=== PATIENT | male | born 1945 | race Caucasian/White ===

== ENCOUNTER 2020-06-29 09:01 | Outpatient (REF) | payer MEDICARE, SELFPAY ==
[2020-06-29 12:11] LABS: Alanine Aminotransferase 19 U/L (0-40); Albumin Level 4.4 g/dL (3.5-5.0); Alkaline Phosphatase 50 U/L (39-117); Anion Gap 14 (12-20); Aspartate Amino Transferase 19 U/L (5-37); Bilirubin Total 0.9 mg/dL (0.0-1.0); Blood Urea Nitrogen 15 mg/dL (9-16); Calcium 8.6 mg/dL (8.4-10.2); Carbon Dioxide 29 mmol/L (22-29); Chloride 98 mmol/L (96-108); Cholesterol 119 mg/dL; Estimated Glomerular Filt Rate > 60; Glucose Fasting 202 mg/dL (60-99); HDL Cholesterol 40 mg/dL; LDL Cholesterol Calculated 52 mg/dl; Potassium 4.2 mmol/l (3.3-5.1); Sodium 137 mmol/L (135-145); Total Protein 7.4 g/dL (6.5-8.0); Triglycerides 135 mg/dL
[2020-06-29 12:14] LABS: TSH reflex Free T4 2.28 mIU/mL (0.32-4.0)
[2020-06-29 12:35] LABS: Microalbum/Creatinine Ratio Ur 15.8 ug/mg cr
== END 2020-06-29 09:02 | disposition home or self-care (01) ==
LOC: HO.HMGCLDS 09:01
PROVIDERS: PCP Nurse Practitioner Family; Visit Provider Nurse Practitioner Family
DX: I10 Essential (primary) hypertension (principal)
CPT/HCPCS: 80053; 80061; 82043; 84443

== ENCOUNTER 2020-09-17 10:45 | Outpatient (REF) | payer MEDICARE, SELFPAY ==
[2020-09-17 14:15] LABS: Estimated Average Glucose 174 mg/dL; Hemoglobin A1c % 7.7 %
[2020-09-17 14:41] LABS: Alanine Aminotransferase 22 U/L (0-40); Albumin Level 4.5 g/dL (3.5-5.0); Alkaline Phosphatase 48 U/L (39-117); Anion Gap 17 (12-20); Aspartate Amino Transferase 19 U/L (5-37); Bilirubin Total 1.4 mg/dL (0.0-1.0); Blood Urea Nitrogen 23 mg/dL (9-16); Calcium 9.1 mg/dL (8.4-10.2); Carbon Dioxide 26 mmol/L (22-29); Chloride 97 mmol/L (96-108); Estimated Glomerular Filt Rate 58; Glucose Random 200 mg/dL (60-115); Potassium 4.6 mmol/l (3.3-5.1); Sodium 135 mmol/L (135-145); Total Protein 7.4 g/dL (6.5-8.0)
== END 2020-09-17 10:46 | disposition home or self-care (01) ==
LOC: HO.HMGCLDS 10:45
PROVIDERS: PCP Nurse Practitioner Family; Visit Provider Nurse Practitioner Family
DX: E11.9 Type 2 diabetes mellitus without complications (principal)
CPT/HCPCS: 36415; 80053; 83036

== ENCOUNTER 2020-09-20 10:07 | Outpatient (REF) | payer MEDICARE, SELFPAY ==
[2020-09-20 11:27] LABS: Bilirubin Direct 0.5 mg/dL (0.0-0.5); Bilirubin Total 1.1 mg/dL (0.0-1.0)
[2020-09-20 11:33] LABS: Estimated Average Glucose 174 mg/dL; Hemoglobin A1c % 7.7 %
== END 2020-09-20 10:08 | disposition home or self-care (01) ==
LOC: HO.HMGCLDS 10:07
PROVIDERS: PCP Nurse Practitioner Family; Visit Provider Nurse Practitioner Family
DX: E11.9 Type 2 diabetes mellitus without complications (principal); R17 Unspecified jaundice; I10 Essential (primary) hypertension
CPT/HCPCS: 36415; 82247; 82248; 83036

== ENCOUNTER 2020-10-25 09:53 | Outpatient (REF) | payer MEDICARE, SELFPAY ==
--- NOTE | ~2020-10-25 | US_ITS ---
EXAMINATION: US EXTRACRANIAL CAROTID DUPLEX, BILATERAL CLINICAL INFORMATION: Right cervical bruit. COMPARISON: None TECHNIQUE: Real-time ultrasound and Doppler techniques (integrating B-mode 2-D vascular images, Doppler spectral analysis and color-flow Doppler imaging) were utilized to interrogate the extracranial carotid arteries, the vertebral arteries and proximal subclavian arteries bilaterally. The degree of stenosis is determined by criteria similar to NASCET. FINDINGS: Right Side: 1. There is calcified atherosclerotic plaque seen in the bifurcation/proximal ICA region. 2. The common carotid artery PSV proximally is 111 cm/s and distally 67 cm/s. 3. The proximal internal carotid artery velocities are 153 cm/s systolic and 28 cm/s diastolic. 4. The proximal external carotid artery PSV is 104 cm/s. 5. The vertebral artery shows antegrade flow. 6. The subclavian artery waveforms are normal. Left Side: 1. There is calcified atherosclerotic plaque seen in the bifurcation/proximal ICA region. 2. The common carotid artery PSV proximally is 73 cm/s and distally 68 cm/s. 3. The proximal internal carotid artery velocities are 127 cm/s systolic and 32 cm/s diastolic. 4. The proximal external carotid artery PSV is 140 cm/s. 5. The vertebral artery shows antegrade flow. 6. The subclavian artery waveforms are normal. An arrhythmia is noted. US/US carotid duplex BI IMPRESSION: 1. RIGHT: Moderate, hemodynamically significant stenosis of the proximal right internal carotid artery corresponding to a 50-79% stenosis by velocity criteria. 2. LEFT: Moderate, hemodynamically significant stenosis of the proximal left internal carotid artery corresponding to a 50-79% stenosis by velocity criteria.
== END 2020-10-25 09:54 | disposition home or self-care (01) ==
LOC: HO.HMGCX 09:53
PROVIDERS: PCP Nurse Practitioner Family; Visit Provider Nurse Practitioner Family
DX: R09.89 Other specified symptoms and signs involving the circulatory and respiratory systems (principal)
CPT/HCPCS: 93880

== ENCOUNTER 2020-12-22 09:36 | Outpatient (REF) | payer MEDICARE, SELFPAY ==
[2020-12-22 12:31] LABS: Alanine Aminotransferase 27 U/L (0-40); Albumin Level 4.5 g/dL (3.5-5.0); Alkaline Phosphatase 47 U/L (39-117); Anion Gap 15 (12-20); Aspartate Amino Transferase 20 U/L (5-37); Bilirubin Total 1.1 mg/dL (0.0-1.0); Blood Urea Nitrogen 16 mg/dL (9-16); Calcium 9.3 mg/dL (8.4-10.2); Carbon Dioxide 26 mmol/L (22-29); Chloride 101 mmol/L (96-108); Estimated Glomerular Filt Rate > 60; Glucose Random 223 mg/dL (60-115); Potassium 4.5 mmol/L (3.3-5.1); Sodium 137 mmol/L (135-145); Total Protein 7.3 g/dL (6.5-8.0)
[2020-12-22 12:34] LABS: Estimated Average Glucose 186 mg/dL; Hemoglobin A1c % 8.1 %
== END 2020-12-22 09:37 | disposition home or self-care (01) ==
LOC: HO.HMGCLDS 09:36
PROVIDERS: PCP Nurse Practitioner Family; Visit Provider Nurse Practitioner Family
DX: E11.9 Type 2 diabetes mellitus without complications (principal)
CPT/HCPCS: 36415; 80053; 83036

== ENCOUNTER 2021-03-31 09:09 | Outpatient (REF) | payer MEDICARE, SELFPAY ==
[2021-03-31 12:14] LABS: Erythrocyte Sedimentation Rate 27 MM/HR (0-15)
[2021-03-31 13:10] LABS: Uric Acid 5.5 mg/dL (3.4-7.0)
== END 2021-03-31 09:10 | disposition home or self-care (01) ==
LOC: HO.HMGCLDS 09:09
PROVIDERS: PCP Nurse Practitioner Family; Visit Provider Podiatrist
DX: M10.071 Idiopathic gout, right ankle and foot (principal)
CPT/HCPCS: 36415; 84550; 85652; 86140

== ENCOUNTER 2021-04-07 09:12 | Outpatient (REF) | payer MEDICARE, SELFPAY ==
[2021-04-07 11:49] LABS: Estimated Average Glucose 157 mg/dL; Hemoglobin A1c % 7.1 %
[2021-04-07 11:59] LABS: Creatinine Urine 126.36 mg/dL; Microalbumin Urine < 5.0 mg/L
[2021-04-07 12:05] LABS: Alanine Aminotransferase 26 U/L (0-40); Alkaline Phosphatase 49 U/L (39-117); Anion Gap 13 (12-20); Aspartate Amino Transferase 18 U/L (5-37); Bilirubin Total 1.2 mg/dL (0.0-1.0); Blood Urea Nitrogen 30 mg/dL (9-16); Calcium 8.9 mg/dL (8.4-10.2); Carbon Dioxide 28 mmol/L (22-29); Chloride 99 mmol/L (96-108); Cholesterol 110 mg/dL; Estimated Glomerular Filt Rate 59; Glucose Fasting 142 mg/dL (60-99); HDL Cholesterol 33 mg/dL; LDL Cholesterol Calculated 46 mg/dl; Potassium 3.9 mmol/L (3.3-5.1); Sodium 136 mmol/L (135-145); Total Protein 6.7 g/dL (6.5-8.0); Triglycerides 155 mg/dL
== END 2021-04-07 09:13 | disposition home or self-care (01) ==
LOC: HO.HMGCLDS 09:12
PROVIDERS: PCP Nurse Practitioner Family; Visit Provider Nurse Practitioner Family
DX: E11.9 Type 2 diabetes mellitus without complications (principal)
CPT/HCPCS: 36415; 80053; 80061; 82043; 83036

== ENCOUNTER 2022-03-17 09:11 | Outpatient (REF) | payer MEDICARE, SELFPAY ==
[2022-03-17 11:54] LABS: Estimated Average Glucose 111 mg/dL; Hemoglobin A1c % 5.5 %
[2022-03-17 12:11] LABS: Appearance Urine CLEAR; Color Urine YELLOW; Glucose Urine UA NEG (NEG); Leukocyte Esterase Urine NEG (NEG); Nitrite Urine NEG (NEG); PH 6.5 (5.0-8.0); Urine Blood NEG (NEG); Urine Ketones NEG (NEG); Urine Protein NEG (NEG-TRACE)
[2022-03-17 12:25] LABS: TSH reflex Free T4 1.53 uIU/mL (0.32-4.0)
[2022-03-17 12:29] LABS: Alanine Aminotransferase 20 U/L (0-40); Albumin Level 4.2 g/dL (3.5-5.0); Alkaline Phosphatase 61 U/L (39-117); Anion Gap 12 (12-20); Aspartate Amino Transferase 20 U/L (5-37); Blood Urea Nitrogen 14 mg/dL (9-16); Calcium 8.9 mg/dL (8.4-10.2); Carbon Dioxide 25 mmol/L (22-29); Chloride 104 mmol/L (96-108); Cholesterol 105 mg/dL; Estimated Glomerular Filt Rate > 60; Glucose Fasting 130 mg/dL (60-99); HDL Cholesterol 43 mg/dL; LDL Cholesterol Calculated 46 mg/dl; Potassium 3.7 mmol/L (3.3-5.1); Sodium 137 mmol/L (135-145); Total Protein 6.6 g/dL (6.5-8.0); Triglycerides 84 mg/dL
== END 2022-03-17 09:12 | disposition home or self-care (01) ==
LOC: HO.HMGCLDS 09:11
PROVIDERS: PCP Nurse Practitioner Family; Visit Provider Nurse Practitioner Family
DX: I10 Essential (primary) hypertension (principal); E87.1 Hypo-osmolality and hyponatremia; E11.9 Type 2 diabetes mellitus without complications
CPT/HCPCS: 36415; 80053; 80061; 81003; 83036; 84443

== ENCOUNTER 2022-04-07 09:50 | Outpatient (REF) | payer MEDICARE, SELFPAY ==
[2022-04-07 11:31] LABS: Uric Acid 4.8 mg/dL (3.4-7.0)
[2022-04-07 12:44] LABS: Erythrocyte Sedimentation Rate 50 MM/HR (0-15)
== END 2022-04-07 09:51 | disposition home or self-care (01) ==
LOC: HO.HMGCLDS 09:50
PROVIDERS: PCP Nurse Practitioner Family; Visit Provider Podiatrist
DX: M10.071 Idiopathic gout, right ankle and foot (principal)
CPT/HCPCS: 36415; 84550; 85652; 86140

== ENCOUNTER 2022-11-04 10:14 | Outpatient (REF) | payer MEDICARE, SELFPAY ==
--- NOTE | ~2022-11-04 | XR_ITS ---
EXAMINATION: XR CHEST CLINICAL INFORMATION: Cough COMPARISON: None TECHNIQUE: 2 views of the chest were obtained. FINDINGS: Moderate hyperinflation consistent with obstructive airway disease. No significant abnormality is noted involving the heart, lungs, mediastinum, bony thorax or soft tissues. XR/XR chest 2V IMPRESSION: COPD. No infiltrate.
[2022-11-04 12:25] LABS: Influenza A PCR NEGATIVE (Negative); Influenza B PCR NEGATIVE (Negative); Resp Syncy Virus RNA Qual PCR NEGATIVE (Negative); SARS COV2 PCR INHOUSE NEGATIVE (Negative)
== END 2022-11-04 10:15 | disposition home or self-care (01) ==
LOC: HO.HMGCX 10:14
PROVIDERS: Visit Provider Physician Assistant Medical
DX: Z20.822 Contact with and (suspected) exposure to COVID-19 (principal); R05.9 Cough, unspecified
CPT/HCPCS: 0241U; 71046

== ENCOUNTER 2023-01-04 10:07 | Outpatient (REF) | payer MEDICARE, SELFPAY ==
[2023-01-04 11:30] LABS: Appearance Urine Clear; Color Urine Yellow; Glucose Urine UA Negative (Negative); Leukocyte Esterase Urine Negative (Negative); Nitrite Urine Negative (Negative); Specific Gravity - Urine 1.015 (1.005-1.025); Urine Blood Negative (Negative); Urine Ketones Negative (Negative); Urine Protein Trace mg/dL (Neg-Trace)
[2023-01-04 11:39] LABS: Basophils Percent Auto 0.4 % (0-2); Eosinophils Absolute Auto 0.1 X10*3/uL (0.0-0.4); Eosinophils Percent Auto 2.6 % (0-4); Hemoglobin 9.8 g/dl (14.0-18.0); Imm Gran Abs Auto 0.02 X10*3/uL (0.00-0.03); Imm Gran Pct Auto 0.9 % (0.0-0.4); Lymphocytes Absolute Auto 0.4 X10*3/uL (1.2-4.9); Lymphocytes Percent Auto 15.4 % (20-40); MANUAL DIFF FLAG SCAN; Mean Corpuscular Hemoglobin 34.9 pg (27.0-33.0); Mean Corpuscular Volume 99.6 fL (80.0-98.0); Mean Platelet Volume 10.3 fL (9.4-12.4); Monocytes Absolute Auto 0.2 X10*3/uL (0.1-1.2); Monocytes Percent Auto 10.1 % (2-11); Neutrophils Absolute Auto 1.6 x10*3/uL (2.0-8.3); Neutrophils Percent Auto 70.6 % (45-73); Platelet Count 145 X10*3/uL (160-400); Red Blood Count 2.81 X10*6/uL (4.60-5.80); Red Cell Distribution Width 13.2 % (11.0-16.0); SCAN SMEAR FLAG 1
[2023-01-04 11:44] LABS: White Blood Count 2.3 X10*3/uL (4.8-10.8)
[2023-01-04 12:01] LABS: Alanine Aminotransferase 13 U/L (0-40); Albumin Level 3.9 g/dL (3.5-5.0); Alkaline Phosphatase 56 U/L (39-117); Anion Gap 13 (12-20); Aspartate Amino Transferase 17 U/L (5-37); Bilirubin Total 1.1 mg/dL (0.0-1.0); Blood Urea Nitrogen 9 mg/dL (9-16); Calcium 9.2 mg/dL (8.4-10.2); Carbon Dioxide 27 mmol/L (22-29); Chloride 104 mmol/L (96-108); Cholesterol 113 mg/dL; Estimated Glomerular Filt Rate > 60; Glucose Fasting 142 mg/dL (60-99); HDL Cholesterol 44 mg/dL; LDL Cholesterol Calculated 55 mg/dl; Potassium 4.2 mmol/L (3.3-5.1); Sodium 140 mmol/L (135-145); Total Protein 6.4 g/dL (6.5-8.0); Triglycerides 70 mg/dL
[2023-01-04 12:16] LABS: TSH reflex Free T4 1.97 uIU/mL (0.32-4.0)
[2023-01-04 12:18] LABS: Creatinine Urine 150.12 mg/dL; Microalbum/Creatinine Ratio Ur 41.9 ug/mg cr
[2023-01-04 12:35] LABS: SLIDE REVIEW VERIFIED
== END 2023-01-04 10:08 | disposition home or self-care (01) ==
LOC: HO.HMGCLDS 10:07
PROVIDERS: PCP Nurse Practitioner Family; Visit Provider Nurse Practitioner Family
DX: Z13.89 Encounter for screening for other disorder (principal)
CPT/HCPCS: 36415; 80053; 80061; 81003; 82043; 84443; 85025

== ENCOUNTER 2023-03-28 08:00 | Outpatient (AMB) | payer MEDICARE, SELFPAY ==
--- OUTSIDE RECORDS SUMMARY | 2023-03-28 08:02 | XMS_ITS | Continuity of Care Document ---
Author Name Unknown Organization [facility] Address [address] [place] [address]- Care Team Providers Care Unix Systems Administrator Name Role Phone Hailey BRAMBILA, Dariel Singletary Primary Care Physician [place] [facility] [place](s): 12/20/22 - 01/19/23 [facility] [address] [place] [address]- Allergies, Adverse Reactions, Alerts Substance Reaction Severity Status tetracycline Rash Active amoxicillin Rash Active sulfADIAZINE Swelling of throat Active penicillins Rash Active Augmentin Rash Active Medications atorvastatin 20 mg oral tablet 0 Refills, Maintenance, 12/26/22 15:28:00 EDT, Partial fill upon patient request if the prescription is for a schedule II opioid drug. Start Date: 12/26/22 Status: Ordered dorzolamide-timolol 2.23%-0.68% ophthalmic solution 0 Refills, Maintenance, 12/26/22 15:28:00 EDT, Partial fill upon patient request if the prescription is for a schedule II opioid drug. Start Date: 12/26/22 Status: Ordered glipiZIDE 10 mg oral tablet TAKE 1 TABLET BY MOUTH EVERY DAY Start Date: 12/27/21 Status: Ordered hydroCHLOROthiazide 12.5 mg oral capsule TAKE 1 CAPSULE BY MOUTH EVERY DAY Start Date: 12/27/21 Status: Ordered losartan 50 mg oral tablet TAKE 1 TABLET BY MOUTH TWICE A DAY Start Date: 12/27/21 Status: Ordered Multivitamin Daily, 0 Refills, Maintenance, 12/26/22 15:28:00 EDT, Partial fill upon patient request if the prescription is for a schedule II opioid drug. Start Date: 12/26/22 Status: Ordered verapamil 120 mg oral tablet, extended release 0 Refills, Maintenance, 12/26/22 15:28:00 EDT, Partial fill upon patient request if the prescription is for a schedule II opioid drug. Start Date: 12/26/22 Status: Ordered Vitamin D3 1000 intl units oral capsule 1 capsule = 25 mcg, By Mouth, Daily, 0 Refills, Maintenance, 12/26/22 15:28:00 EDT, Partial fill upon patient request if the prescription is for a schedule II opioid drug. Start Date: 12/26/22 Status: Ordered Social History Social History Type Response Smoking Status Former smoker; Tobac co user in household: No entered on: 10/08/14 Sex Patient Care team information Care Team Personnel Name: Dariel Hart NP Position: Reference Physician Member Role: PCP Address: Address: [address] [place] [address]- Care Team Related Persons Name: SHREYA DHALIWAL Address: home [address] [place] [address]
--- OUTSIDE RECORDS SUMMARY | 2023-03-28 08:02 | XMS_ITS | Continuity of Care Document ---
Author Name Unknown Organization [facility] Address [address] [place] [address]- Care Team Providers Care Director Occupational Name Role Phone Hailey BRAMBILA, Dariel Singletary Primary Care Physician Encounter [facility] [place] Date(s): 12/26/22 - 01/02/23 [facility] [address] [place] [place] [address] Attending Physician: Zachary BRAMBILA, Suzanne Randall Admitting Physician: Zachary BRAMBILA, Suzanne Randall Referring Physician: Dariel Hart NP Allergies, Adverse Reactions, Alerts Substance Reaction Severity [...] opioid drug. Start Date: 12/26/22 Status: Ordered Vital Signs Most recent to oldest [Reference Range]: 1 Height 178.5 cm (12/26/22 3:17 PM) Weight 79.38 kg (12/26/22 3:17 PM) Oxygen Saturation [94-100 %] 96 % (12/26/22 3:17 PM) Pulse Rate [55-90 bpm] 70 bpm (12/26/22 3:17 PM) Body Mass Index [18.5-24.99 kg/m2] 24.91 kg/m2 (12/26/22 3:17 PM) Blood Pressure [90-138/55-84 mm Hg] 136/ 56mm Hg (12/26/22 3:17 PM) Mode of Delivery (Oxygen) Room air (12/26/22 3:17 PM) Blood pressure sites Arm, right (12/26/22 3:17 PM) Weight Obtained Via Patient/family state d (12/26/22 3:17 PM) Social History Social History Type Response Smoking Status Former smoker; Tobac co user in household: No entered on: 10/08/14 Sex Note * Marissa Massey: PERFORM, SIGN, VERIFY Event Display: Patient Education/Instruction Authored Date: [id number] [facility] [address] Clinical Summary Name GILLES DHALIWAL Age 77 Years 1945 PCP Hailey BRAMBILA , Dariel Singletary PCP Visit Date 12/26/2022 15:13:00 Additional Instructions: Scheduled Appointments?? Future Appointments ?No Future Appointments Scheduled Follow-Up Instructions ?? Diagnosis Medications: Please continue your medications until treatment is completed or stopped by your provider. Discuss any questions related to medications with your provider. Medications to Continue with No Changes These medications were not printed or sent to your pharmacy Atorvastatin (atorvastatin 20 mg oral tablet) Next Dose: Cholecalciferol (Vitamin D3 1000 intl units oral capsule) 1 capsule Oral Daily. Next Dose: Dorzolamide-Timolol Ophthalmic (dorzolamide-timolol 2.23%-0.68% ophthalmic solution) Next Dose: GlipiZIDE (glipiZIDE 10 mg oral tablet) TAKE 1 TABLET BY MOUTH EVERY DAY. Next Dose: Hydrochlorothiazide (hydroCHLOROthiazide 12.5 mg oral capsule) TAKE 1 CAPSULE BY MOUTH EVERY DAY. Next Dose: Losartan (losartan 50 mg oral tablet) TAKE 1 TABLET BY MOUTH TWICE A DAY. Next Dose: Multivitamin Daily. Next Dose: Verapamil (verapamil 120 mg oral tablet, extended release) Next Dose: Allergy Info:?? Augmentin; penicillins; sulfADIAZINE; amoxicillin; tetracycline Medications Given This Visit Future Orders ?No future orders Vital Signs Height 178.5 cm Weight 79.38 kg BMI 24.91 kg/m2 Blood Pressure 136 mm Hg/56 mm Hg Temperature Pulse Rate 70 bpm Respiratory Rate 02 Sat Mode of Delivery 96 %/Room air You can now view a summary of your hospital visit from the comfort of your home through a free online portal called [email or web address]. [email or web address] is a website that allows you to securely view your medical information including discharge summary, medications and follow-up visits. ??You can alsosend a secure electronic message to your doctor???s office to request appointments, renew medications or just ask a question. You can enroll at [email or web address] or register during your next office visit. Disclaimer:?? The information provided is of a general nature and is intended to be used in conjunction with the recommendations and advice of your health care practitioner. ??Every effort has been made to ensure that the information provided is accurate and complete at the time it is provided to you however, as your needs change, or, as new ??information becomes available, different or additional instructions may be required. If you have questions, please consult with your primary care provider or pharmacist, as appropriate. ??This information is not intended to serve as substitution for assessment and evaluation by a qualified health care provider. If you do not have a primary care provider, you may find a [facility] provider by calling [facility] at [phone]. For information about the plan of care including goals and instructions for your diagnosis, please see the patient education orders section of this document. Patient Education Materials?? The content of this educational material or handout may have been modified, supplemented, or adapted from its original content and format to support your individualized medical care. Patient Care team information Care Team Personnel Name: Dariel Hart NP Position: Reference Physician Member Role: PCP Address: Address: [address] [place] [address]- Care Team Related Persons Name: SHREYA DHALIWAL Address: home [address] [place] [address]
--- OUTSIDE RECORDS SUMMARY | 2023-03-28 08:02 | XMS_ITS | Patient Health Record ---
Author Name Unknown [facility] Address [address] [place] [address] Care Team Providers Care Acetylene Cylinder Packing Mixer Name Role Phone Dariel Russell Primary Care Provider Unav ailable Black, Desire Unavailable [phone] ALLERGIES Allergen (clinical drug ingredient) Drug/Non Drug Allergy documented on EMR Reaction Allergy Type Onset Date Status sulfamethoxazole / trimethoprim Bactrim eyes and lips swell Drug Allergy Active tetracycline Tetracycline HCl rash Drug Allergy Active amoxicillin Amoxicillin Unknown Drug Allergy Act sriram clindamycin Clindamycin heartburn Drug Allergy Act sriram Penicillin Unknown Drug Allergy Active RESULTS Component Value Reference Range Notes X ray : Foot, right 3V Reviewed date:04/06/2022 12:14:43 PM Interpretation: See Examination above Performing Lab: Notes/Report: See Examination above HEMOGLOBIN A1C (GLYCOHEMOGLO BIN) Reviewed date:05/29/2022 08:57:19 AM Interpretation: Performing Lab: Notes/Report: TOTAL HEMOGLOBIN (HGBA1C) HEMOGLOBIN A1C (HH) 5.2 HEMOGLOBIN A1C % (HH) ESTIMATED AVG GLUCOSE HEMOGLOBIN A1C (GLYCOHEMOGLO BIN) Reviewed date:10/02/2022 09:53:22 AM Interpretation: Performing Lab: Notes/Report: TOTAL HEMOGLOBIN (HGBA1C) HEMOGLOBIN A1C (HH) 6.2 HEMOGLOBIN A1C % (HH) ESTIMATED AVG GLUCOSE HEMOGLOBIN A1C (GLYCOHEMOGLO BIN) Reviewed date:02/05/2023 10:31:36 AM Interpretation: Performing Lab: Notes/Report: TOTAL HEMOGLOBIN (HGBA1C) HEMOGLOBIN A1C (HH) 5.9 HEMOGLOBIN A1C % (HH) ESTIMATED AVG GLUCOSE REASON FOR REFERRAL No Information MEDICATIONS Medication SIG (Take, Route, Frequency, Duration) Notes Start Date End Date Status Lisinopril Not-Takin g Verapamil HCl 120 MG as directed Orally once a day Active Atorvastatin Calcium 20 MG Orally Active Losartan Potassium 50 MG 1 tablet Orally Once a day for 30 day(s) Active Timolol Maleate 6.8 1 drop into affected eye Ophthalmic Active Enstilar 0.005-0.064 % 1 application Externally Once a day Active glipiZIDE Active Extra Depth Orthopedic Shoes (1 Pair) with Customized Heat Molded Multidensity Innersoles (3 Pair) as directed Dx: NIDDM/Polyneuropathy (E11.42), Hammertoe Foot Deformity (M20.41,M20.42), Preulcerative Skin Lesion(s) (L85.1 09/16/2020 Active Medrol 4 MG as directed Orally a s directed for 6 days 03/29/2021 Not-Taking Clindamycin HCl Not- Taking Dexamethasone 0.75 MG 1 tablet Orally ev js 12 hrs for 30 day(s) Active Cilostazol 50 MG 1 tablet 30 minutes before or 2 hours after breakfast and dinner Orally Twice a day Not-Taking hydroCHLOROthiazide 12.5 MG as directed Orally Once a day Active IMMUNIZATIONS Vaccine Route Administration Date Status Comme nts COVID-19 Pfizer BioNTech Vaccine Unknown 06/01/2021 Administered 1st dose: 09/30/2020 2nd dose: 10/21/20 Influenza Unknown 05/28/2017 Administered Influenza Unknown 04/27/2020 Administered Influenza Unknown 05/27/2021 Administered SOCIAL HISTORY Tobacco Use: Social History Observation Description Date Details (start date - stop date) Former Smoker NA - NA Sex Assigned At : Social History Observation Description Sex Assigned At Unknown Tobacco Use/Smoking Question Answer Notes Are you a: former smoker Additional Findings: Tobacco Non-User Current no n-smoker Alcohol Screen Question Answer Notes Did you have a drink containing alcohol in the p ast year? No Points 0 Interpretation Negative Tobacco use other than smoking: Question Answer Notes Are you an other tobacco user? No PROBLEMS Problem Type ICD Code Onset Dates Problem Status W/U Status Risk SNOMED Code Notes Problem Other hammer toe(s) (acquired), right foot (M20.41) Active confirmed Acquired hammer toe of right foot (0841721090000491) Problem Hallux valgus (acquired), left foot (M20.12) Active confirmed Acquired hallu x valgus (96620306) Problem Other hammer toe(s) (acquired), left foot (M20.42) Active confirmed Acquired hammer toe of left foot (2555292505115036) Problem Non-pressure chronic ulcer of other part of left foot limited to breakdown of skin (L97.521) Active confirmed Diabetic foot ulcer (701393407) Problem Unspecified atherosclerosis of [place] arteries of extremities, 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 Atherosclerosis of [place] arteries of the extremities (712885081983507) Problem Hallux valgus (acquired), right foot (M20.11) Active confirmed Acquired hallu x valgus (35989305) Problem Non-pressure chronic ulcer of other part of left foot limited to breakdown of skin (L97.521) Active confirmed Ulcer of foot (77911164) Problem Type 2 diabetes mellitus with diabetic polyneuropathy (E11.42) Active confirmed Polyneuropathy due to type 2 diabetes mellitus (955655414) Problem Idiopathic gout, right ankle and foot (M10.071) Active confirmed Primary gout (32702271) Problem Neuropathy (G62.9) Active confirmed 386 639974 Problem Acute idiopathic gout of right foot (M10.071) Active confirmed 8256347263516155 Problem PlantarFlexion of metatarsal of right foot (M21.6X1) Active confirmed Acquired deform ity of right foot (14968025633174827 ) Problem PlantarFlexion of metatarsal of left foot (M21.6X2) Active confirmed Acquired defo rmity of left foot (52342639250843924 ) Problem 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) Active confirmed Gouty top hus of left foot (70265359462347014 ) VITAL SIGNS Blood pressure diastolic 76 mm Hg 03/26/2023 Height 5 ft 11 in in 03/26/2023 Blood pressure systolic 142 mm Hg 03/26/2023 Weight 176 lbs 03/26/2023 BMI 24.54 kg/m2 03/26/2023 PROCEDURES Procedure Date Ordered Date Performed Result Body Sit e 91685 I&D ABSCESS- SIMPLE,SINGLE 05/09/2022 N/A 85791- Debride <25 sq cm 05/29/2022 N/A 59987-UBJA SKIN LESIONS, 2 TO 4 05/29/2022 N/A 89336-GBDB NAIL(S) 05/29/2022 N/A 13012- Debride <25 sq cm 06/12/2022 N/A 12042 I&D ABSCESS- SIMPLE,SINGLE 10/02/2022 N/A 01892-PAZW SKIN LESIONS, 2 TO 4 10/02/2022 N/A 91844-YZDQ NAIL(S) 10/02/2022 N/A 36060-Ouowchpf Plate 02/05/2023 N/A 02386-TANH SKIN LESIONS, 2 TO 4 02/05/2023 N/A 72540-VJHI NAIL(S) 02/05/2023 N/A 76913-Urdy. Subungual Hematoma 03/26/2023 N/A Encounters Encounter Location Date Provider Diagnosis [facility] [address] 04/04/2022 Desire Black [facility] [address] 04/06/2022 Desire Black Hallux valgus (acquired), right foot M20.11 ; Bunion of right foot M21.611 ; Idiopathic gout, right ankle and foot M10.071 ; Pain in right toe(s) M79.674 and Pain in right foot M79.671 [facility] [address] 05/08/2022 [facility] [address] 05/09/2022 Desire Black Cutaneous abscess of right foot L02.611 ; Metatarsalgia, left foot M77.42 ; PlantarFlexion of metatarsal of left foot M21.6X2 ; Pain in left foot M79.672 ; Type 2 diabetes mellitus with diabetic polyneuropathy E11.42 and Cellulitis of foot without toes, left L03.116 [facility] [address] [address] 05/29/2022 Desire Black Metatarsalgia, left foot M77.42 ; PlantarFlexion of metatarsal of left foot M21.6X2 ; Pain in left foot M79.672 ; Type 2 diabetes mellitus with diabetic polyneuropathy E11.42 ; Cellulitis of foot without toes, left L03.116 ; 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 M1A.9XX1 and Non-pressure chronic ulcer of other part of left foot limited to breakdown of skin L97.[address] [address] 06/12/2022 Desire Black Type 2 diabetes mellitus with diabetic polyneuropathy E11.42 and Non-pressure chronic ulcer of other part of left foot limited to breakdown of skin L97.[address] [address] 10/02/2022 Desire Black Type 2 diabetes mellitus with diabetic polyneuropathy E11.42 ; Neuritis M79.2 ; Unspecified atherosclerosis of [place] arteries of extremities, bilateral legs I70.203 ; Neuropathy G62.9 and Cutaneous abscess of right foot L02.[address] [address] 02/05/2023 Desire Black Type 2 diabetes mellitus with diabetic polyneuropathy E11.42 ; Neuritis M79.2 ; Unspecified atherosclerosis of [place] arteries of extremities, bilateral legs I70.203 ; Neuropathy G62.9 ; Cutaneous abscess of right foot L02.611 and Ingrowing nail L60.[address] [address] 03/23/2023 Desire Black [address] [address] 03/26/2023 Desire Black Contusion of toenail of left foot, initial encounter S90.222A ASSESSMENTS Encounter Date Diagnosis Assessment Notes Treatment Notes Treatment Clinical Notes 04/06/2022 Hallux valgus (acquired), right foot (ICD-10 - M20.11) 04/06/2022 Bunion of right foot (ICD-10 - M21.611) 05/09/2022 Metatarsalgia, left foot (ICD-10 - M77.42) 05/09/2022 Cutaneous abscess of right foot (ICD-10 - L02.611) 05/29/2022 Metatarsalgia, left foot (ICD-10 - M77.42) 05/29/2022 PlantarFlexion of metatarsal of left foot (ICD-10 - M21.6X2) 06/12/2022 Non-pressure chronic ulcer of other part of left foot limited to breakdown of skin (ICD-10 - L97.521) 06/12/2022 Type 2 diabetes mellitus with diabetic polyneuropathy (ICD-10 - E11.42) 10/02/2022 Type 2 diabetes mellitus with diabetic polyneuropathy (ICD-10 - E11.42) 10/02/2022 Neuritis (ICD-10 - M79.2) 02/05/2023 Type 2 diabetes mellitus with diabetic polyneuropathy (ICD-10 - E11.42) 02/05/2023 Neuritis (ICD-10 - M79.2) 03/26/2023 Contusion of toenail of left foot, initial encounter (ICD-10 - S90.222A) 02/05/2023 Unspecified atherosclerosis of [place] arteries of extremities, bilateral legs (ICD-10 - I70.203) 10/02/2022 Unspecified atherosclerosis of [place] arteries of extremities, bilateral legs (ICD-10 - I70.203) 05/09/2022 PlantarFlexion of metatarsal of left foot (ICD-10 - M21.6X2) 05/29/2022 Pain in left foot (ICD-10 - M79.672) 04/06/2022 Idiopathic gout, rig ht ankle and foot (ICD-10 - M10.071) Patient Educated with: GOUT.pdf (GOUT.pdf) Patient Educated with: LOW PURINE DIET.pdf (LOW PURINE DIET.pdf) 04/06/2022 Pain in right toe(s) (ICD-10 - M79.674) 05/09/2022 Pain in left foot (ICD-10 - M79.672) 05/29/2022 Type 2 diabetes mellitus with diabetic polyneuropathy (ICD-10 - E11.42) 10/02/2022 Neuropathy (ICD-10 - G62.9) 02/05/2023 Neuropathy (ICD-10 - G62.9) 02/05/2023 Cutaneous abscess of right foot (ICD-10 - L02.611) 10/02/2022 Cutaneous abscess of right foot (ICD-10 - L02.611) 05/29/2022 Cellulitis of foot without toes, left (ICD-10 - L03.116) 05/09/2022 Type 2 diabetes mellitus with diabetic polyneuropathy (ICD-10 - E11.42) 04/06/2022 Pain in right foot (ICD-10 - M79.671) 05/09/2022 Cellulitis of foot without toes, left (ICD-10 - L03.116) 05/29/2022 Tophus of foot due t o gout (ICD-10 - M1A.9XX1) 02/05/2023 Ingrowing nail (ICD- 10 - L60.0) 05/29/2022 Non-pressure chronic ulcer of other part of left foot limited to breakdown of skin (ICD-10 - L97.521) PLAN OF TREATMENT Pending Test Test Name Order Date *Uric Acid, Serum 03/29/2021 *Uric Acid, Serum 04/06/2022 *Sedimentation Rate-Westergren 2 *Sedimentation Rate-Westergren 1 C-Reactive Protein, Quant 04/06/2022 X ray : Foot, right 3V 06/29/2016 X ray : Foot, right 3V 03/29/2021 93300-Ibjdqgvp Plate 02/05/2023 03787- Debride <25 sq cm 06/12/2022 50817- Debride <25 sq cm 08/09/2020 14132- Debride <25 sq cm 05/29/2022 56416- Debride <25 sq cm 04/30/2015 82216- Debride <25 sq cm 09/16/2020 75483- Debride <25 sq cm 12/29/2015 48073- Debride <25 sq cm 06/29/2016 40293 I&D ABSCESS- SIMPLE,SINGLE 023 50658 I&D ABSCESS- SIMPLE,SINGLE 022 74160-UUXC SKIN LESIONS, 2 TO 4 10/02/19 23 18099-FHNG SKIN LESIONS, 2 TO 4 02/06/20 23 65981-AYLK SKIN LESIONS, 2 TO 4 04/11/20 21 85184-TLSQ SKIN LESIONS, 2 TO 4 09/05/19 22 51236-BDVC SKIN LESIONS, 2 TO 4 03/09/20 22 10921-JSVT SKIN LESIONS, 2 TO 4 12/29/19 17 24113-YWHI SKIN LESIONS, 2 TO 4 09/16/19 21 42821-EBJQ SKIN LESIONS, 2 TO 4 05/29/20 22 28444-YOZI SKIN LESIONS, 2 TO 4 06/29/20 16 91196-AOGQ SKIN LESIONS, 2 TO 4 09/24/19 18 12492-BQNE SKIN LESIONS, 2 TO 4 03/25/20 18 97564-RSGZ SKIN LESIONS, 2 TO 4 09/23/19 19 18271-SKOT SKIN LESIONS, 2 TO 4 03/03/20 19 68624-EPIJ SKIN LESIONS, 2 TO 4 09/01/19 20 20191-FSWV SKIN LESIONS, 2 TO 4 03/08/20 20 47295-YMJF SKIN LESIONS, 2 TO 4 06/10/20 20 00802-MHSS SKIN LESIONS, 2 TO 4 12/10/19 21 51308-BCFU SKIN LESION 04/30/2015 98267-Apdm. Subungual Hematoma 3 65288-ILUH NAIL(S) 03/09/2022 73925-GFYX NAIL(S) 09/05/2021 40376-CCYI NAIL(S) 04/11/2021 63446-CXCN NAIL(S) 02/05/2023 33218-MLNW NAIL(S) 10/02/2022 42728-ITVZ NAIL(S) 09/16/2020 06571-OSTL NAIL(S) 05/29/2022 01076-IUBY NAIL(S) 12/09/2020 31404-IRRD NAIL(S) 06/10/2020 98041-YISB NAIL(S) 03/08/2020 L4729-GUIFXXVN DYSTROPHIC NAILS ANY # E2880-EQXVRSPY DYSTROPHIC NAILS ANY # F4783-YWEYHAFI DYSTROPHIC NAILS ANY # M4066-UMZZATOE DYSTROPHIC NAILS ANY # J5249-OTOHYBHF DYSTROPHIC NAILS ANY # H9650-XADBLQUC DYSTROPHIC NAILS ANY # M7492-EYZUYOBR DYSTROPHIC NAILS ANY # 84636-Znzexpxao, Toes 06/29/2016 CRP 03/29/2021 Next Appt Details Provider Name:Desire Zaman , 04/12/2023 10:15:00 AM, [address] [place] [address], [phone], Provider Name:Desire Zaman , 06/07/2023 09:15:00 AM, [address] [place], [address], Insurance Providers Payer Name Payer Address Payer Phone Subscriber Number Group Number Insured Name Patient Relationship to Insured Coverage Start Date Coverage End Date [facility] [address] [place] [phone] [id number] Graham Castillo Self - patient is the insured MEDICAL (GENERAL) HISTORY Medical History History ICD Code Cancer Gall bladder problems High blood pressure Measles Mumps Chicken pox Joint implants/screws Diabetes mellitus type ll Surgical History Surgery Date(Month/Year) gall bladder 12/06/2014 appendectomy 03/2014 Hospitalization History Reason Date(Month/Year)
--- NOTE | 2023-03-28 08:03 | AM.OFFWIN_ITS ---
Intake Vital Signs 03/28/23 08:05 BP 114/66 Blood Pressure Location Lt brachial Position Sitting Pulse 84 Pulse Source Pulse Oximeter Temp 97.9 F Temp Source Temporal Artery Scan Pulse Oximetry (%) 97 Oxygen Delivery Method Room Air Intake Visit Reasons: EST/chest cold (lobby Masked) Intake Note: Patient here because he started with a sore throat, he states the sore throat so rt of went away yesterday but now when he coughs it hurts his chest, has been having fevers and chills. denies sob. he checked for covid at home and was negative. Patient Tobacco Use Status: Former Tobacco user Allergies amoxicillin Allergy (Unknown, Verified 03/28/23 08:05) Unknown clindamycin Allergy (Unknown, Verified 03/28/23 08:05) heart burn penicillin G Allergy (Unknown, Verified 03/28/23 08:05) Unknown sulfacetamide [From Sulfacet-R] Allergy (Unknown, Verified 03/28/23 08:05) Unknown sulfur [From Sulfacet-R] Allergy (Unknown, Verified 03/28/23 08:05) Unknown tetracycline Allergy (Unknown, Verified 03/28/23 08:05) Unknown Do you need a note to return to daycare/school/sports/work: No HPI HPI Comments History of Present Illness Details 0816 77-year-old male presents for sick visit patient complaining of 4 days of fatigue, malaise, myalgias, subjective fevers, chills, productive cough with thick yellow sputum, sore throat. Patient does report a sick contact, grandson with similar symptoms. He took COVID test at home which was negative. Patient does report he has been coughing so much that when he coughs his chest hurts however no chest pain at rest, with exertion or without coughing. Patient denies chest pain, shortness of breath, nausea, vomiting, abdominal pain, headache, vision changes, dizziness. Has been taking Mucinex which is helping somewhat he tells me he is here because his sent him here Physical examination benign. Concerns for bronchitis. Unlikely pneumonia, PE, CHF. No signs of ACS. Other differentials include viral illness Plan antibiotics, steroids and albuterol will also send benzonatate for cough. Educated patient on diagnosis and treatment plan, answered all question, patient verbalizes understanding. At this time patient will be discharged home, advised to return with new or worsening symptoms. Educated on worrisome signs and symptoms and when to return. At this time I feel comfortable discharge home. [facility] Medical History Arteriolosclerosis Benign familial tremor COPD (chronic obstructive pulmonary disease) Diabetes Dyslipidemia Elevated PSA Esophageal stricture HTN (hypertension) Hyponatremia Malignant neoplasm of skin Prostate cancer Pulmonary emphysema PVD (peripheral vascular disease) RBBB Surgical History History of cholecystectomy History of hernia surgery Family History Father No problems noted. Mother No problems noted. Daughter No problems noted. Daughter No problems noted. Social History Housing: House Alcohol intake: current Patient Tobacco Use Status: Former Tobacco user Years Smoked: 9 years ago e-Cigarette/Vaping Use: Never Used Second Hand Smoke Exposure: No service: Yes Current occupational status: retired Current occupational exposures/hazards: No Cognitive needs: No Hearing needs: No Vision needs: No Review of Systems Const Details: Constitutional : No Weight loss, + Fever, + Chills, + Fatigue, + Malaise ENT/Mouth : No sore throat, No Rhinorrhea Eyes: No Eye Pain, No Swelling, No Redness Cardiovascular : No Chest Pain, No SOB, No Dyspnea on Exertion, No Orthopnea, No Edema, No Palpitations Respiratory : + Cough, + Sputum, No Wheezing Gastrointestinal : No Nausea, No Vomiting, No Diarrhea, No Constipation, No abdominal Pain, No Hematochezia, No Melena Genitourinary : No Dysuria, No Urinary Frequency, No Hematuria, Musculoskeletal : No joint pain, No Myalgias, No Joint Swelling Skin : No Skin Lesions, No rash Neuro : No Weakness, No Numbness, No Dizziness, No Headache Psych : No Anxiety/Panic, No Depression All other systems reviewed and are negative All systems reviewed & are unremarkable except as noted in HPI and below Physical Exam Vital Signs: Last Vital Signs Temp 97.9 F 03/28/23 08:05 Pulse 84 03/28/23 08:05 BP 114/66 03/28/23 08:05 Pulse Ox 97 03/28/23 08:05 Oxygen Delivery Method Room Air 03/28/23 08:05 Vital signs stable 97% even after ambulation Appearance: Alert.? Oriented X3.? No acute distress.? Head: Normocephalic, atraumatic, no step-offs or deformities Eyes: Pupils equal, round and reactive to light.? CVS: Normal heart rate and rhythm.? Pulses normal.? Respiratory: No respiratory distress.? Breath sounds normal.? Abdomen: Soft and nontender.? Skin: Skin warm and dry.? Normal skin color.? Normal skin turgor.? Extremities: No lower extremity edema.? No calf ttp. 5/5 strength to bilateral upper and lower extremities Neuro: Oriented X 3.? No motor deficit.? No sensory deficit. CN 2-12 intact Assessment & Plan Assessment & Plan (1) Upper respiratory infection: Code(s): J06.9 - Acute upper respiratory infection, unspecified Plan Take your medications as prescribed. If you were prescribed antibiotics today, it is important that you take your medication to their entirety, do not skip any doses, do not finish them early. Follow-up with your primary care provider this week. Return to the emergency department with new or worsening symptoms. Such as fevers, chills, chest pain, shortness of breath, nausea, vomiting, dizziness, headache, vision changes, lethargy In case of emergency call 911 Medications: New azithromycin For 250 mg dose pack: take 500 mg today (day 1), then 250 mg for 4 days (days 2-5) PO 6 tabs 0RF prednisone 40 mg (2 x 20 mg) PO DAILY 5 days 10 tabs 0RF benzonatate 100 mg PO BID PRN 14 caps 0RF cough albuterol sulfate 90 mcg/actuation 2 puffs inhalation Q6H PRN 6.7 grams 0RF shortness of breath or wheezing Coding Level of Care Code Est Pt Level 3 (81045) Diagnoses Upper respiratory infection J06.9
--- OUTSIDE RECORDS SUMMARY | 2023-03-28 08:03 | XMS_ITS | Continuity of Care Document ---
Author Name Unknown Organization [facility] Address [address] [place] [address]- Care Team Providers Care Spool Sander Name Role Phone Hailey BRAMBILA, Dariel Singletary Primary Care Physician Encounter [facility] [place] Date(s): 12/22/22 - 01/21/23 [facility] [address] [place], [place] [address] Attending Physician: Karlee Abdullahi Admitting Physician: Karlee Abdullahi Referring Physician: AdmtrKarlee Allergies, Adverse Reactions, Alerts Substance Reaction Severity [...] Reference Physician Member Role: PCP Address: Address: [address] [place] [address]- Care Team Related Persons Name: SHREYA DHALIWAL Address: home [address] [place] [address]
--- OUTSIDE RECORDS SUMMARY | 2023-03-28 08:03 | XMS_ITS | Continuity of Care Document ---
Author Name Unknown Organization [facility] Address [address] [place] [address]- Care Team Providers Care Vp Revenue Cycle Name Role Phone Hailey BRAMBILA, Dariel Singletary Primary Care Physician [phone] Encounter [facility] [place] Date(s): 12/26/22 - 01/25/23 [facility] [address] [place], [place] [address] [[email or web address]] Attending Physician: Karlee Abdullahi Admitting Physician: Karlee Abdullahi Referring Physician: Karlee Abdullahi Referring Physician: Shellie Smallwood Referring Physician: Shellie Smallwood Allergies, Adverse Reactions, Alerts Substance Reaction Severity [...] in household: No entered on: 10/08/14 Sex Radiology * Event Display: Ultrasound Lower Extremity, Non-BH Authored Date: Patient Care team information Care Team Personnel Name: Dariel Hart NP Position: Reference Physician Member Role: PCP Address: Address: [address] [place] [address]- Care Team Related Persons Name: SHREYA DHALIWAL Address: home [address] [place] [address]
[2023-03-28 08:05] VITALS: BP 114/66; PULSE 84; TEMP 36.6; O2SAT 97
== END 2023-03-28 08:20 | disposition home or self-care (01) ==
PROVIDERS: PCP Nurse Practitioner Family; Visit Provider Physician Assistant
DX: J06.9 Acute upper respiratory infection, unspecified (principal)
CPT/HCPCS: 99213

== ENCOUNTER 2023-05-17 09:32 | Outpatient (REF) | payer MEDICARE, SELFPAY ==
[2023-05-17 13:22] LABS: Basophils Percent Auto 0.4 % (0-2); Eosinophils Absolute Auto 0.1 X10*3/uL (0.0-0.4); Eosinophils Percent Auto 2.7 % (0-4); Hematocrit 29.9 % (42.0-52.0); Hemoglobin 10.4 g/dl (14.0-18.0); Imm Gran Abs Auto 0.02 X10*3/uL (0.00-0.03); Imm Gran Pct Auto 0.9 % (0.0-0.4); Lymphocytes Absolute Auto 0.4 X10*3/uL (1.2-4.9); Lymphocytes Percent Auto 19.5 % (20-40); MANUAL DIFF FLAG SCAN; Mean Corpuscular HGB Conc 34.8 g/dl (31.0-36.0); Mean Corpuscular Hemoglobin 34.9 pg (27.0-33.0); Mean Corpuscular Volume 100.3 fL (80.0-98.0); Mean Platelet Volume 10.7 fL (9.4-12.4); Monocytes Absolute Auto 0.3 X10*3/uL (0.1-1.2); Monocytes Percent Auto 11.5 % (2-11); Neutrophils Absolute Auto 1.5 x10*3/uL (2.0-8.3); Platelet Count 121 X10*3/uL (160-400); Red Blood Count 2.98 X10*6/uL (4.60-5.80); Red Cell Distribution Width 13.7 % (11.0-16.0); SCAN SMEAR FLAG 1
[2023-05-17 13:34] LABS: Alanine Aminotransferase 15 U/L (0-40); Albumin Level 3.9 g/dL (3.5-5.0); Alkaline Phosphatase 53 U/L (39-117); Anion Gap 14 (12-20); Aspartate Amino Transferase 18 U/L (5-37); Bilirubin Total 0.8 mg/dL (0.0-1.0); Blood Urea Nitrogen 16 mg/dL (9-16); Calcium 9.2 mg/dL (8.4-10.2); Carbon Dioxide 26 mmol/L (22-29); Chloride 103 mmol/L (96-108); Cholesterol 104 mg/dL (<200); Estimated Glomerular Filt Rate > 60; Glucose Fasting 154 mg/dL (60-99); HDL Cholesterol 41 mg/dL (>40); LDL Cholesterol Calculated 45 mg/dL (<100); Potassium 4.5 mmol/L (3.3-5.1); Sodium 138 mmol/L (135-145); Total Protein 6.7 g/dL (6.5-8.0); Triglycerides 94 mg/dL (<150)
[2023-05-17 13:38] LABS: White Blood Count 2.3 X10*3/uL (4.8-10.8)
[2023-05-17 13:47] LABS: SLIDE REVIEW VERIFIED
[2023-05-17 13:54] LABS: Appearance Urine Clear; Color Urine Yellow; Free T4 (Free Thyroxine) 0.91 ng/dL (0.71-1.85); Glucose Urine UA Negative (Negative); Leukocyte Esterase Urine Negative (Negative); Nitrite Urine Negative (Negative); PH 6.5 (5.0-9.0); Specific Gravity - Urine 1.015 (1.005-1.025); Thyroid Stimulating Hormone 2.49 uIU/mL (0.32-4.0); Urine Blood Negative (Negative); Urine Ketones Negative (Negative); Urine Protein Negative (Neg-Trace)
== END 2023-05-17 09:33 | disposition home or self-care (01) ==
LOC: HO.HMGCLDS 09:32
PROVIDERS: PCP Nurse Practitioner Family; Visit Provider Nurse Practitioner Family
DX: Z13.89 Encounter for screening for other disorder (principal)
CPT/HCPCS: 36415; 80053; 80061; 81003; 84439; 84443; 85025

== ENCOUNTER 2023-07-26 13:01 | Outpatient (AMB) | payer MEDICARE, SELFPAY ==
--- OUTSIDE RECORDS SUMMARY | 2023-07-26 13:03 | XMS_ITS | Continuity of Care Document ---
Author Name Unknown Organization [facility] Address [address] [place] [address]- Care Team Providers Care Boring Machine Operator Vertical Name Role Phone Hailey BRAMBILA, Dariel Singletary Primary Care Physician [phone] Encounter [facility] Date(s): 04/24/23 - 05/24/23 [facility] [address] [place] [address]- Allergies, Adverse Reactions, Alerts Substance Reaction Severity [...] Reference Physician Member Role: PCP Address: Address: [address] [place] [address]- Care Team Related Persons Name: SHREYA DHALIWAL Address: home [address] [place] [address]
--- OUTSIDE RECORDS SUMMARY | 2023-07-26 13:03 | XMS_ITS | Patient Health Record ---
Author Name Unknown [facility] Address [address] [place] [address] Care Team Providers Care Manufacturing Assistant Name Role Phone Dariel Russell Primary Care Provider Unav ailable Black, Desire Unavailable [phone] ALLERGIES Allergen (clinical drug ingredient) Drug/Non Drug Allergy documented on EMR Reaction Allergy Type Onset Date Status sulfamethoxazole / trimethoprim Bactrim eyes and lips swell Drug Allergy Active tetracycline Tetracycline HCl rash Drug Allergy Active amoxicillin Amoxicillin Unknown Drug Allergy Act sriram clindamycin Clindamycin heartburn Drug Allergy Act sriram Penicillin Unknown Drug Allergy Active RESULTS Component Value Reference Range Notes HEMOGLOBIN A1C (GLYCOHEMOGLO BIN) Reviewed date:10/02/2022 09:53:22 AM Interpretation: Performing Lab: Notes/Report: TOTAL HEMOGLOBIN (HGBA1C) HEMOGLOBIN A1C (HH) 6.2 HEMOGLOBIN A1C % (HH) ESTIMATED AVG GLUCOSE HEMOGLOBIN A1C (GLYCOHEMOGLO BIN) Reviewed date:02/05/2023 10:31:36 AM Interpretation: Performing Lab: Notes/Report: TOTAL HEMOGLOBIN (HGBA1C) HEMOGLOBIN A1C (HH) 5.9 HEMOGLOBIN A1C % (HH) ESTIMATED AVG GLUCOSE REASON FOR REFERRAL Diagnosis 1 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) Diagnosis 2 Unspecified atherosc lerosis of [place] arteries of extremities, bilateral legs (I70.203) Diagnosis 3 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) Diagnosis 4 PlantarFlexion of me tatarsal of right foot (M21.6X1) Diagnosis 5 Non-pressure chronic ulcer of other part of left foot limited to breakdown of skin (L97.521) Diagnosis 6 Other hammer toe(s) (acquired), right foot (M20.41) Diagnosis 7 Other hammer toe(s) (acquired), left foot (M20.42) Diagnosis 8 Acute idiopathic gou t of right foot (M10.071) Diagnosis 9 Hallux valgus (acqui red), right foot (M20.11) Diagnosis 10 Neuropathy (G62.9) Diagnosis 11 PlantarFlexion of me tatarsal of left foot (M21.6X2) Referring Provider First Name Dariel [facility] Referred Provider Desire Zaman Referred Address [address] [place], [place],[address],[place] Referred Provider Specialty Podiatry Referral Priority Routine Diagnosis 1 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) Diagnosis 2 Unspecified atherosc lerosis of [place] arteries of extremities, bilateral legs (I70.203) Diagnosis 3 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) Diagnosis 4 PlantarFlexion of me tatarsal of right foot (M21.6X1) Diagnosis 5 Non-pressure chronic ulcer of other part of left foot limited to breakdown of skin (L97.521) Diagnosis 6 Other hammer toe(s) (acquired), right foot (M20.41) Diagnosis 7 Other hammer toe(s) (acquired), left foot (M20.42) Diagnosis 8 Acute idiopathic gou t of right foot (M10.071) Diagnosis 9 Hallux valgus (acqui red), right foot (M20.11) Diagnosis 10 PlantarFlexion of me tatarsal of left foot (M21.6X2) Diagnosis 11 Neuropathy (G62.9) Referring Provider First Name Dariel Referring Provider Last Name [facility] Referred Provider Desire Zaman Referred Address [address] [place], [place],[address],[place] Referred Provider Specialty Podiatry Referral Priority Routine MEDICATIONS Medication SIG (Take, Route, Frequency, Duration) Notes Start Date End Date Status Probiotic - as directed Orally Active Clindamycin HCl Not- Taking Medrol 4 MG as directed Orally a s directed for 6 days 03/29/2021 Not-Taking dexAMETHasone 0.75 MG 1 tablet Orally ev js 12 hrs for 30 day(s) Active Enstilar 0.005-0.064 % 1 application Externally Once a day Active Timolol Maleate 6.8 1 drop into affected eye Ophthalmic Active Extra Depth Orthopedic Shoes (1 Pair) with Customized Heat Molded Multidensity Innersoles (3 Pair) as directed Dx: NIDDM/Polyneuropathy (E11.42), Hammertoe Foot Deformity (M20.41,M20.42), Preulcerative Skin Lesion(s) (L85.1 09/16/2020 Active glipiZIDE Active Verapamil HCl 120 MG as directed Orally once a day Active hydroCHLOROthiazide 12.5 MG as directed Orally Once a day Active Lisinopril Not-Takin g Losartan Potassium 50 MG 1 tablet Orally Once a day for 30 day(s) Active Atorvastatin Calcium 20 MG Orally Active Cilostazol 50 MG 1 tablet 30 minutes before or 2 hours after breakfast and dinner Orally Twice a day Not-Taking IMMUNIZATIONS Vaccine Route Administration Date Status Comme nts COVID-19 Pfizer BioNTech Vaccine Unknown 06/01/2021 Administered 1st dose: 09/30/2020 2nd dose: 10/21/20 Influenza Unknown 05/28/2017 Administered Influenza Unknown 04/27/2020 Administered Influenza Unknown 05/27/2021 Administered Influenza Unknown 04/27/2022 Administered SOCIAL HISTORY Tobacco Use: Social History [...] confirmed Acquired hammer toe of right foot (1463326610887506 ) Problem Hallux valgus (acquired), left foot (M20.12) Active confirmed Acquired hallu x valgus (17714637) Problem Other hammer toe(s) (acquired), left foot (M20.42) Active confirmed Acquired hamme r toe of left foot (5965459831545803 ) Problem Non-pressure chronic ulcer of other part of left foot limited to breakdown of skin (L97.521) Active confirmed Diabetic foot ulcer (962772880) Problem Unspecified atherosclerosis of [place] arteries of extremities, 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 Atherosclerosis of [place] arteries of the extremities (560511257606242) Problem Hallux valgus (acquired), right foot (M20.11) Active confirmed Acquired hallux valgus (22964823) Problem Non-pressure chronic ulcer of other part of left foot limited to breakdown of skin (L97.521) Active confirmed Ulcer of foot (25825732) Problem Type 2 diabetes mellitus with diabetic polyneuropathy (E11.42) Active confirmed Polyneuropathy due to type 2 diabetes mellitus (323593445) Problem Idiopathic gout, right ankle and foot (M10.071) Active confirmed Primary gout (22153604) Problem Neuropathy (G62.9) Active confirmed 464145392 Problem Acute idiopathic gout of right foot (M10.071) Active confirmed 6844543347230168 Problem PlantarFlexion of metatarsal of right foot (M21.6X1) Active confirmed Acquired deformity of right foot (9668685062938762 0) Problem PlantarFlexion of metatarsal of left foot (M21.6X2) Active confirmed Acquired deformity of left foot (9383380406702979 4) Problem 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) Active confirmed Gouty tophus of left foot (4851030853135678 9) Problem Skin ulcer of toe of right foot, limited to breakdown of skin (L97.511) Active confirmed Ulcer of toe of right foot (disorder) (6649838168136634 1) Nonapplicable Problem Skin ulcer of toe of left foot, limited to breakdown of skin (L97.521) Active confirmed Ulcer of toe of left foot (disorder) (3649995694131959 2) VITAL SIGNS Blood pressure diastolic 76 mm Hg 04/12/2023 Height 5 ft 11 in in 06/07/2023 Blood pressure systolic 142 mm Hg 04/12/2023 Weight 176 lbs 06/07/2023 BMI 24.54 kg/m2 06/07/2023 PROCEDURES Procedure Date Ordered Date Performed Result Body Sit e 06127 I&D ABSCESS- SIMPLE,SINGLE 10/02/2022 N/A 16987-WEZU SKIN LESIONS, 2 TO 4 10/02/2022 N/A 83867-NRZN NAIL(S) 10/02/2022 N/A 18797-Tjgsxjzx Plate 02/05/2023 N/A 89362-OSNC SKIN LESIONS, 2 TO 4 02/05/2023 N/A 92512-ILST NAIL(S) 02/05/2023 N/A 33217-Koga. Subungual Hematoma 03/26/2023 N/A 10618- Debride <25 sq cm 04/12/2023 N/A 96786-LOZR SKIN LESIONS, 2 TO 4 06/07/2023 N/A Y0603-QHDIMJGO DYSTROPHIC NAILS ANY # 06/07/2023 N/A Encounters Encounter Location Date Provider Diagnosis [address] [address] 10/02/2022 Desire Black Type 2 diabetes mellitus with diabetic polyneuropathy E11.42 ; Neuritis M79.2 ; Unspecified atherosclerosis of [place] arteries of extremities, bilateral legs I70.203 ; Neuropathy G62.9 and Cutaneous abscess of right foot L02.[address] [address] 02/05/2023 Desire Black Type 2 diabetes mellitus with diabetic polyneuropathy E11.42 ; Neuritis M79.2 ; Unspecified atherosclerosis of [place] arteries of extremities, bilateral legs I70.203 ; Neuropathy G62.9 ; Cutaneous abscess of right foot L02.611 and Ingrowing nail L60.[address] [address] 03/23/2023 Desire Black [address] [address] 03/26/2023 Desire Black Contusion of toenail of left foot, initial encounter S90.222A [address] [address] 03/28/2023 Desire Black [facility] [address] [address] 04/12/2023 Desire Black Skin ulcer of toe of right foot, limited to breakdown of skin L97.511 and Type 2 diabetes mellitus with diabetic polyneuropathy E11.[address] [facility] [address] 06/07/2023 Desire Black Type 2 diabetes mellitus with diabetic polyneuropathy E11.42 and Unspecified atherosclerosis of [place] arteries of extremities, bilateral legs I70.203 ASSESSMENTS Encounter Date Diagnosis Assessment Notes Treatment Notes Treatment Clinical Notes 10/02/2022 Type 2 diabetes mellitus with diabetic polyneuropathy (ICD-10 - E11.42) 10/02/2022 Neuritis (ICD-10 - M79.2) 02/05/2023 Type 2 diabetes mellitus with diabetic polyneuropathy (ICD-10 - E11.42) 03/26/2023 Contusion of toenail of left foot, initial encounter (ICD-10 - S90.222A) 04/12/2023 Type 2 diabetes mellitus with diabetic polyneuropathy (ICD-10 - E11.42) 04/12/2023 Skin ulcer of toe of right foot, limited to breakdown of skin (ICD-10 - L97.511) Nonapplicable Patient Educated with: WOUND CARE INSTRUCTIONS.pdf (WOUND CARE INSTRUCTIONS.pdf ) 06/07/2023 Unspecified atherosclerosis of [place] arteries of extremities, bilateral legs (ICD-10 - I70.203) 06/07/2023 Type 2 diabetes mellitus with diabetic polyneuropathy (ICD-10 - E11.42) 02/05/2023 Neuritis (ICD-10 - M79.2) 02/05/2023 Unspecified atherosclerosis of [place] arteries of extremities, bilateral legs (ICD-10 - I70.203) 10/02/2022 Unspecified atherosclerosis of [place] arteries of extremities, bilateral legs (ICD-10 - I70.203) 10/02/2022 Neuropathy (ICD-10 - G62.9) 02/05/2023 Neuropathy (ICD-10 - G62.9) 02/05/2023 Cutaneous abscess of right foot (ICD-10 - L02.611) 10/02/2022 Cutaneous abscess of right foot (ICD-10 - L02.611) 02/05/2023 Ingrowing nail (ICD- 10 - L60.0) 04/12/2023 Other PLAN OF TREATMENT Pending Test Test Name Order Date *Uric Acid, Serum 03/29/2021 *Uric Acid, Serum 04/06/2022 *Sedimentation Rate-Westergren 2 *Sedimentation Rate-Westergren 1 C-Reactive Protein, Quant 04/06/2022 X ray : Foot, right 3V 03/29/2021 X ray : Foot, right 3V 06/29/2016 56841-Rfozdayg Plate 02/05/2023 28597- Debride <25 sq cm 06/12/2022 16359- Debride <25 sq cm 08/09/2020 13132- Debride <25 sq cm 05/29/2022 65072- Debride <25 sq cm 04/30/2015 57281- Debride <25 sq cm 09/16/2020 03041- Debride <25 sq cm 04/12/2023 23380- Debride <25 sq cm 12/29/2015 05106- Debride <25 sq cm 06/29/2016 65759 I&D ABSCESS- SIMPLE,SINGLE 023 91099 I&D ABSCESS- SIMPLE,SINGLE 022 24008-TRKB SKIN LESIONS, 2 TO 4 10/02/19 23 42757-UOLR SKIN LESIONS, 2 TO 4 02/06/20 23 84596-DRSX SKIN LESIONS, 2 TO 4 04/11/20 21 39006-YJGR SKIN LESIONS, 2 TO 4 12/10/19 21 43004-WBZS SKIN LESIONS, 2 TO 4 09/05/19 22 37571-ZZHU SKIN LESIONS, 2 TO 4 03/09/20 22 97148-NCUB SKIN LESIONS, 2 TO 4 06/07/20 23 16089-RQAZ SKIN LESIONS, 2 TO 4 06/29/20 16 15455-VLWS SKIN LESIONS, 2 TO 4 09/16/19 21 49157-QBGF SKIN LESIONS, 2 TO 4 05/29/20 22 06077-NINA SKIN LESIONS, 2 TO 4 12/29/19 17 36888-MEHS SKIN LESIONS, 2 TO 4 09/24/19 18 33881-IVNY SKIN LESIONS, 2 TO 4 07/30/20 18 84131-NLLW SKIN LESIONS, 2 TO 4 09/23/19 19 49516-HBMR SKIN LESIONS, 2 TO 4 03/03/20 19 86783-HTJM SKIN LESIONS, 2 TO 4 09/01/19 20 53116-TYVT SKIN LESIONS, 2 TO 4 03/08/20 20 75651-PCSE SKIN LESIONS, 2 TO 4 06/10/20 20 24141-RZVX SKIN LESION 04/30/2015 78803-Sbzq. Subungual Hematoma 09456-MHCM NAIL(S) 02/05/2023 38327-LDXM NAIL(S) 03/09/2022 70398-NIFN NAIL(S) 09/05/2021 57202-FWLI NAIL(S) 12/09/2020 99696-FVBF NAIL(S) 04/11/2021 05011-QRQT NAIL(S) 10/02/2022 36296-DUNB NAIL(S) 09/16/2020 12019-LISW NAIL(S) 05/29/2022 64766-KRFH NAIL(S) 06/10/2020 30390-KIVK NAIL(S) 03/08/2020 C3102-GPJTXBJM DYSTROPHIC NAILS ANY # F4124-ULBESVHT DYSTROPHIC NAILS ANY # G7566-NAJMYZOO DYSTROPHIC NAILS ANY # M5671-KWYABMFG DYSTROPHIC NAILS ANY # K1096-SKLQJOAI DYSTROPHIC NAILS ANY # C0504-CEVUUWUM DYSTROPHIC NAILS ANY # B1185-JCPSORZZ DYSTROPHIC NAILS ANY # X0811-NDXLIEJL DYSTROPHIC NAILS ANY # 03927-Lqeizmomv, Toes 06/29/2016 CRP 03/29/2021 Next Appt Details Provider Name:Desire Zaman , 10/11/2023 10:00:00 AM, [address] [facility], [place], [address], Insurance Providers Payer Name Payer Address Payer Phone Subscriber Number Group Number Insured Name Patient Relationship to Insured Coverage Start Date Coverage End Date [facility] [address] [place] [phone] [id number] Graham Castillo Self - patient is the insured MEDICAL (GENERAL) HISTORY Medical History History ICD Code Cancer Gall bladder problems High blood pressure Measles Mumps Chicken pox Joint implants/screws Diabetes mellitus type ll Surgical History Surgery Date(Month/Year) gall bladder 12/06/2014 appendectomy 03/2014 Hospitalization History Reason Date(Month/Year)
[2023-07-26 14:16] VITALS: BP 160/60; PULSE 78; TEMP 36.3; O2SAT 98; BMI 24.8
--- NOTE | 2023-07-26 14:16 | AM.OFFWIN_ITS ---
Intake Vital Signs 07/26/23 14:16 Height 5 ft 11 in Weight 178 lb BMI 24.8 BP 160/60 H Blood Pressure Location Rt brachial Position Sitting Pulse 78 Pulse Source Pulse Oximeter Temp 97.3 F Temp Source Temporal Artery Scan Pulse Oximetry (%) 98 Oxygen Delivery Method Room Air Intake Visit Reasons: EST/ pain in both legs/[phone] Intake Note: pt is here today for pain in both legs started 1 week ago Patient Tobacco Use Status: Former Tobacco user Allergies amoxicillin Allergy (Unknown, Verified 07/26/23 14:16) Unknown clindamycin Allergy (Unknown, Verified 07/26/23 14:16) heart burn penicillin G Allergy (Unknown, Verified 07/26/23 14:16) Unknown sulfacetamide [From Sulfacet-R] Allergy (Unknown, Verified 07/26/23 14:16) Unknown sulfur [From Sulfacet-R] Allergy (Unknown, Verified 07/26/23 14:16) Unknown tetracycline Allergy (Unknown, Verified 07/26/23 14:16) Unknown Do you need a note to return to daycare/school/sports/work: No HPI HPI Comments History of Present Illness Details This is a 77-year-old male with past medical history of hyperlipidem ia, [id number] diabetes, asthma, hypertension, BPH and peripheral artery disease with a history of claudication presenting for evaluation of bilateral neck pain he has had for the past 4-5 days. Patient states that he is familiar with pain associated with claudication and he feels that the pain is similar but worse when he ambulates. Patient states that he recently obtained a new exercise machine that he describes as a pedaling machine that he has used for 1 hour every other day for the past 3 weeks. Patient does not feel this is exacerbated his pain. Patient describes pain as a burning sensation that extends from his ankles to his posterior thighs. Patient states he has no pain at rest and the pain occurs only when he walks. Patient has not taken any medication for treatment of his discomfort and is declining any medication for his pain. Patient denies having any chest pain or dyspnea with exertion. [facility] Medical History Esophageal stenosis Hyponatremia Prostate cancer Malignant neoplasm of skin Arteriolosclerosis COPD (chronic obstructive pulmonary disease) Esophageal stricture Benign familial tremor PVD (peripheral vascular disease) Dyslipidemia Elevated PSA RBBB Pulmonary emphysema Diabetes HTN (hypertension) Surgical History History of cholecystectomy History of hernia surgery Family History Father No problems noted. Mother No problems noted. Daughter No problems noted. Daughter No problems noted. Social History Housing: House Alcohol intake: current Patient Tobacco Use Status: Former Tobacco user Years Smoked: 9 years ago e-Cigarette/Vaping Use: Never Used Second Hand Smoke Exposure: No service: Yes Current occupational status: retired Current occupational exposures/hazards: No Cognitive needs: No Hearing needs: No Vision needs: No Review of Systems Const All systems reviewed & are unremarkable except as noted in HPI and below Reports as per HPI Card Reports as per HPI Resp Reports as per HPI Musc Reports no additional complaints and Reports other (claudication) Neuro Reports no additional complaints Physical Exam Vital Signs: Last Vital Signs Temp 97.3 F 07/26/23 14:16 Pulse 78 07/26/23 14:16 BP 160/60 H 07/26/23 14:16 Pulse Ox 98 07/26/23 14:16 Oxygen Delivery Method Room Air 07/26/23 14:16 BMI result Body Mass Index 24.8 Const General: cooperative, healthy appearing, comfortable, no acute distress, well developed, alert and awake; No lethargic Nutritional Appearance: average body habitus Orientation/consciousness: patient oriented x3 and No lethargic Limitations: no limitations Resp Effort & Inspection: normal respiratory effort and able to speak in complete sentences Auscultation: clear to auscultation bilaterally Cardio Rate: regular rate Rhythm: regular rhythm Skin General skin exam: no rashes or lesions noted (no erythema, edema or ecchymosis of the distal lower extremities bilaterall) Neuro Other: Sensation intact distal lower extremities and feet bilaterally. General: patient oriented x3 Extrem General: Yes normal to inspection Right lower extremity: normal to inspection, full ROM and lower leg Details: normal to inspection and no edema; no erythema and no tenderness; no edema Left lower extremity: normal to inspection, full ROM and lower leg Details: normal to inspection; no erythema, no tenderness and no ecchymosis; no edema Psych Appearance: grossly normal Mental Status: mental status grossly normal Insight: Good insight present (Psych) Judgement: Good judgement present (Psych) Assessment & Plan Assessment & Plan (1) Claudication: Code(s): I73.9 - Peripheral vascular disease, unspecified Plan: Bilateral lower extremity arterial ultrasounds will be obtained; PCP is aware and will refer to vascular as needed. Orders: Orders US arterial duplex LE Today I73.9 - Peripheral vascular disease, unspecified Coding Level of Care Code Est Pt Level 3 (10373) Diagnoses Claudication I73.9 Time Spent (min) 20
== END 2023-07-26 15:03 | disposition home or self-care (01) ==
PROVIDERS: PCP Nurse Practitioner Family; Visit Provider Physician Assistant
DX: I73.9 Peripheral vascular disease, unspecified (principal)
CPT/HCPCS: 99213

== ENCOUNTER 2023-09-12 10:27 | Outpatient (REF) | payer MEDICARE, SELFPAY ==
[2023-09-12 13:30] LABS: Appearance Urine Clear; Color Urine Yellow; Glucose Urine UA Negative (Negative); Leukocyte Esterase Urine Negative (Negative); Nitrite Urine Negative (Negative); PH 6.5 (5.0-9.0); Specific Gravity - Urine 1.015 (1.005-1.025); Urine Blood Negative (Negative); Urine Ketones Negative (Negative); Urine Protein Negative (Neg-Trace)
[2023-09-12 13:41] LABS: MANUAL DIFF FLAG NO
[2023-09-12 13:48] LABS: Basophils Percent Auto 0.4 % (0-2); Eosinophils Absolute Auto 0.1 X10*3/uL (0.0-0.4); Eosinophils Percent Auto 2.5 % (0-4); Hematocrit 30.2 % (42.0-52.0); Hemoglobin 10.8 g/dl (14.0-18.0); Imm Gran Abs Auto 0.02 X10*3/uL (0.00-0.03); Imm Gran Pct Auto 0.7 % (0.0-0.4); Lymphocytes Absolute Auto 0.4 X10*3/uL (1.2-4.9); Mean Corpuscular HGB Conc 35.8 g/dl (31.0-36.0); Mean Corpuscular Hemoglobin 34.7 pg (27.0-33.0); Mean Corpuscular Volume 97.1 fL (80.0-98.0); Mean Platelet Volume 10.4 fL (9.4-12.4); Monocytes Absolute Auto 0.3 X10*3/uL (0.1-1.2); Monocytes Percent Auto 10.6 % (2-11); Neutrophils Absolute Auto 2.1 x10*3/uL (2.0-8.3); Neutrophils Percent Auto 72.8 % (45-73); Platelet Count 125 X10*3/uL (160-400); Red Blood Count 3.11 X10*6/uL (4.60-5.80); Red Cell Distribution Width 13.2 % (11.0-16.0); White Blood Count 2.8 X10*3/uL (4.8-10.8)
[2023-09-12 14:15] LABS: Alanine Aminotransferase 15 U/L (0-40); Alkaline Phosphatase 66 U/L (39-117); Anion Gap 13 (12-20); Aspartate Amino Transferase 18 U/L (5-37); Bilirubin Total 0.8 mg/dL (0.0-1.0); Blood Urea Nitrogen 15 mg/dL (9-16); Calcium 9.3 mg/dL (8.4-10.2); Carbon Dioxide 26 mmol/L (22-29); Chloride 101 mmol/L (96-108); Cholesterol 114 mg/dL (<200); Estimated Glomerular Filt Rate > 60; Glucose Fasting 143 mg/dL (60-99); HDL Cholesterol 40 mg/dL (>40); LDL Cholesterol Calculated 53 mg/dL (<100); Potassium 4.2 mmol/L (3.3-5.1); Sodium 136 mmol/L (135-145); Triglycerides 105 mg/dL (<150)
[2023-09-12 14:19] LABS: TSH reflex Free T4 2.38 uIU/mL (0.32-4.0)
== END 2023-09-12 10:28 | disposition home or self-care (01) ==
LOC: HO.HMGCLDS 10:27
PROVIDERS: PCP Nurse Practitioner Family; Visit Provider Nurse Practitioner Family
DX: Z13.89 Encounter for screening for other disorder (principal)
CPT/HCPCS: 36415; 80053; 80061; 81003; 84443; 85025

== ENCOUNTER 2023-09-18 09:19 | Outpatient (AMB) | payer MEDICARE, SELFPAY ==
--- NOTE | 2023-09-18 09:23 | MHC.PC.OV ---
Vital Signs 09/18/23 09:25 Height 5 ft 11 in Weight 178 lb 2 oz BMI 24.8 BP 130/68 Blood Pressure Location Lt brachial Position Sitting Pulse 74 Pulse Source Pulse Oximeter Pulse Oximetry (%) 93 Oxygen Delivery Method Room Air Intake Visit Reasons: 3- 4 months follow up Intake Note: Pt is here to follow up for his lab results and his HTN Allergies amoxicillin Allergy (Unknown, Verified 09/18/23 09:31) Unknown clindamycin Allergy (Unknown, Verified 09/18/23 09:31) heart burn penicillin G Allergy (Unknown, Verified 09/18/23 09:31) Unknown sulfacetamide [From Sulfacet-R] Allergy (Unknown, Verified 09/18/23 09:31) Unknown sulfur [From Sulfacet-R] Allergy (Unknown, Verified 09/18/23 09:31) Unknown tetracycline Allergy (Unknown, Verified 09/18/23 09:31) Unknown Medication List - Last Reconciled 09/18/23 by SHELLEY Smith- atorvastatin 20 mg PO DAILY 90 days glipizide 10 mg PO DAILY losartan 50 mg PO BID tamsulosin 0.4 mg PO DAILY timolol maleate 0.5% drps ophthalmic (eye) verapamil ER 120 mg PO BEDTIME Tobacco use date assessed: 09/18/23 Fall risk assessment: No Falls in past year Last assessed Fall Risk: 09/18/23 Dental Screening Dental Screen Date: 09/18/23 Did you have a dental visit in the last 12 months?: Yes Did you have a dental problem in the last 6 months where you did not have access to dental care?: No Was dental information given to patient?: Patient has dentist HPI 3- 4 months follow up HPI Details Pt is a diabetic, on an ARB and a statin. A1C in office today is 7.0. Microalbumin is up to date. Denies polyuria, polydipsia, does report neuropathy. Pt denies any signs and symptoms of hypoglycemia and does know how to correct it. Pt is having radiation for prostate cancer. His last treatment was in February of 2022. He reports ongoing bilat leg pain (claudication). He reports that the pain is from his calves up to his thighs. Will refer to vascular. Arterial US has been ordered. Hx of leukopenia, appears to be present since having radiation (for prostate). Denies fever, chills, and dizziness. Will cont to monitor [facility] Medical History Esophageal stenosis Hyponatremia Prostate cancer Malignant neoplasm of skin Arteriolosclerosis COPD (chronic obstructive pulmonary disease) Esophageal stricture Benign familial tremor PVD (peripheral vascular disease) Dyslipidemia Elevated PSA RBBB Pulmonary emphysema Diabetes HTN (hypertension) Surgical History History of cholecystectomy History of hernia surgery Family History Father No problems noted. Mother No problems noted. Daughter No problems noted. Daughter No problems noted. Social History Housing: House Alcohol intake: current Patient Tobacco Use Status: Former Tobacco user Years Smoked: 9 years ago e-Cigarette/Vaping Use: Never Used Second Hand Smoke Exposure: No service: Yes Current occupational status: retired Current occupational exposures/hazards: No Cognitive needs: No Hearing needs: No Vision needs: No Questionnaire PHQ-9 Over the last 2 weeks, how often have you been bothered by any of the following problems? 1. Little interest or pleasure in doing things: not at all 2. Feeling down, depressed, or hopeless: not at all 3. Trouble falling or staying asleep, or sleeping too much: not at all 4. Feeling tired or having little energy: several days 5. Poor appetite or overeating: not at all 6. Feeling bad about yourself - or that you are a failure or have let yourself or your family down: not at all 7. Trouble concentrating on things, such as reading the newspaper or watching television: not at all 8. Moving or speaking so slowly that other people could have noticed. Or the opposite - being so fidgety or restless that you have been moving around a lot more than usual: not at all 9. Thoughts that you would be better off or of hurting yourself in some way: not at all Total score: 1 Source: Developed by Drs. Jonathon Chairez, Sherly Elena, John Light and colleagues, with an educational suze from [employer]. Thrive Questionnaire Date Thrive assessed: 09/18/23 I am a: Patient What is your living situation today?: I have a steady place to live Within the past 12 months, did the food you bought not last and you didn't have the money to get more?: Never true Within the past 12 months, did you worry whether your food would run out before you got money to buy more?: Never true Do you have trouble paying for medicines?: No Do you have trouble getting transportation to medical appointments?: No Do you have trouble paying your heating and electricity bill?: No Do you have trouble taking care of your child, family member or friend?: No Do you have trouble with day-to-day activities such as bathing, preparing meals, shopping, managing finances, etc.?: No Are you currently unemployed and looking for a job?: No Are you interested in more education?: No THRIVE Score: 0 AUDIT C Alcohol Use Questionnaire (AUDIT-C) 1. How often do you have a drink containing alcohol?: Monthly or less 2. How many drinks containing alcohol do you have on a typical day when you are drinking?: 1 or 2 3. How often do you have six or more drinks on one occasion?: Never Total Score: 1 SHAKA-7 AMB Questionnaire SHAKA-7 Date SHAKA - 7 assessed: 09/18/23 Feeling nervous, anxious, or on edge: 1 = Several days Not being able to stop or control worryin = Not at all Worrying too much about different things: 1 = Several days Trouble relaxin = Not at all Being so restless that it is hard to sit still: 0 = Not at all Becoming easily annoyed or irritable: 0 = Not at all Feeling afraid as if something awful might happen: 0 = Not at all Total SHAKA-7 score (0-4 normal; 5-9 mild; 10-14 moderate; 15-21 severe): 2 Source: Developed by Drs. Jonathon Chairez, Sherly Elena, John Light and colleagues, with an educational suze from [employer]. Review of Systems Const Reports as per HPI Physical exam (Primary Care) Vital Signs: Last Vital Signs Pulse 74 09/18/23 09:25 BP 130/68 09/18/23 09:25 Pulse Ox 93 09/18/23 09:25 Oxygen Delivery Method Room Air 09/18/23 09:25 BMI result Body Mass Index 24.8 Tobacco/Smoking Status: Tobacco use Status Tobacco use date assessed 09/18/23 09/18/23 09:33 Patient Tobacco Use Status Former Tobacco user 09/18/23 09:27 e-Cigarette/Vaping Use Never Used 09/18/23 09:27 PHQ-9: PHQ-9 Score PHQ-9: Total score 1 09/18/23 09:55 Thrive Assessment: Date of Thrive Assessment Date Thrive assessed 09/18/23 09/18/23 09:40 Const General: cooperative Orientation/consciousness: patient oriented x3 Resp Effort & Inspection: normal respiratory effort Auscultation: clear to auscultation bilaterally Cardio Rate: regular rate Rhythm: regular rhythm Heart sounds: S1 normal heart sound present and S2 normal heart sound present Neuro General: patient oriented x3 Extrem Other: weak dorsalis pedis pulses bilat, bilat feet: + sensation with use of monofilament Right lower extremity: no edema Left lower extremity: no edema Psych Appearance: grossly normal Mental Status: mental status grossly normal Speech and movement: Normal speech and movement present Affect: normal affect Attitude: cooperative Thought process: Normal thought process present Thought content: Normal thought content present Insight: Good insight present (Psych) Judgement: Good judgement present (Psych) Results AMB Hemoglobin A1c AMB Hemoglobin A1c 7.0 % Last Edit by Viviane Glaser CMA on 09/18/23 09:56 Results Reviewed Results Reviewed: Laboratory Last Values Hgb A1c (Clinic) 7.0 % (4.0-6.0) H 09/18/23 09:39 Assessment and Plan Assessment & Plan (1) Leukopenia: Code(s): D72.819 - Decreased white blood cell count, unspecified Plan: Labs ordered (2) Claudication: Code(s): I73.9 - Peripheral vascular disease, unspecified Plan: Referred to vascular Plan The patient agreed to the use of a medical collections specialist for this encounter. Scribed for MANISHA Mensah by Radha Khalil medical collections specialist, on 09/18/2023 at 09:40 EST. Orders: Orders AMB Hemoglobin A1c Today E11.9 - Type 2 diabetes mellitus without complications Complete Blood Count Auto Diff Today D72.819 - Decreased white blood cell count, unspecified Comprehensive Met. Panel Today D72.819 - Decreased white blood cell count, unspecified Referrals Vascular Surgery Referral I73.9 - Peripheral vascular disease, unspecified Coding Level of Care Code Est Pt Level 3 (68349) Diagnoses Leukopenia D72.819 Claudication I73.9
[2023-09-18 09:25] VITALS: BP 130/68; PULSE 74; O2SAT 93; BMI 24.8
== END 2023-09-18 11:39 | disposition home or self-care (01) ==
PROVIDERS: PCP Nurse Practitioner Family; Visit Provider Nurse Practitioner Family
DX: E11.51 Type 2 diabetes mellitus with diabetic peripheral angiopathy without gangrene (principal); I73.9 Peripheral vascular disease, unspecified; D72.819 Decreased white blood cell count, unspecified
CPT/HCPCS: 83036; 99213

== ENCOUNTER 2023-10-10 09:42 | Outpatient (REF) | payer MEDICARE, SELFPAY ==
--- NOTE | ~2023-10-10 | US_ITS ---
EXAMINATION: Bilateral LOWER EXTREMITY DUPLEX CLINICAL INFORMATION: Peripheral vascular disease COMPARISON: None TECHNIQUE: Real-time ultrasound and Doppler techniques (integrating B-mode 2-D vascular images, Doppler spectral analysis and color flow Doppler imaging) were utilized to interrogate the lower extremities. FINDINGS: RIGHT LEG: Common femoral artery: 213 cm/s, biphasic Profunda femoris artery: 75.1 cm/s, monophasic Superficial femoral artery (proximal): 27.9 cm/s, monophasic Superficial femoral artery (mid): 25 cm/s, monophasic Superficial femoral artery (distal): 16 cm/s, monophasic Popliteal artery: 21.2 cm/s, monophasic Posterior tibial artery: 27.6 cm/s, monophasic Collaterals noted in the region of the mid right SFA. LEFT LEG: Common femoral artery: 135 cm/s, monophasic Profunda femoris artery: 50.5 cm/s, monophasic Superficial femoral artery (proximal): 25 cm/s, monophasic Superficial femoral artery (mid): 25.1 cm/s, monophasic Superficial femoral artery (distal): 50.4 cm/s, monophasic Popliteal artery: 51.7 cm/s, monophasic Posterior tibial artery: 30.7 cm/s, monophasic Collateral noted in the region of the left anterior tibial artery with retrograde flow. US/US arterial duplex LE BI IMPRESSION: 1. Slow, monophasic flow in the right SFA as well as visualized collaterals in this region consistent with high-grade stenosis versus occlusion in the mid to distal right SFA. 2. Slow, monophasic flow in the left superficial femoral artery suggesting hemodynamically significant peripheral vascular disease.
== END 2023-10-10 09:43 | disposition home or self-care (01) ==
LOC: HO.US 09:42
PROVIDERS: PCP Nurse Practitioner Family; Visit Provider Nurse Practitioner Family
DX: I73.9 Peripheral vascular disease, unspecified (principal)
CPT/HCPCS: 93925

== ENCOUNTER 2023-10-31 09:19 | Outpatient (AMB) | payer MEDICARE, SELFPAY ==
[2023-10-31 09:58] VITALS: BMI 24.8
--- NOTE | 2023-10-31 09:58 | A.OFFVIS_ITS ---
Intake Vital Signs 10/31/23 09:58 Height 5 ft 11 in Weight 178 lb BMI 24.8 Intake Visit Reasons: [employer]/ PCP ref for PAD s/p Art US 10/10/23 Intake Note: [employer] Presents for PAD. He had an arterial ultrasound on 10/10/23. Was being seen by [facility] but they do not accept his insurance anymore, no interventions were done, states he has had PAD for 15 yrs. Most recent note from [facility] shows BETTINA's of R-0.54 & L-0.61 and a recent arterial US ordered by PCP done on 10/10/23 w/o BETTINA's. Pt states that both legs painful after 30 yards and goes away when at rest. Accompanied by: Self / Same As Patient Allergies amoxicillin Allergy (Unknown, Verified 10/31/23 10:10) Unknown clindamycin Allergy (Unknown, Verified 10/31/23 10:10) heart burn penicillin G Allergy (Unknown, Verified 10/31/23 10:10) Unknown sulfacetamide [From Sulfacet-R] Allergy (Unknown, Verified 10/31/23 10:10) Unknown sulfur [From Sulfacet-R] Allergy (Unknown, Verified 10/31/23 10:10) Unknown tetracycline Allergy (Unknown, Verified 10/31/23 10:10) Unknown HPI [employer]/ PCP ref for PAD s/p Art US 10/10/23 HPI Details Very pleasant 77-year-old gentleman presents for evaluation regarding peripheral vascular disease. Had actually been seeing [facility] for the last 10 years and had been following them regarding this. It has progressively gotten worse. He actually changed institutions due to insurance issues. He also reports that he was quite frustrated that his issues were not being addressed. He reports that he can ambulate. He had seen his primary care doctor who astutely ordered noninvasive arterial testing. Upon discussion he can walk about 30 ft at most. [facility] Medical History Esophageal stenosis Hyponatremia Prostate cancer Malignant neoplasm of skin Arteriolosclerosis COPD (chronic obstructive pulmonary disease) Esophageal stricture Benign familial tremor PVD (peripheral vascular disease) Dyslipidemia Elevated PSA RBBB Pulmonary emphysema Diabetes HTN (hypertension) Surgical History History of cholecystectomy History of hernia surgery Family History Father No problems noted. Mother No problems noted. Daughter No problems noted. Daughter No problems noted. Social History Housing: House Alcohol intake: current Patient Tobacco Use Status: Former Tobacco user Years Smoked: 9 years ago e-Cigarette/Vaping Use: Never Used Second Hand Smoke Exposure: No service: Yes Current occupational status: retired Current occupational exposures/hazards: No Cognitive needs: No Hearing needs: No Vision needs: No Review of Systems Const All systems reviewed & are unremarkable except as noted in HPI and below Reports no additional complaints ENT Reports Normal hearing present Card Denies chest pain, Denies chest pain at rest, Denies chest pain with activity and Denies pedal edema Resp Denies cough GI Denies abdominal pain Musc Denies abnormal gait, Denies muscle cramps and Denies radiating pain into limb Skin/Breast Denies skin ulcer and Denies wounds Neuro Reports Normal hearing present and Denies abnormal gait Psych Reports no additional complaints Physical Exam Vital Signs: BMI result Body Mass Index 24.8 Const General: cooperative, healthy appearing and comfortable Orientation/consciousness: oriented to person, oriented to place and oriented to time HEENT Head: Yes normal to inspection Neck Neck: Yes normal visual inspection Carotids: no bruits Chest Chest palpation & inspection: normal inspection of the chest Resp Effort & Inspection: normal respiratory effort and able to speak in complete sentences Auscultation: clear to auscultation bilaterally, no crackles, no rales, no rhonchi and no wheezes Cardio Other: Bilateral DP signals. Bilateral nonpalpable femoral pulse Rate: regular rate Rhythm: regular rhythm Heart sounds: S1 normal heart sound present and S2 normal heart sound present Bruits: no carotid bruits Peripheral pulses: Peripheral pulses 2+ throughout GI Inspection: Yes normal to inspection Skin Wounds: no wounds Hair: normal Neuro General: oriented to person, oriented to place and oriented to time Cranial nerves: Yes CN's II-XII intact bilaterally and Yes Normal hearing present Cognition (Neuro): normal cognition Motor exam (neuro): 5/5 motor strength present throughout Extrem Other: venous exam: No significant superficial varicosities or spider telangiectasias, minimal edema General: No clubbing, No cyanosis and No edema Psych Appearance: grossly normal Mental Status: mental status grossly normal Speech and movement: Normal speech and movement present Results Reviewed Results Reviewed: Noninvasive arterial testing dated 10/10/2023 demonstrates monophasic flow down bilateral lower extremities. Assessment & Plan Assessment & Plan (1) PAD (peripheral artery disease): Code(s): I73.9 - Peripheral vascular disease, unspecified Plan: Patient notes leg pain when walking distances. I have discussed the pathophysiology of peripheral vascular disease with the patient. I have also discussed risk factor modification. I have reviewed the patient's arterial testing which reveals right lower extremity question inflow disease and SFA disease.. the patient would benefit from a right leg endovascular peripheral angiogram with possible angioplasty, stent, and/or atherectomy. This has been discussed in detail with the patient along with risks, benefits, and complic ations. This includes but is not limited to bleeding, infection, heart attack, need for emergent surgical repair, limb ischemia, blood vessel damage, bleeding, puncture, kidney injury, bruising, allergic reaction, and skin reaction. The patient demonstrates a clear understanding. We will schedule for the next appropriate time. Thank you for allowing us to assist in this patient's care. Coding Level of Care Code New Pt Level 4 (39518) Diagnoses PAD (peripheral artery disease) I73.9
== END 2023-10-31 10:36 | disposition home or self-care (01) ==
PROVIDERS: PCP Nurse Practitioner Family; Visit Provider Surgery Vascular Surgery
DX: I73.9 Peripheral vascular disease, unspecified (principal)
CPT/HCPCS: 99203

== ENCOUNTER → 2023-10-31 09:19 | Outpatient (BNVA) | payer MEDICARE, SELFPAY | PROVIDERS: PCP Nurse Practitioner Family; Visit Provider Surgery Vascular Surgery | DX: I73.9 Peripheral vascular disease, unspecified (principal) | CPT/HCPCS: 99202 ==

== ENCOUNTER 2023-11-14 05:51 | Day surgery (SDC) | payer MEDICARE, SELFPAY ==
[2023-11-14] VITALS (7 sets, daily range): BP systolic 121–155; BP diastolic 52–62; PULSE 60–70; RESP 16–18; TEMP 36–36.2; O2SAT 96–97; BMI 24.8
--- NOTE | 2023-11-14 06:39 | ECG_ITS ---
Test Reason : new onset afib Blood Pressure : / mmHG Vent. Rate : 067 BPM Atrial Rate : 081 BPM P-R Int : 216 ms QRS Dur : 130 ms QT Int : 448 ms P-R-T Axes : 059 057 061 degrees QTc Int : 473 ms Sinus rhythm with marked sinus arrhythmia with 1st degree A-V block with Premature supraventricular complexes Right bundle branch block Abnormal ECG No previous ECGs available Referred By: Ronny Medina Electronically Signed By:RODRIGO BIANCHI
[2023-11-14 06:44] LABS: MANUAL DIFF FLAG NO
[2023-11-14 06:48] LABS: Basophils Percent Auto 0.6 % (0-2); Eosinophils Absolute Auto 0.1 X10*3/uL (0.0-0.4); Eosinophils Percent Auto 3.6 % (0-4); Hematocrit 30.1 % (42.0-52.0); Hemoglobin 10.1 g/dl (14.0-18.0); Imm Gran Abs Auto 0.02 X10*3/uL (0.00-0.03); Imm Gran Pct Auto 0.6 % (0.0-0.4); Lymphocytes Absolute Auto 0.5 X10*3/uL (1.2-4.9); Lymphocytes Percent Auto 15.1 % (20-40); Mean Corpuscular HGB Conc 33.6 g/dl (31.0-36.0); Mean Corpuscular Hemoglobin 31.8 pg (27.0-33.0); Mean Corpuscular Volume 94.7 fL (80.0-98.0); Monocytes Absolute Auto 0.3 X10*3/uL (0.1-1.2); Neutrophils Absolute Auto 2.4 x10*3/uL (2.0-8.3); Neutrophils Percent Auto 72.1 % (45-73); Platelet Count 131 X10*3/uL (160-400); Red Blood Count 3.18 X10*6/uL (4.60-5.80); Red Cell Distribution Width 13.8 % (11.0-16.0); White Blood Count 3.4 X10*3/uL (4.8-10.8)
[2023-11-14 07:08] LABS: Blood Urea Nitrogen 20 mg/dL (9-16); Creatinine Clr Calc Pharmacy 69.7; Estimated Glomerular Filt Rate > 60
--- NOTE | 2023-11-14 10:17 | P.OP_ITS ---
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 Ultrasound-guided right common femoral access 2. Ultrasound-guided left common femoral access 3. Aortogram with bilateral lower extremity runoff 4. Right common iliac stent and plasty 5. Left common iliac and external iliac stent placement with plasty Surgeon:Ronny Medina M.D., FACS, RPVI District Manager In Training:None Anesthesia: Local with moderate conscious sedation. Total intraservice moderate sedation time was 96 minutes. I monitored the patient's level of consciousness and physiologic status continuously throughout the procedure. Specimens:none Drains:none Estimated blood loss: Less than 10 ml Implant: [place] VBX 6 x 19, 7 x 19, Medtronic visi Pro [id number] Indications: 77-year-old gentleman with activity limiting claudication. Concern of significant atherosclerotic disease on noninvasive testing. He now presents for endovascular intervention. The patient has signed the informed consent after reviewing risks, complications, benefits, and alternatives previously discussed with the patient. The patient was given the opportunity to ask any additional questions or voice any concerns. All questions were answered to the patient's satisfaction. Procedure in detail: Patient was brought to the angiography suite prior to which a time-out was called for patient identification and site verification. Bilateral groins were prepped and draped in the standard surgical fashion. Under ultrasound guidance left common femoral was punctured with micro puncture needle and wire. Subsequently a precision 4 [place] sheath was then placed. [place] wire was advanced to the level of the aorta. We were unable to advance a 4 [place] flush catheter. We did confirmed true lumen with a glide cath. We subsequently used a 3 x 40 balloon to create a tract. We then were able to bring a flush catheter up into the level of the aorta. 4 [place] Flush catheter was brought up and parked at the level of the renal arteries. Aortogram was then undertaken. Catheter was brought down to the level of the iliac bifurcation. Iliacs were subsequently imaged. It was recognized that the right iliac had a high-grade stenosis as well. We then decided to do a 2nd puncture through the right common femoral under ultrasound guidance and used a 4 [place] sheath in a similar fashion. Once through we advanced a Glidewire Advantage again to the level of the aorta. We then did subsequent imaging of the iliacs with multiple orthogonal views. We noticed that there was significant disease at the iliac bifurcation. At this time we administered 5000 units of systemic heparin after 5 minutes of circulation time we exchanged out for bilateral 7 [place] sheaths. We then advanced a [place] VBX balloon expandable covered stent through the right side of 6 x 19 and the left side of 7 x 19. This was brought right to the bifurcation. They were insufflated and a simultaneous fashion in a kissing manner. Once this was all accomplished we obtain a good result on the right side there was still some concern about the sizing of the stent we post dilated this with a 7 x 40 drug coated balloon. On the left side there was significant disease at the bend along with the origin of the hypogastric. We then placed a 7 x 37 visi Pro open stent. Once this was accomplished we then post plasty this with a 7 x 60 drug coated balloon. Completion angio demonstrated excellent result. Once this was all accomplished through bilateral sheaths bilateral lower extremity runoffs were then undertaken. Once this was all accomplished we used Celt closure device. Adequate hemostasis was achieved. Exofin was used for skin. Patient tolerated the procedure well and brought to recovery with stable vitals. Interpretation of films: 1. Ultrasound demonstrates appropriate femoral puncture. Image of which was saved. 2. Aortogram demonstrates appropriate caliber aorta. Minimal disease. Appropriate take-off of the renals. Significant calcification at aortic bifurcation. 3. Iliac images demonstrate on the right high-grade stenosis at the origin mild to moderate disease throughout the entire right iliac although no significant flow-limiting occlusions. Left side high-grade stenosis at the origin. High- grade stenosis at the he distal common femoral along with the origin of the external iliac. 4. Right Leg Common femoral artery: Significant common femoral disease Profundus Femoris: No significant disease Superficial femoral artery: Patent in the proximal 3rd occludes in the distal 3rd although there is trickle flow via collaterals. Reconstitutes for the distal 3rd. And then occlusion at the popliteal Popliteal artery (p1,p2,p3): Occludes at the P2 segment on down Anterior tibial artery: Reconstitutes via collateral Peroneal artery: Reconstitutes via collaterals Posterior tibial artery: Reconstitutes via collaterals Dorsalis pedis/plantar arch: Not seen 5. Left Leg Common femoral artery: Significant common femoral disease Profundus Femoris: No significant disease Superficial femoral artery: High-grade stenosis at Marshal's canal Popliteal artery (p1,p2,p3): Patent but diminutive Anterior tibial artery: Patent Peroneal artery: Patent Posterior tibial artery: Patent Dorsalis pedis/plantar arch: Incomplete Conclusion: 1. Successful stenting of bilateral iliac. If no significant improvement may need common femoral endarterectomy is bilaterally 2. Anticoagulation status: Aspirin for life and Plavix for 6 months This note is constructed using voice recognition software. While every effort has been made to ensure accuracy, massotherapist errors may have been included. Thank you for allowing me to participate in the care of your patient. Yours sincerely, Ronny Medina MD, FACS, R.P.V.I.
[2023-11-14] MEDS: Clopidogrel Bisulfate 300 MG TABLET PO (10:44)
== END 2023-11-14 12:11 | disposition home or self-care (01) ==
PROVIDERS: PCP Nurse Practitioner Family; Visit Provider Surgery Vascular Surgery
DX: E11.51 Type 2 diabetes mellitus with diabetic peripheral angiopathy without gangrene (principal); I70.213 Atherosclerosis of native arteries of extremities with intermittent claudication, bilateral legs; J44.9 Chronic obstructive pulmonary disease, unspecified; J43.9 Emphysema, unspecified; E78.5 Hyperlipidemia, unspecified; E87.1 Hypo-osmolality and hyponatremia; I10 Essential (primary) hypertension; I45.10 Unspecified right bundle-branch block; E11.9 Type 2 diabetes mellitus without complications; C61 Malignant neoplasm of prostate; Z98.890 Other specified postprocedural states; Z79.84 Long term (current) use of oral hypoglycemic drugs; Z88.0 Allergy status to penicillin; Z88.1 Allergy status to other antibiotic agents; Z88.2 Allergy status to sulfonamides; Z87.891 Personal history of nicotine dependence
CPT/HCPCS: 36415; 37221; 37223; 76937; 82565; 84520; 85025; 93005; 99152; 99153; A4364; C1725; C1760; C1769; C1874; C1876; C1887; C1894; J1644; J2250; J2310; J3010; Q9967

== ENCOUNTER → 2023-11-14 05:51 | Outpatient (BNV) | payer MEDICARE, SELFPAY | PROVIDERS: PCP Nurse Practitioner Family; Visit Provider Surgery Vascular Surgery | DX: I70.213 Atherosclerosis of native arteries of extremities with intermittent claudication, bilateral legs (principal) | CPT/HCPCS: 37221; 37223; 75630; 76937; 99152 ==

== ENCOUNTER → 2023-11-14 06:39 | Outpatient (BNV) | payer MEDICARE, SELFPAY | PROVIDERS: PCP Nurse Practitioner Family; Visit Provider Internal Medicine | DX: R94.31 Abnormal electrocardiogram [ECG] [EKG] (principal) | CPT/HCPCS: 93010 ==

== ENCOUNTER 2023-11-29 09:43 | Outpatient (AMB) | payer MEDICARE, SELFPAY ==
--- NOTE | 2023-11-29 09:44 | MHC.OFFVIS ---
Intake Intake Visit Reasons: 2 week post Angio Intake Note: 2 week follow up bilateral LE Angioplasty 11/14/23. Pt states no pain or issues, walking better already. Accompanied by: Self / Same As Patient Allergies amoxicillin Allergy (Unknown, Verified 11/29/23 09:46) Unknown clindamycin Allergy (Unknown, Verified 11/29/23 09:46) heart burn penicillin G Allergy (Unknown, Verified 11/29/23 09:46) Unknown sulfacetamide [From Sulfacet-R] Allergy (Unknown, Verified 11/29/23 09:46) Unknown sulfur [From Sulfacet-R] Allergy (Unknown, Verified 11/29/23 09:46) Unknown tetracycline Allergy (Unknown, Verified 11/29/23 09:46) Unknown HPI 2 week post Angio HPI Details Very pleasant 77-year-old gentleman presents for follow-up status post bilateral iliac artery stenting. He reports that he is ambulating significantly better. Has decreased cramping of both legs. He now presents for routine postprocedure follow-up. [facility] Medical History (Updated 11/29/23 @ 11:55 by Ronny Medina MD) Esophageal stenosis Hyponatremia Prostate cancer Malignant neoplasm of skin Arteriolosclerosis COPD (chronic obstructive pulmonary disease) Esophageal stricture Benign familial tremor PVD (peripheral vascular disease) Dyslipidemia Elevated PSA RBBB Pulmonary emphysema Diabetes HTN (hypertension) Surgical History (Updated 11/29/23 @ 09:50 by MAREK Mistry) S/P angioplasty with stent (11/14/23) History of cholecystectomy History of hernia surgery Family History Father No problems noted. Mother No problems noted. Daughter No problems noted. Daughter No problems noted. Social History Housing: House Alcohol intake: current Patient Tobacco Use Status: Former Tobacco user Years Smoked: 9 years ago e-Cigarette/Vaping Use: Never Used Second Hand Smoke Exposure: No service: Yes Current occupational status: retired Current occupational exposures/hazards: No Cognitive needs: No Hearing needs: No Vision needs: No Review of Systems Const All systems reviewed & are unremarkable except as noted in HPI and below Reports no additional complaints ENT Reports Normal hearing present Card Denies chest pain, Denies chest pain at rest, Denies chest pain with activity and Denies pedal edema Resp Denies cough GI Denies abdominal pain Musc Denies abnormal gait, Denies muscle cramps and Denies radiating pain into limb Skin/Breast Denies skin ulcer and Denies wounds Neuro Reports Normal hearing present and Denies abnormal gait Psych Reports no additional complaints Physical Exam Const General: cooperative, healthy appearing and comfortable Orientation/consciousness: oriented to person, oriented to place and oriented to time HEENT Head: Yes normal to inspection Neck Neck: Yes normal visual inspection Carotids: no bruits Chest Chest palpation & inspection: normal inspection of the chest Resp Effort & Inspection: normal respiratory effort and able to speak in complete sentences Auscultation: clear to auscultation bilaterally, no crackles, no rales, no rhonchi and no wheezes Cardio Other: Bilateral DP signals Rate: regular rate Rhythm: regular rhythm Heart sounds: S1 normal heart sound present and S2 normal heart sound present Bruits: no carotid bruits GI Inspection: Yes normal to inspection Skin Wounds: no wounds Hair: normal Neuro General: oriented to person, oriented to place and oriented to time Cranial nerves: Yes CN's II-XII intact bilaterally and Yes Normal hearing present Cognition (Neuro): normal cognition Motor exam (neuro): 5/5 motor strength present throughout Extrem Other: venous exam: No significant superficial varicosities or spider telangiectasias, minimal edema General: No clubbing, No cyanosis and No edema Psych Appearance: grossly normal Mental Status: mental status grossly normal Speech and movement: Normal speech and movement present Assessment & Plan Assessment & Plan (1) PAD (peripheral artery disease): Comment: 11/14/2023 - bilateral iliac artery stent Code(s): I73.9 - Peripheral vascular disease, unspecified Plan: In short patient appears to be doing well with endovascular intervention. He did have significant atherosclerotic disease throughout and should further intervention be required it may be common femoral endarterectomy. At the current time we will manage this conservatively. He will be maintained on aspirin and Plavix. He will follow up with us in approximately 3 months time. Thank you for allowing us to assist in his care. If there are any questions or concerns please do not hesitate to contact us. Orders: Orders US arterial duplex LE BI 3 Months I73.9 - Peripheral vascular disease, unspecified US abdominal aortic aneurysm 3 Months I73.9 - Peripheral vascular disease, unspecified Coding Level of Care Code Est Pt Level 4 (21140) Diagnoses PAD (peripheral artery disease) I73.9
== END 2023-11-29 10:26 | disposition home or self-care (01) ==
PROVIDERS: PCP Nurse Practitioner Family; Visit Provider Surgery Vascular Surgery
DX: I73.9 Peripheral vascular disease, unspecified (principal); Z98.62 Peripheral vascular angioplasty status
CPT/HCPCS: 99213

== ENCOUNTER → 2023-11-29 09:43 | Outpatient (BNVA) | payer MEDICARE, SELFPAY | PROVIDERS: PCP Nurse Practitioner Family; Visit Provider Surgery Vascular Surgery | DX: I73.9 Peripheral vascular disease, unspecified (principal) | CPT/HCPCS: 99212 ==

== ENCOUNTER 2023-12-20 09:18 | Outpatient (AMB) | payer MEDICARE, SELFPAY ==
--- NOTE | 2023-12-20 09:19 | MHC.PC.OV ---
Vital Signs 12/20/23 09:21 Height 5 ft 11 in Weight 178 lb BMI 24.8 BP 110/62 Blood Pressure Location Rt brachial Position Sitting Pulse 77 Pulse Source Pulse Oximeter Pulse Oximetry (%) 98 Oxygen Delivery Method Room Air Intake Visit Reasons: Dizziness Intake Note: Patient here to discuss lightheadedness which has been going on for about 1 month. Allergies amoxicillin Allergy (Unknown, Verified 12/20/23 09:22) Unknown clindamycin Allergy (Unknown, Verified 12/20/23 09:22) heart burn penicillin G Allergy (Unknown, Verified 12/20/23 09:22) Unknown sulfacetamide [From Sulfacet-R] Allergy (Unknown, Verified 12/20/23 09:22) Unknown sulfur [From Sulfacet-R] Allergy (Unknown, Verified 12/20/23 09:22) Unknown tetracycline Allergy (Unknown, Verified 12/20/23 09:22) Unknown Medication List - Last Reconciled 12/20/23 by MANISHA Smith aspirin (Adult Aspirin Regimen) 81 mg PO DAILY atorvastatin 20 mg PO DAILY 90 days clopidogrel (Plavix) 75 mg PO DAILY glipizide 10 mg PO DAILY lactobacillus combination no.9 (Adult 50 Plus Probiotic) 4,000 mmu cells PO DAILY losartan 50 mg PO DAILY tamsulosin 0.4 mg PO DAILY timolol maleate 0.5% 1 drp ophthalmic (eye) BID verapamil ER 120 mg PO BEDTIME Tobacco use date assessed: 09/18/23 Fall risk assessment: No Falls in past year Last assessed Fall Risk: 12/20/23 Dental Screening Dental Screen Date: 09/18/23 HPI Dizziness HPI Details Pt c/o intermittent dizziness. He reports that this can occur with position changes (mostly with getting up or out of the car). Pt reports noticing this more when he started taking aspirin and clopidogrel. ? orthostatic hypotension. Pt's blood pressure does run lower. Will decrease losartan from 50mg bid to 50mg once a day. Pt is a diabetic, on an ARB and a statin. A1C in office today is 6.0. Due for microalbumin in the near future, will order. Denies polyuria, polydipsia, and neuropathy. [facility] Medical History Esophageal stenosis Hyponatremia Prostate cancer Malignant neoplasm of skin Arteriolosclerosis COPD (chronic obstructive pulmonary disease) Esophageal stricture Benign familial tremor PVD (peripheral vascular disease) Dyslipidemia Elevated PSA RBBB Pulmonary emphysema Diabetes HTN (hypertension) Surgical History S/P angioplasty with stent (11/14/23) History of cholecystectomy History of hernia surgery Family History Father No problems noted. Mother No problems noted. Daughter No problems noted. Daughter No problems noted. Social History Housing: House Alcohol intake: current Patient Tobacco Use Status: Former Tobacco user Years Smoked: 9 years ago e-Cigarette/Vaping Use: Never Used Second Hand Smoke Exposure: No service: Yes Current occupational status: retired Current occupational exposures/hazards: No Cognitive needs: No Hearing needs: No Vision needs: No Questionnaire Thrive Questionnaire Date Thrive assessed: 09/18/23 AUDIT C Alcohol Use Questionnaire (AUDIT-C) 1. How often do you have a drink containing alcohol?: Never 3. How often do you have six or more drinks on one occasion?: Never Total Score: 0 Score Reviewed/Action Taken: No SHAKA-7 AMB Questionnaire SHAKA-7 Date SHAKA - 7 assessed: 09/18/23 Source: Developed by Drs. Jonathon Chairez, Sherly Elena, John Light and colleagues, with an educational suze from [employer]. Review of Systems Const Reports as per HPI Physical exam (Primary Care) Vital Signs: Last Vital Signs Pulse 77 12/20/23 09:21 BP 110/62 12/20/23 09:21 Pulse Ox 98 12/20/23 09:21 Oxygen Delivery Method Room Air 12/20/23 09:21 BMI result Body Mass Index 24.8 Tobacco/Smoking Status: Tobacco use Status Tobacco use date assessed 09/18/23 12/20/23 09:26 Patient Tobacco Use Status Former Tobacco user 12/20/23 09:26 e-Cigarette/Vaping Use Never Used 12/20/23 09:26 Thrive Assessment: Date of Thrive Assessment Date Thrive assessed 09/18/23 12/20/23 09:26 Const General: cooperative Orientation/consciousness: patient oriented x3 Resp Effort & Inspection: normal respiratory effort Auscultation: clear to auscultation bilaterally Cardio Rate: regular rate Rhythm: regular rhythm Heart sounds: S1 normal heart sound present and S2 normal heart sound present Neuro General: patient oriented x3 Extrem Other: bilat feet: + sensation with use of monofilament, feet intact Psych Appearance: grossly normal Mental Status: mental status grossly normal Speech and movement: Normal speech and movement present Affect: normal affect Attitude: cooperative Thought process: Normal thought process present Thought content: Normal thought content present Insight: Good insight present (Psych) Judgement: Good judgement present (Psych) Results AMB Hemoglobin A1c AMB Hemoglobin A1c 6.0 % Last Edit by GIOVANNI Alexandre on 12/20/23 09:54 Assessment and Plan Assessment & Plan (1) Diabetes: Code(s): E11.9 - Type 2 diabetes mellitus without complications Plan: Labs ordered (2) Dizziness: Code(s): R42 - Dizziness and giddiness Plan: Labs ordered, decreasing losartan from 50mg bid to 50mg daily Plan The patient agreed to the use of a medical laboratory technologist for this encounter. Scribed for SHELLEY Mensah-SUSU by Radha Khalil medical laboratory technologist, on 12/20/2023 at 09:35 EST. Orders: Orders Complete Blood Count Auto Diff Today R42 - Dizziness and giddiness Comprehensive Met. Panel Today R42 - Dizziness and giddiness UA CC w/rflx Micro + Cult Today R42 - Dizziness and giddiness Microalbumin, Random (w Creat) Today E11.9 - Type 2 diabetes mellitus without complications TSH reflex Free T4 Today R42 - Dizziness and giddiness AMB Hemoglobin A1c Today Z13.9 - Encounter for screening, unspecified Medications: Changed From losartan 50 mg PO BID 180 tabs 1RF To losartan 50 mg PO DAILY 180 tabs 1RF Coding Level of Care Code Est Pt Level 3 (33568) Diagnoses Diabetes E11.9 Dizziness R42
[2023-12-20 09:21] VITALS: BP 110/62; PULSE 77; O2SAT 98; BMI 24.8
== END 2023-12-20 11:14 | disposition home or self-care (01) ==
PROVIDERS: PCP Nurse Practitioner Family; Visit Provider Nurse Practitioner Family
DX: E11.9 Type 2 diabetes mellitus without complications (principal); R42 Dizziness and giddiness
CPT/HCPCS: 83036; 99213

== ENCOUNTER 2023-12-20 09:55 | Outpatient (REF) | payer MEDICARE, SELFPAY ==
[2023-12-20 13:29] LABS: Appearance Urine Clear; Color Urine Yellow; Glucose Urine UA Negative (Negative); Leukocyte Esterase Urine Negative (Negative); Nitrite Urine Negative (Negative); PH 6.5 (5.0-9.0); Specific Gravity - Urine 1.015 (1.005-1.025); Urine Blood Negative (Negative); Urine Ketones Trace mg/dL (Negative); Urine Protein Negative (Neg-Trace)
[2023-12-20 13:30] LABS: MANUAL DIFF FLAG NO
[2023-12-20 13:50] LABS: Basophils Percent Auto 0.4 % (0-2); Eosinophils Absolute Auto 0.1 X10*3/uL (0.0-0.4); Eosinophils Percent Auto 3.4 % (0-4); Hematocrit 28.2 % (42.0-52.0); Hemoglobin 9.8 g/dl (14.0-18.0); Imm Gran Abs Auto 0.02 X10*3/uL (0.00-0.03); Imm Gran Pct Auto 0.7 % (0.0-0.4); Lymphocytes Absolute Auto 0.3 X10*3/uL (1.2-4.9); Lymphocytes Percent Auto 12.3 % (20-40); Mean Corpuscular HGB Conc 34.8 g/dl (31.0-36.0); Mean Corpuscular Hemoglobin 34.6 pg (27.0-33.0); Mean Corpuscular Volume 99.6 fL (80.0-98.0); Mean Platelet Volume 10.2 fL (9.4-12.4); Monocytes Absolute Auto 0.2 X10*3/uL (0.1-1.2); Monocytes Percent Auto 8.2 % (2-11); Platelet Count 133 X10*3/uL (160-400); Red Blood Count 2.83 X10*6/uL (4.60-5.80); White Blood Count 2.7 X10*3/uL (4.8-10.8)
[2023-12-20 14:02] LABS: Alanine Aminotransferase 13 U/L (0-40); Albumin Level 3.9 g/dL (3.5-5.0); Alkaline Phosphatase 57 U/L (39-117); Anion Gap 9 (12-20); Aspartate Amino Transferase 17 U/L (5-37); Bilirubin Total 0.6 mg/dL (0.0-1.0); Blood Urea Nitrogen 17 mg/dL (9-16); Calcium 9.3 mg/dL (8.4-10.2); Carbon Dioxide 28 mmol/L (22-29); Chloride 104 mmol/L (96-108); Estimated Glomerular Filt Rate > 60; Glucose Random 148 mg/dL (60-115); Potassium 4.4 mmol/L (3.3-5.1); Sodium 137 mmol/L (135-145); Total Protein 6.8 g/dL (6.5-8.0)
[2023-12-20 14:21] LABS: TSH reflex Free T4 1.55 uIU/mL (0.32-4.0)
[2023-12-20 14:40] LABS: Microalbum/Creatinine Ratio Ur 12.6 ug/mg cr (<30)
== END 2023-12-20 09:56 | disposition home or self-care (01) ==
LOC: HO.HMGCLDS 09:55
PROVIDERS: PCP Nurse Practitioner Family; Visit Provider Nurse Practitioner Family
DX: E11.9 Type 2 diabetes mellitus without complications (principal); D72.819 Decreased white blood cell count, unspecified; R42 Dizziness and giddiness
CPT/HCPCS: 36415; 80053; 81003; 82043; 82570; 84443; 85025

== ENCOUNTER 2023-12-24 07:40 | Outpatient (REF) | payer MEDICARE, SELFPAY ==
--- NOTE | ~2023-12-24 | US_ITS ---
EXAMINATION: US RETROPERITONEAL LIMITED (AORTA) US ARTERIAL DUPLEX BI WITH BETTINA CLINICAL INFORMATION: Peripheral vascular disease, unspecified. Eval bilateral iliac stents COMPARISON: Bilateral lower extremity arterial duplex 10/10/2023, bilateral iliac stent placement 11/14/2023 TECHNIQUE: Wade-scale, color Doppler and spectral Doppler evaluation of the abdominal aorta. Ankle pulse volume recordings, ankle pressure measurements and ankle brachial indices were obtained of the lower extremity arterial system bilaterally in addition to duplex Doppler techniques with wave form analysis and measurement of velocities in the common femoral, profunda femoral, superficial femoral, popliteal, tibial and peroneal arteries. The study was performed only at rest. FINDINGS: The aorta is normal. The measurements of the aorta in maximum AP and transverse dimensions respectively are as follows: Proximal: 2.6 cm, 91.7 cm/sec. Mid: 3.1 cm, 32.1 cm/sec. Saccular aneurysm. Distal: 2 cm, 229 cm/sec. PSV: 229 cm/s. The measurements of the common hepatic artery AP diameters and common/external iliac arteries peak systolic velocity are as follows: Right Common Iliac Artery: 0.9 cm, 194 cm/sec Right external iliac artery: 232 cm/sec Left Common Iliac Artery: 0.9 cm, 144 cm/sec Left external iliac artery: 106 cm/sec RIGHT LE. THE RIGHT ANKLE-BRACHIAL INDEX IS: 0.48 2. SEGMENTAL PRESSURES (mmHg): Ankle: PT 71, DP not obtained 3. PVR WAVEFORMS: Ankle: Abnormal 4. DIRECT DUPLEX: Common iliac stent: [place] artery proximal to: 29 cm/sec, monophasic Proximal stent: 72 cm/sec, monophasic Mid stent: 128 cm/sec, monophasic Distal stent: 81 cm/sec, triphasic [place] artery distal to: 174 cm/sec, triphasic Common femoral artery: 105 cm/s, Multiphasic Profunda femoris artery: 156 cm/s, Multiphasic Superficial femoral artery (proximal): 106 cm/s, Multiphasic Superficial femoral artery (mid): 34 cm/s, monophasic Superficial femoral artery (distal): 24 cm/s, monophasic Distal Popliteal artery: 66 cm/s, monophasic Distal posterior tibial artery: 36 cm/s, monophasic Peroneal artery: 17 cm/s, monophasic Anterior tibial artery: 17 cm/sec, monophasic Dorsalis pedis artery: 15 cm/sec, monophasic LEFT LE. THE LEFT ANKLE-BRACHIAL INDEX IS: 0.59 2. SEGMENTAL PRESSURES: Ankle: PT 88, DP 86 3. PVR WAVEFORMS: Ankle: Abnormal 4. DIRECT DUPLEX: Common and external iliac stent: [place] artery proximal to: 225 cm/sec, monophasic Proximal stent: 179 cm/sec, triphasic Mid stent: 254 cm/sec, monophasic Distal stent: 249 cm/sec, monophasic [place] artery distal to: 147 cm/sec, monophasic Common femoral artery: 177 cm/s, monophasic Profunda femoris artery: 127 cm/s, Multiphasic Superficial femoral artery (proximal): 97 cm/s, monophasic Superficial femoral artery (mid): 45 cm/s, monophasic Superficial femoral artery (distal): 50 cm/s, monophasic Proximal Popliteal artery: 69 cm/s, monophasic Mid posterior tibial artery: 38 cm/s, monophasic Peroneal artery: 20 cm/s, monophasic Anterior tibial artery: 45 cm/sec, monophasic Dorsalis pedis artery: 36 cm/sec, monophasic US/US arterial duplex BI w/ BETTINA IMPRESSION: 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 Based on published guidelines in J Am Merlyn Radiol 2013; 10(10):789-794 and J Vasc Surg. 2018; 67:2-77, the recommendation for an abdominal aortic aneurysm with diameter 3.0-3.4 cm is follow-up every 3 years. RIGHT LEG: Severe peripheral arterial disease by BETTINA criteria. The right common iliac stent is patent. There is elevated velocity of the iliac artery distal to the stent as well as within the external iliac artery suggesting a stenosis at the level of the external iliac artery. Monophasic waveforms from the mid SFA and below. LEFT LEG: Moderate peripheral arterial disease by BETTINA with monophasic waveforms throughout the left lower extremity. The left common and external iliac stents are patent. Elevated velocities within the stent suggest moderate to severe in-stent stenoses.
--- NOTE | ~2023-12-24 | US_ITS ---
EXAMINATION: US RETROPERITONEAL LIMITED (AORTA) US ARTERIAL DUPLEX BI WITH BETTINA CLINICAL INFORMATION: Peripheral vascular disease, unspecified. Eval bilateral iliac stents COMPARISON: Bilateral lower extremity arterial duplex 10/10/2023, bilateral iliac stent placement 11/14/2023 TECHNIQUE: Wade-scale, color Doppler and spectral Doppler evaluation of the abdominal aorta. Ankle pulse volume recordings, ankle pressure measurements and ankle brachial indices were obtained of the lower extremity arterial system bilaterally in addition to duplex Doppler techniques with wave form analysis and measurement of velocities in the common femoral, profunda femoral, superficial femoral, popliteal, tibial and peroneal arteries. The study was performed only at rest. FINDINGS: The aorta is normal. The measurements of the aorta in maximum AP and transverse dimensions respectively are as follows: Proximal: 2.6 cm, 91.7 cm/sec. Mid: 3.1 cm, 32.1 cm/sec. Saccular aneurysm. Distal: 2 cm, 229 cm/sec. PSV: 229 cm/s. The measurements of the common hepatic artery AP diameters and common/external iliac arteries peak systolic velocity are as follows: Right Common Iliac Artery: 0.9 cm, 194 cm/sec Right external iliac artery: 232 cm/sec Left Common Iliac Artery: 0.9 cm, 144 cm/sec Left external iliac artery: 106 cm/sec RIGHT LE. THE RIGHT ANKLE-BRACHIAL INDEX IS: 0.48 2. SEGMENTAL PRESSURES (mmHg): Ankle: PT 71, DP not obtained 3. PVR WAVEFORMS: Ankle: Abnormal 4. DIRECT DUPLEX: Common iliac stent: [place] artery proximal to: 29 cm/sec, monophasic Proximal stent: 72 cm/sec, monophasic Mid stent: 128 cm/sec, monophasic Distal stent: 81 cm/sec, triphasic [place] artery distal to: 174 cm/sec, triphasic Common femoral artery: 105 cm/s, Multiphasic Profunda femoris artery: 156 cm/s, Multiphasic Superficial femoral artery (proximal): 106 cm/s, Multiphasic Superficial femoral artery (mid): 34 cm/s, monophasic Superficial femoral artery (distal): 24 cm/s, monophasic Distal Popliteal artery: 66 cm/s, monophasic Distal posterior tibial artery: 36 cm/s, monophasic Peroneal artery: 17 cm/s, monophasic Anterior tibial artery: 17 cm/sec, monophasic Dorsalis pedis artery: 15 cm/sec, monophasic LEFT LE. THE LEFT ANKLE-BRACHIAL INDEX IS: 0.59 2. SEGMENTAL PRESSURES: Ankle: PT 88, DP 86 3. PVR WAVEFORMS: Ankle: Abnormal 4. DIRECT DUPLEX: Common and external iliac stent: [place] artery proximal to: 225 cm/sec, monophasic Proximal stent: 179 cm/sec, triphasic Mid stent: 254 cm/sec, monophasic Distal stent: 249 cm/sec, monophasic [place] artery distal to: 147 cm/sec, monophasic Common femoral artery: 177 cm/s, monophasic Profunda femoris artery: 127 cm/s, Multiphasic Superficial femoral artery (proximal): 97 cm/s, monophasic Superficial femoral artery (mid): 45 cm/s, monophasic Superficial femoral artery (distal): 50 cm/s, monophasic Proximal Popliteal artery: 69 cm/s, monophasic Mid posterior tibial artery: 38 cm/s, monophasic Peroneal artery: 20 cm/s, monophasic Anterior tibial artery: 45 cm/sec, monophasic Dorsalis pedis artery: 36 cm/sec, monophasic US/ abdominal aortic aneurysm IMPRESSION: 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 Based on published guidelines in J Am Merlyn Radiol 2013; 10(10):789-794 and J Vasc Surg. 2018; 67:2-77, the recommendation for an abdominal aortic aneurysm with diameter 3.0-3.4 cm is follow-up every 3 years. RIGHT LEG: Severe peripheral arterial disease by BETTINA criteria. The right common iliac stent is patent. There is elevated velocity of the iliac artery distal to the stent as well as within the external iliac artery suggesting a stenosis at the level of the external iliac artery. Monophasic waveforms from the mid SFA and below. LEFT LEG: Moderate peripheral arterial disease by BETTINA with monophasic waveforms throughout the left lower extremity. The left common and external iliac stents are patent. Elevated velocities within the stent suggest moderate to severe in-stent stenoses.
== END 2023-12-24 07:41 | disposition home or self-care (01) ==
LOC: HO.US 07:40
PROVIDERS: PCP Nurse Practitioner Family; Visit Provider Surgery Vascular Surgery
DX: I73.9 Peripheral vascular disease, unspecified (principal)
CPT/HCPCS: 76706; 93922; 93925

== ENCOUNTER 2024-01-09 10:27 | Outpatient (REF) | payer MEDICARE, SELFPAY ==
[2024-01-09 13:27] LABS: Basophils Percent Auto 0.5 % (0-2); Eosinophils Absolute Auto 0.1 X10*3/uL (0.0-0.4); Eosinophils Percent Auto 3.3 % (0-4); Hematocrit 30.1 % (42.0-52.0); Hemoglobin 10.1 g/dl (14.0-18.0); Imm Gran Abs Auto 0.01 X10*3/uL (0.00-0.03); Imm Gran Pct Auto 0.5 % (0.0-0.4); Lymphocytes Absolute Auto 0.4 X10*3/uL (1.2-4.9); Lymphocytes Percent Auto 16.9 % (20-40); Mean Corpuscular HGB Conc 33.6 g/dl (31.0-36.0); Mean Corpuscular Hemoglobin 33.2 pg (27.0-33.0); Mean Platelet Volume 10.5 fL (9.4-12.4); Monocytes Absolute Auto 0.2 X10*3/uL (0.1-1.2); Monocytes Percent Auto 8.5 % (2-11); Neutrophils Absolute Auto 1.5 x10*3/uL (2.0-8.3); Neutrophils Percent Auto 70.3 % (45-73); Platelet Count 111 X10*3/uL (160-400); Red Blood Count 3.04 X10*6/uL (4.60-5.80); Red Cell Distribution Width 13.9 % (11.0-16.0)
[2024-01-09 13:28] LABS: White Blood Count 2.1 X10*3/uL (4.8-10.8)
[2024-01-09 13:59] LABS: Alanine Aminotransferase 15 U/L (0-40); Alkaline Phosphatase 61 U/L (39-117); Anion Gap 13 (12-20); Aspartate Amino Transferase 18 U/L (5-37); Bilirubin Total 0.6 mg/dL (0.0-1.0); Blood Urea Nitrogen 18 mg/dL (9-16); Calcium 9.3 mg/dL (8.4-10.2); Carbon Dioxide 26 mmol/L (22-29); Chloride 103 mmol/L (96-108); Estimated Glomerular Filt Rate > 60; Glucose Random 196 mg/dL (60-115); Iron 94 mcg/dL (45-160); Lactate Dehydrogenase 190 U/L (118-273); Percent Iron Saturation 30 % (15-50); Potassium 4.2 mmol/L (3.3-5.1); Sodium 138 mmol/L (135-145); Total Iron Binding Capacity 316 mcg/dL (228-428); Total Protein 6.9 g/dL (6.5-8.0); Unsaturated Iron Binding 222 ug/dL
[2024-01-09 14:00] LABS: Ferritin 194 ng/mL (20-250)
[2024-01-09 14:09] LABS: Folate 15.3 ng/mL (> or = 4.0); Vitamin B12 745 pg/mL (200-900)
[2024-01-10 12:08] LABS: Prot Elec - Albumin 3.8 g/dL (3.8-4.8); Prot Elec - Alpha1 0.2 g/dL (0.2-0.3); Prot Elec - Alpha2 0.6 g/dL (0.5-0.9); Prot Elec - Beta 1 0.5 g/dL (0.4-0.6); Prot Elec - Beta 2 0.4 g/dL (0.2-0.5); Prot Elec - Gamma 0.9 g/dL (0.8-1.7); Prot Elec - Total Protein 6.5 g/dL (6.1-8.1)
[2024-01-10 14:37] LABS: Hematocrit 28.1 % (38.5-50.0); Hemoglobin 10.2 g/dL (13.2-17.1); MCH 35.1 pg (27.0-33.0); MCV 96.6 fL (80.0-100.0); RBC 2.91 Million/uL (4.20-5.80); RDW 13.1 % (11.0-15.0)
== END 2024-01-09 10:28 | disposition home or self-care (01) ==
LOC: HO.HMGCLDS 10:27
PROVIDERS: PCP Nurse Practitioner Family; Visit Provider Nurse Practitioner Family
DX: D64.9 Anemia, unspecified (principal); D72.819 Decreased white blood cell count, unspecified
CPT/HCPCS: 36415; 80053; 82607; 82728; 82746; 83020; 83540; 83615; 84165; 85014; 85018; 85025; 85041

== ENCOUNTER 2024-02-04 09:55 | Outpatient (REF) | payer MEDICARE, SELFPAY ==
[2024-02-04 12:58] LABS: MANUAL DIFF FLAG NO
[2024-02-04 13:20] LABS: Basophils Percent Auto 0.4 % (0-2); Eosinophils Absolute Auto 0.1 X10*3/uL (0.0-0.4); Eosinophils Percent Auto 2.3 % (0-4); Hematocrit 29.4 % (42.0-52.0); Hemoglobin 10.5 g/dl (14.0-18.0); Imm Gran Abs Auto 0.01 X10*3/uL (0.00-0.03); Imm Gran Pct Auto 0.4 % (0.0-0.4); Immature Retic Fraction 23.4 % (2.3-13.4); Lymphocytes Absolute Auto 0.4 X10*3/uL (1.2-4.9); Mean Corpuscular HGB Conc 35.7 g/dl (31.0-36.0); Mean Corpuscular Hemoglobin 35.1 pg (27.0-33.0); Mean Corpuscular Volume 98.3 fL (80.0-98.0); Mean Platelet Volume 10.5 fL (9.4-12.4); Monocytes Absolute Auto 0.2 X10*3/uL (0.1-1.2); Monocytes Percent Auto 6.4 % (2-11); Neutrophils Percent Auto 75.5 % (45-73); Platelet Count 120 X10*3/uL (160-400); Red Blood Count 2.99 X10*6/uL (4.60-5.80); Red Cell Distribution Width 13.5 % (11.0-16.0); Retic HGB Equivalent 35.2 pg (30.0-35.0); Reticulocyte Percent 2.5 % (0.5-1.8); Reticulocytes Absolute 0.075 X10*6/uL (0.026-0.095); White Blood Count 2.7 X10*3/uL (4.8-10.8)
[2024-02-04 13:55] LABS: Alanine Aminotransferase 14 U/L (0-40); Alkaline Phosphatase 59 U/L (39-117); Anion Gap 19 (12-20); Aspartate Amino Transferase 18 U/L (5-37); Bilirubin Total 0.8 mg/dL (0.0-1.0); Blood Urea Nitrogen 16 mg/dL (9-16); Calcium 9.6 mg/dL (8.4-10.2); Carbon Dioxide 24 mmol/L (22-29); Chloride 100 mmol/L (96-108); Estimated Glomerular Filt Rate > 60; Ferritin 198 ng/mL (20-250); Glucose Random 187 mg/dL (60-115); Iron 101 mcg/dL (45-160); Percent Iron Saturation 32 % (15-50); Potassium 4.6 mmol/L (3.3-5.1); Sodium 138 mmol/L (135-145); Total Iron Binding Capacity 318 mcg/dL (228-428); Total Protein 6.8 g/dL (6.5-8.0); Unsaturated Iron Binding 217 ug/dL
[2024-02-04 14:03] LABS: Folate 14.1 ng/mL (> or = 4.0); Vitamin B12 783 pg/mL (200-900)
== END 2024-02-04 09:56 | disposition home or self-care (01) ==
LOC: HO.HMGCLDS 09:55
PROVIDERS: PCP Nurse Practitioner Family; Visit Provider Nurse Practitioner Family
DX: D61.818 Other pancytopenia (principal); D64.9 Anemia, unspecified
CPT/HCPCS: 36415; 80053; 82607; 82728; 82746; 83540; 85025; 85045

== ENCOUNTER 2024-02-05 10:40 | Outpatient (AMB) | payer MEDICARE, SELFPAY ==
--- NOTE | 2024-02-05 10:44 | A.OFFPC_ITS ---
Vital Signs 02/05/24 11:02 02/05/24 12:15 Height 5 ft 11 in Weight 176 lb BMI 24.5 BP 110/52 L Blood Pressure Location Rt brachial Position Sitting Pulse 49 L 56 Pulse Source Pulse Oximeter Pulse Oximetry (%) 99 Oxygen Delivery Method Room Air Intake Visit Reasons: Annual PE Intake Note: Patient here for physical exam. Allergies amoxicillin Allergy (Unknown, Verified 02/05/24 12:14) Unknown clindamycin Allergy (Unknown, Verified 02/05/24 12:14) heart burn penicillin G Allergy (Unknown, Verified 02/05/24 12:14) Unknown sulfacetamide [From Sulfacet-R] Allergy (Unknown, Verified 02/05/24 12:14) Unknown sulfur [From Sulfacet-R] Allergy (Unknown, Verified 02/05/24 12:14) Unknown tetracycline Allergy (Unknown, Verified 02/05/24 12:14) Unknown Medication List - Last Reconciled 02/05/24 by MANISHA Smith aspirin (Adult Aspirin Regimen) 81 mg PO DAILY atorvastatin 20 mg PO DAILY 90 days clopidogrel 75 mg PO DAILY glipizide 10 mg PO DAILY lactobacillus combination no.9 (Adult 50 Plus Probiotic) 4,000 mmu cells PO DAILY losartan 50 mg PO DAILY tamsulosin 0.4 mg PO DAILY timolol maleate 0.5% 1 drp ophthalmic (eye) BID verapamil ER 120 mg PO BEDTIME Tobacco use date assessed: 09/18/23 Fall risk assessment: No Falls in past year Last assessed Fall Risk: 02/05/24 Dental Screening Dental Screen Date: 09/18/23 HPI Annual PE HPI Details Pt is here for a PE. Will order labs. Colon screen is up to date. Pt sees urology. Pt is a diabetic, on an ARB and a statin. Last A1C was 6.0. Microalbumin is up to date. Denies polyuria, polydipsia, and neuropathy. Pt denies any signs and symptoms of hypoglycemia and does know how to correct it. Pt's WBCs are trending down. He has an upcoming appointment with hematology. Pt follows up with dermatology, vascular, and thoracic (LDCT). [facility] Medical History Pancytopenia Esophageal stenosis Hyponatremia Prostate cancer Malignant neoplasm of skin Arteriolosclerosis COPD (chronic obstructive pulmonary disease) Esophageal stricture Benign familial tremor PVD (peripheral vascular disease) Dyslipidemia Elevated PSA RBBB Pulmonary emphysema Diabetes HTN (hypertension) Surgical History S/P angioplasty with stent (11/14/23) History of cholecystectomy History of hernia surgery Family History Father No problems noted. Mother No problems noted. Daughter No problems noted. Daughter No problems noted. Social History Housing: House Alcohol intake: current Patient Tobacco Use Status: Former Tobacco user Years Smoked: 9 years ago e-Cigarette/Vaping Use: Never Used Second Hand Smoke Exposure: No service: Yes Current occupational status: retired Current occupational exposures/hazards: No Cognitive needs: No Hearing needs: No Vision needs: No Questionnaire PHQ-9 Over the last 2 weeks, how often have you been bothered by any of the following problems? 48785 - PHQ-9 Billing: Patient declined-do not bill Source: Developed by Drs. Jonathon Chairez, Sherly Elena, John Light and colleagues, with an educational suze from [employer]. Thrive Questionnaire Date Thrive assessed: 09/18/23 AUDIT C Alcohol Use Questionnaire (AUDIT-C) 2. How many drinks containing alcohol do you have on a typical day when you are drinking?: 5 or 6 3. How often do you have six or more drinks on one occasion?: Never Total Score: 2 SHAKA-7 AMB Questionnaire SHAKA-7 Date SHAKA - 7 assessed: 09/18/23 Feeling nervous, anxious, or on edge: 0 = Not at all Not being able to stop or control worryin = Not at all Worrying too much about different things: 1 = Several days Being so restless that it is hard to sit still: 0 = Not at all Feeling afraid as if something awful might happen: 0 = Not at all Source: Developed by Drs. Jonathon Chairez, John Fox and colleagues, with an educational suze from [employer]. SHAKA-7 Assessment Billing SHAKA-7 Assessment Tool: SHAKA-7 Assessment 08215 Review of Systems Const Denies chills and Denies fever(s) Eyes Denies blurry vision ENT Denies vertigo, Denies dizziness and Denies sore throat Card Denies chest pain at rest, Denies chest pain with activity, Denies diaphoresis, Denies dyspnea and Denies dyspnea on exertion Resp Denies cough, Denies dyspnea, Denies dyspnea on exertion and Denies wheezing GI Denies abdominal pain, Denies melena, Denies hematochezia, Denies constipation, Denies diarrhea and Denies loose stools Denies hematuria Musc Denies numbness and Denies tingling Skin/Breast Denies lesions Neuro Denies vertigo, Denies dizziness, Denies numbness and Denies tingling Psych Denies anxiety, Denies depression, Denies homicidal ideation, Denies suicidal ideation and Denies other (substance abuse) Aller/Immun Denies wheezing Physical exam (Primary Care) Vital Signs: Last Vital Signs Pulse 49 L 02/05/24 11:02 BP 110/52 L 02/05/24 11:02 Pulse Ox 99 02/05/24 11:02 Oxygen Delivery Method Room Air 02/05/24 11:02 BMI result Body Mass Index 24.5 Tobacco/Smoking Status: Tobacco use Status Tobacco use date assessed 09/18/23 02/05/24 10:44 Patient Tobacco Use Status Former Tobacco user 02/05/24 10:44 e-Cigarette/Vaping Use Never Used 02/05/24 10:44 Thrive Assessment: Date of Thrive Assessment Date Thrive assessed 09/18/23 02/05/24 10:44 Const General: cooperative Nutritional Appearance: well nourished Orientation/consciousness: patient oriented x3 HENMT Head: Yes normal to inspection, Yes normocephalic and Yes atraumatic Ears: TM's normal bilaterally Eyes General: appearance normal, both eyes and all related structures Alignment and Position: alignment normal and position normal Neck Neck: Yes normal visual inspection and Yes no lymphadenopathy Thyroid: Thyroid normal Resp Effort & Inspection: normal respiratory effort Auscultation: diminished lung sounds (though moving air) Cardio Rate: regular rate Rhythm: regular rhythm Heart sounds: S1 normal heart sound present, S2 normal heart sound present and no murmurs GI Palpation (GI): Soft to palpation and nontender Auscultation: normal bowel sounds Male General Exam: Yes normal external exam Penis: normal penis Scrotum: scrotum normal, testes descended bilaterally and no inguinal hernias Testes: no testicular mass Skin Rashes: no rashes Neuro General: patient oriented x3, moves all extremities, no focal motor deficits and deep tendon reflexes 2+ bilaterally Romberg Test: Negative Psych Appearance: grossly normal Mental Status: mental status grossly normal Speech and movement: Normal speech and movement present Affect: normal affect Attitude: cooperative Thought process: Normal thought process present Thought content: Normal thought content present Insight: Good insight present (Psych) Judgement: Good judgement present (Psych) Assessment and Plan Assessment & Plan (1) Physical exam: Code(s): Z00.00 - Encounter for general adult medical examination without abnormal findings Plan: lab reordered Plan The patient agreed to the use of a medical accounts receivable specialist for this encounter. Scribed for MANISHA Mensah by Radha Khalil medical accounts receivable specialist, on 02/05/2024 at 11:15 EST. Orders: Orders Comprehensive [place]. Panel Fast Today Z00.00 - Encounter for general adult medical examination without abnormal findings Complete Blood Count Auto Diff Today Z00.00 - Encounter for general adult medical examination without abnormal findings TSH reflex Free T4 Today Z00.00 - Encounter for general adult medical examination without abnormal findings UA CC w/rflx Micro + Cult Today Z00.00 - Encounter for general adult medical examination without abnormal findings Lipid Panel Today Z00.00 - Encounter for general adult medical examination without abnormal findings Coding Level of Care Code Est Pt Prev Care >65y(37366) Diagnoses Physical exam Z00.00 Additional Codes SHAKA-7 Assessment Billing - SHAKA-7 Assessment Tool: SHAKA-7 Assessment 99814 ([id number])
[2024-02-05 11:02] VITALS: BP 110/52; PULSE 49; O2SAT 99; BMI 24.5
[2024-02-05 12:15] VITALS: PULSE 56
== END 2024-02-05 12:43 | disposition home or self-care (01) ==
PROVIDERS: PCP Nurse Practitioner Family; Visit Provider Nurse Practitioner Family
DX: Z00.00 Encounter for general adult medical examination without abnormal findings (principal)
CPT/HCPCS: 99397

== ENCOUNTER 2024-03-03 08:51 | Outpatient (AMB) | payer MEDICARE, SELFPAY ==
--- OUTSIDE RECORDS SUMMARY | 2024-03-03 08:53 | XMS_ITS | Continuity of Care Document ---
Author Organization [facility] Address [address] [place] [address]- Care Team Providers Care Finishing Room Operator Name Role Phone Hailey BRAMBILA, Dariel Singletary Primary Care Physician [phone] Encounter [facility] [place] Date(s): 11/14/23 - 12/14/23 [facility] [address] [place], [place] [address] Attending Physician: Karlee Abdullahi Admitting Physician: AdmKarlee sylvester Referring Physician: Admtr Ar8 Allergies, Adverse Reactions, Alerts Substance Reaction Severity Status tetracycline Rash Active clindamycin 1 Severe Active amoxicillin Rash Active sulfADIAZINE Swelling of throat Active penicillins Rash Active Augmentin Rash Active 1gave pt heart burn Medications atorvastatin 20 mg oral tablet 0 [...] Reference Physician Member Role: PCP Address: Address: [address] [place] [address]- Care Team Related Persons Name: SHREYA DHALIWAL Address: home [address] [place] [address]
--- OUTSIDE RECORDS SUMMARY | 2024-03-03 08:53 | XMS_ITS | Continuity of Care Document ---
Author Organization [facility] Address [address] [place] [address]- Care Team Providers Care Suction Plate Roller Hand Name Role Phone Hailey BRAMBILA, Dariel Singletary Primary Care Physician Encounter [facility] [place] Date(s): 07/25/23 - 08/24/23 [facility] [address] [place] [address]- Allergies, Adverse Reactions, Alerts Substance Reaction Severity [...] Reference Physician Member Role: PCP Address: Address: [address] [place] [address]- Care Team Related Persons Name: SHREYA DHALIWAL Address: home [address] [place] [address]
--- OUTSIDE RECORDS SUMMARY | 2024-03-03 08:53 | XMS_ITS | Continuity of Care Document ---
Author Organization [facility] Address [address] [place] [address]- Care Team Providers Care Computer Specialist Name Role Phone Hailey BRAMBILA, Dariel Singletary Primary Care Physician Encounter [facility] [place] Date(s): 08/16/23 - 12/14/23 [facility] [address] [place], [place] [address] Attending Physician: Suzanne Sharma NP Admitting Physician: Zachary BRAMBILA, Suzanne Randall Referring Physician: Suzanne Sharma NP Allergies, Adverse Reactions, Alerts Substance Reaction [...] Reference Physician Member Role: PCP Address: Address: [address] [place] [address]- Care Team Related Persons Name: SHREYA DHALIWAL Address: home [address] [place] [address]
--- OUTSIDE RECORDS SUMMARY | 2024-03-03 08:53 | XMS_ITS | Continuity of Care Document ---
Author Organization [facility] Address [address] [place] [address]- Care Team Providers Care Multicultural Services Librarian Name Role Phone Hailey BRAMBILA, Dariel Singletary Primary Care Physician [phone] Encounter [facility] [place] Date(s): 08/29/23 - 09/28/23 [facility] [address] [place] [address]- Allergies, Adverse Reactions, Alerts Substance Reaction Severity [...] Reference Physician Member Role: PCP Address: Address: [address] [place] [address]- Care Team Related Persons Name: SHREYA DHALIWAL Address: home [address] [place] [address]
--- OUTSIDE RECORDS SUMMARY | 2024-03-03 08:53 | XMS_ITS | Continuity of Care Document ---
Author Organization [facility] Address [address] [place] [address]- Care Team Providers Care Coal Picker Name Role Phone Hailey BRAMBILA, Dariel Singletary Primary Care Physician [phone] [place] [facility] [place] 11/19/23 - 12/19/23 [facility] [address] [place], [place] [address] Attending Physician: Karlee Abdullahi Admitting Physician: Karlee Abdullahi Referring Physician: Karlee Abdullahi Referring Physician: Shellie Navarro Referring Physician: Shellie Navarro Allergies, Adverse Reactions, Alerts Substance Reaction Severity [...] Reference Physician Member Role: PCP Address: Address: [address] [place] [address]- Care Team Related Persons Name: SHREYA DHALIWAL Address: home [address] [place] [address]
--- OUTSIDE RECORDS SUMMARY | 2024-03-03 08:53 | XMS_ITS | Continuity of Care Document ---
Author Organization [facility] Address [address] [place] [address]- Care Team Providers Care Ship Yard Electrical Person Name Role Phone Hailey BRAMBILA, Dariel Singletary Primary Care Physician [phone] [place] [facility] [place]23 [place] 09/07/23 [facility] [address] [place], [place] [address] Attending Physician: Karlee Abdullahi Admitting Physician: Karlee [...] Reference Physician Member Role: PCP Address: Address: [address] [place] [address]- Care Team Related Persons Name: SHREYA DHALIWAL Address: home [address] [place] [address]
--- OUTSIDE RECORDS SUMMARY | 2024-03-03 08:53 | XMS_ITS | Continuity of Care Document ---
Author Organization [facility] Address [address] [place] [address]- Care Team Providers Care Seniour Insight Manager Name Role Phone Hailey BRAMBILA, Dariel Singletary Primary Care Physician [phone] Encounter [facility] [place] Date(s): 08/21/23 - 12/19/23 [facility] [address] [place], [place] [address] Attending Physician: Zachary BRAMBILA, Suzanne Randall Admitting [...] Reference Physician Member Role: PCP Address: Address: [address] [place] [address]- Care Team Related Persons Name: SHREYA DHALIWAL Address: home [address] [place] [address]
--- OUTSIDE RECORDS SUMMARY | 2024-03-03 08:53 | XMS_ITS | Patient Health Record ---
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) Diagnosis 2 Unspecified atherosc lerosis of [place] arteries of extremities, bilateral legs (I70.203) Diagnosis [...] First Name Dariel Referring Provider Last Name Hailey Referred [facility] Referred Provider Desire Zaman Referred Address [address] [place], [place],[address],[place] Referred Provider Specialty Podiatry Referral Priority Routine Diagnosis 1 Unspecified atherosc lerosis of [place] arteries of extremities, bilateral legs (I70.203) Diagnosis 2 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) Diagnosis 3 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, 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) Diagnosis 4 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) Diagnosis 5 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) Diagnosis 6 Metatarsalgia, right foot (M77.41) Diagnosis 7 Cutaneous abscess of right foot (L02.611) Diagnosis 8 Neuralgia and neurit is, unspecified (M79.2) Diagnosis 9 Pain in right foot ( M79.671) Diagnosis 10 Pain in left foot (M 79.672) Diagnosis 11 Localized edema (R60 .0) Diagnosis 12 Xerosis cutis (L85.3 ) Diagnosis 13 Non-pressure chronic ulcer of other part of left foot limited to breakdown of skin (L97.521) Diagnosis 14 Hallux valgus (acqui red), right foot (M20.11) Diagnosis 15 Pain in Limb (729.5) Diagnosis 16 Neuralgia - Neuritis (729.2) Diagnosis 17 Hammer toe (735.4) Diagnosis 18 Metatarsalgia, left foot (M77.42) Diagnosis 19 Non-pressure chronic ulcer of other part of left foot limited to breakdown of skin (L97.521) Diagnosis 20 Neuritis (M79.2) Diagnosis 21 PlantarFlexion of me tatarsal of left foot (M21.6X2) Diagnosis 22 Acute idiopathic gou t of right foot (M10.071) Diagnosis 23 Cellulitis of foot w ithout toes, left (L03.116) Diagnosis 24 Neuropathy (G62.9) Diagnosis 25 Ingrown nail (L60.0) Diagnosis 26 Skin ulcer of toe of right foot, limited to breakdown of skin (L97.511) Diagnosis 27 Skin ulcer of toe of left foot, limited to breakdown of skin (L97.521) Diagnosis 28 Pain in right foot ( M79.671) Diagnosis 29 Peroneal tendinitis, right leg (M76.71) Diagnosis 30 Hypertrophy of bone, right ankle and foot (M89.371) Diagnosis 31 Other hammer toe(s) (acquired), right foot (M20.41) Diagnosis 32 Other hammer toe(s) (acquired), left foot (M20.42) Diagnosis 33 Contusion of toenail of left foot, initial encounter (S90.222A) Diagnosis 34 Unspecified atherosc lerosis of [place] arteries of extremities, bilateral legs (I70.203) Diagnosis 35 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) Diagnosis 36 Fracture of phalanx of toe of right foot (S92.911A) Diagnosis 37 Idiopathic gout, rig ht ankle and foot (M10.071) Diagnosis 38 Non-pressure chronic ulcer of other part of left foot with fat layer exposed (L97.522) Diagnosis 39 Other hammer toe(s) (acquired), right foot (M20.41) Diagnosis 40 Bunion of right foot (M21.611) Diagnosis 41 Bunion of left foot (M21.612) Diagnosis 42 Bunionette of left f oot (M21.622) Diagnosis 43 PlantarFlexion of me tatarsal of right foot (M21.6X1) Diagnosis 44 Osteophyte, unspecif ied joint (M25.70) Diagnosis 45 Plantar fascial fibr omatosis (M72.2) Diagnosis 46 Ingrowing nail (L60. 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) Diagnosis 55 PlantarFlexion of me tatarsal of right foot (M21.6X1) Diagnosis 56 Non-pressure chronic ulcer of other part of left foot limited to breakdown of skin (L97.521) Diagnosis 57 Other hammer toe(s) (acquired), right foot (M20.41) Diagnosis 58 Other hammer toe(s) (acquired), left foot (M20.42) Diagnosis 59 Acute idiopathic gou t of right foot (M10.071) Diagnosis 60 Hallux valgus (acqui red), right foot (M20.11) Diagnosis 61 Hallux valgus (acqui red), left foot (M20.12) Diagnosis 62 Idiopathic gout, rig ht ankle and foot (M10.071) Diagnosis 63 PlantarFlexion of me tatarsal of left foot (M21.6X2) Diagnosis 64 Non-pressure chronic ulcer of other part of left foot limited to breakdown of skin (L97.521) Diagnosis 65 Neuropathy (G62.9) Diagnosis 66 Skin ulcer of toe of left foot, limited to breakdown of skin (L97.521) Diagnosis 67 Skin ulcer of toe of right foot, limited to breakdown of skin (L97.511) Diagnosis 68 Cavus deformity of r ight foot (Q66.71) Referring Provider First Name Dariel Referring Provider Last Name Hailey [facility] Referred Provider Desire Zaman Referred Address [address] [place], [place],[address],[place] Referred Provider Specialty Podiatry Referral Priority Routine MEDICATIONS Medication SIG (Take, Route, Frequency, Duration) Notes Start Date End Date Status Cilostazol 50 MG 1 tablet 30 minutes before or 2 hours after breakfast and dinner Orally Twice a day Not-Taking hydroCHLOROthiazide 12.5 MG as directed Orally Once a day Active Lisinopril Not-Takin g Verapamil HCl 120 MG [...] (M20.41,M20.42), Preulcerative Skin Lesion(s) (L85.1 09/16/2020 Active Plavix 75 MG 1 tablet Orally Once a day Active Medrol 4 MG as directed Orally a s directed for 6 days 03/29/2021 Not-Taking Probiotic - as directed Orally Active Clindamycin HCl Not- Taking dexAMETHasone 0.75 MG 1 tablet Orally ev js 12 hrs for 30 day(s) Active IMMUNIZATIONS Vaccine Route Administration Date Status Comme nts COVID-19 Pfizer BioNTech Vaccine Unknown 06/01/2021 Administered 1st dose: 09/30/2020 2nd dose: 10/21/20 Influenza Unknown 05/28/2017 Administered Influenza Unknown 04/27/2020 Administered Influenza Unknown 05/27/2021 Administered Influenza Unknown 05/10/2023 Administered SOCIAL HISTORY Tobacco Use: Social History [...] confirmed Acquired hammer toe of right foot (2432345112614126 ) Problem Hallux valgus (acquired), left foot (M20.12) Active confirmed Acquired hallu x valgus (88793016) Problem Other hammer toe(s) (acquired), left foot (M20.42) Active confirmed Acquired hamme r toe of left foot (6559381416307760 ) Problem Non-pressure chronic ulcer of other part of left foot limited to breakdown of skin (L97.521) Active confirmed Diabetic foot ulcer (710175950) Problem Unspecified atherosclerosis of [place] arteries of extremities, 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 Atherosclerosis of [place] arteries of the extremities (858645622969179) Problem Hallux valgus (acquired), right foot (M20.11) Active confirmed Acquired hallux valgus (09499776) Problem Non-pressure chronic ulcer of other part of left foot limited to breakdown of skin (L97.521) Active confirmed Ulcer of foot (32206709) Problem Type 2 diabetes mellitus with diabetic polyneuropathy (E11.42) Active confirmed Polyneuropathy due to type 2 diabetes mellitus (902540444) Problem Idiopathic gout, right ankle and foot (M10.071) Active confirmed Primary gout (28818071) Problem Neuropathy (G62.9) Active confirmed 924679682 Problem Acute idiopathic gout of right foot (M10.071) Active confirmed 9229837678067125 Problem PlantarFlexion of metatarsal of right foot (M21.6X1) Active confirmed Acquired deformity of right foot (7871961577222063 0) Problem PlantarFlexion of metatarsal of left foot (M21.6X2) Active confirmed Acquired deformity of left foot (9885625047860542 4) Problem 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) Active confirmed Gouty tophus of left foot (5477257555876454 9) Problem Skin ulcer of toe of right foot, limited to breakdown of skin (L97.511) Active confirmed Ulcer of toe of right foot (disorder) (3139849260521816 1) Nonapplicable Problem 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) Active confirmed Problem Skin ulcer of toe of left foot, limited to breakdown of skin (L97.521) Active confirmed Ulcer of toe of left foot (disorder) (8618556568454653 2) VITAL SIGNS Blood pressure diastolic 76 mm Hg 04/12/2023 Height 5 ft 11 in in 12/06/2023 Blood pressure systolic 142 mm Hg 04/12/2023 Weight 176 lbs 12/06/2023 BMI 24.54 kg/m2 12/06/2023 PROCEDURES Procedure Date Ordered Date Performed Result Body Sit e 84103-Tbik. Subungual Hematoma 03/26/2023 N/A 21502- Debride <25 sq cm 04/12/2023 N/A 29885-TEAN SKIN LESIONS, 2 TO 4 06/07/2023 N/A J2486-GIGHRNFK DYSTROPHIC NAILS ANY # 06/07/2023 N/A 86428-Grckvfqk Plate 11/21/2023 N/A 05058-Luhxuwzx Plate Each Additional 11/21/2023 N/A 71871-RUNS SKIN LESIONS, 2 TO 4 11/21/2023 N/A F7383-HSCAQEBY DYSTROPHIC NAILS ANY # 11/21/2023 N/A 98245- Debride <25 sq cm 12/06/2023 N/A Encounters Encounter Location Date Provider Diagnosis [address] [address] 03/23/2023 Desire Black [address] [address] 03/26/2023 Desire Black Contusion of toenail of left foot, initial encounter S90.222A [address] [address] 03/28/2023 Desire Black [address] [address] 04/12/2023 Desire Black Skin ulcer of toe of right foot, limited to breakdown of skin L97.511 and Type 2 diabetes mellitus with diabetic polyneuropathy E11.[address] [address] 06/07/2023 Desire Black Type 2 diabetes mellitus with diabetic polyneuropathy E11.42 and Unspecified atherosclerosis of [place] arteries of extremities, bilateral legs I70.[address] [address] 10/11/2023 Desire Black [address] [address] 11/21/2023 Desire Black Ingrown nail L60.0 ; Type 2 diabetes mellitus with diabetic polyneuropathy E11.42 and Unspecified atherosclerosis of [place] arteries of extremities, bilateral legs I70.[address] [address] 12/06/2023 Desire Black Skin ulcer of toe of left foot, limited to breakdown of skin L97.521 ; Peroneal tendinitis, right leg M76.71 ; Pain in right foot M79.671 ; Hypertrophy of bone, right ankle and foot M89.371 ; Type 2 diabetes mellitus with diabetic polyneuropathy E11.42 and Unspecified atherosclerosis of [place] arteries of extremities, bilateral legs I70.203 ASSESSMENTS Encounter Date Diagnosis Assessment Notes Treatment Notes Treatment Clinical Notes 03/26/2023 Contusion of toenail of left foot, initial encounter (ICD-10 - S90.222A) 04/12/2023 Type 2 diabetes mellitus with diabetic polyneuropathy (ICD-10 - E11.42) 04/12/2023 Skin ulcer of toe of right foot, limited to breakdown of skin (ICD-10 - L97.511) Nonapplicable Patient Educated with: WOUND CARE INSTRUCTIONS.pdf (WOUND CARE INSTRUCTIONS.pdf ) 06/07/2023 Unspecified atherosclerosis of [place] arteries of extremities, bilateral legs (ICD-10 - I70.203) 06/07/2023 Type 2 diabetes mellitus with diabetic polyneuropathy (ICD-10 - E11.42) 11/21/2023 Type 2 diabetes mellitus with diabetic polyneuropathy (ICD-10 - E11.42) 11/21/2023 Ingrown nail (ICD-10 - L60.0) 12/06/2023 Peroneal tendinitis, right leg (ICD-10 - M76.71) Patient Educated with: PERONEAL TENDON INJURY REHAB. EXERCISES.pdf (PERONEAL TENDON INJURY REHAB. EXERCISES.pdf) 12/06/2023 Skin ulcer of toe of left foot, limited to breakdown of skin (ICD-10 - L97.521) Patient Educated with: WOUND CARE INSTRUCTIONS.pdf (WOUND CARE INSTRUCTIONS.pdf ) 12/06/2023 Pain in right foot (ICD-10 - M79.671) 11/21/2023 Unspecified atherosclerosis of [place] arteries of extremities, bilateral legs (ICD-10 - I70.203) 12/06/2023 Hypertrophy of bone, right ankle and foot (ICD-10 - M89.371) 12/06/2023 Type 2 diabetes mellitus with diabetic polyneuropathy (ICD-10 - E11.42) 12/06/2023 Unspecified atherosclerosis of [place] arteries of extremities, bilateral legs (ICD-10 - I70.203) 04/12/2023 Other 12/06/2023 Other PLAN OF TREATMENT Pending Test Test Name Order Date *Uric Acid, Serum 03/29/2021 *Uric Acid, Serum 04/06/2022 *Sedimentation Rate-Westergren 2 *Sedimentation Rate-Westergren 1 C-Reactive Protein, Quant 04/06/2022 X ray : Foot, right 3V 03/29/2021 X ray : Foot, right 3V 06/29/2016 67153-Fvhkpgjs Plate 02/05/2023 22544-Euxctzjs Plate 11/21/2023 94541-Guoecxgo Plate Each Additional 26871- Debride <25 sq cm 06/12/2022 59786- Debride <25 sq cm 08/09/2020 49091- Debride <25 sq cm 05/29/2022 40078- Debride <25 sq cm 04/30/2015 45036- Debride <25 sq cm 09/16/2020 00049- Debride <25 sq cm 04/12/2023 14234- Debride <25 sq cm 12/06/2023 79197- Debride <25 sq cm 12/29/2015 83467- Debride <25 sq cm 06/29/2016 89862 I&D ABSCESS- SIMPLE,SINGLE 023 38057 I&D ABSCESS- SIMPLE,SINGLE 022 52592-GKVM SKIN LESIONS, 2 TO 4 10/02/19 23 29855-SEFF SKIN LESIONS, 2 TO 4 02/06/20 23 63984-YTPE SKIN LESIONS, 2 TO 4 04/11/20 21 69170-JFAK SKIN LESIONS, 2 TO 4 12/10/19 21 22297-SZNN SKIN LESIONS, 2 TO 4 09/05/19 22 43583-YWHU SKIN LESIONS, 2 TO 4 03/09/20 22 86119-RYWU SKIN LESIONS, 2 TO 4 11/21/19 24 00329-UPCM SKIN LESIONS, 2 TO 4 06/07/20 23 42404-IZOL SKIN LESIONS, 2 TO 4 06/29/20 16 85755-JWND SKIN LESIONS, 2 TO 4 09/16/19 21 05786-QAWV SKIN LESIONS, 2 TO 4 05/29/20 22 67603-RATD SKIN LESIONS, 2 TO 4 12/29/19 17 42748-PGEW SKIN LESIONS, 2 TO 4 09/24/19 18 91631-GPXY SKIN LESIONS, 2 TO 4 03/25/20 18 01240-VQMI SKIN LESIONS, 2 TO 4 09/23/19 19 29906-YKSC SKIN LESIONS, 2 TO 4 03/03/20 19 11813-QDSB SKIN LESIONS, 2 TO 4 09/01/19 20 27910-SNUB SKIN LESIONS, 2 TO 4 03/08/20 20 76325-TUBS SKIN LESIONS, 2 TO 4 06/10/20 20 28059-XVBN SKIN LESION 04/30/2015 74108-Zlgp. Subungual Hematoma 57098-FQQB NAIL(S) 02/05/2023 06753-PQVE NAIL(S) 03/09/2022 47169-ZARX NAIL(S) 09/05/2021 33888-XFGB NAIL(S) 12/09/2020 91237-URPB NAIL(S) 04/11/2021 99506-IAWJ NAIL(S) 10/02/2022 60839-IPMU NAIL(S) 09/16/2020 94026-HUBL NAIL(S) 05/29/2022 15469-IYVU NAIL(S) 06/10/2020 88054-PUCV NAIL(S) 03/08/2020 J1733-ZEZJCRDT DYSTROPHIC NAILS ANY # U8514-VEPNNRJM DYSTROPHIC NAILS ANY # D2016-QJJJWIRL DYSTROPHIC NAILS ANY # I1665-PACBLYYD DYSTROPHIC NAILS ANY # D8825-BGYTKHPY DYSTROPHIC NAILS ANY # K5796-FOSCKSMU DYSTROPHIC NAILS ANY # J0904-MLRIYNDS DYSTROPHIC NAILS ANY # Q2805-QVHADNXA DYSTROPHIC NAILS ANY # X1207-TZFCKCZW DYSTROPHIC NAILS ANY # 07649-Biykvfakn, Toes 06/29/2016 CRP 03/29/2021 Next Appt Details Provider Name:Desire Zaman , 03/13/2024 09:15:00 AM, [address] [place] [address], [phone], Insurance Providers Payer Name Payer Address Payer Phone Subscriber Number Group Number Insured Name Patient Relationship to Insured Coverage Start Date Coverage End Date [facility] Plan [address] [place] [phone] [id number] Graham Castillo Self - patient is the insured MEDICAL (GENERAL) HISTORY Medical History History ICD Code Cancer Gall bladder problems High blood pressure Measles Mumps Chicken pox Joint implants/screws Diabetes mellitus type ll Surgical History Surgery Date(Month/Year) gall bladder 12/06/2014 appendectomy 03/2014 Stent 10/2023 Hospitalization History Reason Date(Month/Year)
--- OUTSIDE RECORDS SUMMARY | 2024-03-03 08:54 | XMS_ITS | Continuity of Care Document ---
Author Organization [facility] Address [address] [place] [address]- Care Team Providers Care Locksmith Name Role Phone Hailey BRAMBILA, Dariel Singletary Primary Care Physician Encounter [facility] Date(s): 08/08/23 - 08/15/23 [facility] [address] [place] [address]- Encounter Diagnosis Peripheral vascular disease(Discharge Diagnosis) - 08/08/23 Attending Physician: Radha Corbin NP Admitting Physician: Radha Corbin NP Allergies, Adverse Reactions, Alerts Substance Reaction Severity Status tetracycline Rash Active clindamycin 1 Severe Active Augmentin Rash Active amoxicillin Rash Active penicillins Rash Active sulfADIAZINE Swelling of throat Active 1gave pt heart burn Medications atorvastatin [...] opioid drug. Start Date: 12/26/22 Status: Ordered Problem List Diagnosis Diagnosis Type Effective Dates Health Status Clinical Service Informant Peripheral vascular disease Discharge Diagnosis 08/08/23 Vital Signs Most recent to oldest [Reference Range]: 1 Height 178.5 cm (08/08/23 2:16 PM) Weight 79.83 kg (08/08/23 2:16 PM) Oxygen Saturation [94-100 %] 98 % (08/08/23 2:16 PM) Pulse Rate [55-90 bpm] 71 bpm (08/08/23 2:16 PM) Body Mass Index [18.5-24.99 kg/m2] 25.05 kg/m2 *H* (08/08/23 2:16 PM) Blood Pressure [90-138/55-84 mm Hg] 136/ 64mm Hg (08/08/23 2:16 PM) Blood pressure sites Arm, left (08/08/23 2:16 PM) Weight Obtained Via Patient/family state d (08/08/23 2:16 PM) Social History Social History Type Response Smoking Status Former smoker; Tobac [employer] user in household: No entered on: 10/08/14 Sex Note * Nereyda Agarwal: PERFORM, SIGN, VERIFY Event Display: Patient Education/Instruction Authored Date: [id number] [facility] *[facility] [address] Clinical Summary Name GILLES DHALIWAL Age 77 Years 1945 PCP Hailey BRAMBILA , Dariel Singletary PCP Visit Date 08/08/2023 14:08:00 Additional Instructions: Scheduled Appointments?? Future Appointments ?No Future Appointments Scheduled Follow-Up Instructions ?? With: Address: When: Radha Corbin NP In 3 months Comments: follow up in 3 months after??ABIs Please refer to [facility] Diagnosis Peripheral vascular disease, unspecified Medications: Please continue your medications until treatment [...] Dose: Allergy Info:?? Augmentin; penicillins; sulfADIAZINE; amoxicillin; clindamycin; tetracycline Medications Given This Visit Future Orders ?VL Ankle Brachial Indices? Order Date:11/07/23?- Complete by?11/28/23 Vital Signs Height 178.5 cm Weight 79.83 kg BMI 25.05 kg/m2 Blood Pressure 136 mm Hg/64 mm Hg Temperature Pulse Rate 71 bpm Respiratory Rate 02 Sat Mode of Delivery 98 %/ You can now view a summary of your hospital visit from the comfort of your home through a free online portal called [facility]. [facility] is a website that allows you to securely view your medical information including discharge summary, medications and follow-up visits. ??You can alsosend a secure electronic message to your doctor???s office to request appointments, renew medications or just ask a question. You can enroll at [email or web address] or register during your next office visit. [...] primary care provider, you may find a [facility] provider by calling [facility] at [phone]. [facility], in keeping with [facility] guidance, no longer requires face masks for staff, patientsor visitors in most situations. Similar to time spent indoors at other locations, there is the chance that you were exposed to respiratory viruses during your time with us (such as flu or COVID-19).? If you develop symptoms concerning for a viral respiratory infection, please seek testing (and treatment if indicated) from your medical provider or home test kit. For information about the plan of care including goals and instructions for your diagnosis, please see the patient education orders section of this document. Patient Education Materials?? The content of this educational material or handout may have been modified, supplemented, or adapted from its original content and format to support your individualized medical care. Patient Care team information Care Team Personnel Name: Hailey BRAMBILA , Dariel Singletary Position: Reference Physician Member Role: PCP Address: Address: [address] [place] [address]- Care Team Related Persons Name: SHREYA DHALIWAL Address: home [address] [place] [address]
--- NOTE | 2024-03-03 09:17 | AM.OFFWIN_ITS ---
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 Patient Tobacco Use Status: Former Tobacco user Allergies amoxicillin Allergy (Unknown, Verified 03/03/24 09:27) Unknown clindamycin Allergy (Unknown, Verified 03/03/24 09:27) heart burn penicillin G Allergy (Unknown, Verified 03/03/24 09:27) Unknown sulfacetamide [From Sulfacet-R] Allergy (Unknown, Verified 03/03/24 09:) Unknown sulfur [From Sulfacet-R] Allergy (Unknown, Verified 03/03/24 09:27) Unknown tetracycline Allergy (Unknown, Verified 03/03/24 09:27) Unknown Do you need a note to return to daycare/school/sports/work: No HPI HPI Comments History of Present Illness Details Patient is a 78-year-old male complaining of a back strain while he was trying to 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 He denies any loss of control of his bladder or bowels. He says that a few years ago he was given medication that worked very well and he would like that same medication again. He states he is on a blood thinner and he can not take ibuprofen. He states he has been taking Tylenol with only very mild relief. [facility] Medical History Pancytopenia Esophageal stenosis Hyponatremia Prostate cancer Malignant neoplasm of skin Arteriolosclerosis COPD (chronic obstructive pulmonary disease) Esophageal stricture Benign familial tremor PVD (peripheral vascular disease) Dyslipidemia Elevated PSA RBBB Pulmonary emphysema Diabetes HTN (hypertension) Surgical History S/P angioplasty with stent (11/14/23) History of cholecystectomy History of hernia surgery Family History Father No problems noted. Mother No problems noted. Daughter No problems noted. Daughter No problems noted. Social History Housing: House Alcohol intake: current Patient Tobacco Use Status: Former Tobacco user Years Smoked: 9 years ago e-Cigarette/Vaping Use: Never Used Second Hand Smoke Exposure: No service: Yes Current occupational status: retired Current occupational exposures/hazards: No Cognitive needs: No Hearing needs: No Vision needs: No Review of Systems Const All systems reviewed & are unremarkable except as noted in HPI and below Physical Exam Vital Signs: Last Vital Signs Temp 97.2 F 03/03/24 09:21 Pulse 73 03/03/24 09:21 BP 140/78 H 03/03/24 09:21 Pulse Ox 97 03/03/24 09:21 BMI result Body Mass Index 24.7 Const General: cooperative, healthy appearing and comfortable Orientation/consciousness: patient oriented x3 HEENT Head: Yes normal to inspection General nose exam: Normal external nose present Face and sinus: Yes normal facial exam Eyes General: appearance normal, both eyes and all related structures Resp Effort & Inspection: normal respiratory effort and able to speak in complete sentences Back/Spine/Pelvis Thoracic/Lumbar Spine: thoracic and lumbar spine normal to inspection, pain with thoraco-lumbar ROM, thoraco-lumbar ROM limited (2/2 pain) with forward flexion, with lateral flexion to the right, with lateral flexion to the left, with rotation to the right and with rotation to the left, No thoracic spinal tenderness and No lumbar spinal tenderness Neuro General: patient oriented x3 Assessment & Plan Assessment & Plan (1) Low back strain: Code(s): S39.012A - Strain of muscle, fascia and tendon of lower back, initial encounter Qualifiers: Encounter type: initial encounter Qualified Code(s): S39.012A - Strain of muscle, fascia and tendon of lower back, initial encounter Plan: Recommended jplb-wbf-[id number] medications such as a lidocaine patch, icy hot or Voltaren gel as well as cyclobenzaprine to use sparingly, did warn against getting up in the middle the night and falling, also advised no alcohol or driving while using this medication. Gave patient red flag signs and when to go to the emergency department. Plan See above Medications: New cyclobenzaprine 5 mg PO TID PRN 10 tabs 0RF muscle spasm Coding Level of Care Code Est Pt Level 3 (81136) Diagnoses Strain of lumbar region, initial encounter S39.012A Encounter type: initial encounter
[2024-03-03 09:21] VITALS: BP 140/78; PULSE 73; TEMP 36.2; O2SAT 97; BMI 24.7
== END 2024-03-03 10:06 | disposition home or self-care (01) ==
PROVIDERS: PCP Nurse Practitioner Family; Visit Provider Physician Assistant
DX: S39.012A Strain of muscle, fascia and tendon of lower back, initial encounter (principal)
CPT/HCPCS: 99213

== ENCOUNTER 2024-03-25 14:44 | Outpatient (AMB) | payer MEDICARE, SELFPAY ==
[2024-03-25 14:55] VITALS: BMI 24.7
--- NOTE | 2024-03-25 14:55 | A.OFFVIS_ITS ---
Vital Signs 03/25/24 14:55 Height 5 ft 11 in Weight 177 lb BMI 24.7 Intake Visit Reasons: 3 mo follow up art US Intake Note: 3 mo follow up bilateral Angio 11/14/23, s/p Artial US 12/24/23. Pt states his legs feel great, he can walk without rest. Accompanied by: Spouse Allergies amoxicillin Allergy (Unknown, Verified 03/25/24 14:59) Unknown clindamycin Allergy (Unknown, Verified 03/25/24 14:59) heart burn penicillin G Allergy (Unknown, Verified 03/25/24 14:59) Unknown sulfacetamide [From Sulfacet-R] Allergy (Unknown, Verified 03/25/24 14:59) Unknown sulfur [From Sulfacet-R] Allergy (Unknown, Verified 03/25/24 14:59) Unknown tetracycline Allergy (Unknown, Verified 03/25/24 14:59) Unknown HPI HPI 3 mo follow up art US: Details: Very pleasant 78-year-old gentleman presents for follow-up status post bilateral iliac stenting on 11/14/2023. Did have a surveillance ultrasound done postprocedure unfortunately was done relatively soon. Reports he is doing significantly better. He before was only able to walk 1 I will of a store and is now able to walk the whole store. Now presents for routine follow-up. Of note he is being maintained on aspirin and Plavix. [facility] Medical History Pancytopenia Esophageal stenosis Hyponatremia Prostate cancer Malignant neoplasm of skin Arteriolosclerosis COPD (chronic obstructive pulmonary disease) Esophageal stricture Benign familial tremor PVD (peripheral vascular disease) Dyslipidemia Elevated PSA RBBB Pulmonary emphysema Diabetes HTN (hypertension) Surgical History S/P angioplasty with stent (11/14/23) History of cholecystectomy History of hernia surgery Family History Father No problems noted. Mother No problems noted. Daughter No problems noted. Daughter No problems noted. Social History Housing: House Alcohol intake: current Patient Tobacco Use Status: Former Tobacco user Years Smoked: 9 years ago e-Cigarette/Vaping Use: Never Used Second Hand Smoke Exposure: No service: Yes Current occupational status: retired Current occupational exposures/hazards: No Cognitive needs: No Hearing needs: No Vision needs: No Review of Systems Const All systems reviewed & are unremarkable except as noted in HPI and below Reports no additional complaints ENT Reports Normal hearing present Card Denies chest pain, Denies chest pain at rest, Denies chest pain with activity and Denies pedal edema Resp Denies cough GI Denies abdominal pain Musc Denies abnormal gait, Denies muscle cramps and Denies radiating pain into limb Skin/Breast Denies skin ulcer and Denies wounds Neuro Reports Normal hearing present and Denies abnormal gait Psych Reports no additional complaints Physical Exam Vital Signs: BMI result Body Mass Index 24.7 Const General: cooperative, healthy appearing and comfortable Orientation/consciousness: oriented to person, oriented to place and oriented to time HEENT Head: Yes normal to inspection Neck Neck: Yes normal visual inspection Carotids: no bruits Chest Chest palpation & inspection: normal inspection of the chest Resp Effort & Inspection: normal respiratory effort and able to speak in complete sentences Auscultation: clear to auscultation bilaterally, no crackles, no rales, no rhonchi and no wheezes Cardio Other: Bilateral DP signals Rate: regular rate Rhythm: regular rhythm Heart sounds: S1 normal heart sound present and S2 normal heart sound present Bruits: no carotid bruits Peripheral pulses: Peripheral pulses 2+ throughout GI Inspection: Yes normal to inspection Skin Wounds: no wounds Hair: normal Neuro General: oriented to person, oriented to place and oriented to time Cranial nerves: Yes CN's II-XII intact bilaterally and Yes Normal hearing present Cognition (Neuro): normal cognition Motor exam (neuro): 5/5 motor strength present throughout Extrem Other: venous exam: No significant superficial varicosities or spider telangiectasias, minimal edema General: No clubbing, No cyanosis and No edema Psych Appearance: grossly normal Mental Status: mental status grossly normal Speech and movement: Normal speech and movement present Results Reviewed Results Reviewed: Noninvasive testing demonstrates patent iliac stents and lower extremities demonstrates an BETTINA on the right of 0.48 and on the left of 0.59. Written report and images were reviewed. Assessment & Plan Assessment & Plan (1) PAD (peripheral artery disease): Comment: 11/14/2023 - bilateral iliac artery stent Code(s): I73.9 - Peripheral vascular disease, unspecified Category: Medical Plan: In short patient has stable claudication with patent bilateral iliac stents. I did review the pathophysiology of peripheral vascular disease with the patient. In addition we did discuss routine conservative measures including a healthy diet and the importance of exercise and ambulation. We did discuss risk factor modification. The patient will continue to to follow-up with surveillance follow-up in approximately 3 months. In addition the patient does have procedure scheduled in the near future inclusive of upper endoscopy with dilatation and bone marrow biopsy. I would recommend holding off procedures until May 16. After that the patient would be stable to hold all antiplatelet agents for about 5-7 days prior to procedure. Once again he will follow up with us in 3 months' time. Thank you for allowing us to participate in this patient's care. If there are any questions or concerns please do not hesitate to contact us. Orders: Orders US arterial duplex LE BI 3 Months I73.9 - Peripheral vascular disease, unspecified US abdominal aortic aneurysm 3 Months I73.9 - Peripheral vascular disease, unspecified Coding Level of Care Code Est Pt Level 4 (70712) Diagnoses PAD (peripheral artery disease) I73.9
== END 2024-03-25 15:45 | disposition home or self-care (01) ==
PROVIDERS: PCP Nurse Practitioner Family; Visit Provider Surgery Vascular Surgery
DX: I73.9 Peripheral vascular disease, unspecified (principal)
CPT/HCPCS: 99214

== ENCOUNTER → 2024-03-25 14:44 | Outpatient (BNVA) | payer MEDICARE, SELFPAY | PROVIDERS: PCP Nurse Practitioner Family; Visit Provider Surgery Vascular Surgery | DX: I73.9 Peripheral vascular disease, unspecified (principal) | CPT/HCPCS: 99212 ==

== ENCOUNTER 2024-04-07 10:01 | Outpatient (REF) | payer MEDICARE, SELFPAY ==
--- NOTE | ~2024-04-07 | XR_ITS ---
EXAMINATION: XR LUMBOSACRAL SPINE CLINICAL INFORMATION: Low back pain COMPARISON: None available. TECHNIQUE: Three views of the lumbosacral spine. FINDINGS: Vertebral bodies are well aligned and intervertebral discs are preserved there is mild wedge-shaped deformity of L4 vertebral body with flattening of the superior endplate most likely due to compression fracture of indeterminate age. The rest of pedicles are incidentally lesions are well aligned. There are calcifications seen in the pancreas consider possibility of chronic pancreatitis. Gallbladder is surgically absent. XR/XR lumbar spine 2-3V IMPRESSION: L4 superior endplate fracture deformity Chronic pancreatitis Vascular calcifications.
== END 2024-04-07 10:02 | disposition home or self-care (01) ==
LOC: HO.HMGCX 10:01
PROVIDERS: PCP Nurse Practitioner Family; Visit Provider Nurse Practitioner Family
DX: M54.50 Low back pain, unspecified (principal)
CPT/HCPCS: 72100

== ENCOUNTER 2024-06-04 10:06 | Outpatient (AMB) | payer MEDICARE, SELFPAY ==
[2024-06-04 10:07] VITALS: BP 112/70; PULSE 62; O2SAT 97; BMI 24.5
--- NOTE | 2024-06-04 10:07 | A.OFFPC_ITS ---
Vital Signs 06/04/24 10:07 Height 5 ft 11 in Weight 176 lb BMI 24.5 BP 112/70 Blood Pressure Location Lt brachial Position Sitting Pulse 62 Pulse Source Pulse Oximeter Pulse Oximetry (%) 97 Oxygen Delivery Method Room Air Intake Visit Reasons: 4M F/u Intake Note: pt is here for 4 month follow up Buffet Manager Required: No Accompanied by: Self / Same As Patient Allergies amoxicillin Allergy (Unknown, Verified 06/04/24 10:07) Unknown clindamycin Allergy (Unknown, Verified 06/04/24 10:07) heart burn penicillin G Allergy (Unknown, Verified 06/04/24 10:07) Unknown sulfacetamide [From Sulfacet-R] Allergy (Unknown, Verified 06/04/24 10:07) Unknown sulfur [From Sulfacet-R] Allergy (Unknown, Verified 06/04/24 10:07) Unknown tetracycline Allergy (Unknown, Verified 06/04/24 10:07) Unknown Medication List - Last Reconciled 06/04/24 by MANISHA Smith aspirin (Adult Aspirin Regimen) 81 mg PO DAILY atorvastatin 20 mg PO DAILY 90 days glipizide 10 mg PO DAILY losartan 50 mg PO DAILY timolol maleate 0.5% 1 drp ophthalmic (eye) BID verapamil ER 120 mg PO BEDTIME Tobacco use date assessed: 09/18/23 Fall risk assessment: No Falls in past year Last assessed Fall Risk: 06/04/24 Dental Screening Dental Screen Date: 09/18/23 HPI 4M F/u HPI Details Pt is a diabetic, on an ARB and a statin. A1C in office today is 6.0. Microalbumin is up to date. Denies polyuria, polydipsia, does report neuropathy. Pt denies any signs and symptoms of hypoglyemia and does know how to correct it. Pt follows up with vascular, neurology, hematology/oncology, and urology. No changes noted on EKG. [facility] Medical History Pancytopenia Esophageal stenosis Hyponatremia Prostate cancer Malignant neoplasm of skin Arteriolosclerosis COPD (chronic obstructive pulmonary disease) Esophageal stricture Benign familial tremor PVD (peripheral vascular disease) Dyslipidemia Elevated PSA RBBB Pulmonary emphysema Diabetes HTN (hypertension) Surgical History S/P angioplasty with stent (11/14/23) History of cholecystectomy History of hernia surgery Family History Father No problems noted. Mother No problems noted. Daughter No problems noted. Daughter No problems noted. Social History Housing: House Alcohol intake: current Patient Tobacco Use Status: Former Tobacco user Years Smoked: 9 years ago e-Cigarette/Vaping Use: Never Used Second Hand Smoke Exposure: No service: Yes Current occupational status: retired Current occupational exposures/hazards: No Cognitive needs: No Hearing needs: No Vision needs: No Questionnaire PHQ-9 Over the last 2 weeks, how often have you been bothered by any of the following problems? 08670 - PHQ-9 Billing: Patient declined-do not bill Source: Developed by Drs. Jonathon Chairez, John Fox and colleagues, with an educational suze from [employer]. Thrive Questionnaire Date Thrive assessed: 09/18/23 SHAKA-7 AMB Questionnaire SHAKA-7 Date SHAKA - 7 assessed: 09/18/23 Source: Developed by Drs. Jonathon Chaierz, John Fox and colleagues, with an educational suze from [employer]. Review of Systems Const Reports as per HPI Physical exam (Primary Care) Vital Signs: Last Vital Signs Pulse 62 06/04/24 10:07 BP 112/70 06/04/24 10:07 Pulse Ox 97 06/04/24 10:07 Oxygen Delivery Method Room Air 06/04/24 10:07 BMI result Body Mass Index 24.5 Tobacco/Smoking Status: Tobacco use Status Tobacco use date assessed 09/18/23 06/04/24 10:08 Patient Tobacco Use Status Former Tobacco user 06/04/24 10:08 e-Cigarette/Vaping Use Never Used 06/04/24 10:08 Thrive Assessment: Date of Thrive Assessment Date Thrive assessed 09/18/23 06/04/24 10:08 Const General: cooperative Orientation/consciousness: patient oriented x3 Resp Effort & Inspection: normal respiratory effort Auscultation: clear to auscultation bilaterally Cardio Heart sounds: S1 normal heart sound present and S2 normal heart sound present Neuro General: patient oriented x3 Extrem Other: bilat feet: + sensation with use of monofilament, feet intact, left big toe dorsal aspect with large protruding indurated lesion (gout), hammertoes noted especially to left Psych Appearance: grossly normal Mental Status: mental status grossly normal Speech and movement: Normal speech and movement present Affect: normal affect Attitude: cooperative Thought process: Normal thought process present Thought content: Normal thought content present Insight: Good insight present (Psych) Judgement: Good judgement present (Psych) Results AMB Hemoglobin A1c AMB Hemoglobin A1c 6.0 % Last Edit by Ferny Marvin CMA on 06/04/24 10: 26 Results Reviewed Results Reviewed: Laboratory Last Values Hgb A1c (Clinic) 6.0 % (4.0-6.0) 06/04/24 10:18 Coding Level of Care Code Est Pt Level 3 (53694) Diagnoses Diabetes E11.9 Assessment & Plan Assessment & Plan (1) Diabetes: Code(s): E11.9 - Type 2 diabetes mellitus without complications Category: Medical Plan: A1C done in office, labs ordered Plan The patient agreed to the use of a outside medical sales representative for this encounter. Scribed for MANISHA Mensah by Radha Khalil outside medical sales representative, on 06/04/2024 at 10:35 EST. Orders: Orders Complete Blood Count Auto Diff Today E11.9 - Type 2 diabetes mellitus without complications Comprehensive [place]. Panel Fast Today E11.9 - Type 2 diabetes mellitus without complications AMB Hemoglobin A1c Today Z13.9 - Encounter for screening, unspecified TSH reflex Free T4 Today E11.9 - Type 2 diabetes mellitus without complications UA CC w/rflx Micro + Cult Today E11.9 - Type 2 diabetes mellitus without complications Lipid Panel Today E11.9 - Type 2 diabetes mellitus without complications
== END 2024-06-04 11:04 | disposition home or self-care (01) ==
PROVIDERS: PCP Nurse Practitioner Family; Visit Provider Nurse Practitioner Family
DX: Z13.9 Encounter for screening, unspecified (principal); E11.9 Type 2 diabetes mellitus without complications

== ENCOUNTER → 2024-06-04 10:06 | Outpatient (BNVA) | payer MEDICARE, SELFPAY | PROVIDERS: PCP Nurse Practitioner Family; Visit Provider Nurse Practitioner Family | DX: E11.9 Type 2 diabetes mellitus without complications (principal) | CPT/HCPCS: 83036; 99212 ==

== ENCOUNTER 2024-06-23 10:37 | Outpatient (REF) | payer MEDICARE, SELFPAY | END 2024-06-23 10:38 | disposition home or self-care (01) | LOC: HO.US 10:37 | PROVIDERS: PCP Nurse Practitioner Family; Visit Provider Surgery Vascular Surgery | DX: Z13.89 Encounter for screening for other disorder (principal) ==

== ENCOUNTER 2024-06-23 10:37 | Outpatient (REF) | payer MEDICARE, SELFPAY ==
--- NOTE | ~2024-06-23 | US_ITS ---
EXAMINATION: Noninvasive assessment of the arteries of both lower extremities to include a single level PVR exam and ANKLE BRACHIAL INDICES (ABIs). CLINICAL INFORMATION: Peripheral vascular disease. History of iliac stents TECHNIQUE: The ankle/brachial indices of the distal posterior tibial and the dorsalis pedis arteries were obtained of the lower extremity arterial system bilaterally; along with pressures and pulse volume recordings at the ankle level. The study was performed at rest. COMPARISON: None FINDINGS: 1. ANKLE-BRACHIAL INDICES: RIGHT: 0.39 LEFT: 0.53 2. ANKLE PVR WAVEFORMS: RIGHT: Markedly dampened LEFT: Markedly dampened US/US arterial duplex LE BI IMPRESSION: Right leg: Severely decreased ankle-brachial index and dampened PVR waveform consistent with arterial occlusive disease Left leg: Severely decreased ankle-brachial index and dampened PVR waveform consistent with arterial occlusive disease Electronically signed by: Kyree Little MD 07/09/2024 03:09 PM [facility]
--- NOTE | ~2024-06-23 | US_ITS ---
EXAMINATION: ABDOMINAL AORTIC ULTRASOUND CLINICAL INFORMATION: Bilateral iliac stents. COMPARISON: Ultrasound 12/24/2023 TECHNIQUE: Wade-scale, color Doppler and spectral Doppler evaluation of the abdominal aorta was performed. FINDINGS: 1. Atherosclerotic changes are present in the abdominal aorta with mild aneurysmal dilatation in the midportion at 3.2 cm. 2. The measurements of the aorta in maximum AP and transverse dimensions respectively are as follows: Proximal: 2.3 x 2.7 cm, Mid: 3.1 x 3.2 cm, Distal: 1.9 x 1.9 cm. 3.There are bilateral common iliac artery stents which are patent. No iliac aneurysms are seen. US/US abdominal aortic aneurysm IMPRESSION: 1. 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 2. Patent bilateral common iliac artery stents. Electronically signed by: Kevin Araiza MD 07/08/2024 07:51 PM EST
== END 2024-06-23 10:38 | disposition home or self-care (01) ==
LOC: HO.US 10:37
PROVIDERS: PCP Nurse Practitioner Family; Visit Provider Surgery Vascular Surgery
DX: I77.9 Disorder of arteries and arterioles, unspecified (principal); I73.9 Peripheral vascular disease, unspecified; Z95.820 Peripheral vascular angioplasty status with implants and grafts
CPT/HCPCS: 76706; 93925

== ENCOUNTER 2024-07-15 09:44 | Outpatient (AMB) | payer MEDICARE, SELFPAY ==
[2024-07-15 09:47] VITALS: BMI 24.5
--- NOTE | 2024-07-15 09:47 | A.OFFVIS_ITS ---
Vital Signs 07/15/24 09:47 Height 5 ft 11 in Weight 176 lb BMI 24.5 Intake Visit Reasons: follow up s/p Abd/Pelvis US 06/23/24 Intake Note: 3 mo follow up s/p Abd US & bilateral LE arterial US 06/23/24 w/ hx of bilateral iliac stenting 11/14/23. Pt states he does get some cramping/LE pain when walking about 50 yards. Accompanied by: Self / Same As Patient Allergies amoxicillin Allergy (Unknown, Verified 07/15/24 09:53) Unknown clindamycin Allergy (Unknown, Verified 07/15/24 09:53) heart burn penicillin G Allergy (Unknown, Verified 07/15/24 09:53) Unknown sulfacetamide [From Sulfacet-R] Allergy (Unknown, Verified 07/15/24 09:53) Unknown sulfur [From Sulfacet-R] Allergy (Unknown, Verified 07/15/24 09:53) Unknown tetracycline Allergy (Unknown, Verified 07/15/24 09:53) Unknown HPI HPI follow up s/p Abd/Pelvis US 06/23/24: Details: Pleasant 78-year-old gentleman presents for routine aortic surveillance. He had bilateral iliac stenting on 11/14/2023. He is doing relatively well and is able to walk about a block. He now presents for routine follow-up with noninvasive testing. Of note he is on aspirin and a statin. He is able to carry out his basic everyday activities. [facility] Medical History Pancytopenia Esophageal stenosis Hyponatremia Prostate cancer Malignant neoplasm of skin Arteriolosclerosis COPD (chronic obstructive pulmonary disease) Esophageal stricture Benign familial tremor PVD (peripheral vascular disease) Dyslipidemia Elevated PSA RBBB Pulmonary emphysema Diabetes HTN (hypertension) Surgical History S/P angioplasty with stent (11/14/23) History of cholecystectomy History of hernia surgery Family History Father No problems noted. Mother No problems noted. Daughter No problems noted. Daughter No problems noted. Social History Housing: House Alcohol intake: current Patient Tobacco Use Status: Former Tobacco user Years Smoked: 9 years ago e-Cigarette/Vaping Use: Never Used Second Hand Smoke Exposure: No service: Yes Current occupational status: retired Current occupational exposures/hazards: No Cognitive needs: No Hearing needs: No Vision needs: No Review of Systems Const All systems reviewed & are unremarkable except as noted in HPI and below Reports no additional complaints ENT Reports Normal hearing present Card Denies chest pain, Denies chest pain at rest, Denies chest pain with activity and Denies pedal edema Resp Denies cough GI Denies abdominal pain Musc Denies abnormal gait, Denies muscle cramps and Denies radiating pain into limb Skin/Breast Denies skin ulcer and Denies wounds Neuro Reports Normal hearing present and Denies abnormal gait Psych Reports no additional complaints Physical Exam Vital Signs: BMI result Body Mass Index 24.5 Const General: cooperative, healthy appearing and comfortable Orientation/consciousness: oriented to person, oriented to place and oriented to time HEENT Head: Yes normal to inspection Neck Neck: Yes normal visual inspection Carotids: no bruits Chest Chest palpation & inspection: normal inspection of the chest Resp Effort & Inspection: normal respiratory effort and able to speak in complete sentences Auscultation: clear to auscultation bilaterally, no crackles, no rales, no rhonchi and no wheezes Cardio Rate: regular rate Rhythm: regular rhythm Heart sounds: S1 normal heart sound present and S2 normal heart sound present Bruits: no carotid bruits Peripheral pulses: Peripheral pulses 2+ throughout GI Inspection: Yes normal to inspection Skin Wounds: no wounds Hair: normal Neuro General: oriented to person, oriented to place and oriented to time Cranial nerves: Yes CN's II-XII intact bilaterally and Yes Normal hearing present Cognition (Neuro): normal cognition Motor exam (neuro): 5/5 motor strength present throughout Extrem Other: venous exam: No significant superficial varicosities or spider telangiectasias, minimal edema General: No clubbing, No cyanosis and No edema Psych Appearance: grossly normal Mental Status: mental status grossly normal Speech and movement: Normal speech and movement present Results Reviewed Results Reviewed: Noninvasive arterial testing dated 06/23/2024 demonstrates patent bilateral common iliac arteries. ABIs on the right of 0.39 and on the left of 0.53 Assessment & Plan Assessment & Plan (1) PAD (peripheral artery disease): Comment: 11/14/2023 - bilateral iliac artery stent Code(s): I73.9 - Peripheral vascular disease, unspecified Category: Medical Plan: In short the patient has significant peripheral vascular disease. The concern here is that should additional treatment be required it would be open surgical intervention. He would not benefit from any further endovascular intervention. At the current time he would like to manage this as conservatively as possible. We did discuss routine risk factor modification and the importance of in an anti-platelet agent and his statin which he is already on. He will be scheduled for 6 month arterial surveillance follow-up. Should there be any interval issues happy to see him back sooner. Thank you for allowing us to assist in his care. Orders: Orders US abdominal aortic aneurysm 6 Months I73.9 - Peripheral vascular disease, unspecified US arterial duplex LE BI 6 Months I73.9 - Peripheral vascular disease, unspecified Coding Level of Care Code Est Pt Level 4 (60539) Complex EM visit Add On G2211 Diagnoses PAD (peripheral artery disease) I73.9
== END 2024-07-15 10:25 | disposition home or self-care (01) ==
PROVIDERS: PCP Nurse Practitioner Family; Visit Provider Surgery Vascular Surgery
DX: I73.9 Peripheral vascular disease, unspecified (principal)
CPT/HCPCS: 99214; G2211

== ENCOUNTER → 2024-07-15 09:44 | Outpatient (BNVA) | payer MEDICARE, SELFPAY | PROVIDERS: PCP Nurse Practitioner Family; Visit Provider Surgery Vascular Surgery | DX: I73.9 Peripheral vascular disease, unspecified (principal) | CPT/HCPCS: 99212 ==

== ENCOUNTER 2024-12-04 09:43 | Outpatient (REF) | payer MEDICARE, SELFPAY ==
--- OUTSIDE RECORDS SUMMARY | 2024-12-04 10:57 | XMS_ITS | Clinical Summary ---
Author Organization [facility] Address [address] [place] [address] Care Team Providers Care Fire Behavior Analyst Name Role Phone Dariel Hart Primary Care Provider [phone] Allergies Active Allergy Reactions Criticality Noted Date Comments Amoxicillin Rash Low 02/19/2024 Penicillin G Rash Low 02/19/2024 Sulfa Antibiotics Rash Low 02/19/2024 Medications Medication Sig Dispensed Refills Start Date End Date Status losartan (COZAAR) tablet 50 mg Take 1 tablet (50 mg total) by mouth daily. 0 Active glipiZIDE (GLUCOTROL XL) ER 24 hr tablet 10 mg Take 1 tablet (10 mg total) by mouth daily. 0 Active aspirin EC 81 MG tablet Take 1 tablet (81 mg total) by mouth daily. 0 Active atorvastatin (LIPITOR) tablet 20 mg Take 1 tablet (20 mg total) by mouth daily. 0 Active tamsulosin (FLOMAX) 0.4 MG CAPS Take 1 capsule (0.4 mg total) by mouth daily. 0 Active clopidogrel (PLAVIX) 75 MG tablet Take 1 tablet (75 mg total) by mouth daily. 0 Active verapamil (CALAN-SR) 120 MG CR tablet Take 1 tablet (120 mg total) by mouth every night at bedtime. 0 Active timolol (TIMOPTIC) 0.5 % ophthalmic solution Place 1 drop into both eyes 2 (two) times a day. 0 Active dorzolamide (TRUSOPT) 2 % ophthalmic solution 1 drop 3 (three) times a day. 0 Active predniSONE (DELTASONE) tablet 10 mg Take by mouth 2 (two) times a day. For 6 days. 0 Active Active Problems No known active problems Family History Medical History Relation Name Comments Breast cancer Mother Relation Name Status Comments Mother Social History Tobacco Use Types Packs/Day Years Used Date Smoking Tobacco: Some Days Cigarettes Smokeless Tobacco: Never Tobacco Cessation:Ready to Q uit: Not Asked; Counseling Given: Not Answered Alcohol Use Standard Drinks/Week Comments Not Currently 0 (1 standard drink = 0.6 oz pur e alcohol) Sex and Gender Information Value Date Recorded Sex Assigned at Male 01/18/2024 10:35 AM EDT Gender Identity Not on file Sexual Orientation Not on file Job Start Date Occupation Industry Not on file Not on file Not on file Last Filed Vital Signs Vital Sign Reading Time Taken Comments Blood Pressure 142/50 06/19/2024 10:27 AM EDT Pulse 64 06/19/2024 10:27 AM EDT Temperature 36.2 ??C (97.1 ??F) 06/19/2024 10:27 AM E DT Respiratory Rate - - Oxygen Saturation 100% 06/19/2024 10:27 AM EDT Inhaled Oxygen Concentration - - Weight 79.4 kg (175 lb) 06/19/2024 10:27 AM EDT Height 180.3 cm (5' 11 ) 02/19/2024 9:30 AM EDT Body Mass Index 24.41 02/19/2024 9:30 AM EDT Plan of Treatment Health Maintenance Due Date Last Done Comments COVID-19 Vaccine (#1) 06/01/1946 Depression Screening 1956 Preventative Health Evaluation 1962 DTap / Tdap / Td (1 - Tdap) 12/01/1963 Shingrix-Zoster Vaccine (1 of 2) 1994 Fall Risk Assessment 2009 Pneumococcal Vaccine (2 of 2 - PCV) 10/11/2013 10/11/2012 RSV Adult > 60+ Yrs or Pregn ant (1 - 1-dose 75+ series) 12/01/2019 Influenza Vaccine (#1) 2024 Hepatitis B Vaccines Aged Out No long er eligible based on patient's age to complete this topic RSV Ped < 20 months Aged Out No longe r eligible based on patient's age to complete this topic Care Teams Fire Behavior Analyst Relationship Specialty Start Date End Date Dariel Hart [address] [place], [place] [id number] PCP - General Family Medicine 01/18/24
--- OUTSIDE RECORDS SUMMARY | 2024-12-04 10:57 | XMS_ITS ---
Author Organization [facility] Address [address] [place] [address] Care Team Providers Care Fire Extinguisher Mechanic Name Role Phone Dariel Russell Primary Care Provider Unav ailable Black, Desire Unavailable [phone] REASON FOR VISIT relay message Encounters Encounter Location Date Provider Diagnosis [address] [id number] 10/27/2024 Desire Austyn Plan Of Treatment Next Appt Details Provider Name:Desire Bolton Austyn , 03/26/2025 10:15:00 AM, [address] [place], [address], Progress Notes * Graham CASTILLO FDOB:1945 (78 yo M)Acc No.[id number]:10/27/2024 Patient:?Graham CASTILLO :1945???Age:78 Y???Sex:Male Address:[address] [place] [id number] * true * Date:? Generated for Printi ng/Faaixag/eTransmitting on:?12/04/2024 10:57 AM EDT
--- OUTSIDE RECORDS SUMMARY | 2024-12-04 10:57 | XMS_ITS ---
Author Organization [facility] Address [address] [place] [address] Care Team Providers Care Gamer Name Role Phone Dariel Russell Primary Care Provider Unav ailable Black, Desire Unavailable [phone] Allergies Allergen (clinical drug ingredient) Drug/Non Drug Allergy documented on EMR Reaction Allergy Type Onset Date Status sulfamethoxazole / trimethoprim Bactrim eyes and lips swell Drug Allergy Active Doxycycline Monohyd-Cleanser Unknown Drug Allergy Active tetracycline Tetracycline HCl rash Drug Allergy Active amoxicillin Amoxicillin Unknown Drug Allergy Act sriram clindamycin Clindamycin heartburn Drug Allergy Act sriram Penicillin Unknown Drug Allergy Active REASON FOR VISIT At Risk Footcare, Foot pain, Skin problem(s), Possible Infection Medications Medication SIG (Take, Route, Frequency, Duration) Notes Start Date End Date Status dexAMETHasone 0.75 MG 1 tablet Orally ev js 12 hrs for 30 day(s) Not-Taking Plavix 75 MG 1 tablet Orally Once a day Not-Taking Doxycycline Monohydrate 100 MG 1 capsule Orally Once a day for 10 days 05/01/2024 Not-Taking Enstilar 0.005-0.064 % 1 application Externally Once a day Not-Taking Probiotic - as directed Orally Not-Taking Atorvastatin Calcium 20 MG Orally Active glipiZIDE Active Losartan Potassium 50 MG 1 tablet Orally Once a day for 30 day(s) Active Timolol Maleate 6.8 1 drop into affected eye Ophthalmic Active Extra Depth Orthopedic Shoes (1 Pair) with Customized Heat Molded Multidensity Innersoles (3 Pair) as directed Dx: NIDDM/Polyneuropathy (E11.42), Hammertoe Foot Deformity (M20.41,M20.42), Preulcerative Skin Lesion(s) (L85.1 09/16/2020 Active Flomax Active Ammonium Lactate 12 % 1 application Externally to affected areas of dry skin to feet except for between the toes Twice a day for 30 days Active hydroCHLOROthiazide 12.5 MG as directed Orally Once a day Active Aspir-81 Active Verapamil HCl 120 MG as directed Orally once a day Active Clindamycin HCl Not- Taking Medrol 4 MG as directed Orally a s directed for 6 days 03/29/2021 Not-Taking Lisinopril Not-Takin g Cilostazol 50 MG 1 tablet 30 minutes before or 2 hours after breakfast and dinner Orally Twice a day Not-Taking Social History Tobacco Use: Social History Observation Description Date Details (start date - stop date) Never Smoker NA - NA Tobacco use other than smoking: Question Answer Notes Are you an other tobacco user? No Tobacco Control (Standard) Question Answer Notes Tobacco use: Nonsmoker Additional Findings: Tobacco non-user Current no nsmoker AUDIT-C (Standard) Question Answer Notes Did you have a drink containing alcohol in the p ast year? No Points 0 Interpretation Negative Vital Signs Height 5 ft 11 in in 10/27/2024 Weight 176 lbs 10/27/2024 BMI 24.54 kg/m2 10/27/2024 Blood pressure systolic 140 mm Hg 10/28/19 25 Blood pressure diastolic 70 mm Hg 025 Procedures Procedure Date Ordered Date Performed Result Body Sit e 52862 I&D ABSCESS- SIMPLE,SINGLE 10/27/2024 N/A 70666-GTQZ SKIN LESIONS, 2 TO 4 10/27/2024 N/A L5799-[id number] DYSTROPHIC NAILS ANY # 10/27/2024 N/A Encounters Encounter Location Date Provider Diagnosis [facility] [address] [place] [address] 10/27/2024 Desire Black Pain in right foot M79.671 ; Hallux valgus (acquired), right foot M20.11 ; Type 2 diabetes mellitus with diabetic polyneuropathy E11.42 ; Unspecified atherosclerosis of [place] arteries of extremities, bilateral legs I70.203 ; Pain in right ankle and joints of right foot M25.571 ; Bursitis of right foot M77.51 ; Xerosis of skin L85.3 and Abscess of toe, right L02.611 Assessments Encounter Date Diagnosis (ICD Code) Assessment Notes Treatment Notes Treatment Clinical Notes Section Notes 10/27/2024 Pain in right foot (ICD-10 - M79.671) 10/27/2024 Hallux valgus (acquired), right foot (ICD-10 - M20.11) 10/27/2024 Type 2 diabetes mellitus with diabetic polyneuropathy (ICD-10 - E11.42) 10/27/2024 Unspecified atherosclerosis of [place] arteries of extremities, bilateral legs (ICD-10 - I70.203) 10/27/2024 Pain in right ankle and joints of right foot (ICD-10 - M25.571) 10/27/2024 Bursitis of right foot (ICD-10 - M77.51) 10/27/2024 Xerosis of skin (ICD-10 - L85.3) 10/27/2024 Abscess of toe, right (ICD-10 - L02.611) Patient Educated with: WOUND CARE INSTRUCTIONS. pdf (WOUND CARE INSTRUCTIONS. pdf) Plan Of Treatment Medication Medication Name Sig Start Date Stop Date Notes Ammonium Lactate 12 % 1 application Exte rnally to affected areas of dry skin to feet except for between the toes Twice a day for 30 days Treatment Notes Assessment Notes Abscess of toe, right Patient Educated w ith: WOUND CARE INSTRUCTIONS.pdf (WOUND CARE INSTRUCTIONS.pdf) Pending Test Test Name Order Date 67586 I&D ABSCESS- SIMPLE,SINGLE 025 94550-DSUF SKIN LESIONS, 2 TO 4 10/28/19 25 O2718-DANELUYS DYSTROPHIC NAILS ANY # Next Appt Details Follow Up: 2 Weeks, Reason: Provider Name:Desire Zaman , 03/26/2025 10:15:00 AM, [address] [place] [address], [place], [address], Procedure Notes * Category Sub-Category Detail Notes I&D nail abscess Location , Medial nail b order, T5 Procedure Performed incision a nd drainage of Single Nail Abscess with use of sterile nail nipper/316 blade. Approximately ( 0.1 ) cc purulent fluid material was drained. The infected devitalized soft tissue was curettaged to healthy bleeding bed. Any affected nail portion was removed to the eponychium . Any evidence of granuloma was also removed at this time. No underlying bone was visualized. There was minimal bleeding as hemostasis was achieved through the temporary use of either a digital tournaquet or the aforementioned local with epinephrine. An application of sterile Bacitracin dressing was performed. Local wound care instructions were discussed and dispensed. Recommended Tylenol or Motrin for pain/discomfort (78543) Type Single, Abscess Anesthesia 3cc of 1 percent Lid ocaine Plain local anesthesic utilizing aseptic technique Keratoma Treatment Parring or Cutting o f Benign Hyperkeratotic Lesion(s) (-56) 2-4 Lesions - Due to the at risk nature of the patients medical condition as documented in the exam findings, performance of this keratoderma treatment is medically necessary as its management by an unskilled/untrained nonprofessional would put this patients foot and overall health at risk. Therefore, the benign hyperkeratotic lesions, (2 ) in total, locations as stated and described in the exam ( TA, T5 Medial plantar IPJ, ), were pared, and/or cut utilizing a sterile 15 blade, tissue nippers, and/or power dremel instrumentation by the physician of record - 74625 Nail Reduction Nail Reduction (-27) Trimming o f all dystrophic nails - Due to the at risk nature of the patients medical condition as documented in the exam findings, performance of this nail treatment is medically necessary as its management by an unskilled/untrained nonprofessional would put this patients foot and overall health at risk. Therefore, the dystrophic nails, in locations as stated and described in the exam ( T1, T2, T3, T4,T6, T7, T8, T9, ), were debrided by the phisician of record to reduce/remove overall nail length and girth, by manual and electrical means with use of a nail nipper and/or dremel, to more viable healthy nail plate or bed tissue - G0127 Progress Notes * Graham CASTILLO FDOB:1945 (78 yo M)Acc No.[id number]:10/27/2024 Progress Note Patient:?Graham CASTILLO Provider:?Desire Zaman DPM :1945???Age:78 Y???Sex:Male Michael e:10/27/2024 Address:[address] [place], [place] [id number] Pcp:SHANELL Mensah Subjective: * Chief Complaints: * ???At Risk FootcareFoot pain Skin problem(s)Possible Infection * HPI: ???At Risk footcare:?Pt States Last PCP Visit:?Date?06/18/2024 ???Foot Pain:?Location:?Inside, Great toe joint, RIGHT.?Duration:?, several days.?Course:?worse.?Aggravated:?any pressure.?Treatments:?rest/alter normal daily activity.?Skin problems:?Nature:?dryness , scaling.?Location:?B/L .?Duration:?several days.?Course:?worse.? * ROS:?General/Constitutional:?Nausea?denies.?Vomiting?denies.?Hunger Thirst?denies.?Loss appetite?denies.?Chills?denies.?Fatigue?denies.?Fever?denies.?Night Sweats?denies.?Unexplained weight loss?denies.?Unexplained weight gain?denies.?HEENTM:?Dentures?denies.?Dizziness?denies.?Glasses/contacts?denies.?Retinopathy?de nies.?Blurred/double vision?denies.?TMJ?denies.?Discharge/drainage?denies.?Implants?denies.?Sore throat?denies.?Dental implants?denies.?Hard of hearing ?denies.?Difficulty chewing/swallowing/speaking?denies.?Nose bleeds?denies.?Sore mouth?denies.?Respiratory:?On Oxygen?denies.?Pneumonia/pleurisy?denies.?Bronchitis?denies.?Emphysema?denies.?C oughing?denies.?Cough blood?denies.?Shortness of breath?denies.?Wheezing?denies.?Cardiovascular:?Pacemaker?denies.?MVP?denies.?WPW?denies.?CHF?denies.?Heart attack?denies.?Septal defect?denies.?Rapid beat?denies.?Chest pain ?denies.?Atrial Fib.?denies.?Murmur/Palpitations?denies.?Gastrointestinal:?Hemorrhoids?denies.?Stomach/Abdominal pain?denies.?Dark blood stool?denies.?Irritable bowel ?denies.?Constipation?denies.?Diarrhea?denies.?Hematology:?Swelling?denies.?Clots?denies.?Varicose Veins?denies.?Bruising?denies.?Bleeding problem?denies.?Genitourinary:?Blood urine?denies.?Frequent/Painfu/urination/bladder control?denies.?Kidney stones?denies.?Infection (UTI)?denies.?Nephropathy?denies.?sex trans dis (STD)?denies.?Prostate?denies.?Musculoskeletal:?Hammertoes?denies.?Bunions?admits.?Back Pain?denies.?Muscle Cramps/ Resting?denies.?Muscle cramps / walking?denies.?Generalized aches and pains?denies.?Weakness?denies.?Integ.:?[place]a?denies.?Scars?denies.?Corns/calluses?, admits.?Ingrown nails?denies.?Painful nails?denies.?Open Sores?denies.?Rashes?denies.?Neurologic:?Difficulty sleeping?denies.?Brain disorder?denies.?Numbness?denies.?Balance trouble?denies.?Confusion?denies.?Fainting/blackouts?denies.?Tingling?admits.?Tr emors?denies.? * Medical History:? * Surgical History:?lucila wetzel er 12/06/2014ppendectomy 03/2014Stent 10/2023 * Hospitalization/Major Diagno stic Procedure:?Denies Past Hospitalization * Family History:?Mother: dece ased, diagnosed with Other malignant neoplasm of unspecified site.?Father: .? * Social History:?Tobacco Use:?Tobacco use other than smoking?Are you an other tobacco user??No ?Tobacco Control (Standard)?Tobacco use:?Nonsmoker ?Additional Findings: Tobacco non-user?Current nonsmoker ???Drugs/Alcohol:?Drugs?Have you used drugs other than those for medical reasons in the past 12 months??No ???Miscellaneous:?Caffeine: yes, frequency: 1 cup. ?Children: yes. ?Exercise: yes, walking. ?Marital status: . ?Occupation: retired-[employer] and [employer]. ???Drug/Alcohol:?AUDIT-C (Standard)?Did you have a drink containing alcohol in the past year??No ?Points?0 ?Interpretation?Negative * Medications:?TakingFlomax As pir-81 hydroCHLOROthiazide 12.5 MG Capsule as directed Orally Once a day Verapamil HCl 120 MG Tablet as directed Orally once a day Atorvastatin Calcium 20 MG Tablet Orally Losartan Potassium 50 MG Tablet 1 tablet Orally Once a day glipiZIDE Extra Depth Orthopedic Shoes (1 Pair) with Customized Heat Molded Multidensity Innersoles (3 Pair) as directed Dx: NIDDM/Polyneuropathy (E11.42), Hammertoe Foot Deformity (M20.41,M20.42), Preulcerative Skin Lesion(s) (L85.1 Timolol Maleate 6.8 mg 1 drop into affected eye Ophthalmic Taking Flomax Taking Aspir-81 Taking hydroCHLOROthiazide 12.5 MG Capsule as directed Orally Once a day Taking Verapamil HCl 120 MG Tablet as directed Orally once a day Taking Atorvastatin Calcium 20 MG Tablet Orally Taking Losartan Potassium 50 MG Tablet 1 tablet Orally Once a day Taking glipiZIDE Taking Extra Depth Orthopedic Shoes (1 Pair) with Customized Heat Molded Multidensity Innersoles (3 Pair) as directed Dx: NIDDM/Polyneuropathy (E11.42), Hammertoe Foot Deformity (M20.41,M20.42), Preulcerative Skin Lesion(s) (L85.1 Taking Timolol Maleate 6.8 mg 1 drop into affected eye Ophthalmic Not-Taking/PRNdexAMETHasone 0.75 MG Tablet 1 tablet Orally every 12 hrs Doxycycline Monohydrate 100 MG Capsule 1 capsule Orally Once a day Plavix 75 MG Tablet 1 tablet Orally Once a day Probiotic - Tablet Delayed Release as directed Orally Enstilar 0.005-0.064 % Foam 1 application Externally Once a day Medrol 4 MG Tablet Therapy Pack as directed Orally as directed Clindamycin HCl Cilostazol 50 MG Tablet 1 tablet 30 minutes before or 2 hours after breakfast and dinner Orally Twice a day Lisinopril Medication List reviewed and reconciled with the patientNot-Taking/PRN dexAMETHasone 0.75 MG Tablet 1 tablet Orally every 12 hrs Not-Taking/PRN Doxycycline Monohydrate 100 MG Capsule 1 capsule Orally Once a day Not-Taking/PRN Plavix 75 MG Tablet 1 tablet Orally Once a day Not-Taking/PRN Probiotic - Tablet Delayed Release as directed Orally Not-Taking/PRN Enstilar 0.005-0.064 % Foam 1 application Externally Once a day Not-Taking/PRN Medrol 4 MG Tablet Therapy Pack as directed Orally as directed Not-Taking/PRN Clindamycin HCl Not-Taking/PRN Cilostazol 50 MG Tablet 1 tablet 30 minutes before or 2 hours after breakfast and dinner Orally Twice a day Not-Taking/PRN Lisinopril Medication List reviewed and reconciled with the patient * Allergies:?Tetracycline HCl: rashBactrim: eyes and lips swellAmoxicillinClindamycin: heartburn - Side EffectsPenicillinDoxycycline Monohyd-Cleanser: Allergyyes[Allergies Verified] Objective: * Vitals:?Ht: 5 ft 11 in, Wt:1 76, BMI: 24.54, Shoe size:10.5-11, BP:140/70mm Hg, BS:not taken, Wt-k.83 kg. * ???Past Orders: ???Lab:HEMOGLOBIN A1C (GLYCO HEMOGLOBIN) (Order Date - 12/06/2023) (Collection Date & Time - 12/06/2023 01:16 PM) ? Value Reference Range ?HEMOGLOBIN A1C % (HH) 6.8 * Examination: ???Ophthalmology Referral: ?DIABETES EYE EXAM?Procedure Performed:?No?General Examination: ?GENERAL APPEARANCE:?Reveals a pleasant, alert, well nourished, well- developed, well hydrated individual, who demonstrates proper attention to hygiene/body habitus, and is in no acute distress, Denies fever, chills, malaise, lymphadenopathy.?ORIENTED:?person, place, and time.?FOOT EXAM:?Lower Extremity Neurological Exam performed:?Yes ?Visual exam of foot performed:?Yes ?Date?10/27/2024 ?Sensory testing performed:?sensations diminished ?Sensory and motor testing performed:?sensations diminished ?Pedal pulse taking performed:?absent ?Footwear Evaluation?Footwear Evaluation performed:?Yes?Dermatologic: ?SKIN FINDINGS:?Skin exam reveals Keratotic lesion(s) located at, TA, T5 Medial plantar IPJ, , , Skin shows sign(s) of, a semi-firm, nonpainful, nontransluscent, nonpulsitile, nonmobile Sub Q tumor cain 30mm x 25mm left great toe, , Skin shows sign(s) of, dryness, scaling, in a stocking fashion, no fissure(s) present, B/L.?Neurological: ?SENSORY:?Neurological exam demonstrates , reduced light touch sensation , reduced sharp/dull pin prick discrimination , reduced vibration sensation , 5.07 monofilament test performed at plantar aspects of 5 varied sites per foot shows sensation , absent , at Forefoot , B/L , Pt relates? cont.?shooting/radiating sensation at night.?Nails: ?NAILS are:?, Elongated, overgrown, dystrophic, T1, T2, T3, T4, T6, T7, T8, T9.?Vascular: ?DP PULSES (B):?/, B/L.?PT PULSES (B):?, 08/30, B/L.?CAPILLARY FILL TIME:?delayed, all digits, B/L.?TROPHIC CONDITION-TEXTURE/ELASTICITY/TURGOR/HAIR GROWTH (B):? decreased, B/L.?TEMPERTURE GRADIENT (C):?decreased, cool to cool, proximal to distal, B/L ,.?PIGMENTATION:?normal, B/L.?EDEMA (C):?absent, B/L.?Orthopedic: ?BUNION:? Medially prominent 1st MPJ,(+) Pain on palpation,inflammation present medially,Lateral tracking 1st MPJ incompletely reducible, RIGHT.?FOOTWEAR:?shoe gear properties exacerbate patients foot/toe deformity.?Abscess/infected nail: ?INSPECTION?Reveals nail incurvation, pain on palpation, groove laceration, inflammation, malodor, localized cellulitis, and purulent abscess with pre- operative size of approximately ( 1-2 ) mm square without exposed bone, Medial nail border, T5.? Assessment: * Assessment: 1.?Pain in right foot - M79. 671???2.?Hallux valgus (acquired), right foot - M20.11 (Primary)???Specify :Chronic problem, Worse?3.?Type 2 diabetes mellitus with diabetic polyneuropathy - E11.42???4.?Unspecified atherosclerosis of [place] arteries of extremities, bilateral legs - I70.203???5.?Pain in right ankle and joints of right foot - M25.571???6.?Bursitis of right foot - M77.51???7.?Xerosis of skin - L85.3???Specify :Acute problem, Uncomplicated (3),Rx Management (4)???8.?Abscess of toe, right - L02.611??? Plan: * Treatment: 2.?Xerosis of skin? Start Ammonium Lactate Cream, 12 %, 1 application, Externally to affected areas of dry skin to feet except for between the toes, Twice a day, 30 days, 280, Refills 3.?? 3.?Abscess of toe, right?Procedure: 81074 I&D ABSCESS- SIMPLE,SINGLE Notes: Patient Educated with: WOUND CARE INSTRUCTIONS.pdf (WOUND CARE INSTRUCTIONS.pdf)?? * Procedures:?I&D nail abscess:?Type?Single, Abscess.?Anesthesia?3cc of 1 percent Lidocaine Plain local anesthesic utilizing aseptic technique.?Location?, Medial nail border, T5.?Procedure?Performed incision and drainage of Single Nail Abscess with use of sterile nail nipper/316 blade. Approximately ( 0.1 ) cc purulent fluid material was drained. The infected devitalized soft tissue was curettaged to healthy bleeding bed. Any affected nail portion was removed to the eponys[place]um . Any evidence of granuloma was also removed at this time. No underlying bone was visualized. There was minimal bleeding as hemostasis was achieved through the temporary use of either a digital tournaquet or the aforementioned local with epinephrine. An application of sterile Bacitracin dressing was performed. Local wound care instructions were discussed and dispensed. Recommended Tylenol or Motrin for pain/discomfort (18643).?Keratoma Treatment:?Parring or Cutting of Benign Hyperkeratotic Lesion(s)?(-56) 2-4 Lesions - Due to the at risk nature of the patients medical condition as documented in the exam findings, performance of this keratoderma treatment is medically necessary as its management by an unskilled/untrained nonprofessional would put this patients foot and overall health at risk. Therefore, the benign hyperkeratotic lesions, (2 ) in total, locations as stated and described in the exam ( TA, T5 Medial plantar IPJ, ), were pared, and/or cut utilizing a sterile 15 blade, tissue nippers, and/or power dremel instrumentation by the physician of record - 40877.?Nail Reduction:?Nail Reduction?(-27) Trimming of all dystrophic nails - Due to the at risk nature of the patients medical condition as documented in the exam findings, performance of this nail treatment is medically necessary as its management by an unskilled/untrained nonprofessional would put this patients foot and overall health at risk. Therefore, the dystrophic nails, in locations as stated and described in the exam ( T1, T2, T3, T4,T6, T7, T8, T9, ), were debrided by the phisician of record to reduce/remove overall nail length and girth, by manual and electrical means with use of a nail nipper and/or dremel, to more viable healthy nail plate or bed tissue - G0127.? * Procedure Codes:?18820 DRAIN AGE OF SKIN ABSCESS, Modifiers: T5 76046 TRIM SKIN LESIONS, 2 TO 4, Modifiers: XS G0127 TRIMMING DYSTROPHIC NAILS ANY #, Modifiers: XS * Preventive Medicine:? ??Counseling:?Discussion:?-14: Office or other outpatient visit for the evaluation and management of an established patient, which required a medically appropriate history and/or examination and MODERATE level of DECISION MAKING for: 1 OR MORE CHRONIC PROBLEM(S) THATS WORSENING, 2 STABLE CHRONIC PROBLEMS, A NEWLY DIAGNOSED PROBLEM WITH UNCERTAIN PROGNOSIS, AN ACUTE COMPLICATED INJURY WITH MULTIPLE TREATMENT OPTIONS, OR AN ACUTE PROBLEM WITH ACCOMPANYING SYSTEMIC SYMPTOMS, THAT POSE(S) A MODERATE RISK OF MORBIDITY. THIS CONDITION MAY ALSO INCLUDE RX DRUG MANAGEMENT, OR A DECISON FOR MINOR SURGERY. The visit on the day of the encounter encompassed interpreting the data and educating the patient as to the nature of their condition, treatment options available according to their individual PMH, meds, allergies, and overall health/living conditions, as well as any potential risks or complications that may occur from a failure to adhere to, and participate in, the recommended course of therapy. The discussion included a complete verbal, and/or written explanation of the examination results, any x-rays taken, the proposed diagnosis, and outline of the treatment plan. A schedule for future care needs was also explained. The patient verbalized an understanding of the instructions at this time and agreed to be an active participant in their treatment. If the patient should think of any questions or concerns after the visit, I have encouraged the patient to call the office.?Digital Treatment:?HV - I explained to the patient the risks/benefits of all the different treatment options for their pain including: No treatment at all, Rest, Ice, New/supportive/wider/deeper Shoe gear, Digital Padding/Strapping/Taping/Bracing/Gel protective sleeves, Foot/Ankle AFO Bracing, Stretching exercises, Deep Tissue Massage, Arch support/shoe inserts with splay metatarsal padding, and Custom orthoses. I insisted that any digital devices be removed daily and not worn overnight for safety. The patient is to carefully examine the toes daily for any skin irritation while using any splinting or padding device. The advantages and disadvantages of each option were discussed and the patients questions re: shoe gear, padding, custom vs prefabricated inserts, activity level, and consistency in home treatment regimens for optimal success were answered to their verbally confirmed satisfaction, Recomm, rest, ice, proper shoegear, padding, orthotics, anti-inflammatories or tylenol as tolerated, topical analgesics, cortisone injections.?Shoe Gear Counseling:?SHOE Rx - The patient was counseled in great detail on their muscoloskeletal foot and toe deformities which coincided with the dermatological presentations visualized on exam. We discussed how their deformities put the integrity of their feet at risk for potential pedal complications which makes the accomidative diabetic shoes and cutomizable inserts medically necessary. We discussed the different shoe and insert treatment types and options, as well as the important advantages for adhering to regularly wearing these accomidative devices daily. The patient was made aware of the fact that a failure to abide by these recommedations may be deleterious to their foot health as they are able to prevent many pedal complications such as skin irritation, skin ulceration, infection, and even loss of toe/foot/leg/or life. Time was also spent with the patient dispensing and discussing proper diabetic footcare techniques including daily skin moisturization, daily foot inspection for any interruption in skin integrity including open lesions, or sign of infection such as redness/malodor/drainage/swelling. Also discussed and recommended were procedures regarding daily shoe inspection for the presence of internal foreign bodies as well as any visualized irregular shoe or insert wear. Patient questions re: shoes, inserts, and self foot inspections were answered to their satisfaction as the patient verbally confirmed a full understanding of the above information, Patient DEFERS recommended Extra Depth Orthopedic pressure-accommodative shoes against medical advice.?Xerosis:?The patient was counseled on the diagnosis, potential etiologies, and treatment options for their skin condition. We discussed the risks and benefits of each option from performing no treatment, to utilizing OTC topical skin creams/ointments, to utilizing prescription topical creams/ointments, to utilizing customized compounded topical medications and use of nocturnal occlusion with any/all previously detailed therapies. We discussed the advantages and disadvantages of each possible treatment and importance for adherence to all the recommended therapies for optimum success and avoid potential complications such as open sore/infection/possible hospitalization. We discussed the potential effectiveness of each topical preparation as well as each ones possible side effects and/or patient medication interactions. Patient questions re: use, dosage, successful outcomes, and application consistency were reviewed and the patient verbalized that all answers were clearly understood. The patient has decided to apply Rx skin creams to their feet save the interspaces while paying special attention to the heels. Such was sent to their pharmacy at the time of visit.? ??Screening/Special Tests:?Fall Risk?Screening:?No falls in the past year ?FALLS: Screening for Future Fall Risk?Have you had any falls with injury in the past year??No * Follow Up:?2 Weeks * Images: * Sign off status: Completed true * Provider:Dl Zaman DPM Date:?2024 Generated for Rocky hayes/Patricia/Altagracia on:?12/04/2024 10:57 AM EDT History and Physical Notes * HPI (History of Present Illness) Category Sub-Category Detail Notes Category Not es Skin problems Nature: dryness , scaling Location: B/L Duration: several days Course: worse At Risk footcare Pt States Last PCP Visit: Date: 4 Foot Pain Location: Inside, Great toe joint, RIG HT Duration: , several days Course: worse Aggravated: any pressure Treatments: rest/alter normal da calixto activity Examination Category Sub-Category Detail Notes Category Not es Ingrown Nail INSPECTION: Neurological SENSORY: Neurological exa m demonstrates , reduced light touch sensation , reduced sharp/dull pin prick discrimination , reduced vibration sensation , 5.07 monofilament test performed at plantar aspects of 5 varied sites per foot shows sensation , absent , at Forefoot , B/L , Pt relates cont. shooting/radiating sensation at night TINEL'S COMPRESSION: Dermatologic SKIN FINDINGS: Skin exam reveal s Keratotic lesion(s) located at, TA, T5 Medial plantar IPJ, , , Skin shows sign(s) of, a semi-firm, nonpainful, nontransluscent, nonpulsitile, nonmobile Sub Q tumor cain 30mm x 25mm left great toe, , Skin shows sign(s) of, dryness, scaling, in a stocking fashion, no fissure(s) present, B/L Orthopedic BUNION: Medially promine nt 1st MPJ, (+) Pain on palpation, inflammation present medially, Lateral tracking 1st MPJ incompletely reducible, RIGHT FOOTWEAR EVALUATION: shoe gear propertie s exacerbate patients foot/toe deformity General Examination GENERAL APPEARANCE: Reveals a pleasant, alert, well nourished, well-developed, well hydrated individual, who demonstrates proper attention to hygiene/body habitus, and is in no acute distress, Denies fever, chills, malaise, lymphadenopathy FOOT EXAM: Lower Extremity Neurological Exa m performed:: Yes Visual exam of foot performed:: Yes Date: 10/27/2024 Sensory testing performed:: sensations d iminished Sensory and motor testing performed:: se nsations diminished Pedal pulse taking performed:: absent ORIENTED: person, place, and t tad Footwear Evaluation Footwear Evaluation performe d:: Yes Ophthalmology Referral DIABETES EYE EXAM Procedure Perform ed:: No Vascular DP PULSES (B): 1/4, B/L PT PULSES (B): , 1/4, B/L CAPILLARY FILL TIME: delayed, all digits , B/L TEMPERTURE GRADIENT (C): decreased, cool to cool, proximal to distal, B/L , TROPHIC CONDITION-TEXTURE/ELASTICITY/TURGOR/HAIR GROWTH (B): decreased, B/L EDEMA (C): absent, B/L PIGMENTATION: normal, B/L Nails NAILS are: , Elongated, ove rgrown, dystrophic, T1, T2, T3, T4, T6, T7, T8, T9 Abscess/infected nail INSPECTION Reveals na il incurvation, pain on palpation, groove laceration, inflammation, malodor, localized cellulitis, and purulent abscess with pre-operative size of approximately ( 1-2 ) mm square without exposed bone, Medial nail border, T5
--- OUTSIDE RECORDS SUMMARY | 2024-12-04 10:57 | XMS_ITS ---
[facility] Address [address] [place] [address] Care Team Providers Care Tester Operator Helper Name Role Phone Dariel Russell Primary Care Provider Unav ailable Black, Desire Unavailable [phone] Allergies Allergen (clinical drug ingredient) Drug/Non Drug Allergy documented on EMR Reaction Allergy Type Onset Date Status sulfamethoxazole / trimethoprim Bactrim eyes and lips swell Drug Allergy Active Doxycycline Monohyd-Cleanser Unknown Drug Allergy Active tetracycline Tetracycline HCl rash Drug Allergy Active amoxicillin Amoxicillin Unknown Drug Allergy Act sriram clindamycin Clindamycin heartburn Drug Allergy Act sriram Penicillin Unknown Drug Allergy Active REASON FOR VISIT Open sore - Toe Medications Medication SIG (Take, Route, Frequency, Duration) Notes Start Date End Date Status Medrol 4 MG as directed Orally a s directed for 6 days 03/29/2021 Not-Taking Clindamycin HCl Not- Taking Cilostazol 50 MG 1 tablet 30 minutes before or 2 hours after breakfast and dinner Orally Twice a day Not-Taking Probiotic - as directed Orally Not-Taking Enstilar 0.005-0.064 % 1 application Externally Once a day Not-Taking Plavix 75 MG 1 tablet Orally Once a day Not-Taking Extra Depth Orthopedic Shoes (1 Pair) with Customized Heat Molded Multidensity Innersoles (3 Pair) as directed Dx: NIDDM/Polyneuropathy (E11.42), Hammertoe Foot Deformity (M20.41,M20.42), Preulcerative Skin Lesion(s) (L85.1 09/16/2020 Active Timolol Maleate 6.8 1 drop into affected eye Ophthalmic Active dexAMETHasone 0.75 MG 1 tablet Orally ev js 12 hrs for 30 day(s) Not-Taking Doxycycline Monohydrate 100 MG 1 capsule Orally Once a day for 10 days 05/01/2024 Not-Taking Verapamil HCl 120 MG as directed Orally once a day Active Atorvastatin Calcium 20 MG Orally Active Losartan Potassium 50 MG 1 tablet Orally Once a day for 30 day(s) Active glipiZIDE Active hydroCHLOROthiazide 12.5 MG as directed Orally Once a day Active Lisinopril Not-Takin g Flomax Active Aspir-81 Active Ammonium Lactate 12 % 1 application Externally to affected areas of dry skin to feet except for between the toes Twice a day for 30 days Active Social History Tobacco Use: Social History Observation Description Date Details (start date - stop date) Never Smoker NA - NA Tobacco use other than smoking: Question Answer Notes Are you an other tobacco user? No Tobacco Control (Standard) Question Answer Notes Tobacco use: Nonsmoker Additional Findings: Tobacco non-user Current no nsmoker Vital Signs Height 5 ft 11 in in 11/13/2024 Weight 176 lbs 11/13/2024 BMI 24.54 kg/m2 11/13/2024 Blood pressure systolic 140 mm Hg 11/14/19 Blood pressure diastolic 70 mm Hg 025 Procedures Procedure Date Ordered Date Performed Result [place] e 52001- Debride <25 sq cm 11/13/2024 N/A Encounters Encounter Location Date Provider Diagnosis [facility] [address] [place] [address] 11/13/2024 Desire Black Skin ulcer of toe of right foot, limited to breakdown of skin L97.511 ; Type 2 diabetes mellitus with diabetic polyneuropathy E11.42 and Unspecified atherosclerosis of [place] arteries of extremities, bilateral legs I70.203 Assessments Encounter Date Diagnosis (ICD Code) Assessment Notes Treatment Notes Treatment Clinical Notes Section Notes 11/13/2024 Skin ulcer of toe of right foot, limited to breakdown of skin (ICD-10 - L97.511) Patient Educated with: WOUND CARE INSTRUCTIONS. pdf (WOUND CARE INSTRUCTIONS. pdf) 11/13/2024 Type 2 diabetes mellitus with diabetic polyneuropathy (ICD-10 - E11.42) 11/13/2024 Unspecified atherosclerosis of [place] arteries of extremities, bilateral legs (ICD-10 - I70.203) 11/13/2024 Other Plan Of Treatment Treatment Notes Assessment Notes Skin ulcer of toe of right f oot, limited to breakdown of skin Patient Educated with: WOUND CARE INSTRUCTIONS.pdf (WOUND CARE INSTRUCTIONS.pdf) Pending Test Test Name Order Date 68027- Debride <25 sq cm 11/13/2024 Next Appt Details Follow Up: as scheduled, Lizzie son: Provider Name:Desire Zaman , 03/26/2025 10:15:00 AM, [address] [place], [address], Procedure Notes * Category Sub-Category Detail Notes Debride skin< 25 sq cm Open wound Physician of record performed open wound selective debridement of first 25 sq cm or less, of devitilized necrotic/nonviable soft tissue, fibrin, and exudate extending from the epidermis through the dermis, utilizing sharp dissection with sterile 15 blade, and/or tissue nippers. Sterile antibiotic dressing applied, ANESTHESIA- was accomplished TOPICALLY with Lidocaine Hydrochloride Jelly 2 percent. Hemostasis was achieved through direct pressure. Post debridement measurements:8 mm x 2 mm x 2mm. Character of the wound post debridement is stable (17927), The patient was instructed on importance of proper wound care consisting of pressure reduction, maintainance of moist wound environment, and regular debridement of devitilized tissue, The patient is to cleanse the wound with warm soapy water/peroxide/saline or betadine BID based on product availability, The patient is to apply Antibiotic Oint. to the wound and cover with a DSD, The patient is to cont the local wound care as directed Progress Notes * SHAMIKARIGOGraham FDOB:1945 (78 yo M)Acc No.[id number]:11/13/2024 Progress Notes Patient:?Graham CASTILLO Provider:?Desire Zaman DPM :1945???Age:78 Y???Sex:Male Michael e:11/13/2024 Address:[address] [place], [place] [id number] Pcp:SHANELL Mensah Subjective: * Chief Complaints: * ???Open sore - Toe * HPI: ???Skin problems:?Nature:?Open sore.?Treatments:?Topical abx, soaks.? * ROS:?General/Constitutional:?Nausea?denies.?Vomiting?denies.?Hunger Thirst?denies.?Loss appetite?denies.?Chills?denies.?Fatigue?denies.?Fever?denies.?Night Sweats?denies.?Unexplained weight loss?denies.?Unexplained weight gain?denies.?HEENTM:?Dentures?denies.?Dizziness?denies.?Glasses/contacts?denies.?Retinopathy?den ies.?Blurred/double vision?denies.?TMJ?denies.?Discharge/drainage?denies.?Implants?denies.?Sore throat?denies.?Dental implants?denies.?Hard of hearing ?denies.?Difficulty chewing/swallowing/speaking?denies.?Nose bleeds?denies.?Sore mouth?denies.?Respiratory:?On O xygen?denies.?Pneumonia/pleurisy?denies.?Bronchitis?denies.?Emphysema?denies.?Co ughing?denies.?Cough blood?denies.?Shortness of breath?denies.?Wheezing?denies.?Cardiovascular:?Pacemaker?denies.?MVP?denies.?WPW?denies.?CHF?denies.?Heart attack?denies.?Septal defect?denies.?Rapid beat?denies.?Chest pain ?denies.?Atrial Fib.?denies.?Murmur/Palpitations?denies.?Gastrointestinal:?Hemorrhoids?denies.?Stomach/Abdominal pain?denies.?Dark blood stool?denies.?Irritable bowel ?denies.?Constipation?denies.?Diarrhea?denies.?Hematology:?Swelling?denies.?Clots?denies.?Varicose Veins?denies.?Bruising?denies.?Bleeding problem?denies.?Genitourinary:?Blood urine?denies.?Frequent/Painfu/urination/bladder control?denies.?Kidney stones?denies.?Infection (UTI)?denies.?Nephropathy?denies.?sex trans dis (STD)?denies.?Prostate?denies.?Musculoskeletal:?Hammertoes?denies.?Bunions?admits.?Back Pain?denies.?Muscle Cramps/ Resting?denies.?Muscle cramps / walking?denies.?Generalized aches and pains?denies.?Weakness?denies.?Integ.:?Figueroa?denies.?Scars?denies.?Corns/calluses?, admits.?Ingrown nails?denies.?Painful nails?denies.?Open Sores?, admits.?Rashes?denies.?Neurologic:?Difficulty sleeping?denies.?Brain disorder?denies.?Numbness?denies.?Balance t rouble?denies.?Confusion?denies.?Fainting/blackouts?denies.?Tingling?admits.?R[employer]?denies.? * Medical History:? * Surgical History:?gall bladd er 12/06/2014ppendectomy 03/2014Stent 10/2023 * Hospitalization/Major Diagno stic Procedure:?Denies Past Hospitalization * Family History:?Mother: dece ased, diagnosed with Other malignant neoplasm of unspecified site.?Father: .? * Social History:?Tobacco Use:?Tobacco use other than smoking?Are you an other tobacco user??No ?Tobacco Control (Standard)?Tobacco use:?Nonsmoker ?Additional Findings: Tobacco non-user?Current nonsmoker ???Miscellaneous:?Caffeine: yes, frequency: 1 cup. ?Children: yes. ?Exercise: yes, walking. ?Marital status: . 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 * Medications:?TakingAmmonium Lactate 12 % Cream 1 application Externally to affected areas of dry skin to feet except for between the toes Twice a day Flomax Aspir- 81 hydroCHLOROthiazide 12.5 MG Capsule as directed Orally [...] 1 drop into affected eye Ophthalmic Taking Ammonium Lactate 12 % Cream 1 application Externally to affected areas of dry skin to feet except for between the toes Twice a day Taking Flomax Taking Aspir-81 Taking hydroCHLOROthiazide 12.5 [...] Objective: * Vitals:?Ht: 5 ft 11 in, Wt: 176, BMI: 24.54, Shoe size: 10.5-11, BP: 140/70 mm Hg, BS: not taken, Wt-k.83 kg. * ???Past Orders: ???Lab:HEMOGLOBIN A1C (GLYCO HEMOGLOBIN) (Order Date - 12/06/2023) (Collection Date & Time - 12/06/2023 01:16 PM) ? Value Reference Range ?HEMOGLOBIN A1C % (HH) 6.8 * Examination: ???Ophthalmology Referral: ?DIABETES EYE EXAM?Procedure Performed:?Yes ?Date of Exam Performed?04/27/2024 ?Findings of Diabetic Eye Exam:?no retinopathy?Dermatologic: ?ULCER:? LOCATION,T5, Dorsal, SIZE, 10mm X 4mm X 1-2mm, BASE, granular to epithelialized, RIM, hyperkeratotic, UNDERMINING, absent, TRACKING, Partial to, Full thickness breakdown of skin, DRAINAGE, serosanguineous, mild, NECROTIC TISSUE, loosely-adherent, yellow slough, MALODOR, absent, CALOR, absent, ERYTHEMA, absent, PAIN ON PALPATION, mild.? Assessment: * Assessment: 1.?Type 2 diabetes mellitus with diabetic polyneuropathy - E11.42???2.?Skin ulcer of toe of right foot, limited to breakdown of skin - L97.511 (Primary)???Specify :Response to treatment -Nonapplicable???3.?Unspecified atherosclerosis of [place] arteries of extremities, bilateral legs - I70.203??? Plan: * Treatment: * Procedures:?Debride skin< 25 sq cm:?Open wound?Physician of record performed open wound selective debridement of first 25 sq cm or less, of devitilized necrotic/nonviable soft tissue, fibrin, and exudate extending from the epidermis through the dermis, utilizing sharp dissection with sterile 15 blade, and/or tissue nippers. Sterile antibiotic dressing applied, ANESTHESIA- was accomplished TOPICALLY with Lidocaine Hydrochloride Jelly 2 percent. Hemostasis was achieved through direct pressure. Post debridement measurements:8 mm x 2 mm x 2mm. Character of the wound post debridement is stable (99351), The patient was instructed on importance of proper wound care consisting of pressure reduction, maintainance of moist wound environment, and regular debridement of devitilized tissue, The patient is to cleanse the wound with warm soapy water/peroxide/saline or betadine BID based on product availability, The patient is to apply Antibiotic Oint. to the wound and cover with a DSD, The patient is to cont the local wound care as directed.? * Procedure Codes:?58862 ACTIV E WOUND CARE/20 CM OR < * Preventive Medicine:? ??Screening/Special Tests:?Fall Risk?Screening:?No falls in the past year ?FALLS: Screening for Future Fall Risk?Have you had any falls with injury in the past year??No * Follow Up:?as scheduled * Images: * Sign off status: Completed true * Provider:?Desire Zaman DPM Date:?2024 Generated for Rocky hayes/Patricia/Altagracia on:?12/04/2024 10:57 AM EDT History and Physical Notes * HPI (History of Present Illness) Category Sub-Category Detail Notes Category Not es Skin problems Nature: Open sore Treatments: Topical abx, soaks Examination Category Sub-Category Detail Notes Category Not es Dermatologic ULCER: LOCATION,T5, Rudy nela, SIZE, 10mm X 4mm X 1-2mm, BASE, granular to epithelialized, RIM, hyperkeratotic, UNDERMINING, absent, TRACKING, Partial to, Full thickness breakdown of skin, DRAINAGE, serosanguineous, mild, NECROTIC TISSUE, loosely-adherent, yellow slough, MALODOR, absent, CALOR, absent, ERYTHEMA, absent, PAIN ON PALPATION, mild Ophthalmology Referral DIABETES EYE EXAM Procedu re Performed:: Yes ?Date of Exam Performed: 04/27/2024 Findings of Diabetic Eye Exam:: no retin opathy
--- OUTSIDE RECORDS SUMMARY | 2024-12-04 10:57 | XMS_ITS | Encounter Summary ---
Author Organization Address [address] [place] [address] Care Team Providers Care Quality Systems Technician Name Role Phone Dariel Hart NP Primary Care Provider + [phone] Encounter Details Date Type Department Care Team (Late st Contact Info) Description 06/19/2024 10:12 AM EDT Hospital Encounter TH HISTORIC ENCOUNTERS EASTERN CONVERSION ONLY Aleshia, Daija Chan MD [address] [place] [id number] Social History Tobacco Use Types Packs/Day Years Used Date Smoking Tobacco: Some Days Smokeless Tobacco: Never Alcohol Use Standard Drinks/Week Comments Not Currently 0 (1 standard drink = 0.6 oz pur e alcohol) Interpersonal Safety Answer Date Record ed Physical Abuse 10/24/2024 Verbal Abuse 10/24/2024 Sex and Gender Information Value Date Recorded [...] 9:30 AM EDT documented in this encounter Progress Notes * Daija Monk [...] SOCIAL HISTORY: Quit smoking in 2009, has [id number] smoking history Denies any alcohol abuse, occasionally drink alcohol He used to work in [employer] ([employer] department) He is lives with his ?? [...] Care Team (Late st Contact Info) Description 12/23/2024 10:30 AM EDT Office Visit [facility] Hematology Oncology [address] [place] [address] Daija Monk MD [address] [place] [address] documented as of this encounter Procedures Procedure Name Priority Date/Time Associated Diagnosis Comments ..MISCELLANEOUS REFERENCE LAB TEST 06/19/2024 ..MISCELLANEOUS REFERENCE LAB TEST 06/19/2024 ..MISCELLANEOUS REFERENCE LAB TEST 06/19/2024 EXTERNAL CLINICAL LAB 06/19/2024 EXTERNAL CLINICAL LAB 06/19/2024 documented in this encounter Results * External clinical lab (06/19/2024) Provider Onbase MD LAB BLOOD ORDERABLES Final Re sult * External clinical lab (06/19/2024) Provider Onbase MD LAB BLOOD ORDERABLES Final [...] Diagnoses Not on filedocumented in this encounter Care Teams Quality Systems Technician Relationship Specialty Start Date End Date Dariel Hart, KOSTA [address] [place], [place] PCP - General 12/16/19 documented as of this encounter
--- OUTSIDE RECORDS SUMMARY | 2024-12-04 10:57 | XMS_ITS | Patient Health Record ---
[facility] Organization [facility] Address [address] [place] [address] Care Team Providers Care Hospital Admissions Officer Name Role Phone Dariel Russell Primary Care Provider Unav ailable Black, Desire Unavailable [phone] Marysol Waldenter Unavailable [phone] Allergies Allergen (clinical drug ingredient) Drug/Non Drug Allergy documented on EMR Reaction Allergy Type Onset Date Status sulfamethoxazole / trimethoprim Bactrim eyes and lips swell Drug Allergy Active Doxycycline Monohyd-Cleanser Unknown Drug Allergy Active tetracycline Tetracycline HCl rash Drug Allergy Active amoxicillin Amoxicillin Unknown Drug Allergy Act sriram clindamycin Clindamycin heartburn Drug Allergy Act sriram Penicillin Unknown Drug Allergy Active Results Component Value Reference Range Notes HEMOGLOBIN A1C (GLYCOHEMOGLO BIN) Reviewed date:12/06/2023 01:58:31 PM Interpretation: Performing Lab: Notes/Report: HEMOGLOBIN A1C (HH) 6.8 HEMOGLOBIN A1C (GLYCOHEMOGLO BIN) Reviewed date:08/31/2024 01:17:26 PM Interpretation: Performing Lab: Notes/Report: HEMOGLOBIN A1C % (HH) 6.8 Reason For Referral Diagnosis 1 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, bilateral legs (I70.203) Diagnosis [...] (S90.222A) Diagnosis 34 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, bilateral legs (I70.203) Diagnosis [...] (E11.42) Diagnosis 53 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, bilateral legs (I70.203) Diagnosis [...] First Name Dariel [facility]erring [facility] Ref[facility] Provider Desire Zaman Referred Address [address] [place], [place],[address],[place] Referred Provider Specialty Podiatry Referral Priority Routine Diagnosis 1 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) Diagnosis 2 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, bilateral legs (I70.203) Diagnosis [...] (acqui red), right foot (M20.11) Diagnosis 10 Hallux valgus (acqui red), left foot (M20.12) Diagnosis 11 PlantarFlexion of me tatarsal of left foot (M21.6X2) Diagnosis 12 Neuropathy (G62.9) Diagnosis 13 Cavus deformity of r ight foot (Q66.71) Referring Provider First Name Dariel Referring Provider [facility] Referred Provider Corye Walden Referred Address [address] [place], [place],[address],[place] Referred Provider Specialty Podiatry Referral Priority Routine Medications Medication SIG (Take, Route, Frequency, Duration) Notes Start Date End Date Status Verapamil HCl 120 MG as directed Orally once a day Active Medrol 4 MG as directed Orally a s directed for 6 days 03/29/2021 Not-Taking Atorvastatin Calcium 20 MG Orally Active Clindamycin HCl Not- Taking Losartan Potassium 50 MG 1 tablet Orally Once a day for 30 day(s) Active Cilostazol 50 MG 1 tablet 30 minutes before or 2 hours after breakfast and dinner Orally Twice a day Not-Taking glipiZIDE Active Lisinopril Not-Takin g Probiotic - as directed Orally Not-Taking hydroCHLOROthiazide 12.5 MG as directed Orally Once a day Active Enstilar 0.005-0.064 % 1 application Externally Once a day Not-Taking Flomax Active Plavix 75 MG 1 tablet Orally Once a day Not-Taking Aspir-81 Active Extra Depth Orthopedic Shoes (1 Pair) with Customized Heat Molded Multidensity Innersoles (3 Pair) as directed Dx: NIDDM/Polyneuropathy (E11.42), Hammertoe Foot Deformity (M20.41,M20.42), Preulcerative Skin Lesion(s) (L85.1 09/16/2020 Active Timolol Maleate 6.8 1 drop into affected eye Ophthalmic Active dexAMETHasone 0.75 MG 1 tablet Orally ev js 12 hrs for 30 day(s) Not-Taking Ammonium Lactate 12 % 1 application Externally to affected areas of dry skin to feet except for between the toes Twice a day for 30 days Active Doxycycline Monohydrate 100 MG 1 capsule Orally Once a day for 10 days 05/01/2024 Not-Taking Immunizations Vaccine Route Administration Date Status Comme nts COVID-19 Pfizer BioNTech Vaccine Unknown 06/01/2021 Administered 1st dose: 09/30/2020 2nd dose: 10/21/20 Influenza Unknown 05/28/2017 Administered Influenza Unknown 04/27/2020 Administered Influenza Unknown 05/27/2021 Administered Influenza Unknown 05/10/2023 Administered Social History Tobacco Use: Social History Observation [...] ast year? No Points 0 Interpretation Negative Problems Problem Type SNOMED Code ICD Code Onset Dates Problem Status W/U Status Risk Notes Problem Acquired hammer toe of right foot (8083125995099562 ) Other hammer toe(s) (acquired), right foot (M20.41) Active confirmed Problem Acquired hallux valgus (96074149) Hallux valgus (acquired), left foot (M20.12) Active confirmed Problem Acquired hammer toe of left foot (3213070246914591 ) Other hammer toe(s) (acquired), left foot (M20.42) Active confirmed Problem Diabetic foot ulcer (382184557) Non-pressure chronic ulcer of other part of left foot limited to breakdown of skin (L97.521) Active confirmed Problem 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 (131989088010075) Unspecified atherosclerosis of pechanga arteries of extremities, 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 Problem Acquired hallux valgus (94601392) Hallux valgus (acquired), right foot (M20.11) Active confirmed Problem Ulcer of foot (04927072) Non-pressure chronic ulcer of other part of left foot limited to breakdown of skin (L97.521) Active confirmed Problem Polyneuropathy due to type 2 diabetes mellitus (022244235) Type 2 diabetes mellitus with diabetic polyneuropathy (E11.42) Active confirmed Problem Primary gout (91619259) Idiopathic gout, right ankle and foot (M10.071) Active confirmed Problem Neuropathy (942355648) Neuropathy (G62.9) Active confirmed Problem Primary gout (85767559) Acute idiopathic gout of right foot (M10.071) Active confirmed Problem Acquired deformity of right foot (4071727186696189 0) PlantarFlexion of metatarsal of right foot (M21.6X1) Active confirmed Problem Acquired deformity of left foot (8536486921158243 4) PlantarFlexion of metatarsal of left foot (M21.6X2) Active confirmed Problem 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) Active confirmed Problem Ulcer of toe of right foot (disorder) (0889013331284083 1) Skin ulcer of toe of right foot, limited to breakdown of skin (L97.511) Active confirmed Response to treatment, Nonapplica ble Problem Acquired cavus deformity of right foot (disorder) (2647502381953893 ) 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) Active confirmed Problem Ulcer of toe of left foot (disorder) (0703278927163608 2) Skin ulcer of toe of left foot, limited to breakdown of skin (L97.521) Active confirmed Vital Signs Blood pressure diastolic 70 mm Hg 11/13/2024 Height 5 ft 11 in in 11/13/2024 Blood pressure systolic 140 mm Hg 11/13/2024 Weight 176 lbs 11/13/2024 BMI 24.54 kg/m2 11/13/2024 Procedures Procedure Date Ordered Date Performed Result Body Sit e 74366- Debride <25 sq cm 12/06/2023 N/A 27530- Debride <25 sq cm 03/13/2024 N/A 82997-PRUU SKIN LESIONS, 2 TO 4 03/13/2024 N/A O8403-BOYGCWFM DYSTROPHIC NAILS ANY # 03/13/2024 N/A 26662- Debride <25 sq cm 03/27/2024 N/A 70568- Debride <25 sq cm 05/15/2024 N/A 30947-Picakwuz Plate 06/30/2024 N/A 46960-KHWQ SKIN LESIONS, 2 TO 4 06/30/2024 N/A V9982-VBGCQCYG DYSTROPHIC NAILS ANY # 06/30/2024 N/A 59508 I&D ABSCESS- SIMPLE,SINGLE 10/27/2024 N/A 83938-KRZN SKIN LESIONS, 2 TO 4 10/27/2024 N/A G7891-TVTPCAEX DYSTROPHIC NAILS ANY # 10/27/2024 N/A 05398- Debride <25 sq cm 11/13/2024 N/A Encounters Encounter Location Date Provider Diagnosis [facility] [address] [address] 12/06/2023 Desire Black Skin ulcer of toe of left foot, limited to breakdown of skin L97.521 ; Peroneal tendinitis, right leg M76.71 ; Pain in right foot M79.671 ; Hypertrophy of bone, right ankle and foot M89.371 ; Type 2 diabetes mellitus with diabetic polyneuropathy E11.42 and Unspecified atherosclerosis of pechanga arteries of extremities, bilateral legs I70.[address] [facility] [address] 03/13/2024 Desire Black Type 2 diabetes mellitus with diabetic polyneuropathy E11.42 ; Unspecified atherosclerosis of pechanga arteries of extremities, bilateral legs I70.203 ; Skin ulcer of toe of right foot, limited to breakdown of skin L97.511 ; Pain in right ankle and joints of right foot M25.571 ; Bursitis of right foot M77.51 ; Pain in right foot M79.671 ; Hallux valgus (acquired), right foot M20.11 and Hammertoe of right foot M20.[address] [address] 03/27/2024 Desire Black Pain in right foot M79.671 ; Hallux valgus (acquired), right foot M20.11 ; Pressure injury of right foot, stage 1 L89.891 ; Hammertoe of right foot M20.41 and Type 2 diabetes mellitus with diabetic polyneuropathy E11.[address] [address] 05/01/2024 Corey Walden Cellulitis of right toe L03.031 ; Skin disease L98.9 ; Pain in right toe(s) M79.674 and Abscess of toe of right foot L02.[address] [address] 05/15/2024 Desire Black Skin ulcer of toe of right foot, limited to breakdown of skin L97.511 ; Cellulitis of right toe L03.031 and Pain in right toe(s) M79.[address] [address] 06/30/2024 Desire Black Type 2 diabetes mellitus with diabetic polyneuropathy E11.42 ; Unspecified atherosclerosis of pechanga arteries of extremities, bilateral legs I70.203 and Ingrown nail L60.[address] [address] 10/27/2024 Desire Black Pain in right foot M79.671 ; Hallux valgus (acquired), right foot M20.11 ; Type 2 diabetes mellitus with diabetic polyneuropathy E11.42 ; Unspecified atherosclerosis of pechanga arteries of extremities, bilateral legs I70.203 ; Pain in right ankle and joints of right foot M25.571 ; Bursitis of right foot M77.51 ; Xerosis of skin L85.3 and Abscess of toe, right L02.611 [facility] [address] [address] 11/13/2024 Desire Zaman Skin ulcer of toe of right foot, limited to breakdown of skin L97.511 ; Type 2 diabetes mellitus with diabetic polyneuropathy E11.42 and Unspecified atherosclerosis of pechanga arteries of extremities, bilateral legs I70.[address] [facility] [address] 04/30/2024 [facility] [address] 05/02/2024 [facility] [address] 10/27/2024 Desire Zaman Assessments Encounter Date Diagnosis (ICD Code) Assessment Notes Treatment Notes Treatment Clinical Notes Section Notes 12/06/2023 Peroneal tendinitis, right leg (ICD-10 - M76.71) Patient Educated with: PERONEAL TENDON INJURY REHAB. EXERCISES.pdf (PERONEAL TENDON INJURY REHAB. EXERCISES.pdf ) 12/06/2023 Skin ulcer of toe of left foot, limited to breakdown of skin (ICD-10 - L97.521) Patient Educated with: WOUND CARE INSTRUCTIONS. pdf (WOUND CARE INSTRUCTIONS. pdf) 03/13/2024 Type 2 diabetes mellitus with diabetic polyneuropathy (ICD-10 - E11.42) 03/27/2024 Pain in right foot (ICD-10 - M79.671) 03/27/2024 Hallux valgus (acquired), right foot (ICD-10 - M20.11) 05/01/2024 Cellulitis of right toe (ICD-10 - L03.031) 05/01/2024 Skin disease (ICD-10 - L98.9) 05/15/2024 Cellulitis of right toe (ICD-10 - L03.031) Response to treatment - Improvement 05/15/2024 Skin ulcer of toe of right foot, limited to breakdown of skin (ICD-10 - L97.511) Response to treatment,Nonappl icable Patient Educated with: WOUND CARE INSTRUCTIONS. pdf (WOUND CARE INSTRUCTIONS. pdf) 06/30/2024 Unspecified atherosclerosis of pechanga arteries of extremities, bilateral legs (ICD-10 - I70.203) 06/30/2024 Type 2 diabetes mellitus with diabetic polyneuropathy (ICD-10 - E11.42) 10/27/2024 Pain in right foot (ICD-10 - M79.671) 10/27/2024 Hallux valgus (acquired), right foot (ICD-10 - M20.11) 11/13/2024 Type 2 diabetes mellitus with diabetic polyneuropathy (ICD-10 - E11.42) 11/13/2024 Skin ulcer of toe of right foot, limited to breakdown of skin (ICD-10 - L97.511) Patient Educated with: WOUND CARE INSTRUCTIONS. pdf (WOUND CARE INSTRUCTIONS. pdf) 10/27/2024 Type 2 diabetes mellitus with diabetic polyneuropathy (ICD-10 - E11.42) 03/27/2024 Pressure injury of right foot, stage 1 (ICD-10 - L89.891) Response to treatment - Improvement Patient Educated with: WOUND CARE INSTRUCTIONS. pdf (WOUND CARE INSTRUCTIONS. pdf) 11/13/2024 Unspecified atherosclerosis of pechanga arteries of extremities, bilateral legs (ICD-10 - I70.203) 06/30/2024 Ingrown nail (ICD-10 - L60.0) 05/15/2024 Pain in right toe(s) (ICD-10 - M79.674) 05/01/2024 Pain in right toe(s) (ICD-10 - M79.674) 12/06/2023 Pain in right foot (ICD-10 - M79.671) 03/13/2024 Unspecified atherosclerosis of pechanga arteries of extremities, bilateral legs (ICD-10 - I70.203) 12/06/2023 Hypertrophy of bone, right ankle and foot (ICD-10 - M89.371) 03/13/2024 Skin ulcer of toe of right foot, limited to breakdown of skin (ICD-10 - L97.511) Nonapplicable Patient Educated with: WOUND CARE INSTRUCTIONS. pdf (WOUND CARE INSTRUCTIONS. pdf) 03/27/2024 Hammertoe of right foot (ICD-10 - M20.41) 05/01/2024 Abscess of toe of right foot (ICD-10 - L02.611) 10/27/2024 Unspecified atherosclerosis of pechanga arteries of extremities, bilateral legs (ICD-10 - I70.203) 10/27/2024 Pain in right ankle and joints of right foot (ICD-10 - M25.571) 03/27/2024 Type 2 diabetes mellitus with diabetic polyneuropathy (ICD-10 - E11.42) 12/06/2023 Type 2 diabetes mellitus with diabetic polyneuropathy (ICD-10 - E11.42) 03/13/2024 Pain in right ankle and joints of right foot (ICD-10 - M25.571) 12/06/2023 Unspecified atherosclerosis of pechanga arteries of extremities, bilateral legs (ICD-10 - I70.203) 03/13/2024 Bursitis of right foot (ICD-10 - M77.51) 10/27/2024 Bursitis of right foot (ICD-10 - M77.51) 10/27/2024 Xerosis of skin (ICD-10 - L85.3) 03/13/2024 Pain in right foot (ICD-10 - M79.671) 03/13/2024 Hallux valgus (acquired), right foot (ICD-10 - M20.11) 03/13/2024 Hammertoe of right foot (ICD-10 - M20.41) 10/27/2024 Abscess of toe, right (ICD-10 - L02.611) Patient Educated with: WOUND CARE INSTRUCTIONS. pdf (WOUND CARE INSTRUCTIONS. pdf) 12/06/2023 Other 03/13/2024 Other 03/27/2024 Other 05/15/2024 Other 06/30/2024 Other 11/13/2024 Other Plan Of Treatment Pending Test Test Name Order Date *Uric Acid, Serum 03/29/2021 *Uric Acid, Serum 04/06/2022 *Sedimentation Rate-Westergren 2 *Sedimentation Rate-Westergren 1 C-Reactive Protein, Quant 04/06/2022 X ray : Foot, right 3V 03/29/2021 X ray : Foot, right 3V 06/29/2016 18089-Scymhbav Plate 02/05/2023 21717-Sucinpjx Plate 11/21/2023 70343-Fydoqyde Plate 06/30/2024 01194-Vxoqdjzv Plate Each Additional 46917- Debride <25 sq cm 03/27/2024 92170- Debride <25 sq cm 05/15/2024 93567- Debride <25 sq cm 04/12/2023 60971- Debride <25 sq cm 12/06/2023 94779- Debride <25 sq cm 03/13/2024 31933- Debride <25 sq cm 05/29/2022 70945- Debride <25 sq cm 06/12/2022 39048- Debride <25 sq cm 04/30/2015 62936- Debride <25 sq cm 12/29/2015 19893- Debride <25 sq cm 06/29/2016 00882- Debride <25 sq cm 08/09/2020 19184- Debride <25 sq cm 09/16/2020 86845- Debride <25 sq cm 11/13/2024 83419 I&D ABSCESS- SIMPLE,SINGLE 025 93100 I&D ABSCESS- SIMPLE,SINGLE 023 92990 I&D ABSCESS- SIMPLE,SINGLE 022 86038-BAFB SKIN LESIONS, 2 TO 4 09/05/19 22 35922-HYIA SKIN LESIONS, 2 TO 4 03/09/20 22 42494-GKUV SKIN LESIONS, 2 TO 4 02/06/20 23 60296-ATJR SKIN LESIONS, 2 TO 4 10/02/19 23 98786-HTUF SKIN LESIONS, 2 TO 4 05/29/20 22 57220-FGVE SKIN LESIONS, 2 TO 4 03/13/20 24 61054-IQHR SKIN LESIONS, 2 TO 4 06/07/20 23 93322-LRRN SKIN LESIONS, 2 TO 4 11/21/19 24 41118-SMEU SKIN LESIONS, 2 TO 4 06/30/20 24 83778-WCRT SKIN LESIONS, 2 TO 4 10/28/19 64812-GJTG SKIN LESIONS, 2 TO 4 09/16/19 21 67719-UFCC SKIN LESIONS, 2 TO 4 09/01/19 45339-SSNK SKIN LESIONS, 2 TO 4 07/13/20 20 18383-QRTK SKIN LESIONS, 2 TO 4 04/11/20 21 86727-AEKH SKIN LESIONS, 2 TO 4 06/10/20 20 36846-IPAZ SKIN LESIONS, 2 TO 4 12/10/19 21 91384-NGDH SKIN LESIONS, 2 TO 4 12/29/19 17 34106-GARZ SKIN LESIONS, 2 TO 4 06/29/20 16 02406-OCLU SKIN LESIONS, 2 TO 4 09/24/19 18 43005-ONJG SKIN LESIONS, 2 TO 4 03/25/20 18 62787-JGXM SKIN LESIONS, 2 TO 4 09/23/19 19 08890-SZLY SKIN LESIONS, 2 TO 4 03/03/20 19 80977-OUOX SKIN LESION 04/30/2015 88673-Gecd. Subungual Hematoma 61206-DOTO NAIL(S) 05/29/2022 16401-HCGD NAIL(S) 10/02/2022 87546-YIDS NAIL(S) 02/05/2023 95886-STEY NAIL(S) 03/09/2022 82718-WMLR NAIL(S) 09/05/2021 82601-TBCM NAIL(S) 12/09/2020 53970-VQOR NAIL(S) 06/10/2020 58578-AWRZ NAIL(S) 04/11/2021 27857-WPKO NAIL(S) 03/08/2020 32479-NSZT NAIL(S) 09/16/2020 S8098-GERKQABS DYSTROPHIC NAILS ANY # M4644-IALCTIML DYSTROPHIC NAILS ANY # X4230-MSEIPBBA DYSTROPHIC NAILS ANY # I1234-CMRFSRVS DYSTROPHIC NAILS ANY # G1859-RQNWVMSV DYSTROPHIC NAILS ANY # L5431-IMUJGGJU DYSTROPHIC NAILS ANY # C1886-HMTPMLFS DYSTROPHIC NAILS ANY # J0460-PTIWHYUW DYSTROPHIC NAILS ANY # C3715-OQTQTWVJ DYSTROPHIC NAILS ANY # R1673-PQLHVSAE DYSTROPHIC NAILS ANY # W2712-NLGQYTXL DYSTROPHIC NAILS ANY # L8722-AFBDRUTJ DYSTROPHIC NAILS ANY # 02123-Qkjjrpmpq, Toes 06/29/2016 CRP 03/29/2021 Next Appt Details Provider Name:Desire Zaman , 03/26/2025 10:15:00 AM, [address] [facility], [place], [address], Insurance Providers Payer Name Payer Address Payer Phone Subscriber Number Group Number Insured Name Patient Relationship to Insured Coverage Start Date Coverage End Date [facility] [address] [place] [phone] [id number] Graham Castillo Self - patient is the insured Medical (General) History Medical History History ICD Code Cancer Gall bladder problems High blood pressure Measles Mumps Chicken pox Joint implants/screws Diabetes mellitus type ll Surgical History Surgery Date(Month/Year) gall bladder 12/06/2014 appendectomy 03/2014 Stent 10/2023 Hospitalization History Reason Date(Month/Year)
--- OUTSIDE RECORDS SUMMARY | 2024-12-04 10:57 | XMS_ITS | Encounter Summary ---
Author Organization [facility] Address [address] [place] [address] Care Team Providers Care Winter Intern Name Role Phone Dariel Hart NP Primary Care Provider + [phone] Encounter Details Date Type Department Care Team (Late st Contact Info) Description 05/29/2024 10:13 AM EDT Hospital Encounter TH HISTORIC ENCOUNTERS EASTERN CONVERSION ONLY Daija Monk MD [address] [place] [address] Social History Tobacco Use Types Packs/Day Years [...] SOCIAL HISTORY: Quit smoking in 2009, has 13-fjgg-lgtq smoking history Denies any alcohol abuse, occasionally drink alcohol He used to work in [employer] ([employer] department) He is lives with his ?? [...] Description 12/23/2024 10:30 AM EDT Office Visit [facility] Hematology Oncology [address] [place] [address] Daija Monk MD [address] [place] [address] documented as of this encounter Procedures Procedure Name Priority Date/Time Associated Diagnosis Comments ..MISCELLANEOUS REFERENCE LAB TEST 05/29/2024 documented in this encounter Results * Miscellaneous reference lab test (05/29/2024) us Provider Onbase LAB BLOOD ORDERABLES Final Re sult documented in this encounter Visit Diagnoses Not on filedocumented in this encounter Care Teams Winter Intern Relationship Specialty Start Date End Date Dariel Hart NP [address] [place], [place] PCP - General 12/16/19 documented as of this encounter
--- OUTSIDE RECORDS SUMMARY | 2024-12-04 10:57 | XMS_ITS | Clinical Summary ---
Author Organization [facility] Address [address] [place] [address] Phone Care Team Providers Care Cash Register Servicer Name Role Phone Dariel Hart NP Primary Care Provider Allergies Active Allergy Reactions Criticality Noted Date Comments Beck Inhibitors Unknown 10/06/2019 Amoxicillin-Pot Clavulanate 07/31/20 11 Penicillins Rash 04/06/2009 Sulfa (Sulfonamide Antibiotics) Swelling 07/29 Tetracyclines 07/31/2011 Medications atorvastatin (LIPITOR) 20 mg tablet Take 1 Tab by mouth daily. 9 Active azithromycin (ZITHROMAX) 250 mg tablet Take 2 tab po now then 1 po qd with food for 1 week 0 Active hydroCHLOROthia zide (MICROZIDE) 12.5 mg capsule Take 1 Cap by mouth daily. 0 Active methylPREDNISol one (MEDROL DOSPAK) 4 mg tablet Take by mouth. Activ e losartan (COZAAR) 100 mg tablet Take 0.5 tablets (50 mg total) by mouth 1 (one) time each day. Active aspirin 81 mg EC tablet Take 1 tablet (81 mg total) by mouth 1 (one) time each day. Active verapamil SR (CALAN-SR) 120 mg CR tablet Take 1 tablet (120 mg total) by mouth at bedtime. Active glipiZIDE (GLUCOTROL) 10 mg tablet Take 1 tablet (10 mg total) by mouth 1 (one) time each day. 5 Active tamsulosin (FLOMAX) 0.4 mg 24 hr capsule Take 1 capsule (0.4 mg total) by mouth 1 (one) time each day. Active dorzolamide (TRUSOPT) 2 % ophthalmic solution Administer 1 drop into both eyes 2 (two) times a day. Active vit A/vit C/vit E/zinc/copper (PRESERVISION AREDS ORAL) Take by mouth. Act sriram Active Problems Problem Noted Date Diagnosed Date Proteinuria 10/15/2019 Hypotension 10/15/2019 Cough 10/15/2019 Chronic kidney disease, stage 3 [place] [place] [facility] V28) 10/15/2019 Asthmatic bronchitis 10/06/2019 Type 2 diabetes mellitus wit h vascular disease [place] [place] [facility] [place] 10/04/2018 Elevated PSA 10/04/2018 Overview (08/08/2024): 06/2018 5.0; [facility]; Nocturia/retention Colon polyps 10/04/2018 Type 2 diabetes mellitus wit h cataract ([facility] [place] [facility] [place]) 05/27/2018 Peripheral vascular disease ([facility] [place]) 2017 Hypertension 05/27/2018 Hyperlipidemia 05/27/2018 Arteriosclerosis of carotid artery 05/27/2018 Right bundle branch block (RBBB) 01/16/2018 Chronic obstructive pulmonar y disease ([facility] [place] [facility] [place]) 01/16/2018 Benign familial tremor 09/13/2017 Allergic rhinitis 04/19/2017 Irritable bowel syndrome 02/25/2016 ED (erectile dysfunction) 09/01/2015 Cataract 09/26/2011 Encounters Date Type Department Care Team Description 10/24/2024 7:28 AM EST Anesthesia Event [facility] Endoscopy [address] [place] [phone] Dariel Romano MD 10/24/2024 6:40 AM EST - 10/24/2024 11:59 PM EST Hospital Encounter [facility] Endoscopy [address] [place] [phone] Arnie Norwood MD Couture, Alison, CRNA Korobkov, Vitaliy, DO Dysphagia Discharge Disposition: Home or Self Care 10/07/2024 Telephone Gastroenterology - [address] [place] [phone] Arnie Norwood MD 09/29/2024 Telephone Lung Screening Program - [address] [phone] Lexie Elena MA from Last 3 Months Immunizations Name Administration Dates Next Due Influenza, Unspecified 04/26/2019 Pneumococcal polysaccharide 23 valent (Pneumovax 23) 2yo and older 10/11/2012 Zoster Live 09/05/2012 Surgical History Surgery Date Site/Laterality Comments CHOLECYSTECTOMY PROCEDURE: HISTORICAL CHOLECYSTECTOMY APPENDECTOMY PROCEDURE: HISTORICAL APPENDECTOMY HERNIA REPAIR PROCEDURE: HISTORICAL HERNIA REPAIR/ING OTHER SURGICAL HISTORY PROCEDURE: HISTORICAL EAR SURGERY APPENDECTOMY PROCEDURE:APPENDECTOMY GALLBLADDER SURGERY PROCEDURE:GALLBLADDER SURGERY HERNIA REPAIR Bilateral PROCEDURE:HERNIA REPAIR Medical History Medical History Date Comments Allergic rhinitis 04/19/2017 DX:Allergic rh initis Arteriosclerosis of carotid artery 05/27/2018 DX:Arteriosclerosis of carotid artery Benign familial tremor 09/13/2017 DX:Benign familial tremor Cataract 09/26/2011 DX:Cataract Chronic obstructive pulmonar y disease ([facility] V24, [facility] V28) 01/16/2018 DX:Chronic obstructive pulm onary disease (HCC) Colon polyps 10/04/2018 DX:Colon polyps ED (erectile dysfunction) 09/01/2015 DX:ED (erectile dysfunction) Elevated PSA 10/04/2018 DX:Elevated PSA; COMMENT: 06/2018 5.0; [facility] Urology; Nocturia/retention History of esophageal stricture 09/13/2017 DX:History of esophageal stricture; COMMENT: 06/2018 S/p dilated Schatzki ring History of squamous cell car cinoma of skin 09/13/2017 DX:History of squamous cell carcinoma of skin Hyperlipidemia 05/27/2018 DX:Hyperlipidemi a Hypertension 05/27/2018 DX:Hypertension Irritable bowel syndrome 02/25/2016 DX:Irri table bowel syndrome Peripheral vascular disease ([facility] V24) 05/27/2018 DX:Peripheral vascular disea se (HCC) Right bundle branch block (RBBB) 01/16/2018 DX:Right bundle branch block (RBBB) Type 2 diabetes mellitus wit h cataract ([facility] V24, [facility] V28) 05/27/2018 DX:Type 2 diabetes mellitus with cataract (HCC) Type 2 diabetes mellitus wit h vascular disease ([facility] V24, [facility] V28) 10/04/2018 DX:Type 2 diabetes mellitus with vascular disease (HCC) Diabetes mellitus ([facility] V 24, [facility] V28) DX:Diabetes mellitus (HCC) Hypertension DX:Hypertension Prostate cancer ([facility] V24 , [facility] V28) DX:Prostate cancer (HCC) Family History Medical History Relation Name Comments Pneumonia Father Breast cancer Mother Relation Name Status Comments Father Mother Social History Tobacco Use Types Packs/Day [...] PM EST Sexual Orientation Not on file Obstetrics History Last Filed Vital Signs Vital Sign Reading Time Taken Comments Blood Pressure 107/65 10/24/2024 8:11 AM EST Pulse 55 10/24/2024 8:11 AM EST Temperature 35.9 ??C (96.6 ??F) 10/24/2024 7:41 AM ES T Respiratory Rate 16 10/24/2024 8:11 AM EST Oxygen Saturation 96% 10/24/2024 8:11 AM EST Inhaled Oxygen Concentration - - Weight 79.8 kg (176 lb) 10/24/2024 6:59 AM EST Height 177.8 cm (5' 10 ) 10/24/2024 6:59 AM EST Body Mass Index 25.25 10/24/2024 6:59 AM EST Plan of Treatment Upcoming Encounters Date Type Department Care Team (Late st Contact Info) Description 12/23/2024 10:30 AM EDT Office Visit [facility] Hematology Oncology [address] [place] [phone] Daija Monk MD [address] [place] [address] Health Maintenance Due Date Last Done Comments Diabetes: Annual Foot Exam 1954 Diabetes: Annual Retina Eye Exam 1955 Diabetes: Annual GFR (Glomerular Filtration Rate) 10/29/2020 10/30/2019 Depression Screening 07/30/2022 Hepatitis C Screening 07/30/2022 Medicare Annual Wellness Visit 07/30/2022 Social Influencers of Health Screening 07/30/2022 Diabetes: Annual Urine Albumin-Creatinine Ratio (uACR) 08/10/2022 10/15/2019 Diabetes: Blood Sugar Control Test (HGBA1C) 08/10/2022 10/10/2019 Hypertension/CHF/CAD Annual BMP Blood Test 08/10/2022 10/30/2019 Cholesterol Screening (Lipid Panel) 10/10/2024 10/10/2019 Falls Risk Assessment 10/24/2025 10/24/2024 DTaP,Tdap,and Td Vaccines (2 - Td or Tdap) 02/07/2028 02/06/2018 Pneumococcal Vaccine: 50+ Years Completed 09/27/2022, 05/10/2018, 10/11/2012 RSV Immunization Adult Patients Completed 06/14/2023 Zoster Vaccines Completed 12/11/2023, 07/28, 09/05/2012 COVID-19 Vaccine Completed 05/19/2024, 09/2022, 06/23/2022, Additional history exists Influenza Vaccine Completed 06/02/2024, , 05/24/2022, Additional history exists HIB Vaccines Aged Out No longer eligi ble based on patient's age to complete this topic HPV Vaccines Aged Out No longer eligi ble based on patient's age to complete this topic Hepatitis A Vaccines Aged Out No long er eligible based on patient's age to complete this topic Hepatitis B Vaccines Aged Out No long er eligible based on patient's age to complete this topic IPV Vaccines Aged Out No longer eligi ble based on patient's age to complete this topic MMR Vaccines Aged Out No longer eligi ble based on patient's age to complete this topic Meningococcal ACWY Vaccine Aged Out N o longer eligible based on patient's age to complete this topic Meningococcal B Vaccine Aged Out No l onger eligible based on patient's age to complete this topic RSV Immunization Patients Under 20 months Aged Out No longer eligible based on patient's age to complete this topic Varicella Vaccines Aged Out No longer eligible based on patient's age to complete this topic Procedures Procedure Name Priority Date/Time Associated Diagnosis Comments EGD Routine 10/24/2024 7:40 AM EST Dysphagia ANNUAL BMP BLOOD TEST Routine 10/30/2019 HM URINE ALBUMIN CREATININE RATIO Routine 10/15/2019 HEMOGLOBIN A1C Routine 10/10/2019 LIPID PANEL Routine 10/10/2019 from Last 3 Months or Most Recently Relevant to Health Maintenance Results * EGD Dilation; Anesthesia - MAC; [facility] ENDOSCOPY (10/24/2024 7:40 AM EST) Anatomical Region Laterality Modality Endoscopy 10/24/2024 7:30 AM EST Impressions 10/24/2024 7:42 AM EST - Benign-appearing esophageal stenosis. Dilated. ? - The examination was otherwise normal. ? - No specimens collected. Recommendation: ?- Patient has a contact number available for ? emergencies. The signs and symptoms of potential ? delayed complications were discussed with the patient. ? Return to normal activities tomorrow. Written ? discharge instructions were provided to the patient. ? - Mechanical soft diet today. ? - Continue present medications. ? - Repeat upper endoscopy PRN for retreatment. Narrative 10/24/2024 7:42 AM EST [facility] GI Patient Name: Graham Castillo Procedure Date: 10/24/2024 7:30 AM Date of : 1945 Age: 78 Gender: Male Note Status: Finalized Attending MD: Arnie Norwood MD, Procedure Date No Time: 10/24/2024 Procedure: ? Upper GI endoscopy Indications: ? Esophageal dysphagia Providers: ? Arnie Norwood MD Referring MD: ?Arnie Norwood MD Medicines: ? Monitored Anesthesia Care Complications: ? No immediate complications. Estimated Blood Loss: ? Estimated blood loss was minimal. Procedure: ? After obtaining informed consent, the endoscope was ? passed under direct vision. Throughout the procedure, ? the patient's blood pressure, pulse, and oxygen ? saturations were monitored continuously. The Endoscope ? was introduced through the mouth, and advanced to the ? third part of duodenum. The upper GI endoscopy was ? accomplished without difficulty. The patient tolerated ? the procedure well. Findings: ?One benign-appearing, intrinsic moderate stenosis was ? found 35 cm from the incisors. This stenosis measured ? less than one cm (in length). The stenosis was ? traversed after dilation. A TTS dilator was passed ? through the scope. Dilation with a 15-16.5-18 mm ? balloon dilator was performed to 16.5 mm. The dilation ? site was examined and showed mild mucosal disruption. ? The exam was otherwise without abnormality. Procedure Code(s): ? --- Professional --- ? 58903, Esophagogastroduodenoscopy, flexible, ? transoral; with transendoscopic balloon dilation of ? esophagus (less than 30 mm diameter) Diagnosis Code(s): ? --- Professional --- ? K22.2, Esophageal obstruction ? R13.14, Dysphagia, pharyngoesophageal phase CPT copyright 2020 [employer]. All rights reserved. The codes documented in this report are preliminary and upon buff wheel fabricator review may be revised to meet current compliance requirements. MD Arnie Goff MD 10/24/2024 7:42:38 AM This report has been signed electronically.Arnie Norwood MD Number of Addenda: 0 Note Initiated On: 10/24/2024 7:30 AM Scope In: Scope Out: ? Endoscopy Department at [facility] - [address] [place] [address], ? [id number] Procedure Note Arnie Norwood MD - 10/24/2024 [facility] GI Patient Name: Graham Castillo Procedure Date: 10/24/2024 7:30 AM Date of : 1945 Age: 78 Gender: Male Note Status: Finalized Attending MD: Arnie Norwood MD, Procedure Date No Time: 10/24/2024 Procedure: Upper GI endoscopy Indications: Esophageal dysphagia Providers: Arnie Norwood MD Referring MD: Arnie Norwood MD Medicines: Monitored Anesthesia Care Complications: No immediate complications. Estimated Blood Loss: Estimated blood loss was minimal. Procedure: After obtaining informed consent, the endoscope was passed under direct vision. Throughout theprocedure, the patient's blood pressure, pulse, and oxygen saturations were monitored continuously. TheEndoscope was introduced through the mouth, and advanced tothe third part of duodenum. The upper GI endoscopy was accomplished without difficulty. The patienttolerated the procedure well. Findings: One benign-appearing, intrinsic moderate stenosiswas found 35 cm from the incisors. This stenosismeasured less than one cm (in length). The stenosis was traversed after dilation. A TTS dilator was passed through the scope. Dilation with a 15-16.5-18 mm balloon dilator was performed to 16.5 mm. Thedilation site was examined and showed mild mucosaldisruption. The exam was otherwise without abnormality. Procedure Code(s): --- Professional --- 95896, Esophagogastroduodenoscopy, flexible, transoral; with transendoscopic balloon dilation of esophagus (less than 30 mm diameter) Diagnosis Code(s): --- Professional --- K22.2, Esophageal obstruction R13.14, Dysphagia, pharyngoesophageal phase CPT copyright 2020 [employer]. All rights reserved. The codes documented in this report are preliminary and upon buff wheel fabricator reviewmay be revised to meet current compliance requirements. MD Arnie Goff MD 10/24/2024 7:42:38 AM This report has been signed electronically.Arnie Norwood MD Number of Addenda: 0 Note Initiated On: 10/24/2024 7:30 AM Scope In: Scope Out: Endoscopy Department at [facility] - [address] [place] [phone] IMPRESSION: - Benign-appearing esophageal stenosis. Dilated. - The examination was otherwise normal. - No specimens collected. Recommendation: - Patient has a contact number available for emergencies. The signs and symptoms of potential delayed complications were discussed with thepatient. Return to normal activities tomorrow. Written discharge instructions were provided to thepatient. - Mechanical soft diet today. - Continue present medications. - Repeat upper endoscopy PRN for retreatment. Result [facility] Arnie Norwood MD GI~PROCEDURE ORDERABLES Final R esult * Annual BMP Blood Test (10/30/2019) [facility] Annual BMP Blood Test Abstracted Result [facility] Provider HEALTH MAINTENANCE Final Result * Urine Albumin Creatinine Ratio (10/15/2019) [facility] Urine Albumin Creatinine Ratio Abstracted Result [facility] Provider HEALTH MAINTENANCE Final Result * Hemoglobin A1c (10/10/2019) [facility] Hemoglobin A1C 6.3 <=6.5 % Blood Venous blood specimen / Unknown Result [facility] Historical Provider LAB BLOOD ORDERABLES Scarlett l Result * Lipid panel (10/10/2019) [facility] LDL/HDL Ratio 2 0 - 4 Triglycerides 149 0 - 150 mg/dL Cholesterol 145 0 - 200 mg/dL HDL 69 >=40 mg/dL LDL Cholesterol 47 0 - 100 mg/dL Blood Venous blood specimen / Unknown us Historical Provider LAB BLOOD ORDERABLES Scarlett pat Result from Last 3 Months or Most Recently Relevant to Health Maintenance Insurance [employer] Care Teams Cash Register Servicer Relationship Specialty Start Date End Date Dariel Hart NP [address], [place] PCP - General 12/16/19
[2024-12-04 13:26] LABS: MANUAL DIFF FLAG NO
[2024-12-04 13:44] LABS: Basophils Percent Auto 0.8 % (0-2); Eosinophils Absolute Auto 0.1 X10*3/uL (0.0-0.4); Eosinophils Percent Auto 2.9 % (0-4); Hemoglobin 11.1 g/dl (14.0-18.0); Imm Gran Abs Auto 0.02 X10*3/uL (0.00-0.03); Imm Gran Pct Auto 0.8 % (0.0-0.4); Lymphocytes Absolute Auto 0.4 X10*3/uL (1.2-4.9); Mean Corpuscular HGB Conc 35.8 g/dl (31.0-36.0); Mean Corpuscular Hemoglobin 34.9 pg (27.0-33.0); Mean Corpuscular Volume 97.5 fL (80.0-98.0); Mean Platelet Volume 10.6 fL (9.4-12.4); Monocytes Absolute Auto 0.2 X10*3/uL (0.1-1.2); Monocytes Percent Auto 9.6 % (2-11); Neutrophils Absolute Auto 1.6 x10*3/uL (2.0-8.3); Neutrophils Percent Auto 67.9 % (45-73); Platelet Count 110 X10*3/uL (160-400); Red Blood Count 3.18 X10*6/uL (4.60-5.80); Red Cell Distribution Width 13.5 % (11.0-16.0); SCAN SMEAR FLAG 1
[2024-12-04 13:46] LABS: White Blood Count 2.4 X10*3/uL (4.8-10.8)
[2024-12-04 13:52] LABS: Appearance Urine Clear; Color Urine Yellow; Glucose Urine UA Negative (Negative); Leukocyte Esterase Urine Negative (Negative); Nitrite Urine Negative (Negative); Urine Blood Negative (Negative); Urine Ketones Trace mg/dL (Negative); Urine Protein Negative (Neg-Trace)
[2024-12-04 14:15] LABS: Alanine Aminotransferase 14 U/L (0-40); Albumin Level 4.1 g/dL (3.5-5.0); Alkaline Phosphatase 55 U/L (39-117); Anion Gap 13 (12-20); Aspartate Amino Transferase 25 U/L (5-37); Bilirubin Total 0.7 mg/dL (0.0-1.0); Blood Urea Nitrogen 21 mg/dL (9-16); Carbon Dioxide 26 mmol/L (22-29); Chloride 104 mmol/L (96-108); Cholesterol 114 mg/dL (<200); Estimated Glomerular Filt Rate > 60; Glucose Fasting 157 mg/dL (60-99); HDL Cholesterol 46 mg/dL (>40); LDL Cholesterol Calculated 53 mg/dL (<100); Potassium 4.6 mmol/L (3.3-5.1); Sodium 138 mmol/L (135-145); TSH reflex Free T4 2.36 uIU/mL (0.32-4.0); Total Protein 6.8 g/dL (6.5-8.0); Triglycerides 78 mg/dL (<150)
== END 2024-12-04 09:44 | disposition home or self-care (01) ==
LOC: HO.HMGCLDS 09:43
PROVIDERS: PCP Nurse Practitioner Family; Visit Provider Nurse Practitioner Family
DX: Z00.00 Encounter for general adult medical examination without abnormal findings (principal); E11.9 Type 2 diabetes mellitus without complications
CPT/HCPCS: 36415; 80053; 80061; 81003; 84443; 85025

== ENCOUNTER 2024-12-08 11:18 | Outpatient (AMB) | payer MEDICARE, SELFPAY ==
--- NOTE | 2024-12-08 11:24 | A.OFFPC_ITS ---
Vital Signs 12/08/24 11:27 Height 5 ft 11 in Weight 179 lb 4 oz BMI 25.0 BP 130/72 Blood Pressure Location Lt brachial Position Sitting Pulse 75 Pulse Source Pulse Oximeter Pulse Oximetry (%) 98 Oxygen Delivery Method Room Air Intake Visit Reasons: 6 months f/up Allergies amoxicillin Allergy (Unknown, Verified 12/08/24 12:40) Unknown clindamycin Allergy (Unknown, Verified 12/08/24 12:40) heart burn penicillin G Allergy (Unknown, Verified 12/08/24 12:40) Unknown sulfacetamide [From Sulfacet-R] Allergy (Unknown, Verified 12/08/24 12:40) Unknown sulfur [From Sulfacet-R] Allergy (Unknown, Verified 12/08/24 12:40) Unknown tetracycline Allergy (Unknown, Verified 12/08/24 12:40) Unknown Medication List - Last Reconciled 12/08/24 by SHELLEY Smith-BC ammonium lactate 12% appl topical aspirin (Adult Aspirin Regimen) 81 mg PO DAILY atorvastatin 20 mg PO DAILY 90 days glipizide 10 mg PO DAILY losartan 50 mg PO DAILY tamsulosin (Flomax) 0.4 mg PO DAILY timolol maleate 0.5% 1 drp ophthalmic (eye) BID tobramycin-dexamethasone 0.3-0.1 % drps ophthalmic (eye) verapamil ER 120 mg PO BEDTIME Tobacco use date assessed: 12/08/24 Fall risk assessment: No Falls in past year Last assessed Fall Risk: 12/08/24 Dental Screening Dental Screen Date: 12/08/24 Did you have a dental visit in the last 12 months?: Yes Did you have a dental problem in the last 6 months where you did not have access to dental care?: No Was dental information given to patient?: Patient has dentist HPI 6 months f/up HPI Details Chief Complaint Follow-up for diabetes management History of Present Illness The patient is an 79-year-old male presenting with a need for follow-up on diabetes management. His hemoglobin A1c level of 6.1% may be inaccurate due to concurrent anemia. Additionally, leukopenia is present, with ongoing monitoring by an oncologist/senior speech pathologist scheduled for next week. The patient has a history of prostatic cancer, for which he has received chemotherapy and radiation treatments several years ago and reports feeling well currently. pancytopenia noted with current labs Liver function is noted to be stable, and cholesterol levels are quite impressive. The patient describes a large growth on the left dorsal aspect of the big toe, which he describes as gout. Regular dermatology and vascular check- ups have been part of his care, with no acute concerns noted. Social History Health Maintenance Review of Systems - Endocrine: Reports stable diabetes wit h A1c noted at 6.1% - Hematologic/Lymphatic: Reports anemia and leukopenia; follows with oncologist/senior speech pathologist - Musculoskeletal: Reports large growth on left dorsal big toe, suspecting gout - Cardiovascular: Reports high cholester ol levels Physical Exam General: Cooperative, healthy appearing, comfortable, no acute distress and well developed Orientation: Patient oriented x3 Limitations: No limitations Head: Normal to inspection Ears: Hearing grossly normal bilaterally Nose: Normal external nose present Face and sinus: Normal facial exam Eyes: Appearance normal, both eyes and all related structures Neck: Normal visual inspection and Yes full ROM Respiratory: Normal respiratory effort and able to speak in complete sentences. Clear to auscultation bilaterally Cardiovascular: Regular rate and rhythm. Normal S1 and S2 GI: Normal to inspection. Soft to palpation and nontender Skin: No rashes or lesions noted Neuro: Patient oriented x3 Extremities: Normal to inspection except for a large growth on the left dorsal big toe, first toe. feet are intact otherwise, + sensation with use of monofilament Results - Labs: Hemoglobin A1c at 6.1% Plan Recommendations include ongoing monitoring of diabetes control due to the current anemia influencing A1c accuracy. The patient's leukopenia is under ongoing hematology oversight, including continued check-ups to address any new developments. Management of high cholesterol levels remains a priority, with the need for frequent monitoring and appropriate intervention strategies. Evaluation of the growth on the dorsal aspect of the left big toe, potentially due to gout, is advised. The patient reports feeling well regarding prostate cancer, managed through past treatments, continuing with routine review by associated specialists. Discussion Notes During the visit, I discussed with the patient the management of multiple health concerns, including diabetes, anemia, leukopenia, hypercholesterolemia, and a suspected gout condition on his toe. The uncertainty of A1c levels due to anemia was noted, and the importance of regular hematology consults was emphasized, particularly regarding blood cell counts affected by leukemia. We also considered potential approaches for managing high cholesterol and the implications of these on his cardiovascular health. 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 No new interventions were initiated, but focus on comprehensive follow-up remains crucial. Patient Instructions - Continue monitoring blood glucose leve ls and any symptoms related to diabetes. - Attend the scheduled follow-up with [facility] oncologist/senior speech pathologist next week for further evaluation. - Maintain routine dermatology and vascu lar appointments. - Monitor any changes in the growth on t he left big toe and seek additional consultation if necessary. - Follow a cholesterol-lowering diet and discuss potential treatment options at the next visit. - Report any new symptoms or concerns pr omptly. [facility] Medical History Pancytopenia Esophageal stenosis Hyponatremia Prostate cancer Malignant neoplasm of skin Arteriolosclerosis COPD (chronic obstructive pulmonary disease) Esophageal stricture Benign familial tremor PVD (peripheral vascular disease) Dyslipidemia Elevated PSA RBBB Pulmonary emphysema Diabetes HTN (hypertension) Surgical History S/P angioplasty with stent (11/14/23) History of cholecystectomy History of hernia surgery Family History Father No problems noted. Mother No problems noted. Daughter No problems noted. Daughter No problems noted. Social History Housing: House Alcohol intake: current Patient Tobacco Use Status: Former Tobacco user Years Smoked: 9 years ago e-Cigarette/Vaping Use: Never Used Second Hand Smoke Exposure: No service: Yes Current occupational status: retired Current occupational exposures/hazards: No Cognitive needs: No Hearing needs: No Vision needs: No Questionnaire PHQ-9 Over the last 2 weeks, how often have you been bothered by any of the following problems? 79348 - PHQ-9 Billing: Patient declined-do not bill Source: Developed by Drs. Jonathon Chairez, Sherly Elena, John Light and colleagues, with an educational suze from [employer]. Thrive Questionnaire Date Thrive assessed: 12/08/24 I am a: Patient What is your living situation today?: I have a steady place to live Within the past 12 months, did the food you bought not last and you didn't have the money to get more?: Never true Within the past 12 months, did you worry whether your food would run out before you got money to buy more?: Never true Do you have trouble paying for medicines?: No Do you have trouble getting transportation to medical appointments?: No Do you have trouble paying your heating and electricity bill?: No Do you have trouble taking care of your child, family member or friend?: No Do you have trouble with day-to-day activities such as bathing, preparing meals, shopping, managing finances, etc.?: No Are you currently unemployed and looking for a job?: No Are you interested in more education?: No THRIVE Score: 0 AUDIT C Alcohol Use Questionnaire (AUDIT-C) 1. How often do you have a drink containing alcohol?: Monthly or less 2. How many drinks containing alcohol do you have on a typical day when you are drinking?: 5 or 6 3. How often do you have six or more drinks on one occasion?: Never Total Score: 3 Score Reviewed/Action Taken: Yes SHAKA-7 AMB Questionnaire SHAKA-7 Date HSAKA - 7 assessed: 12/08/24 Feeling nervous, anxious, or on edge: 1 = Several days Not being able to stop or control worryin = Not at all Worrying too much about different things: 1 = Several days Trouble relaxin = Not at all Being so restless that it is hard to sit still: 0 = Not at all Becoming easily annoyed or irritable: 0 = Not at all Feeling afraid as if something awful might happen: 0 = Not at all Total SHAKA-7 score (0-4 normal; 5-9 mild; 10-14 moderate; 15-21 severe): 2 Source: Developed by Drs. Jonathon Chairez, Sherly Elena, John Light and colleagues, with an educational suze from [employer]. SHAKA-7 Assessment Billing SHAKA-7 Assessment Tool: SHAKA-7 Assessment 57994 Physical exam (Primary Care) Vital Signs: Last Vital Signs Pulse 75 12/08/24 11:27 BP 130/72 12/08/24 11:27 Pulse Ox 98 12/08/24 11:27 Oxygen Delivery Method Room Air 12/08/24 11:27 BMI result Body Mass Index 25.0 Tobacco/Smoking Status: Tobacco use Status Tobacco use date assessed 12/08/24 12/08/24 11:28 Patient Tobacco Use Status Former Tobacco user 12/08/24 11:28 e-Cigarette/Vaping Use Never Used 12/08/24 11:28 Thrive Assessment: Date of Thrive Assessment Date Thrive assessed 12/08/24 12/08/24 11:28 Coding Level of Care Code Est Pt Level 3 (36225) Diagnoses Diabetes E11.9 Pancytopenia D61.818 Additional Codes SHAKA-7 Assessment Billing - SHAKA-7 Assessment Tool: SHAKA-7 Assessment 80029 ([id number]) Assessment & Plan Assessment & Plan (1) Diabetes: Code(s): E11.9 - Type 2 diabetes mellitus without complications Category: Medical (2) Pancytopenia: Code(s): D61.818 - Other pancytopenia Category: Medical Plan . Orders: Orders AMB Hemoglobin A1c Today Z13.9 - Encounter for screening, unspecified AMB EKG-In Office Today D61.818 - Other pancytopenia, E11.9 - Type 2 diabetes mellitus without complications
[2024-12-08 11:27] VITALS: BP 130/72; PULSE 75; O2SAT 98; BMI 25.0
--- OUTSIDE RECORDS SUMMARY | 2024-12-08 13:20 | XMS_ITS | Clinical Summary ---
Author Organization [facility] Address [address] [place] [address] Care Team Providers Care Aviation Electrician Name Role Phone Dariel Hart Primary Care Provider [phone] Allergies Active Allergy Reactions Criticality Noted Date [...] age to complete this topic Care Teams Aviation Electrician Relationship Specialty Start Date End Date Dariel Hart [address] [place], [place] [id number] PCP - General Family Medicine 01/18/24
--- OUTSIDE RECORDS SUMMARY | 2024-12-08 13:20 | XMS_ITS ---
Author Organization [facility] Address [address] [place] [address] Care Team Providers Care Saw Setter Name Role Phone Dariel Russell Primary Care Provider Unav ailable Black, Desire Unavailable [phone] REASON FOR VISIT relay message Encounters Encounter Location Date Provider Diagnosis [address] [address] 10/27/2024 Desire Austyn Plan Of Treatment Next Appt Details Provider Name:Desire Zaman , 03/26/2025 10:15:00 AM, [address] [place], [address], Progress Notes * GIBSONAraceliGraham SIERRA FDOB:1945 (78 yo M)Acc No.[id number]:10/27/2024 Patient:?Graham CASTILLO :1945???Age:78 Y???Sex:Male Address:[address] [place] [id number] * true * Date:? Generated for Printi ng/Faaixag/eTransmitting on:?12/08/2024 01:20 PM EDT
--- OUTSIDE RECORDS SUMMARY | 2024-12-08 13:20 | XMS_ITS | Encounter Summary ---
Author Organization [facility] Address [address] [place] [address] Care Team Providers Care Media Relations Specialist Name Role Phone Dariel Hart NP Primary Care Provider + [phone] Encounter Details Date Type Department Care Team (Late st Contact Info) Description 06/19/2024 10:12 AM EDT Hospital Encounter TH HISTORIC ENCOUNTERS EASTERN CONVERSION ONLY Aleshia, Daija Chan MD [address] [place] [id number] Social History Tobacco Use Types Packs/Day Years [...] SOCIAL HISTORY: Quit smoking in 2009, has [id number] smoking history Denies any alcohol abuse, occasionally drink alcohol He used to work in [employer] ([employer] department) He is lives with his ?? [...] Description 12/23/2024 10:30 AM EDT Office Visit [facility] Hematology Oncology [address] [place] [address] Daija Monk MD [address] [place] [address] documented as of this encounter Procedures Procedure [...] on filedocumented in this encounter Care Teams Media Relations Specialist Relationship Specialty Start Date End Date Dariel Hart, KOSTA [address] [place], [place] PCP - General 12/16/19 documented as of this encounter
--- OUTSIDE RECORDS SUMMARY | 2024-12-08 13:20 | XMS_ITS | Data Portability ---
Author Organization [place] - [facility], Allergy Address [address] [place] [phone] Assessment Encounter Date Assessment Date Assessment LastModified by Organization Details LastModified Time 04/30/2024 04/30/2024 78-year-old male presents for cerumen removal. Cerumen impaction removed bilaterally. Bilateral TMs are intact. Follow-up in 6 months. nitin Not available 04/30/2024 11:58:08 10/30/2024 10/30/2024 78-year-old male presents for cerumen removal. Cerumen impaction removed bilaterally. Right sided otorrhea removed with suction. Bilateral TMs are intact. Recommended Tobradex BID and dry ear precautions to the right ear x 14 days. Also discussed that inflammation of TMJ can cause intermittent bouts of otalgia. He will follow-up in 6 months for routine debridement, or sooner if symptoms persist or worsen. Refill of fluocinolone was provided. [email or web address] Not available 10/30/2024 10:06:40 Plan of Treatment Reminders Order Date Submit Date Provider Last Modified By Organization Details Last Modified Time Details Appointments Establish ed 15 2024 09:45A M MORAIMA SAHU PA-C Not available Not available Not available Lab None recorded. Referral None recorded. Procedures None recorded. Surgeries None recorded. Imaging None recorded. Medication Orders TobraDex 0.3 %-0.1 % eye drops,jamin pension 2024 025 [facility]/Pharmacy #[id number], [id number] [facility] [place], [address], 10/30/2024 10:02:09 fluocinol one acetonide oil 0.01 % ear drops 2024 025 [facility]/Pharmacy #[id number], [address] [facility] [place], [address], 10/30/2024 10:02:53 Patient TargetsNo targets recorded. Patient InstructionsNo instructions recorded. Reason for Referral None Reported. 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; Conditio n: no evidence of recurren ce Note: Date Diagnose d: 4 9:37 AM (173.22) Squamo us cell carcinom a of skin of ear and external auditory canal; Conditio n: no evidence of recurren ce Note: Date Diagnose d: 4 9:37 AM (173.22) ; Start Date : 07/28/20 14 Not Available [facility] 4 02:51:05 Unilater al sensorin eural hearing loss with unrestri cted hearing on the contrala teral side Active 2013 Sensorin eural hearing loss unilater ally; Note: Date Diagnose d: 4 9:37 AM (389.15) Not Available [facility] 4 02:51:03 Itching of skin 879010866 Active 2021 Other pruritus ; Note: Date Diagnose d: 2 12:33 PM (L29.8) Not Available [facility] 4 02:51:02 Mixed conducti ve and sensorin eural hearing loss of right ear 47852817100 105 Active 2015 Mixed conducti ve and sensorin eural hearing loss, unilater al, right ear, with unrestri cted hearing on the contrala teral side; Note: Date Diagnose d: 6 11:19 AM (H90.71) [mapped from ICD9 code: 389.21] Not Available [facility] 4 02:51:05 Superfic ial mycosis 100614637 Active 2020 Other specifie d superfic ial mycoses; Note: Date Diagnose d: 1 3:54 PM (B36.8) Not Available [facility] 4 02:51:04 Impacted cerumen of bilatera l ears 96547692200 23818 Active 2021 Impacted cerumen, bilatera l; Note: Date Diagnose d: 04/03/2022 9:45 AM (H61.23) Not Available [facility] 4 02:51:02 Impacted cerumen in right ear 88724669550 66574 Active 2016 Impacted cerumen, right ear; Note: Date Diagnose d: 7 9:21 AM (H61.21) Impact ed cerumen, right ear; Note: Date Diagnose d: 7 9:07 AM (H61.21) ; Start Date : 11/24/19 Not Available [facility] 4 02:51:01 Sensorin eural hearing loss 99688180 Active 2015 Sensorin eural hearing loss, unilater al, right ear, with unrestri cted hearing on the contrala teral side; Note: Date Diagnose d: 6 11:19 AM (H90.41) [mapped from ICD9 code: 389.15] Not Available [facility] 4 02:51:05 Unilater al mixed conducti ve and sensorin eural hearing loss with unrestri cted hearing on the contrala teral side Active 2013 Mixed hearing loss, unilater al; Note: Date Diagnose d: 4 9:37 AM (389.21) Not Available [facility] 4 02:51:00 Candidal otitis externa 55551944 Completed 201703/28/2024 Candidal otitis externa; Location : bilatera l Note: Date Diagnose d: 8 11:47 AM (B37.84) Not Available [facility] 4 02:51:04 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 201766575 Completed 201803/28/2024 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; Note: Date Diagnose d: 9 9:07 AM (C44.222 ) Not Available [facility] 4 02:51:00 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 067275280 Completed 201803/28/2024 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; Note: Date Diagnose d: 9 9:07 AM (C44.222 ) Not Available [facility] 4 02:51:00 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 466760016 Active 2015 Squamous cell carcinom a of skin of unspecif ied ear and external auricula r canal; Note: Date Diagnose d: 6 11:19 AM (C44.221 ) [mapped from ICD9 code: 173.22] Not Available [facility] 4 02:50:59 History of malignan t neoplasm of skin 153281427 Active 2017 Personal history of other malignan t neoplasm of skin; Note: Date Diagnose d: 8 12:26 PM (Z85.828 ) Not Available [facility] 4 02:51:01 Otorrhea of right ear 66002536771 72119 Active 2024 MORAIMA SAHU PA-C [address] [place] [address],[address], [address] , [facility] - [facility] 5 10:01:45 Problem Notes None recorded. Procedures Surgical History Date Name Laterality Status Provider Name and Address Organization Details Recorded Time 5 Cerumen removal without microscope bilat completed MORAIMA SAHU PA-C [address] [place] [address],[address], [address], [facility] - [facility] 10/30/2024 09:20:59 4 Cerumen removal without microscope bilat completed MORAIMA SAHU PA-C [address] [place] [address],[address], [address], [place] - [facility] 04/30/2024 11:57:54 Imaging Results None recorded. Procedure Notes None recorded. Medical Equipment None Reported. Allergies Allergen ID Allergen Name Allergen Category Reaction Reaction Severity Criticality Documentation Date Start Date Code Code System Note Provider Name and Address Organization Details Recorded Time 735906 clindamyc in Not available Not available Not available Not available 10/30/2024 2582 RxNorm MORAIMA SAHU PA-C [address] [place] [address], [phone], [facility] 5 09:55:04 02516 amoxicill in / clavulana te medicatio n other Not available Not available 01/08/2024 15474 RxNorm React ion: unkno wn, unspe cifie d;; Not Available [facility] 4 00:59:23 51433 penicilli n V potassium medicatio n other Not available Not available 01/08/202401656 5 RxNorm React ion: unkno wn, unspe cifie d;; Not Available [facility] 4 00:59:26 83301 Substance with sulfonami de structure and antibacte rial mechanism of action (substanc e) medicatio n other Not available Not available 01/08/2024 70509 8003 SNOMED React ion: unkno wn, unspe cifie d;; Not Available [facility] 4 00:59:29 04115 Medicinal product containin g tetracycl ine structure and acting as antibacte rial agent (product) medicatio n other Not available Not available 01/08/2024 05011 1004 SNOMED React ion: unkno wn, unspe cifie d;; Not Available [facility] 4 00:59:30 Medications Name Sig Start Date Stop Date Status Note LastModified by Organization Details LastModified Time verapamil ER (SR) 120 mg tablet,ex tended release TAKE 1 TABLET BY MOUTH AT BEDTIME active Not Available Not Available No t Available losartan 50 mg tablet TAKE 1 TABLET BY MOUTH EVERY DAY active Not Available Not Available No t Available atorvasta tin 20 mg tablet TAKE 20 MG ORALLY DAILY FOR 90 DAYS active Not Available Not Available No t Available ketoconaz ole 2 % shampoo USE SHAMPOO SEVERAL TIMES PER WEEK, ALTERNAT E WITH NORMAL SHAMPOO. active Not Available Not Available No t Available lisinopri l 20 mg-hydroc hlorothia zide 12.5 mg tablet 11/22 completed Medicati on ID: [id number] D uration Value: 90 Brand Name: lisinopr il-hydro chloroth iazide S end Method: E-Prescr ibed Sub s Allowed: subs OK Speci al Instruct ion: TAKE 1 TABLET BY MOUTH ONCE DAILY Me dication GenericN bob: lisinopr il-hydro chloroth iazide Not Available Not Available Not Available azithromy teresa 250 mg tablet TAKE 2 TABLETS BY MOUTH TODAY, THEN TAKE 1 TABLET DAILY FOR 4 DAYS DIRECTED active Not Available Not Available No t Available cilostazo l 50 mg tablet 11/15 completed Medicati on ID: [id number] Du ration Value: 90 Reason: () Brand Name: cilostaz ol Send Method: E-Prescr ibed Sub s Allowed: subs OK Medic ationGen ericName : cilostaz ol Not Available Not Available Not Available meloxicam 15 mg tablet active Medicati on ID: [id number] B rand Name: meloxica m Send Method: E-Prescr ibed Sub s Allowed: subs OK Medic ationGen ericName : meloxica m Not Available Not Available Not Available glipizide 10 mg tablet TAKE 1 TABLET BY MOUTH DAILY. active Not Available Not Available No t Available prednison e 20 mg tablet TAKE 2 TABLETS BY MOUTH DAILY FOR 6 DAYS active Not Available Not Available No t Available clobetaso l 0.05 % topical cream APPLY TWICE DAILY TO AFFECTED AREAS ON 1-2 WEEKS AT A TIME, DO NOT USE ON FACE OR SKIN FOLDS. active Not Available Not Available No t Available clopidogr el 75 mg tablet TAKE 1 TABLET BY MOUTH DAILY active Not Available Not Available No t Available triamcino lone acetonide 0.1 % topical cream active Medicati on ID: [id number] B rand Name: triamcin olone acetonid e Send Method: E-Prescr ibed Sub s Allowed: subs OK Medic ationGen ericName : triamcin olone acetonid e Not Available Not Available Not Available verapamil 120 mg tablet 11/06 completed Medicati on ID: [id number] Du ration Value: 90 Reason: () Brand Name: verapami l Send Method: E-Prescr ibed Sub s Allowed: subs OK Medic ationGen ericName : verapami l Not Available Not Available Not Available tamsulosi n 0.4 mg capsule TAKE 1 CAPSULE BY MOUTH EVERY DAY active Not Available Not Available No t Available doxycycli ne monohydra te 100 mg capsule TAKE 1 CAPSULE BY MOUTH EVERY DAY FOR 10 DAYS active Not Available Not Available No t Available clotrimaz ole-betam ethasone 1 %-0.05 % topical cream 1 a small amount 2020 active Medicati on ID: [id number] D uration Value: 14 Prescri bed By Name: Sally Hinds nd Name: clotrima zole-bet amethaso ne Send Method: E-Prescr ibed Sub s Allowed: subs OK Speci al Instruct ion: Apply with fingerti p to affected external ear TID x 2 weeks. M edicajohn Jeffers Name: clotrima zole-bet amethaso ne Not Available Not Available Not Available hydrochlo rothiazid e 12.5 mg capsule active Medicati on ID: [id number] B rand Name: hydrochl orothiaz tatiana Send Method: E-Prescr ibed Sub s Allowed: subs OK Medic ationGen ericName : hydrochl orothiaz tatiana Not Available Not Available Not Available dorzolami de 22.3 mg-timolo l 6.8 mg/mL eye drops INSTILL 1 DROP INTO BOTH EYES TWICE A DAY active Not Available Not Available No t Available ammonium lactate 12 % topical cream active Not Available Not Available Not Available irbesarta n 150 mg tablet active Medicati on ID: [id number] B rand Name: irbesart an Send Method: E-Prescr ibed Sub s Allowed: subs OK Medic ationGen ericName : irbesart an Not Available Not Available Not Available timolol maleate 0.5 % eye drops INSTILL 1 DROP IN BOTH EYES TWICE A DAY active Not Available Not Available No t Available losartan 100 mg tablet 11/22 completed Medicati on ID: [id number] D uration Value: 90 Brand Name: losartan Send Method: E-Prescr ibed Sub s Allowed: subs OK Speci al Instruct ion: TAKE 1 TABLET BY MOUTH EVERY DAY Medi cationGe nericNam e: losartan Not Available Not Available Not Available glipizide 5 mg tablet 05/29 completed Medicati on ID: [id number] R sadie: () Brand Name: glipizid e Send Method: E-Prescr ibed Sub s Allowed: subs OK Medic ationGen ericName : glipizid e Not Available Not Available Not Available dorzolami de 2 % eye drops INSTILL 1 DROP IN BOTH EYES TWICE A DAY active Not Available Not Available No t Available tobramyci n 0.3 %-dexamet hasone 0.1 % eye drops,jamin pension INSTILL 4 DROPS INTO RIGHT EAR TWICE DAILY FOR 14 DAYS active Not Available Not Available No t Available cyclobenz aprine 5 mg tablet TAKIE 1 TAB ORALLY 3 TIMES A DAY NEEDED FOR MUSCLE SPASM active Not Available Not Available No t Available Ciprodex 0.3 %-0.1 % ear drops,jamin pension 4 drop 2016 active Medicati on ID: [id number] D uration Value: 10 Prescri bed By Name: Sally Hinds nd Name: Ciprodex Send Method: E-Prescr ibed Sub s Allowed: subs OK Medic ationGen ericName : Ciprodex Not Available Not Available Not Available fluocinol one 0.01 % scalp oil and shower cap active Medicati on ID: [id number] B rand Name: fluocino lone and shower cap Send Method: E-Prescr ibed Sub s Allowed: subs OK Medic ationGen ericName : fluocino lone and shower cap Not Available Not Available Not Available fluocinol one acetonide oil 0.01 % ear drops INSTILL 2 DROPS INTO BOTH EARS TWICE A WEEK NEEDED FOR ITCHING active Not Available Not Available No t Available Yordan Chewable Low Dose Aspirin 81 mg tablet 05/29 completed Medicati on ID: [id number] Re ason: () Brand Name: Yordan Chewable Aspirin Send Method: E-Prescr ibed Sub s Allowed: subs OK Medic ationGen ericName : Yordan Chewable Aspirin Not Available Not Available Not Available Enstilar 0.005 %-0.064 % topical foam 07/28 completed Medicati on ID: [id number] D uration Value: 30 Brand Name: Enstilar Send Method: E-Prescr ibed Sub s Allowed: subs OK Speci al Instruct ion: APPLY ONCE DAILY TO AFFECTED AREAS OF PSORIASI S FOR 1 2 WEEKS AT A ANGEL E Medica tionGene ricName: Eligio Not Available Not Available Not Available Vitals Date Recorded Body height Body mass index (BMI) Body weight Provider Name and Address Organization Details Last Updated DateTime 10/30/2024 177.8 cm 25.3 kg/m2 93405.26 g Nadine Gutierrez [facility] 10/30/2024 09:36:33 Date Recorded Body height Body mass index (BMI) Body weight Provider Name and Address Organization Details Last Updated DateTime 04/30/2024 180.34 cm 24.5 kg/m2 93579.26 g Bobby Anglin [facility] 04/30/2024 11:11:12 Social History None recorded. Functional Status None recorded. Mental Status None recorded. Family History Nothing Reported. Medical History No medical history recorded. Past Encounters Encounter ID Performer Location Encounter Start Date Encounter Closed Date Diagnosis/Indication Diagnosis SNOMED-CT Code Diagnosis ICD10 Code Diagnosis Note [id number] GONSALO DAVIS MD [facility] [address] [address] 04/30/2024 10:58:56 04/30/2024 12:02:52 Impacted cerumen of bilateral ears 9612741925 202041 H61.23 [id number] SHERON BLOOD MD [facility] [address] [address] 10/30/2024 09:18:21 10/30/2024 10:01:32 Impacted cerumen of bilateral ears 5196971778 278047 H61.23 Otorrhea of right ear 10 37125681 702681 H92.11 Itching of skin 28218483 0 L29.89 Health Concerns Section Related Observation LastModified by Organization Detai ls LastModified Time None Recorded Concern Status LastModified by Organization Details LastModified Time None Recorded Advance Directives Directive None Recorded Payers Encounter Date Sequence Insurance Name Policy Number Policy Leonard Covered Member ID Leonard Member ID Guarantor Name 04/30/2024 1 [facility] Graham Castillo [id number] Graham Godwin Jonathan 10/30/2024 1 [facility] - SENIOR PLAN (MEDICARE REPLACEMENT HMO) Graham Castillo [id number] Graham Castillo Notes Date Note Type Note Provider Name and Address Organization Details Recorded Time 04/30/2024 text/html 78-year-old male presents for cerumen removal. No concerns today. 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 Reports intermittent bouts of right sided otalgia, but denies otorrhagia, otorrhea, and changes in his hearing. He uses fluocinolone oil as needed for itching of the ears and is requesting refill. Denies bruxism. SHERON BLOOD MD [address] [facility],[place] [address], [place], [address], [place] - [facility] 10/31/2024 07:57:10
--- OUTSIDE RECORDS SUMMARY | 2024-12-08 13:21 | XMS_ITS | Encounter Summary ---
Author Organization [facility] Address [address] [place] [address] Care Team Providers Care Duralumin Metalworker Name Role Phone Dariel Hart NP Primary Care Provider + [phone] Encounter Details Date Type Department Care Team (Late st Contact Info) Description 05/29/2024 10:13 AM EDT Hospital Encounter TH HISTORIC ENCOUNTERS EASTERN CONVERSION ONLY Aleshia, Daija Chan MD [address] [place] [id number] Social History Tobacco Use Types Packs/Day Years [...] SOCIAL HISTORY: Quit smoking in 2009, has 16-qzvx-joso smoking history Denies any alcohol abuse, occasionally drink alcohol He used to work in [employer] ([employer] department) He is lives with his ?? [...] Description 12/23/2024 10:30 AM EDT Office Visit [facility] H[facility] Oncology [address] [place] [address] Daija Monk MD [address] [place] [address] documented as of this encounter Procedures Procedure Name Priority Date/Time Associated Diagnosis Comments ..MISCELLANEOUS REFERENCE LAB TEST 05/29/2024 documented in this encounter Results * Miscellaneous reference lab test (05/29/2024) us Provider Onbase LAB BLOOD ORDERABLES Final Re sult documented in this encounter Visit Diagnoses Not on filedocumented in this encounter Care Teams Duralumin Metalworker Relationship Specialty Start Date End Date Dariel Hart NP [address] [place], [place] PCP - General 12/16/19 documented as of this encounter
--- OUTSIDE RECORDS SUMMARY | 2024-12-08 13:21 | XMS_ITS ---
Author [facility] Address [address] [place] [address] Care Team Providers Care Product Craftsman Name Role Phone Dariel Russell Primary Care Provider Unav ailable Black, Desire Unavailable [phone] Allergies Allergen (clinical drug ingredient) Drug/Non Drug [...] Ordered Date Performed Result Body Sit e 10350- Debride <25 sq cm 11/13/2024 N/A Encounters Encounter Location Date Provider Diagnosis [facility] [place] [address] [place] [address] 11/13/2024 Desire Black Skin ulcer of toe of right foot, limited to breakdown of skin L97.511 ; Type 2 diabetes mellitus with diabetic polyneuropathy E11.42 and 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 pdf (WOUND CARE INSTRUCTIONS. 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, bilateral legs (ICD-10 - I70.203) 11/13/2024 Other Plan Of Treatment Treatment Notes Assessment Notes Skin ulcer of toe of right f oot, limited to breakdown of skin Patient Educated with: WOUND CARE INSTRUCTIONS.pdf (WOUND CARE INSTRUCTIONS.pdf) Pending Test Test Name Order Date 38110- Debride <25 sq cm 11/13/2024 Next Appt Details Follow Up: as scheduled, Lizzie son: Provider Name:Desire Zaman , 03/26/2025 10:15:00 AM, [address] [place], [address], Procedure Notes * Category Sub-Category Detail Notes [...] of the wound post debridement is stable (41000), The patient was instructed on importance of [...] Notes * SHAMIKARIGOGraham FDOB:1945 (78 yo M)Acc No.[id number]:11/13/2024 Progress Notes Patient:?Graham CASTILLO Provider:?Desire Zaman DPM :1945???Age:78 Y???Sex:Male Michael e:11/13/2024 Address:[address] [place], [place] [id number] Pcp:SHANELL Mensah Subjective: * Chief Complaints: * [...] (Primary)???Specify :Response to treatment -Nonapplicable???3.?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 [...] of the wound post debridement is stable (62103), The patient was instructed on importance of [...] local wound care as directed.? * Procedure Codes:?52191 ACTIV E WOUND CARE/20 CM OR < * Preventive Medicine:? ??Screening/Special Tests:?Fall Risk?Screening:?No falls in the past year ?FALLS: Screening for Future Fall Risk?Have you had any falls with injury in the past year??No * Follow Up:?as scheduled * Images: * Sign off status: Completed true * Provider:?Desire Zaman DPM Date:?2024 Generated for Rocky hayes/Patricia/Altagracia on:?12/08/2024 01:20 PM EDT History and Physical Notes * HPI [...]
--- OUTSIDE RECORDS SUMMARY | 2024-12-08 13:21 | XMS_ITS | Clinical Summary ---
Author Organization [facility] Address [address] [place] [address] Phone Care Team Providers Care Durable Medical Equipment Repairer Name Role Phone Dariel Hart NP Primary [...] Cough 10/15/2019 Chronic kidney disease, stage 3 ([facility] V24, [facility] V28) 10/15/2019 Asthmatic bronchitis 10/06/2019 Type 2 diabetes mellitus wit h vascular disease ([facility] V24, [facility] V28) 10/04/2018 Elevated PSA 10/04/2018 Overview (08/08/2024): 06/2018 5.0; PV Urology; Nocturia/retention Colon polyps 10/04/2018 Type 2 diabetes mellitus wit h cataract ([facility] V24, [facility] V28) 05/27/2018 Peripheral vascular disease ([facility] V24) 2017 Hypertension 05/27/2018 Hyperlipidemia 05/27/2018 Arteriosclerosis of carotid artery 05/27/2018 Right bundle branch block (RBBB) 01/16/2018 Chronic obstructive pulmonar y disease ([facility] V24, [facility] V28) 01/16/2018 Benign familial tremor 09/13/2017 Allergic rhinitis 04/19/2017 Irritable bowel syndrome 02/25/2016 ED (erectile dysfunction) 09/01/2015 Cataract 09/26/2011 Encounters Date Type Department Care Team Description 10/24/2024 7:28 AM EST Anesthesia Event [facility] Endoscopy [address] [place] [address] Dariel Romano MD 10/24/2024 6:40 AM EST - 10/24/2024 11:59 PM EST Hospital Encounter [facility] Endoscopy [address] [place] [phone] Arnie Norwood MD Couture, Alison, CRNA Korobkov, Vitaliy, DO Dysphagia Discharge Disposition: Home or Self Care 10/07/2024 Telephone Gastroenterology - [address] [place] [address] Arnie Norwood MD 09/29/2024 Telephone Lung Screening Program - [address] [place] [address] Lexie Elena MA from Last 3 [...] 09/26/2011 DX:Cataract Chronic obstructive pulmonar y disease ([facility] V24, [facility] V28) 01/16/2018 DX:Chronic obstructive pulm onary disease [...] DX:Irri table bowel syndrome Peripheral vascular disease ([facility] V24) 05/27/2018 DX:Peripheral vascular disea se (HCC) Right bundle branch block (RBBB) 01/16/2018 DX:Right bundle branch block (RBBB) Type 2 diabetes mellitus wit h cataract ([facility] V24, [facility] V28) 05/27/2018 DX:Type 2 diabetes mellitus with cataract (HCC) Type 2 diabetes mellitus wit h vascular disease ([facility] V24, [facility] V28) 10/04/2018 DX:Type 2 diabetes mellitus with vascular disease (HCC) Diabetes mellitus ([facility] V 24, [facility] V28) DX:Diabetes mellitus (HCC) Hypertension DX:Hypertension Prostate cancer ([facility] V24 , [facility] V28) DX:Prostate cancer (HCC) Family History Medical [...] Description 12/23/2024 10:30 AM EDT Office Visit [facility] Hematology Oncology [address] [place] [phone] Daija Monk MD [address] [place] [address] Health Maintenance Due Date Last Done Comments [...] Results * EGD Dilation; Anesthesia - MAC; [facility] ENDOSCOPY (10/24/2024 7:40 AM EST) Anatomical Region [...] for retreatment. Narrative 10/24/2024 7:42 AM EST [facility] GI Patient Name: Graham Castillo Procedure Date: [...] Procedure Code(s): ? --- Professional --- ? 87041, Esophagogastroduodenoscopy, flexible, ? transoral; with transendoscopic balloon dilation of ? esophagus (less than 30 mm diameter) Diagnosis Code(s): ? --- Professional --- ? K22.2, Esophageal obstruction ? R13.14, Dysphagia, pharyngoesophageal phase CPT copyright 2020 [employer]. All rights reserved. The codes documented in this report are preliminary and upon information coder review may be revised to meet current compliance requirements. MD Arnie Goff MD 10/24/2024 7:42:38 AM This report has been signed electronically.Arnie Norwood MD Number of Addenda: 0 Note Initiated On: 10/24/2024 7:30 AM Scope In: Scope Out: ? Endoscopy Department at [facility] - [address] [place] [address], ? [place] [address] Procedure Note Arnie Norwood MD - 10/24/2024 [facility] GI Patient Name: Graham Castillo Procedure Date: [...] without abnormality. Procedure Code(s): --- Professional --- 96984, Esophagogastroduodenoscopy, flexible, transoral; with transendoscopic balloon dilation of esophagus (less than 30 mm diameter) Diagnosis Code(s): --- Professional --- K22.2, Esophageal obstruction R13.14, Dysphagia, pharyngoesophageal phase CPT copyright 2020 [employer]. All rights reserved. The codes documented in this report are preliminary and upon information coder reviewmay be revised to meet current compliance requirements. MD Arnie Goff MD 10/24/2024 7:42:38 AM This report has been signed electronically.Arnie Norwood MD Number of Addenda: 0 Note Initiated On: 10/24/2024 7:30 AM Scope In: Scope Out: Endoscopy Department at [facility] - [address] [place] [phone] IMPRESSION: - Benign-appearing esophageal stenosis. Dilated. - [...] Repeat upper endoscopy PRN for retreatment. Result [facility] Arnie Norwood MD GI~PROCEDURE ORDERABLES Final R esult * Annual BMP Blood Test (10/30/2019) [facility] Annual BMP Blood Test Abstracted Result [facility] Provider HEALTH MAINTENANCE Final Result * Urine Albumin Creatinine Ratio (10/15/2019) [facility] Urine Albumin Creatinine Ratio Abstracted Result [facility] Provider HEALTH MAINTENANCE Final Result * Hemoglobin A1c (10/10/2019) [facility] Hemoglobin A1C 6.3 <=6.5 % Blood Venous blood specimen / Unknown Result [facility] Historical Provider LAB BLOOD ORDERABLES Scarlett l Result * Lipid panel (10/10/2019) [facility] LDL/HDL Ratio 2 0 - 4 Triglycerides 149 0 - 150 mg/dL Cholesterol 145 0 - 200 mg/dL HDL 69 >=40 mg/dL LDL Cholesterol 47 0 - 100 mg/dL Blood Venous blood specimen / Unknown us Historical Provider LAB BLOOD ORDERABLES Scarlett pat Result from Last 3 Months or Most Recently Relevant to Health Maintenance Insurance [employer] Care Teams Durable Medical Equipment Repairer Relationship Specialty Start Date End Date Dariel Hart NP [address], [place] PCP - General 12/16/19
--- OUTSIDE RECORDS SUMMARY | 2024-12-08 13:21 | XMS_ITS ---
Author Organization [facility] Address [address] [place] [address] Care Team Providers Care Analytic Manager Name Role Phone Dariel Russlel Primary Care Provider Unav ailable Black, Desire Unavailable [phone] Allergies Allergen (clinical drug ingredient) Drug/Non Drug [...] Ordered Date Performed Result Body Sit e 39223 I&D ABSCESS- SIMPLE,SINGLE 10/27/2024 N/A 76918-DAYN SKIN LESIONS, 2 TO 4 10/27/2024 N/A E1106-UWZXOLTV DYSTROPHIC NAILS ANY # 10/27/2024 N/A Encounters Encounter Location Date Provider Diagnosis [facility] [place] [address] [place] [address] 10/27/2024 Desire Black Pain in right foot M79.671 ; Hallux valgus (acquired), right foot M20.11 ; Type 2 diabetes mellitus with diabetic polyneuropathy E11.42 ; 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 Recommended Tylenol or Motrin for pain/discomfort (92485) Type Single, Abscess Anesthesia 3cc of 1 [...] instrumentation by the physician of record - 99105 Nail Reduction Nail Reduction (-27) Trimming o [...] * Graham CASTILLO FDOB:1945 (78 yo M)Acc No.[id number]:10/27/2024 Progress Note Patient:?Graham CASTILLO Provider:?Desire Zaman DPM :1945???Age:78 Y???Sex:Male Michael e:10/27/2024 Address:[address] [place], [place] [id number] Pcp:SHANELL Mensah Subjective: * Chief Complaints: * [...] ?Exercise: yes, walking. ?Marital status: . ?Occupation: retired-[employer]. 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 3.?Abscess of toe, right?Procedure: 59653 I&D ABSCESS- SIMPLE,SINGLE Notes: Patient Educated with: [...] affected nail [facility] . Any evidence of granuloma was also removed at this time. No underlying bone was visualized. There was minimal bleeding as hemostasis was achieved through the temporary use of either a digital tournaquet or the aforementioned local with epinephrine. An application of sterile Bacitracin dressing was performed. Local wound care instructions were discussed and dispensed. Recommended Tylenol or Motrin for pain/discomfort (39050).?Keratoma Treatment:?Parring or Cutting of Benign Hyperkeratotic Lesion(s)?(-56) [...] instrumentation by the physician of record - 01939.?Nail Reduction:?Nail Reduction?(-27) Trimming of all dystrophic nails [...] or bed tissue - G0127.? * Procedure Codes:?31058 DRAIN AGE OF SKIN ABSCESS, Modifiers: T5 99315 TRIM SKIN LESIONS, 2 TO 4, Modifiers: [...]
--- OUTSIDE RECORDS SUMMARY | 2024-12-08 13:21 | XMS_ITS | Patient Health Record ---
Author Organization [facility] Address [address] [place] [address] Care Team Providers Care Display Trimmer Name Role Phone Dariel Russell Primary Care Provider Unav ailable Black, Desire Unavailable [phone] Marysol Waldenter Unavailable [phone] Allergies Allergen (clinical drug ingredient) Drug/Non Drug Allergy documented on EMR Reaction Allergy Type Onset Date Status sulfamethoxazole / trimethoprim Bactrim eyes and lips swell Drug Allergy Active Doxycycline Monohyd-Cleanser Unknown Drug Allergy Active tetracycline Tetracycline HCl rash Drug Allergy Active amoxicillin Amoxicillin Unknown Drug Allergy Act sriram clindamycin Clindamycin heartburn Drug Allergy Act sriram Penicillin Unknown Drug Allergy Active Reason For Referral Diagnosis 1 Unspecified atherosc lerosis of ione arteries of extremities, bilateral legs (I70.203) Diagnosis [...] (S90.222A) Diagnosis 34 Unspecified atherosc lerosis of ione arteries of extremities, bilateral legs (I70.203) Diagnosis [...] (E11.42) Diagnosis 53 Unspecified atherosc lerosis of ione arteries of extremities, bilateral legs (I70.203) Diagnosis [...] Name Dariel Referring Provider Last Name Hailey [facility] Referred Provider Desire Zaman [facility] [address] [facility],[address],[place] Referred Provider Specialty Podiatry Referral Priority Routine Diagnosis 1 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) Diagnosis 2 Unspecified atherosc lerosis of ione arteries of extremities, bilateral legs (I70.203) Diagnosis [...] Dariel Referring Provider Last Name Hailey Referred [facility] Referred Provider Corey Walden [facility]erred Address [address] [facility], [place],[address],[place] Referred Provider Specialty Podiatry Referral Priority Routine [...] Problem Acquired hammer toe of right foot (9730274601371992 ) Other hammer toe(s) (acquired), right foot (M20.41) Active confirmed Problem Acquired hallux valgus (86539780) Hallux valgus (acquired), left foot (M20.12) Active confirmed Problem Acquired hammer toe of left foot (6389474241512748 ) Other hammer toe(s) (acquired), left foot (M20.42) Active confirmed Problem Diabetic foot ulcer (577301059) Non-pressure chronic ulcer of other part of left foot limited to breakdown of skin (L97.521) Active confirmed Problem Atherosclerosis of ione arteries of the extremities (465901756696677) Unspecified atherosclerosis of ione arteries of extremities, 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 Problem Acquired hallux valgus (18558977) Hallux valgus (acquired), right foot (M20.11) Active confirmed Problem Ulcer of foot (43446054) Non-pressure chronic ulcer of other part of left foot limited to breakdown of skin (L97.521) Active confirmed Problem Polyneuropathy due to type 2 diabetes mellitus (411556014) Type 2 diabetes mellitus with diabetic polyneuropathy (E11.42) Active confirmed Problem Primary gout (60498783) Idiopathic gout, right ankle and foot (M10.071) Active confirmed Problem Neuropathy (414504412) Neuropathy (G62.9) Active confirmed Problem Primary gout (77016877) Acute idiopathic gout of right foot (M10.071) Active confirmed Problem Acquired deformity of right foot (6826709612176219 0) PlantarFlexion of metatarsal of right foot (M21.6X1) Active confirmed Problem Acquired deformity of left foot (8800887610031824 4) PlantarFlexion of metatarsal of left foot (M21.6X2) Active confirmed Problem Gouty tophus of left foot (3762079829175906 9) 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) Active confirmed Problem Ulcer of toe of right foot (disorder) (9024226753258553 1) Skin ulcer of toe of right foot, limited to breakdown of skin (L97.511) Active confirmed Response to treatment, Nonapplica ble Problem Acquired cavus deformity of right foot (disorder) (8951566425186581 ) 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) Active confirmed Problem Ulcer of toe of left foot (disorder) (4741547869218114 2) Skin ulcer of toe of left foot, limited to breakdown of skin (L97.521) Active confirmed Vital Signs Blood pressure diastolic 70 mm Hg 11/13/2024 Height 5 ft 11 in in 11/13/2024 Blood pressure systolic 140 mm Hg 11/13/2024 Weight 176 lbs 11/13/2024 BMI 24.54 kg/m2 11/13/2024 Procedures Procedure Date Ordered Date Performed Result Body Sit e 49384- Debride <25 sq cm 03/13/2024 N/A 80961-STEO SKIN LESIONS, 2 TO 4 03/13/2024 N/A I1937-YXHDAUXY DYSTROPHIC NAILS ANY # 03/13/2024 N/A 12927- Debride <25 sq cm 03/27/2024 N/A 86878- Debride <25 sq cm 05/15/2024 N/A 87915-Cmpndfmz Plate 06/30/2024 N/A 37838-RBGY SKIN LESIONS, 2 TO 4 06/30/2024 N/A G5726-UVSKDPQC DYSTROPHIC NAILS ANY # 06/30/2024 N/A 29411 I&D ABSCESS- SIMPLE,SINGLE 10/27/2024 N/A 49217-CQGY SKIN LESIONS, 2 TO 4 10/27/2024 N/A Z2564-FQJSCUMU DYSTROPHIC NAILS ANY # 10/27/2024 N/A 32207- Debride <25 sq cm 11/13/2024 N/A Encounters Encounter Location Date Provider Diagnosis [address] [address] 03/13/2024 Desire Black Type 2 diabetes mellitus with diabetic polyneuropathy E11.42 ; Unspecified atherosclerosis of ione arteries of extremities, bilateral legs I70.203 ; Skin ulcer of toe of right foot, limited to breakdown of skin L97.511 ; Pain in right ankle and joints of right foot M25.571 ; Bursitis of right foot M77.51 ; Pain in right foot M79.671 ; Hallux valgus (acquired), right foot M20.11 and Hammertoe of right foot M20.[address] [address] 03/27/2024 Desire Black Pain in right foot M79.671 ; Hallux valgus (acquired), right foot M20.11 ; Pressure injury of right foot, stage 1 L89.891 ; Hammertoe of right foot M20.41 and Type 2 diabetes mellitus with diabetic polyneuropathy E11.[address] [address] 05/01/2024 Corey Walden Cellulitis of right toe L03.031 ; Skin disease L98.9 ; Pain in right toe(s) M79.674 and Abscess of toe of right foot L02.[address] [address] 05/15/2024 Desire Black Skin ulcer of toe of right foot, limited to breakdown of skin L97.511 ; Cellulitis of right toe L03.031 and Pain in right toe(s) M79.[address] [address] 06/30/2024 Deisre Black Type 2 diabetes mellitus with diabetic polyneuropathy E11.42 ; Unspecified atherosclerosis of ione arteries of extremities, bilateral legs I70.203 and Ingrown nail L60.[address] [address] 10/27/2024 Desire Black Pain in right foot M79.671 ; Hallux valgus (acquired), right foot M20.11 ; Type 2 diabetes mellitus with diabetic polyneuropathy E11.42 ; Unspecified atherosclerosis of ione arteries of extremities, bilateral legs I70.203 ; Pain in right ankle and joints of right foot M25.571 ; Bursitis of right foot M77.51 ; Xerosis of skin L85.3 and Abscess of toe, right L02.[address] [address] 11/13/2024 Desire Black Skin ulcer of toe of right foot, limited to breakdown of skin L97.511 ; Type 2 diabetes mellitus with diabetic polyneuropathy E11.42 and Unspecified atherosclerosis of ione arteries of extremities, bilateral legs I70.[address] [address] 04/30/2024 Desire Black [address] [address] 05/02/2024 Desire Black [address] [address] 10/27/2024 Desire Black Assessments Encounter Date Diagnosis (ICD Code) Assessment Notes Treatment Notes Treatment Clinical Notes Section Notes 03/13/2024 Type 2 diabetes mellitus with diabetic [...] CARE INSTRUCTIONS. pdf) 06/30/2024 Unspecified atherosclerosis of ione arteries of extremities, bilateral legs (ICD-10 - [...] CARE INSTRUCTIONS. pdf) 11/13/2024 Unspecified atherosclerosis of ione arteries of extremities, bilateral legs (ICD-10 - I70.203) 06/30/2024 Ingrown nail (ICD-10 - L60.0) 05/15/2024 Pain in right toe(s) (ICD-10 - M79.674) 05/01/2024 Pain in right toe(s) (ICD-10 - M79.674) 03/13/2024 Unspecified atherosclerosis of ione arteries of extremities, bilateral legs (ICD-10 - I70.203) 03/13/2024 Skin ulcer of toe of right foot, limited to breakdown of skin (ICD-10 - L97.511) Nonapplicable Patient Educated with: WOUND CARE INSTRUCTIONS. pdf (WOUND CARE INSTRUCTIONS. pdf) 03/27/2024 Hammertoe of right foot (ICD-10 - M20.41) 05/01/2024 Abscess of toe of right foot (ICD-10 - L02.611) 10/27/2024 Unspecified atherosclerosis of ione arteries of extremities, bilateral legs (ICD-10 - I70.203) 10/27/2024 Pain in right ankle and joints of right foot (ICD-10 - M25.571) 03/27/2024 Type 2 diabetes mellitus with diabetic polyneuropathy (ICD-10 - E11.42) 03/13/2024 Pain in right ankle and joints of right foot (ICD-10 - M25.571) 03/13/2024 Bursitis of right foot (ICD-10 - [...] INSTRUCTIONS. pdf (WOUND CARE INSTRUCTIONS. pdf) 03/13/2024 Other 03/27/2024 Other 05/15/2024 Other 06/30/2024 Other 11/13/2024 Other Plan Of Treatment Pending Test Test Name Order Date *Uric Acid, Serum 03/29/2021 *Uric Acid, Serum 04/06/2022 *Sedimentation Rate-Westergren 2 *Sedimentation Rate-Westergren 1 C-Reactive Protein, Quant 04/06/2022 X ray : Foot, right 3V 03/29/2021 X ray : Foot, right 3V 06/29/2016 17637-Proakxpd Plate 02/05/2023 95493-Nvqnfxej Plate 11/21/2023 85117-Yafbsotj Plate 06/30/2024 60769-Pkyrmjaz Plate Each Additional 27156- Debride <25 sq cm 03/27/2024 70095- Debride <25 sq cm 05/15/2024 76473- Debride <25 sq cm 04/12/2023 95133- Debride <25 sq cm 12/06/2023 30608- Debride <25 sq cm 03/13/2024 60457- Debride <25 sq cm 05/29/2022 51272- Debride <25 sq cm 06/12/2022 49890- Debride <25 sq cm 04/30/2015 03071- Debride <25 sq cm 12/29/2015 36924- Debride <25 sq cm 06/29/2016 05564- Debride <25 sq cm 08/09/2020 59400- Debride <25 sq cm 09/16/2020 49437- Debride <25 sq cm 11/13/2024 07789 I&D ABSCESS- SIMPLE,SINGLE 025 81490 I&D ABSCESS- SIMPLE,SINGLE 023 03547 I&D ABSCESS- SIMPLE,SINGLE 022 19142-VIJI SKIN LESIONS, 2 TO 4 09/05/19 22 68252-ETPF SKIN LESIONS, 2 TO 4 03/09/20 22 64977-RNBZ SKIN LESIONS, 2 TO 4 02/06/20 23 84471-NUAE SKIN LESIONS, 2 TO 4 10/02/19 23 92134-PUUS SKIN LESIONS, 2 TO 4 05/29/20 22 89857-PYGT SKIN LESIONS, 2 TO 4 03/13/20 24 70535-DQHR SKIN LESIONS, 2 TO 4 06/07/20 23 35611-IUFR SKIN LESIONS, 2 TO 4 11/21/19 24 87080-BUWL SKIN LESIONS, 2 TO 4 06/30/20 24 73455-EKRB SKIN LESIONS, 2 TO 4 10/28/19 25 50881-MHLL SKIN LESIONS, 2 TO 4 09/16/19 21 26035-TWZQ SKIN LESIONS, 2 TO 4 09/01/19 20 03154-LTZR SKIN LESIONS, 2 TO 4 03/08/20 20 62477-SCMF SKIN LESIONS, 2 TO 4 04/11/20 21 24969-BQHQ SKIN LESIONS, 2 TO 4 06/10/20 20 72516-TCPI SKIN LESIONS, 2 TO 4 12/10/19 21 01730-YKMI SKIN LESIONS, 2 TO 4 12/29/19 17 78738-HLML SKIN LESIONS, 2 TO 4 06/29/20 16 25088-XPTS SKIN LESIONS, 2 TO 4 09/24/19 18 63142-APMS SKIN LESIONS, 2 TO 4 03/25/20 18 33510-PRMV SKIN LESIONS, 2 TO 4 09/23/19 19 31148-IPXZ SKIN LESIONS, 2 TO 4 03/03/20 19 45117-ABYO SKIN LESION 04/30/2015 88846-Bxnm. Subungual Hematoma 68736-RSXR NAIL(S) 05/29/2022 42637-IXBR NAIL(S) 10/02/2022 84137-ZKGU NAIL(S) 02/05/2023 63877-HNRK NAIL(S) 03/09/2022 95074-RFMF NAIL(S) 09/05/2021 26444-ETHQ NAIL(S) 12/09/2020 62164-YZDD NAIL(S) 06/10/2020 72512-VVEW NAIL(S) 04/11/2021 02910-TNWE NAIL(S) 03/08/2020 31223-STEE NAIL(S) 09/16/2020 F3006-JIMPXGYP DYSTROPHIC NAILS ANY # S1024-RWNLNMIU DYSTROPHIC NAILS ANY # D6257-DPYONGQA DYSTROPHIC NAILS ANY # R0427-TWIDXEFW DYSTROPHIC NAILS ANY # M0176-YGJBKUIP DYSTROPHIC NAILS ANY # K2983-JRRNAPKR DYSTROPHIC NAILS ANY # Z8630-JSBBSWUE DYSTROPHIC NAILS ANY # B5084-ONPMHVPU DYSTROPHIC NAILS ANY # N6927-VPBWVLDU DYSTROPHIC NAILS ANY # Q9651-ZHKILXXY DYSTROPHIC NAILS ANY # V2085-WCMTOZPK DYSTROPHIC NAILS ANY # W5129-KCIIAPYB DYSTROPHIC NAILS ANY # 95900-Gbxkcfuco, Toes 06/29/2016 CRP 03/29/2021 Next Appt Details Provider Name:Desire Zaman , 03/26/2025 10:15:00 AM, [address] [place] [address], [address], Insurance Providers Payer Name Payer Address Payer Phone Subscriber Number Group Number Insured Name Patient Relationship to Insured Coverage Start Date Coverage End Date [facility] [address] [place] [phone] [id number] Graham Castillo Self - patient is the insured Medical (General) History Medical History History ICD Code Cancer Gall bladder problems High blood pressure Measles Mumps Chicken pox Joint implants/screws Diabetes mellitus type ll Surgical History Surgery Date(Month/Year) gall bladder 12/06/2014 appendectomy 03/2014 Stent 10/2023 Hospitalization History Reason Date(Month/Year)
== END 2024-12-08 12:36 | disposition home or self-care (01) ==
PROVIDERS: PCP Nurse Practitioner Family; Visit Provider Nurse Practitioner Family
DX: Z13.9 Encounter for screening, unspecified (principal)

== ENCOUNTER → 2024-12-08 11:18 | Outpatient (BNVA) | payer MEDICARE, SELFPAY | PROVIDERS: PCP Nurse Practitioner Family; Visit Provider Nurse Practitioner Family | DX: E11.9 Type 2 diabetes mellitus without complications (principal); D61.818 Other pancytopenia; Z85.46 Personal history of malignant neoplasm of prostate | CPT/HCPCS: 83036; 96127; 99212 ==

== ENCOUNTER 2025-01-05 07:42 | Outpatient (REF) | payer MEDICARE, SELFPAY ==
--- NOTE | ~2025-01-05 | US_ITS ---
EXAMINATION: Noninvasive assessment of the bilateral lower extremities with ARTERIAL DUPLEX, ANKLE BRACHIAL INDICES (ABIs), and PULSE VOLUME RECORDINGS (PVRs). CLINICAL INFORMATION: Peripheral vascular disease, unspecified. TECHNIQUE: Duplex Doppler techniques with waveform analysis and measurement of velocities in the bilateral common femoral, profunda femoris, superficial femoral, popliteal and tibial arteries were performed. Additionally, ankle pulse volume recordings, ankle pressure measurements and ankle brachial indices were obtained of the lower extremity arterial system bilaterally. The study was performed only at rest. COMPARISON: December 24, 2023. FINDINGS: Calcified plaques, right superficial femoral artery with low velocities and associated collateral flow. Calcified plaques in the left profunda femoral artery with low density velocities and collateral flow. Arrhythmia episodes. DIRECT DUPLEX DOPPLER FINDINGS: RIGHT LEG: Common femoral artery: 141 cm/s, phasicity: Monophasic. Profunda femoris artery: 54 cm/s, phasicity: Monophasic. Superficial femoral artery (proximal): 23 cm/s, phasicity: Monophasic. Superficial femoral artery (mid): 18 cm/s, phasicity: Monophasic. Superficial femoral artery (distal): 19 cm/s, phasicity: Monophasic. Popliteal artery: 65 cm/s, phasicity: Monophasic Posterior tibial artery: 38 cm/s, phasicity: Monophasic. Peroneal artery: 12 cm/s, phasicity: Monophasic. Anterior tibial artery: 16 cm/s. Monophasic waveforms. Dorsalis pedis artery: 10 cm/s, phasicity:Monophasic. LEFT LEG: Common femoral artery: 206 cm/s, phasicity: Monophasic. Profunda femoris artery: 39 cm/s, phasicity: Monophasic Superficial femoral artery (proximal): 22 cm/s, phasicity: Monophasic Superficial femoral artery (mid): 28 cm/s, phasicity: Monophasic. Superficial femoral artery (distal): 34 cm/s, phasicity: Monophasic. Popliteal artery: 80 cm/s, phasicity: Monophasic Posterior tibial artery: 30 cm/s, phasicity: Monophasic. Peroneal artery: 49 cm/s, phasicity: Monophasic. Anterior tibial artery: 30 cm/s, phasicity: Monophasic. Dorsalis pedis artery: 22 cm/s, phasicity: Monophasic. BRACHIAL PRESSURES: Right: 176 Left: 169 ANKLE PRESSURES: Right: PT 61, DP not documented. Left: PT 87, DP not documented. ANKLE-BRACHIAL INDEX: Right: 0.35 Left: 0.49 ANKLE PVR WAVEFORMS: Right: Abnormal Left: Abnormal US/US arterial duplex BI w/ BETTINA IMPRESSION: Right leg: Severe inflow disease throughout the interrogated vessels. Left leg: Severe inflow disease throughout the interrogated vessels. BETTINA Reference: - >1.4 = calcified vessels - 0.9 - 1.4 = normal - no significant arterial disease - 0.7 - 0.89 = mild peripheral arterial disease - 0.51 - 0.69 = moderate peripheral arterial disease - d 0.50 = severe peripheral arterial disease - < .30 = critical arterial disease Electronically signed by: Myles England MD 01/05/2025 12:49 PM EDT
--- NOTE | ~2025-01-05 | US_ITS ---
EXAMINATION: US RETROPERITONEAL LIMITED (AORTA) CLINICAL INFORMATION: Bilateral iliac artery stents. 3.2 cm diameter of the mid abdominal aorta.. COMPARISON: June 21, 2024. TECHNIQUE: Wade-scale, color Doppler and spectral Doppler evaluation of the abdominal aorta. FINDINGS: The measurements of the aorta in maximum AP and transverse dimensions respectively are as follows: Proximal: 2.9 x 1.8 cm. Peak systolic velocity: 41 cm/s. Mid: 2.5 x 1.8 cm. Peak systolic velocity: 36 cm/s. Distal: 1.8 cm. Peak systolic velocity: 26 cm/s. The measurements of the common iliac arteries are not measured. The peak systolic velocities are as follows: Right: Common iliac artery: 127 cm/s. External iliac artery: 226 cm/s.. Left: Common iliac artery: 76 cm/s. External iliac artery: 208 cm/s.. US/US abdominal aortic aneurysm IMPRESSION: 2.9 cm diameter, infrarenal abdominal aorta. Consider ectasia The stents are not depicted on the exam. There is no measurement of the diameter of the iliac arteries.. Electronically signed by: Myles England MD 01/05/2025 11:30 AM EDT
--- OUTSIDE RECORDS SUMMARY | 2025-01-05 07:44 | XMS_ITS ---
Author Organization [facility] Address [address] [place] [address] Care Team Providers Care Liquid Flavor Compounder Name Role Phone Dariel Russell Primary Care Provider Unav ailable Black, Desire Unavailable [phone] Allergies Allergen (clinical drug ingredient) Drug/Non Drug [...] Ordered Date Performed Result Body Sit e 45894- Debride <25 sq cm 11/13/2024 N/A Encounters Encounter Location Date Provider Diagnosis [facility] [place] [address] [place] [address] 11/13/2024 Desire Black Skin ulcer of toe of right foot, limited to breakdown of skin L97.511 ; Type 2 diabetes mellitus with diabetic polyneuropathy E11.42 and Unspecified atherosclerosis of king salmon arteries of extremities, bilateral legs I70.203 Assessments Encounter Date Diagnosis (ICD Code) Assessment Notes Treatment Notes Treatment Clinical Notes Section Notes 11/13/2024 Skin ulcer of toe of right foot, limited to breakdown of skin (ICD-10 - L97.511) Patient Educated with: WOUND CARE INSTRUCTIONS. pdf (WOUND CARE INSTRUCTIONS. pdf) 11/13/2024 Type 2 diabetes mellitus with diabetic polyneuropathy (ICD-10 - E11.42) 11/13/2024 Unspecified atherosclerosis of king salmon arteries of extremities, bilateral legs (ICD-10 - I70.203) 11/13/2024 Other Plan Of Treatment Treatment Notes Assessment Notes Skin ulcer of toe of right f oot, limited to breakdown of skin Patient Educated with: WOUND CARE INSTRUCTIONS.pdf (WOUND CARE INSTRUCTIONS.pdf) Pending Test Test Name Order Date 48112- Debride <25 sq cm 11/13/2024 Next Appt Details Follow Up: as scheduled, Lizzie son: Provider Name:Desire Zaman , 03/26/2025 10:15:00 AM, [address] [place], [address], Procedure Notes * Category Sub-Category Detail Notes [...] of the wound post debridement is stable (42858), The patient was instructed on importance of [...] Notes * SHAMIKARIGOGraham FDOB:1945 (78 yo M)Acc No.[id number]:11/13/2024 Progress Notes Patient:?Graham CASTILLO Provider:?Desire Zaman DPM :1945???Age:78 Y???Sex:Male Michael e:11/13/2024 Address:[address] [place], [place] [id number] Pcp:SHANELL Mensah Subjective: * Chief Complaints: * [...] ?Exercise: yes, walking. ?Marital status: . 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 * Medications:?TakingAmmonium Lactate 12 % [...] (Primary)???Specify :Response to treatment -Nonapplicable???3.?Unspecified atherosclerosis of king salmon arteries of extremities, bilateral legs - I70.203??? [...] of the wound post debridement is stable (78075), The patient was instructed on importance of [...] local wound care as directed.? * Procedure Codes:?40416 ACTIV E WOUND CARE/20 CM OR < * Preventive Medicine:? ??Screening/Special Tests:?Fall Risk?Screening:?No falls in the past year ?FALLS: Screening for Future Fall Risk?Have you had any falls with injury in the past year??No * Follow Up:?as scheduled * Images: * Sign off status: Completed true * Provider:?Desire Zaman DPM Date:?2024 Generated for Rocky hayes/Patricia/Altagracia on:?01/05/2025 07:44 AM EDT History and Physical Notes * [...]
--- OUTSIDE RECORDS SUMMARY | 2025-01-05 07:44 | XMS_ITS | Data Portability ---
Author Organization [place] [facility], [facility] Address [address] [place] [address] Assessment Encounter Date Assessment Date Assessment LastModified [...] or worsen. Refill of fluocinolone was provided. [email or web address] Not available 10/30/2024 10:06:40 Plan of Treatment [...] %-0.1 % eye drops,jamin pension 2024 025 [facility] #[id number], [address] [place], [address], 10/30/2024 10:02:09 fluocinol one acetonide oil 0.01 % ear drops 2024 025 [facility] #[id number], [address] [place], [address], 10/30/2024 10:02:53 Patient TargetsNo targets recorded. Patient InstructionsNo instructions recorded. Reason for Referral None Reported. 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 Squamous cell carcinom a of [...] Start Date : 07/28/20 14 Not Available [facility] 4 02:51:05 Unilater al sensorin eural hearing loss with unrestri cted hearing on the contrala teral side Active 2013 Sensorin eural hearing loss unilater ally; Note: Date Diagnose d: 4 9:37 AM (389.15) Not Available [facility] 4 02:51:03 Itching of skin 525242207 Active 2021 Other pruritus ; Note: Date Diagnose d: 2 12:33 PM (L29.8) Not Available [facility] 4 02:51:02 Mixed conducti ve and sensorin eural hearing loss of right ear 19019674230 105 Active 2015 Mixed conducti ve and sensorin eural hearing loss, unilater al, right ear, with unrestri cted hearing on the contrala teral side; Note: Date Diagnose d: 6 11:19 AM (H90.71) [mapped from ICD9 code: 389.21] Not Available [facility] 4 02:51:05 Superfic ial mycosis 565402686 Active 2020 Other specifie d superfic ial mycoses; Note: Date Diagnose d: 1 3:54 PM (B36.8) Not Available [facility] 4 02:51:04 Impacted cerumen of bilatera l ears 19738396253 78410 Active 2021 Impacted cerumen, bilatera l; Note: Date Diagnose d: 04/03/2022 9:45 AM (H61.23) Not Available [facility] 4 02:51:02 Impacted cerumen in right ear 17526369940 67059 Active 2016 Impacted cerumen, right ear; Note: Date Diagnose d: 7 9:21 AM (H61.21) Impact ed cerumen, right ear; Note: Date Diagnose d: 7 9:07 AM (H61.21) ; Start Date : 11/24/19 Not Available [facility] 4 02:51:01 Sensorin eural hearing loss 20188675 Active 2015 Sensorin eural hearing loss, unilater al, right ear, with unrestri cted hearing on the contrala teral side; Note: Date Diagnose d: 6 11:19 AM (H90.41) [mapped from ICD9 code: 389.15] Not Available [facility] 4 02:51:05 Unilater al mixed conducti ve and sensorin eural hearing loss with unrestri cted hearing on the contrala teral side Active 2013 Mixed hearing loss, unilater al; Note: Date Diagnose d: 4 9:37 AM (389.21) Not Available [facility] 4 02:51:00 Candidal otitis externa 16169738 Completed 201703/28/2024 Candidal otitis externa; Location : bilatera l Note: Date Diagnose d: 8 11:47 AM (B37.84) Not Available [facility] 4 02:51:04 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 927123094 Completed 201803/28/2024 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; Note: Date Diagnose d: 9 9:07 AM (C44.222 ) Not Available [facility] 4 02:51:00 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 019822384 Completed 201803/28/2024 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; Note: Date Diagnose d: 9 9:07 AM (C44.222 ) Not Available [facility] 4 02:51:00 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 276311745 Active 2015 Squamous cell carcinom a of skin of unspecif ied ear and external auricula r canal; Note: Date Diagnose d: 6 11:19 AM (C44.221 ) [mapped from ICD9 code: 173.22] Not Available [facility] 4 02:50:59 History of malignan t neoplasm of skin 175421424 Active 2017 Personal history of other malignan t neoplasm of skin; Note: Date Diagnose d: 8 12:26 PM (Z85.828 ) Not Available [facility] 4 02:51:01 Otorrhea of right ear 83355192027 80778 Active 2024 MORAIMA SAHU PA-C [address] [place] [address],[address], [address] , [facility] - [facility] 5 10:01:45 Problem Notes None recorded. Procedures Surgical History Date Name Laterality Status Provider Name and Address Organization Details Recorded Time 5 Cerumen removal without microscope bilat completed MORAIMA SAHU PA-C [address] [place] [address],[address], [address], [facility] - [facility] 10/30/2024 09:20:59 4 Cerumen removal without microscope bilat completed MORAIMA SAHU PA-C [address] [place] [address],[address], [address], [place] - [facility] 04/30/2024 11:57:54 Imaging Results None recorded. Procedure Notes None recorded. Medical Equipment None Reported. Allergies Allergen ID Allergen Name Allergen Category Reaction Reaction Severity Criticality Documentation Date Start Date Code Code System Note Provider Name and Address Organization Details Recorded Time 328916 clindamyc in Not available Not available Not available Not available 10/30/2024 2582 RxNorm MORAIMA SAHU PA-C [address] [place] [address], [phone], [facility] 5 09:55:04 32582 amoxicill in / clavulana te medicatio n other Not available Not available 01/08/2024 34070 RxNorm React ion: unkno wn, unspe cifie d;; Not Available [facility] 4 00:59:23 82543 penicilli n V potassium medicatio n other Not available Not available 01/08/202496816 5 RxNorm React ion: unkno wn, unspe cifie d;; Not Available [facility] 4 00:59:26 35254 Substance with sulfonami de structure and antibacte rial mechanism of action (substanc e) medicatio n other Not available Not available 01/08/2024 00117 8003 SNOMED React ion: unkno wn, unspe cifie d;; Not Available [facility] 4 00:59:29 11609 Medicinal product containin g tetracycl ine structure and acting as antibacte rial agent (product) medicatio n other Not available Not available 01/08/2024 23740 1004 SNOMED React ion: unkno wn, unspe cifie d;; Not Available [facility] 4 00:59:30 Medications Name Sig Start Date [...] mg tablet 11/22 completed Medicati on ID: 031573 D uration Value: 90 Brand Name: lisinopr [...] mg tablet 11/15 completed Medicati on ID: 72956 Du ration Value: 90 Reason: () Brand Name: cilostaz ol Send Method: E-Prescr ibed Sub s Allowed: subs OK Medic ationGen ericName : cilostaz ol Not Available Not Available Not Available meloxicam 15 mg tablet active Medicati on ID: 478322 B rand Name: meloxica m Send Method: [...] % topical cream active Medicati on ID: 751353 B rand Name: triamcin olone acetonid e Send Method: E-Prescr ibed Sub s Allowed: subs OK Medic ationGen ericName : triamcin olone acetonid e Not Available Not Available Not Available verapamil 120 mg tablet 11/06 completed Medicati on ID: 60992 Du ration Value: 90 Reason: () Brand [...] small amount 2020 active Medicati on ID: 666599 D uration Value: 14 Prescri bed By [...] 12.5 mg capsule active Medicati on ID: 829924 B rand Name: hydrochl orothiaz tatiana Send [...] 150 mg tablet active Medicati on ID: 161237 B rand Name: irbesart an Send Method: E-Prescr ibed Sub s Allowed: subs OK Medic ationGen ericName : irbesart an Not Available Not Available Not Available timolol maleate 0.5 % eye drops INSTILL 1 DROP IN BOTH EYES TWICE A DAY active Not Available Not Available No t Available losartan 100 mg tablet 11/22 completed Medicati on ID: 251561 D uration Value: 90 Brand Name: losartan Send Method: E-Prescr ibed Sub s Allowed: subs OK Speci al Instruct ion: TAKE 1 TABLET BY MOUTH EVERY DAY Medi cationGe nericNam e: losartan Not Available Not Available Not Available glipizide 5 mg tablet 05/29 completed Medicati on ID: [id number] R sadie: () Brand Name: glipizid e [...] 4 drop 2016 active Medicati on ID: 221076 D uration Value: 10 Prescri bed By Name: Sally Hinds nd Name: Ciprodex Send Method: E-Prescr ibed Sub s Allowed: subs OK Medic ationGen ericName : Ciprodex Not Available Not Available Not Available fluocinol one 0.01 % scalp oil and shower cap active Medicati on ID: 527674 B rand Name: fluocino lone and shower [...] mg tablet 05/29 completed Medicati on ID: 11579 Re ason: () Brand Name: Yordan Chewable Aspirin Send Method: E-Prescr ibed Sub s Allowed: subs OK Medic ationGen ericName : Yordan Chewable Aspirin Not Available Not Available Not Available Enstilar 0.005 %-0.064 % topical foam 07/28 completed Medicati on ID: [id number] D uration Value: 30 Brand Name: Enstilar [...] Updated DateTime 10/30/2024 177.8 cm 25.3 kg/m2 55933.26 g Nadine Gutierrez [facility] 10/30/2024 09:36:33 Date Recorded Body height Body mass index (BMI) Body weight Provider Name and Address Organization Details Last Updated DateTime 04/30/2024 180.34 cm 24.5 kg/m2 89186.26 g Bobby Anglin [facility] 04/30/2024 11:11:12 Social History None recorded. Functional Status None recorded. Mental Status None recorded. Family History Nothing Reported. Medical History No medical history recorded. Past Encounters Encounter ID Performer Location Encounter Start Date Encounter Closed Date Diagnosis/Indication Diagnosis SNOMED-CT Code Diagnosis ICD10 Code Diagnosis Note [id number] MORAIMA SAHU PA-C [facility] [address] [address] 04/30/2024 10:58:56 04/30/2024 12:02:52 Impacted cerumen of bilateral ears 7065263034 595896 H61.23 [id number] MORAIMA SAHU PA-C [facility] [address] [address] 10/30/2024 09:18:21 10/30/2024 10:01:32 Impacted cerumen of bilateral ears 8211080617 008957 H61.23 Otorrhea of right ear 10 02062247 554115 H92.11 Itching of skin 12946584 0 L29.89 Health Concerns Section Related Observation LastModified by Organization Detai ls LastModified Time None Recorded Concern Status LastModified by Organization Details LastModified Time None Recorded Advance Directives Directive None Recorded Payers Insurance Date Sequence Insurance Name Policy Number Policy Leonard Covered Member ID Leonard Member ID Guarantor Name 10/28/2024 2 [facility] (MEDICARE REPLACEMENT HMO) Graham Castillo [id number] Graham Godwin Jonathan 10/28/2024 1 [facility] Graham Castillo [id number] Graham Godwin Jonathan 10/28/2024 1 [facility] (MEDICARE REPLACEMENT HMO) Graham Castillo [id number] Graham Castillo Notes Date Note Type Note Provider Name and Address Organization Details Recorded Time 04/30/2024 text/html 78-year-old male presents for cerumen removal. No concerns today. GONSALO NIEVES MD [address] [facility],[address], [address], [place] - [facility] 04/30/2024 14:53:10 10/30/2024 text/html 78-year-old male status [...] refill. Denies bruxism. SHERON BLOOD MD [address] [facility],[address], [address], [place] - [facility] 10/31/2024 07:57:10
--- OUTSIDE RECORDS SUMMARY | 2025-01-05 07:45 | XMS_ITS | Patient Health Record ---
Author Organization [facility] Address [address] [place] [address] Care Team Providers Care Home Theater Expert Name Role Phone Dariel Russell Primary Care Provider Unav ailable Black, Desire Unavailable [phone] Marysol Waldenter Unavailable [phone] Allergies Allergen (clinical drug ingredient) Drug/Non Drug [...] Referral Diagnosis 1 Unspecified atherosc lerosis of [place] arteries of extremities, bilateral legs (I70.203) Diagnosis [...] (S90.222A) Diagnosis 34 Unspecified atherosc lerosis of [place] arteries of extremities, bilateral legs (I70.203) Diagnosis [...] (E11.42) Diagnosis 53 Unspecified atherosc lerosis of [place] arteries of extremities, bilateral legs (I70.203) Diagnosis [...] Name Dariel Referring Provider Last Name [facility] Referred Provider Desire Zaman [facility] Address [address] [facility],[address],[place] Referred Provider Specialty Podiatry Referral Priority Routine Diagnosis 1 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) Diagnosis 2 Unspecified atherosc lerosis of [place] arteries of extremities, bilateral legs (I70.203) Diagnosis [...] Dariel Referring Provider Last Name Hailey Referred [facility] Referred Provider Corey Walden [facility] Address [address] [facility],[address],[place] Referred Provider Specialty Podiatry Referral Priority Routine [...] Problem Acquired hammer toe of right foot (3667442107169647 ) Other hammer toe(s) (acquired), right foot (M20.41) Active confirmed Problem Acquired hallux valgus (30810727) Hallux valgus (acquired), left foot (M20.12) Active confirmed Problem Acquired hammer toe of left foot (1187371401721401 ) Other hammer toe(s) (acquired), left foot (M20.42) Active confirmed Problem Diabetic foot ulcer (804937303) Non-pressure chronic ulcer of other part of left foot limited to breakdown of skin (L97.521) Active confirmed Problem Atherosclerosis of eastern sh[place] arteries of the extremities (444219440977018) Unspecified atherosclerosis of [place] arteries of extremities, 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 Problem Acquired hallux valgus (26116404) Hallux valgus (acquired), right foot (M20.11) Active confirmed Problem Ulcer of foot (10693239) Non-pressure chronic ulcer of other part of left foot limited to breakdown of skin (L97.521) Active confirmed Problem Polyneuropathy due to type 2 diabetes mellitus (968742673) Type 2 diabetes mellitus with diabetic polyneuropathy (E11.42) Active confirmed Problem Primary gout (68342644) Idiopathic gout, right ankle and foot (M10.071) Active confirmed Problem Neuropathy (023323481) Neuropathy (G62.9) Active confirmed Problem Primary gout (76811403) Acute idiopathic gout of right foot (M10.071) Active confirmed Problem Acquired deformity of right foot (9655781215759072 0) PlantarFlexion of metatarsal of right foot (M21.6X1) Active confirmed Problem Acquired deformity of left foot (8514786155175319 4) PlantarFlexion of metatarsal of left foot (M21.6X2) Active confirmed Problem Gouty tophus of left foot (8629769475217635 9) 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) Active confirmed Problem Ulcer of toe of right foot (disorder) (6844046363983471 1) Skin ulcer of toe of right foot, limited to breakdown of skin (L97.511) Active confirmed Response to treatment, Nonapplica ble Problem Acquired cavus deformity of right foot (disorder) (9858274090390479 ) 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) Active confirmed Problem Ulcer of toe of left foot (disorder) (4478239434818852 2) Skin ulcer of toe of left foot, limited to breakdown of skin (L97.521) Active confirmed Vital Signs Blood pressure diastolic 70 mm Hg 11/13/2024 Height 5 ft 11 in in 11/13/2024 Blood pressure systolic 140 mm Hg 11/13/2024 Weight 176 lbs 11/13/2024 BMI 24.54 kg/m2 11/13/2024 Procedures Procedure Date Ordered Date Performed Result Body Sit e 22456- Debride <25 sq cm 03/13/2024 N/A 59584-MTYJ SKIN LESIONS, 2 TO 4 03/13/2024 N/A A0832-KNWSQZLP DYSTROPHIC NAILS ANY # 03/13/2024 N/A 85492- Debride <25 sq cm 03/27/2024 N/A 29396- Debride <25 sq cm 05/15/2024 N/A 62390-Bkaznjug Plate 06/30/2024 N/A 86092-KITC SKIN LESIONS, 2 TO 4 06/30/2024 N/A B0679-YNYFZJZH DYSTROPHIC NAILS ANY # 06/30/2024 N/A 61143 I&D ABSCESS- SIMPLE,SINGLE 10/27/2024 N/A 23137-RKUA SKIN LESIONS, 2 TO 4 10/27/2024 N/A H9059-OJSCJGCK DYSTROPHIC NAILS ANY # 10/27/2024 N/A 31834- Debride <25 sq cm 11/13/2024 N/A Encounters Encounter Location Date Provider Diagnosis [address] [address] 03/13/2024 Desire Black Type 2 diabetes mellitus with diabetic polyneuropathy E11.42 ; Unspecified atherosclerosis of [place] arteries of extremities, bilateral legs I70.203 ; Skin ulcer of toe of right foot, limited to breakdown of skin L97.511 ; Pain in right ankle and joints of right foot M25.571 ; Bursitis of right foot M77.51 ; Pain in right foot M79.671 ; Hallux valgus (acquired), right foot M20.11 and Hammertoe of right foot M20.[address] [address] 03/27/2024 Desire Black Pain in right foot M79.671 ; Hallux valgus (acquired), right foot M20.11 ; Pressure injury of right foot, stage 1 L89.891 ; Hammertoe of right foot M20.41 and Type 2 diabetes mellitus with diabetic polyneuropathy E11.[address] [address] 05/01/2024 Corey Walden Cellulitis of right toe L03.031 ; Skin disease L98.9 ; Pain in right toe(s) M79.674 and Abscess of toe of right foot L02.[address] [address] 05/15/2024 Desire Black Skin ulcer of toe of right foot, limited to breakdown of skin L97.511 ; Cellulitis of right toe L03.031 and Pain in right toe(s) M79.[address] [address] 06/30/2024 Desire Black Type 2 diabetes mellitus with diabetic polyneuropathy E11.42 ; Unspecified atherosclerosis of [place] arteries of extremities, bilateral legs I70.203 and Ingrown nail L60.[address] [address] 10/27/2024 Desire Black Pain in right foot M79.671 ; Hallux valgus (acquired), right foot M20.11 ; Type 2 diabetes mellitus with diabetic polyneuropathy E11.42 ; Unspecified atherosclerosis of [place] arteries of extremities, bilateral legs I70.203 ; Pain in right ankle and joints of right foot M25.571 ; Bursitis of right foot M77.51 ; Xerosis of skin L85.3 and Abscess of toe, right L02.[address] [address] 11/13/2024 Desire Black Skin ulcer of toe of right foot, limited to breakdown of skin L97.511 ; Type 2 diabetes mellitus with diabetic polyneuropathy E11.42 and Unspecified atherosclerosis of [place] arteries of extremities, bilateral legs I70.[address] [address] 04/30/2024 Desire Black [address] [address] 05/02/2024 Desire Black [address] [address] 10/27/2024 Desire Black Assessments Encounter Date Diagnosis [...] CARE INSTRUCTIONS. pdf) 06/30/2024 Unspecified atherosclerosis of eastern [place] arteries of extremities, bilateral legs (ICD-10 - [...] CARE INSTRUCTIONS. pdf) 11/13/2024 Unspecified atherosclerosis of [place] arteries of extremities, bilateral legs (ICD-10 - I70.203) 06/30/2024 Ingrown nail (ICD-10 - L60.0) 05/15/2024 Pain in right toe(s) (ICD-10 - M79.674) 05/01/2024 Pain in right toe(s) (ICD-10 - M79.674) 03/13/2024 Unspecified atherosclerosis of [place] arteries of extremities, bilateral legs (ICD-10 - I70.203) 03/13/2024 Skin ulcer of toe of right foot, limited to breakdown of skin (ICD-10 - L97.511) Nonapplicable Patient Educated with: WOUND CARE INSTRUCTIONS. pdf (WOUND CARE INSTRUCTIONS. pdf) 03/27/2024 Hammertoe of right foot (ICD-10 - M20.41) 05/01/2024 Abscess of toe of right foot (ICD-10 - L02.611) 10/27/2024 Unspecified atherosclerosis of [place] arteries of extremities, bilateral legs (ICD-10 - [...] X ray : Foot, right 3V 06/29/2016 03172-Qfhpneem Plate 02/05/2023 80987-Hpfjcjmh Plate 11/21/2023 05741-Eivnalvj Plate 06/30/2024 54325-Qbrbkbox Plate Each Additional 53547- Debride <25 sq cm 03/27/2024 49316- Debride <25 sq cm 05/15/2024 05409- Debride <25 sq cm 04/12/2023 08847- Debride <25 sq cm 12/06/2023 21965- Debride <25 sq cm 03/13/2024 38626- Debride <25 sq cm 05/29/2022 24063- Debride <25 sq cm 06/12/2022 86710- Debride <25 sq cm 04/30/2015 54214- Debride <25 sq cm 12/29/2015 85388- Debride <25 sq cm 06/29/2016 75894- Debride <25 sq cm 08/09/2020 97400- Debride <25 sq cm 09/16/2020 86487- Debride <25 sq cm 11/13/2024 51966 I&D ABSCESS- SIMPLE,SINGLE 025 84189 I&D ABSCESS- SIMPLE,SINGLE 023 91528 I&D ABSCESS- SIMPLE,SINGLE 022 64216-JNHS SKIN LESIONS, 2 TO 4 09/05/19 22 76406-UHCM SKIN LESIONS, 2 TO 4 03/09/20 22 74533-HAHQ SKIN LESIONS, 2 TO 4 02/06/20 23 96734-SFUC SKIN LESIONS, 2 TO 4 10/02/19 23 12293-VFRS SKIN LESIONS, 2 TO 4 05/29/20 22 30461-TGZW SKIN LESIONS, 2 TO 4 03/13/20 24 66521-CQRZ SKIN LESIONS, 2 TO 4 06/07/20 23 35344-GAYM SKIN LESIONS, 2 TO 4 11/21/19 24 68287-BIVV SKIN LESIONS, 2 TO 4 06/30/20 24 75508-TCWT SKIN LESIONS, 2 TO 4 10/28/19 25 40402-OMUC SKIN LESIONS, 2 TO 4 09/16/19 21 06627-URYA SKIN LESIONS, 2 TO 4 09/01/19 20 55242-XSPO SKIN LESIONS, 2 TO 4 03/08/20 20 95082-SHCK SKIN LESIONS, 2 TO 4 04/11/20 21 93875-QZBZ SKIN LESIONS, 2 TO 4 06/10/20 20 82976-SVGX SKIN LESIONS, 2 TO 4 12/10/19 21 09176-IYSM SKIN LESIONS, 2 TO 4 12/29/19 17 71212-NDSK SKIN LESIONS, 2 TO 4 06/29/20 16 70646-BFPD SKIN LESIONS, 2 TO 4 09/24/19 18 49050-LIBA SKIN LESIONS, 2 TO 4 03/25/20 18 74929-UBTC SKIN LESIONS, 2 TO 4 09/23/19 19 85936-XVYM SKIN LESIONS, 2 TO 4 03/03/20 19 68856-HXUS SKIN LESION 04/30/2015 49343-Zbyb. Subungual Hematoma 43873-WJIQ NAIL(S) 05/29/2022 50497-JKOU NAIL(S) 10/02/2022 51759-BSCC NAIL(S) 02/05/2023 94118-XLQV NAIL(S) 03/09/2022 92289-JWGC NAIL(S) 09/05/2021 16114-IQPQ NAIL(S) 12/09/2020 79111-YRSG NAIL(S) 06/10/2020 24572-RSVR NAIL(S) 04/11/2021 79459-LIZY NAIL(S) 03/08/2020 16706-HWSH NAIL(S) 09/16/2020 X2539-QMGPGOWO DYSTROPHIC NAILS ANY # A7552-RUBRRABD DYSTROPHIC NAILS ANY # X7386-SLLTHBIH DYSTROPHIC NAILS ANY # R6028-MUPXFPYY DYSTROPHIC NAILS ANY # L4050-YIIKGVNQ DYSTROPHIC NAILS ANY # O6019-JCTJPDSQ DYSTROPHIC NAILS ANY # Q2196-YZPIXBYK DYSTROPHIC NAILS ANY # V2584-AJBXZFIH DYSTROPHIC NAILS ANY # C1788-OIQUUPHF DYSTROPHIC NAILS ANY # P3675-XGVTMQRV DYSTROPHIC NAILS ANY # B0974-JDFGLGKW DYSTROPHIC NAILS ANY # D8433-GPTCUCNC DYSTROPHIC NAILS ANY # 07644-Nvmbuawhw, Toes 06/29/2016 CRP 03/29/2021 Next Appt Details Provider Name:Desire Zaman , 03/26/2025 10:15:00 AM, [address] [place] [address], [address], Insurance Providers Payer Name Payer Address Payer Phone Subscriber Number Group Number Insured Name Patient Relationship to Insured Coverage Start Date Coverage End Date [facility] [address] [place] [phone] [id number] Graham Castillo Self - patient is the insured Medical (General) History Medical History History ICD Code Cancer Gall bladder problems High blood pressure Measles Mumps Chicken pox Joint implants/screws Diabetes mellitus type ll Surgical History Surgery Date(Month/Year) gall bladder 12/06/2014 appendectomy 03/2014 Stent 10/2023 Hospitalization History Reason Date(Month/Year)
--- OUTSIDE RECORDS SUMMARY | 2025-01-05 07:45 | XMS_ITS ---
Author Organization [facility] Address [address] [place] [address] Care Team Providers Care Culinary Worker Name Role Phone Dariel Russell Primary Care Provider Unav ailable Black, Desire Unavailable [phone] Allergies Allergen (clinical drug ingredient) Drug/Non Drug [...] Ordered Date Performed Result Body Sit e 38611 I&D ABSCESS- SIMPLE,SINGLE 10/27/2024 N/A 19001-ISMK SKIN LESIONS, 2 TO 4 10/27/2024 N/A W8964-BHXNYXCM DYSTROPHIC NAILS ANY # 10/27/2024 N/A Encounters Encounter Location Date Provider Diagnosis [facility] [place] [address] [place] [address] 10/27/2024 Desire Black Pain in right foot M79.671 ; Hallux valgus (acquired), right foot M20.11 ; Type 2 diabetes mellitus with diabetic polyneuropathy E11.42 ; Unspecified atherosclerosis of [place] arteries of extremities, bilateral legs I70.203 ; [...] (ICD-10 - E11.42) 10/27/2024 Unspecified atherosclerosis of [place] arteries of extremities, bilateral legs (ICD-10 - [...] INSTRUCTIONS.pdf) Pending Test Test Name Order Date 60191 I&D ABSCESS- SIMPLE,SINGLE 025 62434-DMZB SKIN LESIONS, 2 TO 4 10/28/19 25 Y8708-FQWUKRXA DYSTROPHIC NAILS ANY # Next Appt Details Follow Up: 2 Weeks, Reason: Provider Name:Desire Zaman , 03/26/2025 10:15:00 AM, [address] [place] [address], [place], [address], Procedure Notes * Category Sub-Category [...] dispensed. Recommended Tylenol or Motrin for pain/discomfort (56479) Type Single, Abscess Anesthesia 3cc of 1 [...] instrumentation by the physician of record - 71987 Nail Reduction Nail Reduction (-27) Trimming o [...] * Graham CASTILLO FDOB:1945 (78 yo M)Acc No.[id number]:10/27/2024 Progress Note Patient:?Graham CASTILLO Provider:?Desire Zaman DPM :1945???Age:78 Y???Sex:Male Michael e:10/27/2024 Address:[address] [place], [place] [address] Pcp:SHANELL Mensah Subjective: * Chief Complaints: * [...] with diabetic polyneuropathy - E11.42???4.?Unspecified atherosclerosis of [place] arteries of extremities, bilateral legs - I70.203???5.?Pain [...] 280, Refills 3.?? 3.?Abscess of toe, right?Procedure: 36408 I&D ABSCESS- SIMPLE,SINGLE Notes: Patient Educated with: [...] [facility] . Any evidence of granuloma was also removed at this time. No underlying bone was visualized. There was minimal bleeding as hemostasis was achieved through the temporary use of either a digital tournaquet or the aforementioned local with epinephrine. An application of sterile Bacitracin dressing was performed. Local wound care instructions were discussed and dispensed. Recommended Tylenol or Motrin for pain/discomfort (48221).?Keratoma Treatment:?Parring or Cutting of Benign Hyperkeratotic Lesion(s)?(-56) [...] instrumentation by the physician of record - 37040.?Nail Reduction:?Nail Reduction?(-27) Trimming of all dystrophic nails [...] or bed tissue - G0127.? * Procedure Codes:?15534 DRAIN AGE OF SKIN ABSCESS, Modifiers: T5 18631 TRIM SKIN LESIONS, 2 TO 4, Modifiers: [...]
--- OUTSIDE RECORDS SUMMARY | 2025-01-05 07:45 | XMS_ITS | Clinical Summary ---
Author Organization [facility] Address [address] [place] [address] Care Team Providers Care Phlebotomist Medical Lab Assistant Name Role Phone Dariel Hart Primary Care Provider [phone] Allergies Active Allergy Reactions Criticality Noted Date [...] age to complete this topic Care Teams Phlebotomist Medical Lab Assistant Relationship Specialty Start Date End Date Dariel Hart [address] [place], [place] [phone] PCP - General Family Medicine 01/18/24
--- OUTSIDE RECORDS SUMMARY | 2025-01-05 07:45 | XMS_ITS ---
Author Organization [facility] Address [address] [place] [address] Care Team Providers Care Drill Rig Operator Name Role Phone Dariel Russell Primary Care Provider Unav ailable Black, Desire Unavailable [phone] REASON FOR VISIT relay message Encounters Encounter Location Date Provider Diagnosis [address] [address] 10/27/2024 Desire Austyn Plan Of Treatment Next Appt Details Provider Name:Desire Bolton Austyn , 03/26/2025 10:15:00 AM, [address] [place], [address], Progress Notes * Graham CASTILLO FDOB:1945 (78 yo M)Acc No.[id number]:10/27/2024 Patient:?Graham CASTILLO :1945???Age:78 Y???Sex:Male Address:[address] [place] [address] * true * Date:? Generated for Printi ng/Faaixag/eTransmitting on:?01/05/2025 07:44 AM EDT
== END 2025-01-05 07:43 | disposition home or self-care (01) ==
LOC: HO.US 07:42
PROVIDERS: PCP Nurse Practitioner Family; Visit Provider Surgery Vascular Surgery
DX: I73.9 Peripheral vascular disease, unspecified (principal); L98.9 Disorder of the skin and subcutaneous tissue, unspecified
CPT/HCPCS: 76706; 93922; 93925; 99212

== ENCOUNTER → 2025-01-05 07:45 | Outpatient (BNV) | payer MEDICARE, SELFPAY | PROVIDERS: PCP Nurse Practitioner Family; Visit Provider Radiology Diagnostic Radiology | DX: I71.40 Abdominal aortic aneurysm, without rupture, unspecified (principal); I73.9 Peripheral vascular disease, unspecified | CPT/HCPCS: 76706; 93922; 93925 ==

== ENCOUNTER 2025-01-05 14:01 | Outpatient (AMB) | payer MEDICARE, SELFPAY ==
--- OUTSIDE RECORDS SUMMARY | 2025-01-05 14:18 | XMS_ITS | Encounter Summary ---
Author Organization [facility] Address [address] [place] [address] Care Team Providers Care Substation Operator Name Role Phone Dariel Hart NP Primary Care Provider [phone] Encounter Details Date Type Department Care Team (Late st Contact Info) Description 06/19/2024 10:12 AM EDT Hospital Encounter TH HISTORIC ENCOUNTERS EASTERN CONVERSION ONLY Aleshia, Daija Chan MD [address] [place] [address] Social History Tobacco Use Types Packs/Day Years [...] SOCIAL HISTORY: Quit smoking in 2009, has 71-kafk-mksi smoking history Denies any alcohol abuse, occasionally drink alcohol He used to work in [employer] ([employer] department) He is lives with his ?? [...] Care Team (Late st Contact Info) Description 06/30/2025 10:15 AM EST Office Visit [facility] Hematology Oncology [address] [place] [address] Daija Monk MD [address] [place] [address] documented as of this encounter Procedures Procedure [...] reference lab test (06/19/2024) us Provider Onbase LAB BLOOD ORDERABLES Final Re sult documented in this encounter Visit Diagnoses Not on filedocumented in this encounter Care Teams Substation Operator Relationship Specialty Start Date End Date Dariel Hart, KOSTA [address] [facility] [place], [place] PCP - General 12/16/19 documented as of this encounter
--- OUTSIDE RECORDS SUMMARY | 2025-01-05 14:18 | XMS_ITS | Clinical Summary ---
Author Organization [facility] Address [address] [place] [address] Care Team Providers Care Adjunct Communications Faculty Member Name Role Phone Dariel Hart Primary Care Provider [phone] Allergies Active Allergy Reactions Criticality Noted Date [...] age to complete this topic Care Teams Adjunct Communications Faculty Member Relationship Specialty Start Date End Date Dariel Hart [address] [place], [place] [phone] PCP - General Family Medicine 01/18/24
--- OUTSIDE RECORDS SUMMARY | 2025-01-05 14:18 | XMS_ITS | Encounter Summary ---
Author Organization [facility] Address [address] [place] [address] Care Team Providers Care Middle Stitcher Name Role Phone Dariel Hart NP Primary Care Provider + [phone] Encounter Details Date Type Department Care Team (Late st Contact Info) Description 05/29/2024 10:13 AM EDT Hospital Encounter TH HISTORIC ENCOUNTERS EASTERN CONVERSION ONLY Aleshia, Daija Cahn MD [address] [place] [address] Social History Tobacco Use Types Packs/Day Years [...] SOCIAL HISTORY: Quit smoking in 2009, has 63-qbrs-rqbp smoking history Denies any alcohol abuse, occasionally drink alcohol He used to work in [employer] ([employer] department) He is lives with his ?? [...] Description 06/30/2025 10:15 AM EST Office Visit [facility] Hematology Oncology [address] [place] [address] Daija Monk MD [address] [place] [address] documented as of this encounter Procedures Procedure Name Priority Date/Time Associated Diagnosis Comments ..MISCELLANEOUS REFERENCE LAB TEST 05/29/2024 documented in this encounter Results * Miscellaneous reference lab test (05/29/2024) us Provider Onbase LAB BLOOD ORDERABLES Final Re sult documented in this encounter Visit Diagnoses Not on filedocumented in this encounter Care Teams Middle Stitcher Relationship Specialty Start Date End Date Dariel Hart NP [address] [place], [place] PCP - General 12/16/19 documented as of this encounter
--- OUTSIDE RECORDS SUMMARY | 2025-01-05 14:18 | XMS_ITS | Clinical Summary ---
Author Organization [facility] Address [address] [place] [address] Phone Care Team Providers Care Extension Clerk Name Role Phone Dariel Hart NP Primary Care Provider Allergies Active Allergy Reactions Criticality Noted Date Comments Beck Inhibitors Unknown 10/06/2019 Amoxicillin-Pot Clavulanate 07/31/20 11 Penicillins Rash 04/06/2009 Sulfa (Sulfonamide Antibiotics) Swelling 07/29 Tetracyclines 07/31/2011 Medications atorvastatin (LIPITOR) 20 mg tablet Take 1 Tab by mouth daily. 06/16/20 19 Active losartan (COZAAR) 100 mg tablet Take 0.5 [...] by mouth 1 (one) time each day. 08/28/19 25 Active tamsulosin (FLOMAX) 0.4 mg 24 hr capsule Take 1 capsule (0.4 mg total) by mouth 1 (one) time each day. Active dorzolamide (TRUSOPT) 2 % ophthalmic solution Administer 1 drop into both eyes 2 (two) times a day. Active vit A/vit C/vit E/zinc/copper (PRESERVISION AREDS ORAL) Take by mouth. Act sriram azithromycin (ZITHROMAX) 250 mg tablet 10/06/19 20 025 Discontinued hydroCHLOROthi azide (MICROZIDE) 12.5 mg capsule 10/06/19 20 025 Discontinued methylPREDNISo lone (MEDROL DOSPAK) 4 mg tablet 025 Discontinued Active Problems Problem Noted Date Diagnosed Date Proteinuria 10/15/2019 Hypotension 10/15/2019 Cough 10/15/2019 Chronic kidney disease, stage 3 ([facility] V24, [facility] V28) 10/15/2019 Asthmatic bronchitis 10/06/2019 Type 2 diabetes mellitus wit h vascular disease ([facility] V24, [facility] V28) 10/04/2018 Elevated PSA 10/04/2018 Overview (08/08/2024): 06/2018 5.0; PV Urology; Nocturia/retention Colon polyps 10/04/2018 Type 2 diabetes mellitus wit h cataract ([facility] V24, [facility] V28) 05/27/2018 Peripheral vascular disease ([facility] V24) 2017 Hypertension 05/27/2018 Hyperlipidemia 05/27/2018 Arteriosclerosis of carotid artery 05/27/2018 Right bundle branch block (RBBB) 01/16/2018 Chronic obstructive pulmonar y disease ([facility] V24, [facility] V28) 01/16/2018 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 Hematology Oncology [address] [place] [address] Daija Monk MD Pancytopenia ([facility] V24, [facility] V28) (Primary Dx) 10/24/2024 7:28 AM EST Anesthesia Event [facility] Endoscopy [address] [place] [address] Dariel Romano MD 10/24/2024 6:40 AM EST - 10/24/2024 11:59 PM EST Hospital Encounter [facility] Endoscopy [address] [place] [address] Arnie Norwood MD Couture, Alison, CRNA Korobkov, Vitaliy, DO Dysphagia Discharge Disposition: Home or Self Care from Last 3 Months Immunizations Name Administration [...] 09/26/2011 DX:Cataract Chronic obstructive pulmonar y disease ([facility] V24, [facility] V28) 01/16/2018 DX:Chronic obstructive pulm onary disease [...] DX:Irri table bowel syndrome Peripheral vascular disease ([facility] V24) 05/27/2018 DX:Peripheral vascular disea se (HCC) Right bundle branch block (RBBB) 01/16/2018 DX:Right bundle branch block (RBBB) Type 2 diabetes mellitus wit h cataract ([facility] V24, [facility] V28) 05/27/2018 DX:Type 2 diabetes mellitus with cataract (HCC) Type 2 diabetes mellitus wit h vascular disease ([facility] V24, [facility] V28) 10/04/2018 DX:Type 2 diabetes mellitus with vascular disease (HCC) Diabetes mellitus ([facility] V 24, [facility] V28) DX:Diabetes mellitus (HCC) Hypertension DX:Hypertension Prostate cancer ([facility] V24 , [facility] V28) DX:Prostate cancer (HCC) Family History Medical History Relation Name Comments Pneumonia Father Breast cancer Mother Relation Name Status Comments Father Mother Social History Tobacco Use Types Packs/Day Years Used Date Smoking Tobacco: Some Days Smokeless Tobacco: Never Tobacco Cessation:Ready to Q [...] Sign Reading Time Taken Comments Blood Pressure 149/47 12/23/2024 10:24 AM EDT Pulse 99 12/23/2024 10:24 AM EDT Temperature 36.4 ??C (97.5 ??F) 12/23/2024 10:24 AM E DT Respiratory Rate 16 10/24/2024 8:11 AM EST Oxygen Saturation 100% 12/23/2024 10:24 AM EDT Inhaled Oxygen Concentration - - Weight 81.2 kg (179 lb) 12/23/2024 10:24 AM EDT Height 177.8 cm (5' 10 ) 10/24/2024 6:59 AM EST Body Mass Index 25.68 10/24/2024 6:59 AM EST Plan of Treatment Upcoming Encounters Date Type Department Care Team (Late st Contact Info) Description 06/30/2025 10:15 AM EST Office Visit [facility] Hematology Oncology [address] [place] [phone] Daija Monk MD [address] [place] [address] Health Maintenance Due Date Last Done Comments Diabetes: Annual Foot Exam 1955 Diabetes: Annual Retina Eye Exam 1955 Diabetes: Annual GFR (Glomerular Filtration Rate) 10/29/2020 10/30/2019 Depression Screening 07/30/2022 Medicare Annual Wellness Visit 07/30/2022 Social Influencers of Health Screening 07/30/2022 Diabetes: Annual Urine Albumin-Creatinine Ratio (uACR) 08/10/2022 10/15/2019 Diabetes: Blood Sugar Control Test (HGBA1C) 08/10/2022 10/10/2019 Hypertension/CHF/CAD Annual BMP Blood Test 08/10/2022 10/30/2019 Cholesterol Screening (Lipid Panel) 10/10/2024 10/10/2019 COVID-19 Vaccine (7 - Pfizer risk 2023- season) 2024 05/19/2024, 05/28/2023, 06/23/2022, Additional history exists Falls Risk Assessment 10/24/2025 10/24/2024 DTaP,Tdap,and Td Vaccines (2 - Td or Tdap) 02/07/2028 02/06/2018 Pneumococcal Vaccine: 50+ Years Completed 09/27/2022, 05/10/2018, 10/11/2012 RSV Immunization Adult Patients Completed 06/14/2023 Zoster Vaccines Completed 12/11/2023, 07/28, 09/05/2012 Influenza Vaccine Completed 06/02/2024, , 05/24/2022, Additional [...] Procedure Name Priority Date/Time Associated Diagnosis Comments CBC WITH AUTO DIFFERENTIAL Routine 12/15/2024 11:25 AM EDT Simple chronic anemia Acquired pancytopenia ([facility] V24, [facility] V28) RETICULOCYTE COUNT Routine 12/15/2024 11 :25 AM EDT Simple chronic anemia Acquired pancytopenia ([facility] V24, [facility] V28) CBC AND DIFFERENTIAL Routine 12/15/2024 11:25 AM EDT Simple chronic anemia Acquired pancytopenia ([facility] V24, [facility] V28) VITAMIN B12 Routine 12/15/2024 11:25 AM EDT Simple chronic anemia Acquired pancytopenia ([facility] V24, [facility] V28) ERYTHROPOIETIN Routine 12/15/2024 11:25 AM EDT Simple chronic anemia Acquired pancytopenia ([facility] V24, [facility] V28) EGD Routine 10/24/2024 7:40 AM EST Dysphagia ANNUAL BMP BLOOD TEST Routine 10/30/2019 URINE ALBUMIN CREATININE RATIO Routine 10/15/2019 HEMOGLOBIN A1C Routine 10/10/2019 LIPID PANEL Routine 10/10/2019 from Last 3 Months or Most Recently Relevant to Health Maintenance Results * (ABNORMAL) CBC auto differential (12/15/2024 11:25 AM EDT) WBC 2.2(L) 4.8 - 10.8 K/mcL LAB HEMETOLOGY METHOD 12/15/2024 1:23 PM [facility] RBC 3.20(L) 4.50 - 5.50 M/mcL LAB HEMETOLOGY METHOD 12/15/2024 1:23 PM [facility] Hemoglobin 11.2(L) 13.5 - 17.5 g/dL LAB HEMETOLOGY METHOD 12/15/2024 1:23 PM [facility] Hematocrit 31.8(L) 42.0 - 54.0 % LAB HEMETOLOGY METHOD 12/15/2024 1:23 PM [facility] MCV 98.8(H) 79.0 - 98.0 FL LAB HEMETOLOGY METHOD 12/15/2024 1:23 PM [facility] MCH 34.8(H) 27.0 - 32.0 pcg LAB HEMETOLOGY METHOD 12/15/2024 1:23 PM [facility] MCHC 35.2 32.0 - 37.0 g/dL LAB HEMETOLOGY METHOD 12/15/2024 1:23 PM [facility] RDW 13.2 11.0 - 15.0 % LAB HEMETOLOGY METHOD 12/15/2024 1:23 PM [facility] Platelets 117(L) 130 - 400 K/mcL LAB HEMETOLOGY METHOD 12/15/2024 1:23 PM [facility] MPV 10.5 7.0 - 11.0 FL LAB HEMETOLOGY METHOD 12/15/2024 1:23 PM [facility] NRBC 0.0 <1.0 % LAB HEMETOLOGY METHOD 12/15/2024 1:23 PM [facility] NRBC Absolute 0.00 <0.10 K/mcL LAB HEMETOLOGY METHOD 12/15/2024 1:23 PM [facility] Neutrophils Relative 64.4 % LAB HEMETOLOGY METHOD 12/15/2024 1:23 PM [facility] Lymphocytes Relative 20.5 % LAB HEMETOLOGY METHOD 12/15/2024 1:23 PM [facility] Monocytes Relative 10.5 % LAB HEMETOLOGY METHOD 12/15/2024 1:23 PM [facility] Eosinophils Relative 3.6 % LAB HEMETOLOGY METHOD 12/15/2024 1:23 PM [facility] Basophils Relative 0.5 % LAB HEMETOLOGY METHOD 12/15/2024 1:23 PM [facility] Immature Granulocytes Relative 0.5 % LAB HEMETOLOGY METHOD 12/15/2024 1:23 PM [facility] Neutrophils Absolute 1.42(L) 1.50 - 7.00 K/mcL LAB HEMETOLOGY METHOD 12/15/2024 1:23 PM [facility] Lymphocytes Absolute 0.45(L) 1.00 - 5.00 K/mcL LAB HEMETOLOGY METHOD 12/15/2024 1:23 PM [facility] Monocytes Absolute 0.23 0.20 - 1.00 K/mcL LAB HEMETOLOGY METHOD 12/15/2024 1:23 PM [facility] Eosinophils Absolute 0.08 0.00 - 0.50 K/mcL LAB HEMETOLOGY METHOD 12/15/2024 1:23 PM [facility] Basophils Absolute 0.01 0.00 - 0.20 K/mcL LAB HEMETOLOGY METHOD 12/15/2024 1:23 PM [facility] Immature Granulocytes Absolute 0.01 0.00 - 0.03 K/mcL LAB HEMETOLOGY METHOD 12/15/2024 1:23 PM [facility] Blood Venous blood specimen / Unknown Venipuncture / Unknown 12/15/2024 11:25 AM EDT 12/15/2024 12:30 PM EDT us Daija Monk MD LAB BLOOD ORDERABLES Final R esult Performing Organization Address City/[facility]/ZIP Co de Phone Number [facility] [address] [place] [address], [place] [phone] * (ABNORMAL) Erythropoietin (12/15/2024 11:25 AM EDT) Erythropoietin 37.9(H) 2.6 - 18.5 mIU/mL 12/18/2024 3:41 PM EDT [facility] Comment: Test performed at [facility], [address] , [place], [place] ??[address] ? [phone] Raegan Grant MD, PhD - Automotive Drivability Technician Blood Venous blood specimen / Unknown Venipuncture / Unknown 12/15/2024 11:25 AM EDT 12/15/2024 12:32 PM EDT us Daija Monk MD LAB BLOOD ORDERABLES Final R esult Performing Organization Address City/[facility]/ZIP Co de Phone Number [facility] [address] [place] [address] * (ABNORMAL) Reticulocyte count (12/15/2024 11:25 AM EDT) Retic Ct Abs 0.070 0.030 - 0.090 M/mcL LAB HEMETOLOGY METHOD 12/15/2024 1:23 PM EDT [facility] Retic Ct Pct 2.2(H) 0.7 - 1.7 % LAB HEMETOLOGY METHOD 12/15/2024 1:23 PM EDT [facility] Immature Retic Fract 15.1 2.3 - 15.9 % LAB HEMETOLOGY METHOD 12/15/2024 1:23 PM EDT [facility] Reticulocyte Hemoglobin 35.3 >29.0 pcg LAB HEMETOLOGY METHOD 12/15/2024 1:23 PM EDT [facility] Blood Venous blood specimen / Unknown Venipuncture / Unknown 12/15/2024 11:25 AM EDT 12/15/2024 12:30 PM EDT Daija Monk MD LAB BLOOD ORDERABLES Final R esult Performing Organization Address City/[facility]/ZIP Co de Phone Number [facility] [address] [place] [address], [place] [phone] * Vitamin B12 (12/15/2024 11:25 AM EDT) [facility] Vitamin B-12 659 250 - 900 pcg/mL LAB CHEMISTRY METHOD 12/15/2024 2:10 PM EDT [facility] Blood Venous blood specimen / Unknown Venipuncture / Unknown 12/15/2024 11:25 AM EDT 12/15/2024 12:32 PM EDT Daija Monk MD LAB BLOOD ORDERABLES Final R esult Performing Organization Address [facility] de Phone Number [facility] [address] [place] [address], [place] [phone] * EGD Dilation; Anesthesia - MAC; [facility] END[facility] (10/24/2024 7:40 AM EST) Anatomical [...] for retreatment. Narrative 10/24/2024 7:[address] [facility] GI Patient Name: Graham Castillo Procedure Date: [...] Procedure Code(s): ? --- Professional --- ? 49220, Esophagogastroduodenoscopy, flexible, ? transoral; with transendoscopic balloon dilation of ? esophagus (less than 30 mm diameter) Diagnosis Code(s): ? --- Professional --- ? K22.2, Esophageal obstruction ? R13.14, Dysphagia, pharyngoesophageal phase CPT copyright 2020 [employer]. All rights reserved. The codes documented in this report are preliminary and upon branch operations specialist review may be revised to meet current compliance requirements. MD Arnie Goff MD 10/24/2024 7:42:38 AM This report has been signed electronically.Arnie Norwood MD Number of Addenda: 0 Note Initiated On: 10/24/2024 7:30 AM Scope In: Scope Out: ? Endoscopy Department at [facility] - [address] [place] [address], ? [place] [address] Procedure Note Arnie Norwood MD - 10/24/2024 [facility] GI Patient Name: Graham Castillo Procedure Date: [...] without abnormality. Procedure Code(s): --- Professional --- 59877, Esophagogastroduodenoscopy, flexible, transoral; with transendoscopic balloon dilation of esophagus (less than 30 mm diameter) Diagnosis Code(s): --- Professional --- K22.2, Esophageal obstruction R13.14, Dysphagia, pharyngoesophageal phase CPT copyright 2020 [employer]. All rights reserved. The codes documented in this report are preliminary and upon branch operations specialist reviewmay be revised to meet current compliance requirements. MD Arnie Goff MD 10/24/2024 7:42:38 AM This report has been signed electronically.Arnie Norwood MD Number of Addenda: 0 Note Initiated On: 10/24/2024 7:30 AM Scope In: Scope Out: Endoscopy Department at [facility] - [address] [place] [phone] IMPRESSION: - Benign-appearing esophageal stenosis. Dilated. - [...] Repeat upper endoscopy PRN for retreatment. Result [facility] Arnie Norwood MD GI~PROCEDURE ORDERABLES Final R esult * Annual BMP Blood Test (10/30/2019) Pathologist [facility] Annual BMP Blood Test Abstracted Result [facility] Historical Provider [facility] Final Result * Urine Albumin Creatinine Ratio (10/15/2019) Pathologist [facility] Urine Albumin Creatinine Ratio Abstracted Result [facility] Provider [facility] Final Result * Hemoglobin A1c (10/10/2019) Hemoglobin A1C 6.3 <=6.5 % Blood Venous blood specimen / Unknown Historical Provider LAB BLOOD ORDERABLES Scarlett l Result * Lipid panel (10/10/2019) LDL/HDL Ratio 2 0 - 4 Triglycerides 149 0 - 150 mg/dL Cholesterol 145 0 - 200 mg/dL HDL 69 >=40 mg/dL LDL Cholesterol 47 0 - 100 mg/dL Blood Venous blood specimen / Unknown Historical Provider LAB BLOOD ORDERABLES Scarlett l Result from Last 3 Months or Most Recently Relevant to Health Maintenance Insurance [employer] Care Teams Extension Clerk Relationship Specialty Start Date End Date Dariel Hart NP [address], [place] PCP - General 12/16/19
--- NOTE | 2025-01-05 14:46 | AM.OFFWIN_ITS ---
Intake Vital Signs 3 01/05/25 14:47 Weight 176 lb BP 114/70 Blood Pressure Location Rt brachial Position Sitting Pulse 72 Pulse Source Pulse Oximeter Pulse Oximetry (%) 97 Oxygen Delivery Method Room Air Intake Visit Reasons: EP-lt ankle lump Intake Note: Patient here for lump on left ramirez that has been present for a couple of weeks. Patient Tobacco Use Status: Former Tobacco user Allergies amoxicillin Allergy (Unknown, Verified 01/05/25 14:47) Unknown clindamycin Allergy (Unknown, Verified 01/05/25 14:47) heart burn penicillin G Allergy (Unknown, Verified 01/05/25 14:47) Unknown sulfacetamide [From Sulfacet-R] Allergy (Unknown, Verified 01/05/25 14:47) Unknown sulfur [From Sulfacet-R] Allergy (Unknown, Verified 01/05/25 14:47) Unknown tetracycline Allergy (Unknown, Verified 01/05/25 14:47) Unknown Do you need a note to return to daycare/school/sports/work: No HPI HPI Comments 2 History of Present Illness0 Details 79 y/o Male patient who presents to the walk in clinic with c/o a small Lesion on left leg Ramirez x 3 weeks. States that he first had a Scab that eventually developed into a hard tender round lesion. He does have h/o Multiple Squamous cell CA lesions removed from Head/Scalp and Face by [facility]. S/P h/o Prostate CA with Radiation. COUNTS INCLUDE 234 BEDS AT THE [facility] Medical History (Updated 01/05/25 @ 15:27 by Amaris Garcia NP) Skin lesion of left leg Clonal cytopenia of undetermined significance (CCUS) Pancytopenia Esophageal stenosis Hyponatremia Prostate cancer Malignant neoplasm of skin Arteriolosclerosis COPD (chronic obstructive pulmonary disease) Esophageal stricture Benign familial tremor PVD (peripheral vascular disease) Dyslipidemia Elevated PSA RBBB Pulmonary emphysema Diabetes HTN (hypertension) Surgical History S/P angioplasty with stent (11/14/23) History of cholecystectomy History of hernia surgery Family History Father No problems noted. Mother No problems noted. Daughter No problems noted. Daughter No problems noted. Social History (Reviewed 12/08/24 @ 12:[address] [facility] Housing: House Alcohol intake: current Patient Tobacco Use Status: Former Tobacco user Years Smoked: 9 years ago e-Cigarette/Vaping Use: Never Used Second Hand Smoke Exposure: No service: Yes Current occupational status: retired Current occupational exposures/hazards: No Cognitive needs: No Hearing needs: No Vision needs: No Review of Systems Const All systems reviewed & are unremarkable except as noted in HPI and below Physical Exam Vital Signs: Last Vital Signs Pulse 72 01/05/25 14:47 BP 114/70 01/05/25 14:47 Pulse Ox 97 01/05/25 14:47 Oxygen Delivery Method Room Air 01/05/25 14:47 Const General: no acute distress Orientation/consciousness: patient oriented x3 Skin Full body images: 2 1. Lesion 0.5 inch TTP, raised round and crusting left Ramirez. Neuro General: patient oriented x3 Extrem Other: Psych Speech and movement: Normal speech and movement present Assessment & Plan Assessment & Plan (1) Skin lesion of left leg: Code(s): L98.9 - Disorder of the skin and subcutaneous tissue, unspecified Plan: Patient to call [facility] for an appointment. Coding Level of Care Code Est Pt Level 4 (11811) Diagnoses Skin lesion of left leg L98.9 Time Spent (min) 20
[2025-01-05 14:47] VITALS: BP 114/70; PULSE 72; O2SAT 97
== END 2025-01-05 15:31 | disposition home or self-care (01) ==
PROVIDERS: PCP Nurse Practitioner Family; Visit Provider Nurse Practitioner Family
DX: L98.9 Disorder of the skin and subcutaneous tissue, unspecified (principal)

== ENCOUNTER 2025-01-08 13:47 | Outpatient (AMB) | payer MEDICARE, SELFPAY ==
--- NOTE | 2025-01-08 14:09 | MHC.OFFVIS ---
Vital Signs 01/08/25 14:10 Height 5 ft 10 in Weight 176 lb BMI 25.3 Intake Visit Reasons: 6 mo follow up Arterial US 01/05/25 Intake Note: 6 mo follow up arterial US 01/05/25 w/ hx of bilateral iliac stenting 10/2023. Pt states no complaints. Sewing Machine Tester Required: No Accompanied by: Spouse Allergies amoxicillin Allergy (Unknown, Verified 01/08/25 14:12) Unknown clindamycin Allergy (Unknown, Verified 01/08/25 14:12) heart burn penicillin G Allergy (Unknown, Verified 01/08/25 14:12) Unknown sulfacetamide [From Sulfacet-R] Allergy (Unknown, Verified 01/08/25 14:12) Unknown sulfur [From Sulfacet-R] Allergy (Unknown, Verified 01/08/25 14:12) Unknown tetracycline Allergy (Unknown, Verified 01/08/25 14:12) Unknown HPI HPI 6 mo follow up Arterial US 01/05/25: Details: The patient is an 79-year-old male presenting for a follow-up regarding Peripheral Arterial Disease and a recent biopsy for a suspected squamous cell carcinoma. He reports visiting a electronics repair technician yesterday, and a diagnosis of squamous cell carcinoma on his left calf was noted, with pending biopsy results for further analysis. Significant for his vascular health history, the patient had bilateral iliac stents placed, which have improved his walking capacity, allowing him to navigate grocery stores and department stores without rest?an improvement from his pre-stent capacity. He sometimes experiences short stops due to intermittent claudication but resumes after brief rest periods. The patient now presents for routine surveillance follow-up. [facility] Medical History Skin lesion of left leg Clonal cytopenia of undetermined significance (CCUS) Pancytopenia Esophageal stenosis Hyponatremia Prostate cancer Malignant neoplasm of skin Arteriolosclerosis COPD (chronic obstructive pulmonary disease) Esophageal stricture Benign familial tremor PVD (peripheral vascular disease) Dyslipidemia Elevated PSA RBBB Pulmonary emphysema Diabetes HTN (hypertension) Surgical History S/P angioplasty with stent (11/14/23) History of cholecystectomy History of hernia surgery Family History Father No problems noted. Mother No problems noted. Daughter No problems noted. Daughter No problems noted. Social History Housing: House Alcohol intake: current Patient Tobacco Use Status: Former Tobacco user Years Smoked: 9 years ago e-Cigarette/Vaping Use: Never Used Second Hand Smoke Exposure: No service: Yes Current occupational status: retired Current occupational exposures/hazards: No Cognitive needs: No Hearing needs: No Vision needs: No Review of Systems Const All systems reviewed & are unremarkable except as noted in HPI and below Reports no additional complaints ENT Reports Normal hearing present Card Denies chest pain, Denies chest pain at rest, Denies chest pain with activity and Denies pedal edema Resp Denies cough GI Denies abdominal pain Musc Denies abnormal gait, Denies muscle cramps and Denies radiating pain into limb Skin/Breast Denies skin ulcer and Denies wounds Neuro Reports Normal hearing present and Denies abnormal gait Psych Reports no additional complaints Physical Exam Vital Signs: BMI result Body Mass Index 25.3 Const General: cooperative, healthy appearing and comfortable Orientation/consciousness: oriented to person, oriented to place and oriented to time HEENT Head: Yes normal to inspection Neck Neck: Yes normal visual inspection Carotids: no bruits Chest Chest palpation & inspection: normal inspection of the chest Resp Effort & Inspection: normal respiratory effort and able to speak in complete sentences Auscultation: clear to auscultation bilaterally, no crackles, no rales, no rhonchi and no wheezes Cardio Other: Bilateral DP signals Rate: regular rate Rhythm: regular rhythm Heart sounds: S1 normal heart sound present and S2 normal heart sound present Bruits: no carotid bruits GI Inspection: Yes normal to inspection Skin Wounds: no wounds Hair: normal Neuro General: oriented to person, oriented to place and oriented to time Cranial nerves: Yes CN's II-XII intact bilaterally and Yes Normal hearing present Cognition (Neuro): normal cognition Motor exam (neuro): 5/5 motor strength present throughout Extrem Other: venous exam: No significant superficial varicosities or spider telangiectasias, minimal edema General: No clubbing, No cyanosis and No edema Psych Appearance: grossly normal Mental Status: mental status grossly normal Speech and movement: Normal speech and movement present Results Reviewed Results Reviewed: Noninvasive arterial testing dated 01/05/2025 demonstrates BETTINA on the right of 0.35 and on the left of 0.49 with reasonable waveforms down below although monophasic. Still concerning for inflow disease. Assessment & Plan Assessment & Plan (1) PAD (peripheral artery disease): Comment: 11/14/2023 - bilateral iliac artery stent Code(s): I73.9 - Peripheral vascular disease, unspecified Category: Medical Plan: In short patient has stable claudication. I did review the pathophysiology of peripheral vascular disease with the patient. In addition we did discuss routine conservative measures including a healthy diet and the importance of exercise and ambulation. We did discuss risk factor modification. The patient will continue to to follow-up with surveillance follow-up in approximately 6 months. Thank you for allowing us to participate in this patient's care. If there are any questions or concerns please do not hesitate to contact us. Orders: Orders US arterial duplex LE BI 6 Months I73.9 - Peripheral vascular disease, unspecified US abdominal aortic aneurysm 6 Months I73.9 - Peripheral vascular disease, unspecified Coding Level of Care Code Est Pt Level 4 (86158) Diagnoses PAD (peripheral artery disease) I73.9
[2025-01-08 14:10] VITALS: BMI 25.3
--- OUTSIDE RECORDS SUMMARY | 2025-01-08 14:26 | XMS_ITS | Encounter Summary ---
Author Organization [facility] Address [address] [place] [address] Care Team Providers Care Communications Designer Name Role Phone Dariel Hart NP Primary Care Provider + [phone] Encounter Details Date Type Department Care Team (Late st Contact Info) Description 06/19/2024 10:12 AM EDT Hospital Encounter TH HISTORIC ENCOUNTERS EASTERN CONVERSION ONLY Aleshia, Daija Chan MD [address] [place] [phone] Social History Tobacco Use Types Packs/Day Years [...] SOCIAL HISTORY: Quit smoking in 2009, has [id number] smoking history Denies any alcohol abuse, occasionally drink alcohol He used to work in [employer] ([employer] department) He is lives with his ?? [...] Description 06/30/2025 10:15 AM EST Office Visit [facility] Hematology Oncology [address] [place] [address] Daija Monk MD [address] [place] [address] documented as of this encounter Procedures Procedure [...] on filedocumented in this encounter Care Teams Communications Designer Relationship Specialty Start Date End Date Dariel Hart, KOSTA [address] [facility] [place], [place] PCP - General 12/16/19 documented as of this encounter
--- OUTSIDE RECORDS SUMMARY | 2025-01-08 14:27 | XMS_ITS | Encounter Summary ---
Author Organization [facility] Address [address] [place] [address] Care Team Providers Care Claims Auditor Name Role Phone Dariel Hart NP Primary Care Provider + [phone] Encounter Details Date Type Department Care Team (Late st Contact Info) Description 05/29/2024 10:13 AM EDT Hospital Encounter TH HISTORIC ENCOUNTERS EASTERN CONVERSION ONLY Aleshia, Daija Chan MD [address] [place] [id number] Social History Tobacco Use Types Packs/Day Years [...] SOCIAL HISTORY: Quit smoking in 2009, has [id number] smoking history Denies any alcohol abuse, occasionally drink alcohol He used to work in [employer] ([employer] department) He is lives with his ?? [...] Description 06/30/2025 10:15 AM EST Office Visit [facility] Hematology Oncology [address] [place] [address] Daija Monk MD [address] [place] [address] documented as of this encounter Procedures Procedure Name Priority Date/Time Associated Diagnosis Comments ..MISCELLANEOUS REFERENCE LAB TEST 05/29/2024 documented in this encounter Results * Miscellaneous reference lab test (05/29/2024) us Provider Onbase LAB BLOOD ORDERABLES Final Re sult documented in this encounter Visit Diagnoses Not on filedocumented in this encounter Care Teams Claims Auditor Relationship Specialty Start Date End Date Dariel Hart NP [address] [place], [place] PCP - General 12/16/19 documented as of this encounter
--- OUTSIDE RECORDS SUMMARY | 2025-01-08 14:27 | XMS_ITS | Clinical Summary ---
Author Organization [facility] Address [address] [place] [address] Care Team Providers Care Debone Processing Supervisor Name Role Phone Dariel Hart Primary Care Provider [phone] Allergies Active Allergy Reactions Criticality Noted Date [...] age to complete this topic Care Teams Debone Processing Supervisor Relationship Specialty Start Date End Date Dariel Hart [address] [place], [place] [id number] PCP - General Family Medicine 01/18/24
--- OUTSIDE RECORDS SUMMARY | 2025-01-08 14:27 | XMS_ITS ---
Author Organization [facility] Address [address] [place] [address] Care Team Providers Care Registered Nurse Cardiovascular Icu Name Role Phone Dariel Russell Primary Care Provider Unav ailable Black, Desire Unavailable [phone] REASON FOR VISIT relay message Encounters Encounter Location Date Provider Diagnosis [address] [address] 10/27/2024 Desire Austyn Plan Of Treatment Next Appt Details Provider Name:Desire Zaman , 03/26/2025 10:15:00 AM, [address] [place], [address], Progress Notes * GIBSONAraceliGraham SIERRA FDOB:1945 (78 yo M)Acc No.[id number]:10/27/2024 Patient:?Graham CASTILLO :1945???Age:78 Y???Sex:Male Address:[address] [place] [address] * true * Date:? Generated for Printi ng/Faaixag/eTransmitting on:?01/08/2025 02:26 PM EDT
--- OUTSIDE RECORDS SUMMARY | 2025-01-08 14:27 | XMS_ITS ---
[facility] Address [address] [place] [address] Care Team Providers Care Laborer/Key Man Name Role Phone Dariel Russell Primary Care Provider Unav ailable Black, Desire Unavailable [phone] Allergies Allergen (clinical drug ingredient) Drug/Non Drug [...] Ordered Date Performed Result Body Sit e 20749- Debride <25 sq cm 11/13/2024 N/A Encounters Encounter Location Date Provider Diagnosis [facility] [address] [place] [address] 11/13/2024 Desire Black Skin ulcer of toe of right foot, limited to breakdown of skin L97.511 ; Type 2 diabetes mellitus with diabetic polyneuropathy E11.42 and 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 pdf (WOUND CARE INSTRUCTIONS. 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, bilateral legs (ICD-10 - I70.203) 11/13/2024 Other Plan Of Treatment Treatment Notes Assessment Notes Skin ulcer of toe of right f oot, limited to breakdown of skin Patient Educated with: WOUND CARE INSTRUCTIONS.pdf (WOUND CARE INSTRUCTIONS.pdf) Pending Test Test Name Order Date 68720- Debride <25 sq cm 11/13/2024 Next Appt Details Follow Up: as scheduled, Lizzie son: Provider Name:Desire Zaman , 03/26/2025 10:15:00 AM, [address] [place], [address], Procedure Notes * Category Sub-Category Detail Notes [...] of the wound post debridement is stable (92566), The patient was instructed on importance of [...] Notes * SHAMIKARIGOGraham FDOB:1945 (78 yo M)Acc No.[id number]:11/13/2024 Progress Notes Patient:?Graham CASTILLO Provider:?Desire Zaman DPM :1945???Age:78 Y???Sex:Male Michael e:11/13/2024 Address:[address] [place], [place] [id number] Pcp:SHANELL Mensah Subjective: * Chief Complaints: * [...] ?Exercise: yes, walking. ?Marital status: . 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 [...] of the wound post debridement is stable (91195), The patient was instructed on importance of [...] local wound care as directed.? * Procedure Codes:?88693 ACTIV E WOUND CARE/20 CM OR < * Preventive Medicine:? ??Screening/Special Tests:?Fall Risk?Screening:?No falls in the past year ?FALLS: Screening for Future Fall Risk?Have you had any falls with injury in the past year??No * Follow Up:?as scheduled * Images: * Sign off status: Completed true * Provider:?Desire Zaman DPM Date:?2024 Generated for Rocky hayes/Patricia/Altagracia on:?01/08/2025 02:27 PM EDT History and Physical Notes * [...]
--- OUTSIDE RECORDS SUMMARY | 2025-01-08 14:27 | XMS_ITS | Patient Health Record ---
[facility] Address [address] [place] [address] Care Team Providers Care Lead Inspector Name Role Phone Dariel Russell Primary Care Provider Unav ailable Black, Desire Unavailable [phone] Marysol Waldenter Unavailable [phone] Allergies Allergen (clinical drug ingredient) Drug/Non Drug [...] Referral Diagnosis 1 Unspecified atherosc lerosis of [place] arteries of extremities, bilateral legs (I70.203) Diagnosis [...] (S90.222A) Diagnosis 34 Unspecified atherosc lerosis of [place] arteries of extremities, bilateral legs (I70.203) Diagnosis [...] (E11.42) Diagnosis 53 Unspecified atherosc lerosis of [place] arteries of extremities, bilateral legs (I70.203) Diagnosis [...] Name Dariel Referring Provider Last Name Hailey [facility] Referred Provider Desire Zaman [facility] Address [address] [facility], [place],[address],[place] Referred Provider Specialty Podiatry Referral Priority Routine Diagnosis 1 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) Diagnosis 2 Unspecified atherosc lerosis of [place] arteries of extremities, bilateral legs (I70.203) Diagnosis [...] Dariel Referring Provider Last Name Hailey Referred [facility] Referred Provider Corey Walden [facility] [address] [facility], [place],[address],[place] Referred Provider Specialty Podiatry Referral Priority Routine [...] Problem Acquired hammer toe of right foot (1959009813782950 ) Other hammer toe(s) (acquired), right foot (M20.41) Active confirmed Problem Acquired hallux valgus (09569367) Hallux valgus (acquired), left foot (M20.12) Active confirmed Problem Acquired hammer toe of left foot (8956008330919861 ) Other hammer toe(s) (acquired), left foot (M20.42) Active confirmed Problem Diabetic foot ulcer (473094015) Non-pressure chronic ulcer of other part of left foot limited to breakdown of skin (L97.521) Active confirmed Problem Atherosclerosis of [place] arteries of the extremities (198389673983422) Unspecified atherosclerosis of [place] arteries of extremities, 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 Problem Acquired hallux valgus (60987465) Hallux valgus (acquired), right foot (M20.11) Active confirmed Problem Ulcer of foot (06639349) Non-pressure chronic ulcer of other part of left foot limited to breakdown of skin (L97.521) Active confirmed Problem Polyneuropathy due to type 2 diabetes mellitus (264656093) Type 2 diabetes mellitus with diabetic polyneuropathy (E11.42) Active confirmed Problem Primary gout (30997121) Idiopathic gout, right ankle and foot (M10.071) Active confirmed Problem Neuropathy (098590865) Neuropathy (G62.9) Active confirmed Problem Primary gout (29965480) Acute idiopathic gout of right foot (M10.071) Active confirmed Problem Acquired deformity of right foot (3649138435321076 0) PlantarFlexion of metatarsal of right foot (M21.6X1) Active confirmed Problem Acquired deformity of left foot (5681691314068763 4) PlantarFlexion of metatarsal of left foot (M21.6X2) Active confirmed Problem Gouty tophus of left foot (8975102226673735 9) 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) Active confirmed Problem Ulcer of toe of right foot (disorder) (0775944468940951 1) Skin ulcer of toe of right foot, limited to breakdown of skin (L97.511) Active confirmed Response to treatment, Nonapplica ble Problem Acquired cavus deformity of right foot (disorder) (4847576264337856 ) 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) Active confirmed Problem Ulcer of toe of left foot (disorder) (9758348308678320 2) Skin ulcer of toe of left foot, limited to breakdown of skin (L97.521) Active confirmed Vital Signs Blood pressure diastolic 70 mm Hg 11/13/2024 Height 5 ft 11 in in 11/13/2024 Blood pressure systolic 140 mm Hg 11/13/2024 Weight 176 lbs 11/13/2024 BMI 24.54 kg/m2 11/13/2024 Procedures Procedure Date Ordered Date Performed Result Body Sit e 55183- Debride <25 sq cm 03/13/2024 N/A 35372-NFJX SKIN LESIONS, 2 TO 4 03/13/2024 N/A F8604-SABOUSZC DYSTROPHIC NAILS ANY # 03/13/2024 N/A 69870- Debride <25 sq cm 03/27/2024 N/A 67792- Debride <25 sq cm 05/15/2024 N/A 55350-Pagujfzo Plate 06/30/2024 N/A 35823-CSWM SKIN LESIONS, 2 TO 4 06/30/2024 N/A B3308-YPCJANCD DYSTROPHIC NAILS ANY # 06/30/2024 N/A 74624 I&D ABSCESS- SIMPLE,SINGLE 10/27/2024 N/A 53805-HNIT SKIN LESIONS, 2 TO 4 10/27/2024 N/A Z0738-VQDMUGEF DYSTROPHIC NAILS ANY # 10/27/2024 N/A 52147- Debride <25 sq cm 11/13/2024 N/A Encounters Encounter Location Date Provider Diagnosis [address] [address] 03/13/2024 Desire Black Type 2 diabetes mellitus with diabetic polyneuropathy E11.42 ; Unspecified atherosclerosis of [place] arteries of extremities, bilateral legs I70.203 ; Skin ulcer of toe of right foot, limited to breakdown of skin L97.511 ; Pain in right ankle and joints of right foot M25.571 ; Bursitis of right foot M77.51 ; Pain in right foot M79.671 ; Hallux valgus (acquired), right foot M20.11 and Hammertoe of right foot M20.[address] [address] 03/27/2024 Desire Black Pain in right foot M79.671 ; Hallux valgus (acquired), right foot M20.11 ; Pressure injury of right foot, stage 1 L89.891 ; Hammertoe of right foot M20.41 and Type 2 diabetes mellitus with diabetic polyneuropathy E11.[address] [address] 05/01/2024 Corey Walden Cellulitis of right toe L03.031 ; Skin disease L98.9 ; Pain in right toe(s) M79.674 and Abscess of toe of right foot L02.[address] [address] 05/15/2024 Desire Black Skin ulcer of toe of right foot, limited to breakdown of skin L97.511 ; Cellulitis of right toe L03.031 and Pain in right toe(s) M79.[address] [address] 06/30/2024 Desire Black Type 2 diabetes mellitus with diabetic polyneuropathy E11.42 ; Unspecified atherosclerosis of [place] arteries of extremities, bilateral legs I70.203 and Ingrown nail L60.[address] [address] 10/27/2024 Desire Black Pain in right foot M79.671 ; Hallux valgus (acquired), right foot M20.11 ; Type 2 diabetes mellitus with diabetic polyneuropathy E11.42 ; Unspecified atherosclerosis of [place] arteries of extremities, bilateral legs I70.203 ; Pain in right ankle and joints of right foot M25.571 ; Bursitis of right foot M77.51 ; Xerosis of skin L85.3 and Abscess of toe, right L02.[address] [address] 11/13/2024 Desire Black Skin ulcer of toe of right foot, limited to breakdown of skin L97.511 ; Type 2 diabetes mellitus with diabetic polyneuropathy E11.42 and Unspecified atherosclerosis of [place] arteries of extremities, bilateral legs I70.[address] [address] 04/30/2024 Desire Black [address] [address] 05/02/2024 Desire Black [address] [address] 10/27/2024 Desire Black Assessments Encounter Date Diagnosis [...] CARE INSTRUCTIONS. pdf) 06/30/2024 Unspecified atherosclerosis of [place] arteries of extremities, bilateral legs (ICD-10 - [...] CARE INSTRUCTIONS. pdf) 11/13/2024 Unspecified atherosclerosis of [place] arteries of extremities, bilateral legs (ICD-10 - I70.203) 06/30/2024 Ingrown nail (ICD-10 - L60.0) 05/15/2024 Pain in right toe(s) (ICD-10 - M79.674) 05/01/2024 Pain in right toe(s) (ICD-10 - M79.674) 03/13/2024 Unspecified atherosclerosis of [place] arteries of extremities, bilateral legs (ICD-10 - I70.203) 03/13/2024 Skin ulcer of toe of right foot, limited to breakdown of skin (ICD-10 - L97.511) Nonapplicable Patient Educated with: WOUND CARE INSTRUCTIONS. pdf (WOUND CARE INSTRUCTIONS. pdf) 03/27/2024 Hammertoe of right foot (ICD-10 - M20.41) 05/01/2024 Abscess of toe of right foot (ICD-10 - L02.611) 10/27/2024 Unspecified atherosclerosis of [place] arteries of extremities, bilateral legs (ICD-10 - [...] X ray : Foot, right 3V 06/29/2016 31172-Treolloe Plate 02/05/2023 88786-Xgsikaox Plate 11/21/2023 39024-Vqcdvmsy Plate 06/30/2024 88323-Fwtdopdz Plate Each Additional 57668- Debride <25 sq cm 03/27/2024 57165- Debride <25 sq cm 05/15/2024 36423- Debride <25 sq cm 04/12/2023 43289- Debride <25 sq cm 12/06/2023 13892- Debride <25 sq cm 03/13/2024 05109- Debride <25 sq cm 05/29/2022 38092- Debride <25 sq cm 06/12/2022 60917- Debride <25 sq cm 04/30/2015 46518- Debride <25 sq cm 12/29/2015 29980- Debride <25 sq cm 06/29/2016 57772- Debride <25 sq cm 08/09/2020 73234- Debride <25 sq cm 09/16/2020 13504- Debride <25 sq cm 11/13/2024 77373 I&D ABSCESS- SIMPLE,SINGLE 025 78120 I&D ABSCESS- SIMPLE,SINGLE 023 56696 I&D ABSCESS- SIMPLE,SINGLE 022 55957-GFJK SKIN LESIONS, 2 TO 4 09/05/19 22 60625-NDJZ SKIN LESIONS, 2 TO 4 03/09/20 22 33323-KDNQ SKIN LESIONS, 2 TO 4 02/06/20 23 71157-SVQL SKIN LESIONS, 2 TO 4 10/02/19 23 09960-KGDT SKIN LESIONS, 2 TO 4 05/29/20 22 41075-XWXG SKIN LESIONS, 2 TO 4 03/13/20 24 50780-SXBW SKIN LESIONS, 2 TO 4 06/07/20 23 95126-HXTB SKIN LESIONS, 2 TO 4 11/21/19 24 42763-GMDO SKIN LESIONS, 2 TO 4 06/30/20 24 07695-JZYN SKIN LESIONS, 2 TO 4 10/28/19 25 58763-YDVK SKIN LESIONS, 2 TO 4 09/16/19 21 16347-ATVZ SKIN LESIONS, 2 TO 4 09/01/19 20 99861-MRFC SKIN LESIONS, 2 TO 4 03/08/20 20 75899-RKNX SKIN LESIONS, 2 TO 4 04/11/20 21 95324-CDEW SKIN LESIONS, 2 TO 4 06/10/20 20 19267-QQOD SKIN LESIONS, 2 TO 4 12/10/19 21 28873-SRGI SKIN LESIONS, 2 TO 4 12/29/19 17 80715-PECD SKIN LESIONS, 2 TO 4 06/29/20 16 11230-NQGC SKIN LESIONS, 2 TO 4 09/24/19 18 69507-NZGZ SKIN LESIONS, 2 TO 4 03/25/20 18 03385-ZMMS SKIN LESIONS, 2 TO 4 09/23/19 19 59007-VPXS SKIN LESIONS, 2 TO 4 03/03/20 19 94995-HGRV SKIN LESION 04/30/2015 01126-Hstz. Subungual Hematoma 91781-WGUI NAIL(S) 05/29/2022 32935-KLOQ NAIL(S) 10/02/2022 24101-KSMB NAIL(S) 02/05/2023 71648-JTYF NAIL(S) 03/09/2022 90793-AEIQ NAIL(S) 09/05/2021 17569-XGVG NAIL(S) 12/09/2020 91282-PGTL NAIL(S) 06/10/2020 75587-JGOT NAIL(S) 04/11/2021 20862-ALLO NAIL(S) 03/08/2020 30893-BPKH NAIL(S) 09/16/2020 G7238-KDTACSIX DYSTROPHIC NAILS ANY # R7758-NHBOEGNT DYSTROPHIC NAILS ANY # O5797-CDJEWDSF DYSTROPHIC NAILS ANY # D3603-MHNWJIDB DYSTROPHIC NAILS ANY # G8134-UXIBIKJC DYSTROPHIC NAILS ANY # U0062-CYNJIGHP DYSTROPHIC NAILS ANY # A9911-MDLXJBNB DYSTROPHIC NAILS ANY # A5361-TVXDWVAL DYSTROPHIC NAILS ANY # Z8340-MBUMPILJ DYSTROPHIC NAILS ANY # O2552-IUDXBFOM DYSTROPHIC NAILS ANY # V5150-NJQTUDMD DYSTROPHIC NAILS ANY # O3699-XZGNBBGD DYSTROPHIC NAILS ANY # 99714-Xhvqprjgz, Toes 06/29/2016 CRP 03/29/2021 Next Appt Details Provider Name:Desire Zaman , 03/26/2025 10:15:00 AM, [address] [place] [address], [phone], Insurance Providers Payer Name Payer Address Payer Phone Subscriber Number Group Number Insured Name Patient Relationship to Insured Coverage Start Date Coverage End Date [facility] [address] [place] [phone] [id number] Graham Castillo Self - patient is the insured Medical (General) History Medical History History ICD Code Cancer Gall bladder problems High blood pressure Measles Mumps Chicken pox Joint implants/screws Diabetes mellitus type ll Surgical History Surgery Date(Month/Year) gall bladder 12/06/2014 appendectomy 03/2014 Stent 10/2023 Hospitalization History Reason Date(Month/Year)
--- OUTSIDE RECORDS SUMMARY | 2025-01-08 14:27 | XMS_ITS | Clinical Summary ---
Author Organization [facility] Address [address] [place] [address] Phone Care Team Providers Care Ambulette Driver Name Role Phone Dariel Hart NP Primary [...] Cough 10/15/2019 Chronic kidney disease, stage 3 ([facility] [place], [facility] V28) 10/15/2019 Asthmatic bronchitis 10/06/2019 Type 2 diabetes mellitus wit h vascular disease ([facility] [place], [facility] V28) 10/04/2018 Elevated PSA 10/04/2018 Overview (08/08/2024): 06/2018 5.0; PV Urology; Nocturia/retention Colon polyps 10/04/2018 Type 2 diabetes mellitus wit h cataract ([facility] [place], [facility] V28) 05/27/2018 Peripheral vascular disease ([facility] V24) 2017 Hypertension 05/27/2018 Hyperlipidemia 05/27/2018 Arteriosclerosis of carotid artery 05/27/2018 Right bundle branch block (RBBB) 01/16/2018 Chronic obstructive pulmonar y disease ([facility] V24, [facility] V28) 01/16/2018 Benign familial tremor 09/13/2017 Allergic rhinitis 04/19/2017 Irritable bowel syndrome 02/25/2016 ED (erectile dysfunction) 09/01/2015 Cataract 09/26/2011 Encounters Date Type Department Care Team Description 12/23/2024 10:30 AM EDT Office Visit [facility] Hematology Oncology [address] [place] [address] Daija Monk MD Pancytopenia ([facility] V24, [facility] V28) (Primary Dx) 10/24/2024 7:28 AM EST Anesthesia Event [facility] Endoscopy [address] [place] [address] Dariel Romano MD 10/24/2024 6:40 AM EST - 10/24/2024 11:59 PM EST Hospital Encounter [facility] Endoscopy [address] [place] [address] Arnie Norwood MD Couture, Alison, CRNA Korobkov, [...] pulmonar y disease ([facility] V24, [facility] V28) 01/16/2018 DX:Chronic obstructive pulm onary disease [...] Peripheral vascular disease ([facility] V24) 05/27/2018 DX:Peripheral vascular disea se (HCC) Right bundle branch block (RBBB) 01/16/2018 DX:Right bundle branch block (RBBB) Type 2 diabetes mellitus wit h cataract ([facility] V24, [facility] V28) 05/27/2018 DX:Type 2 diabetes mellitus with cataract (HCC) Type 2 diabetes mellitus wit h vascular disease ([facility] V24, [facility] V28) 10/04/2018 DX:Type 2 diabetes mellitus with vascular disease (HCC) Diabetes mellitus ([facility] V 24, [facility] V28) DX:Diabetes mellitus (HCC) Hypertension DX:Hypertension Prostate cancer ([facility] V24 , [facility] V28) DX:Prostate cancer (HCC) Family [...] Description 06/30/2025 10:15 AM EST Office Visit [facility] Hematology Oncology [address] [place] [phone] Daija Monk MD [address] [place] [address] Health Maintenance Due Date Last Done Comments [...] AM EDT Simple chronic anemia Acquired pancytopenia ([facility] V24, [facility] V28) RETICULOCYTE COUNT Routine 12/15/2024 11 :25 AM EDT Simple chronic anemia Acquired pancytopenia ([facility] V24, [facility] V28) CBC AND DIFFERENTIAL Routine 12/15/2024 11:25 AM EDT Simple chronic anemia Acquired pancytopenia ([facility] V24, [facility] V28) VITAMIN B12 Routine 12/15/2024 11:25 AM EDT Simple chronic anemia Acquired pancytopenia ([facility] V24, [facility] V28) ERYTHROPOIETIN Routine 12/15/2024 11:25 AM EDT Simple chronic anemia Acquired pancytopenia ([facility] V24, [facility] V28) EGD Routine 10/24/2024 7:40 AM EST Dysphagia ANNUAL BMP BLOOD TEST Routine 10/30/2019 URINE ALBUMIN CREATININE RATIO Routine 10/15/2019 HEMOGLOBIN A1C Routine 10/10/2019 LIPID PANEL Routine 10/10/2019 from Last 3 Months or Most Recently Relevant to Health Maintenance Results * (ABNORMAL) CBC auto differential (12/15/2024 11:25 AM EDT) WBC 2.2(L) 4.8 - 10.8 K/mcL LAB HEMETOLOGY METHOD 12/15/2024 1:23 PM [facility] RBC 3.20(L) 4.50 - 5.50 M/mcL LAB HEMETOLOGY METHOD 12/15/2024 1:23 PM [facility] Hemoglobin 11.2(L) 13.5 - 17.5 g/dL LAB HEMETOLOGY METHOD 12/15/2024 1:23 PM [facility] Hematocrit 31.8(L) 42.0 - 54.0 % LAB HEMETOLOGY METHOD 12/15/2024 1:23 PM [facility] MCV 98.8(H) 79.0 - 98.0 FL LAB HEMETOLOGY METHOD 12/15/2024 1:23 PM [facility] MCH 34.8(H) 27.0 - 32.0 pcg LAB HEMETOLOGY METHOD 12/15/2024 1:23 PM [facility] MCHC 35.2 32.0 - 37.0 g/dL LAB HEMETOLOGY METHOD 12/15/2024 1:23 PM [facility] RDW 13.2 11.0 - 15.0 % LAB HEMETOLOGY METHOD 12/15/2024 1:23 PM [facility] Platelets 117(L) 130 - 400 K/mcL LAB HEMETOLOGY METHOD 12/15/2024 1:23 PM [facility] MPV 10.5 7.0 - 11.0 FL LAB HEMETOLOGY METHOD 12/15/2024 1:23 PM [facility] NRBC 0.0 <1.0 % LAB HEMETOLOGY METHOD 12/15/2024 1:23 PM [facility] NRBC Absolute 0.00 <0.10 K/mcL LAB HEMETOLOGY METHOD 12/15/2024 1:23 PM [facility] Neutrophils Relative 64.4 % LAB HEMETOLOGY METHOD 12/15/2024 1:23 PM [facility] Lymphocytes Relative 20.5 % LAB HEMETOLOGY METHOD 12/15/2024 1:23 PM [facility] Monocytes Relative 10.5 % LAB HEMETOLOGY METHOD 12/15/2024 1:23 PM [facility] Eosinophils Relative 3.6 % LAB HEMETOLOGY METHOD 12/15/2024 1:23 PM [facility] Basophils Relative 0.5 % LAB HEMETOLOGY METHOD 12/15/2024 1:23 PM [facility] Immature Granulocytes Relative 0.5 % LAB HEMETOLOGY METHOD 12/15/2024 1:23 PM [facility] Neutrophils Absolute 1.42(L) 1.50 - 7.00 K/mcL LAB HEMETOLOGY METHOD 12/15/2024 1:23 PM [facility] Lymphocytes Absolute 0.45(L) 1.00 - 5.00 K/mcL LAB HEMETOLOGY METHOD 12/15/2024 1:23 PM [facility] Monocytes Absolute 0.23 0.20 - 1.00 K/mcL LAB HEMETOLOGY METHOD 12/15/2024 1:23 PM [facility] Eosinophils Absolute 0.08 0.00 - 0.50 K/mcL LAB HEMETOLOGY METHOD 12/15/2024 1:23 PM [facility] Basophils Absolute 0.01 0.00 - 0.20 K/mcL LAB HEMETOLOGY METHOD 12/15/2024 1:23 PM [facility] Immature Granulocytes Absolute 0.01 0.00 - 0.03 K/mcL LAB HEMETOLOGY METHOD 12/15/2024 1:23 PM [facility] Blood Venous blood specimen / Unknown Venipuncture / Unknown 12/15/2024 11:25 AM EDT 12/15/2024 12:30 PM EDT us Daija Monk MD LAB BLOOD ORDERABLES Final R esult Performing Organization Address City/[facility]/ZIP Co de Phone Number [facility] [address] [place] [address], [place] [phone] * (ABNORMAL) Erythropoietin (12/15/2024 11:25 AM EDT) Erythropoietin 37.9(H) 2.6 - 18.5 mIU/mL 12/18/2024 3:41 PM EDT [facility] Comment: Test performed at [facility], [address] , [place], [place] ??[address] ? [phone] Raegan Grant MD, PhD - Teacher Blood Venous blood specimen / Unknown Venipuncture / Unknown 12/15/2024 11:25 AM EDT 12/15/2024 12:32 PM EDT us Daija Monk MD LAB BLOOD ORDERABLES Final R esult Performing Organization Address City/[facility]/ZIP Co de Phone Number [facility] [address] [place] [address] * (ABNORMAL) Reticulocyte count (12/15/2024 11:25 AM EDT) Retic Ct Abs 0.070 0.030 - 0.090 M/mcL LAB HEMETOLOGY METHOD 12/15/2024 1:23 PM EDT [facility] Retic Ct Pct 2.2(H) 0.7 - 1.7 % LAB HEMETOLOGY METHOD 12/15/2024 1:23 PM EDT [facility] Immature Retic Fract 15.1 2.3 - 15.9 % LAB HEMETOLOGY METHOD 12/15/2024 1:23 PM EDT [facility] Reticulocyte Hemoglobin 35.3 >29.0 pcg LAB HEMETOLOGY METHOD 12/15/2024 1:23 PM EDT [facility] Blood Venous blood specimen / Unknown Venipuncture / Unknown 12/15/2024 11:25 AM EDT 12/15/2024 12:30 PM EDT Daija Monk MD LAB BLOOD ORDERABLES Final R esult Performing Organization Address City/[facility]/ZIP Co de Phone Number [facility] [address] [place] [address], [place] [phone] * Vitamin B12 (12/15/2024 11:25 AM EDT) [facility] Vitamin B-12 659 250 - 900 pcg/mL LAB CHEMISTRY METHOD 12/15/2024 2:10 PM EDT [facility] Blood Venous blood specimen / Unknown Venipuncture / Unknown 12/15/2024 11:25 AM EDT 12/15/2024 12:32 PM EDT Daija Monk MD LAB BLOOD ORDERABLES Final R esult Performing Organization Address [facility] de Phone Number [facility] [address] [place] [address], [place] [phone] * EGD Dilation; Anesthesia - MAC; [facility] ENDOSCOPY (10/24/2024 7:40 AM EST) Anatomical [...] for retreatment. Narrative 10/24/2024 7:42 AM EST [facility] GI Patient Name: Graham Castillo Procedure [...] Procedure Code(s): ? --- Professional --- ? 73169, Esophagogastroduodenoscopy, flexible, ? transoral; with transendoscopic balloon dilation of ? esophagus (less than 30 mm diameter) Diagnosis Code(s): ? --- Professional --- ? K22.2, Esophageal obstruction ? R13.14, Dysphagia, pharyngoesophageal phase CPT copyright 2020 [employer]. All rights reserved. The codes documented in this report are preliminary and upon coupon clerk review may be revised to meet current compliance requirements. MD Arnie Goff MD 10/24/2024 7:42:38 AM This report has been signed electronically.Arnie Norwood MD Number of Addenda: 0 Note Initiated On: 10/24/2024 7:30 AM Scope In: Scope Out: ? Endoscopy Department at [facility] - [address] [place] [address], ? [place] [address] Procedure Note Arnie Norwood MD - 10/24/2024 [facility] GI Patient Name: Graham Castillo Procedure [...] without abnormality. Procedure Code(s): --- Professional --- 68006, Esophagogastroduodenoscopy, flexible, transoral; with transendoscopic balloon dilation of esophagus (less than 30 mm diameter) Diagnosis Code(s): --- Professional --- K22.2, Esophageal obstruction R13.14, Dysphagia, pharyngoesophageal phase CPT copyright 2020 [employer]. All rights reserved. The codes documented in this report are preliminary and upon coupon clerk reviewmay be revised to meet current compliance requirements. MD Arnie Goff MD 10/24/2024 7:42:38 AM This report has been signed electronically.Arnie Norwood MD Number of Addenda: 0 Note Initiated On: 10/24/2024 7:30 AM Scope In: Scope Out: Endoscopy Department at [facility] - [address] [place] [phone] IMPRESSION: - Benign-appearing esophageal stenosis. Dilated. - [...] Repeat upper endoscopy PRN for retreatment. Result [facility] Arnie Norwood MD GI~PROCEDURE ORDERABLES Final R esult * Annual BMP Blood Test (10/30/2019) Pathologist [facility] Annual BMP Blood Test Abstracted Result [facility] Historical Provider [facility] Final Result * Urine Albumin Creatinine Ratio (10/15/2019) Pathologist [facility] Urine Albumin Creatinine Ratio Abstracted Result [facility] Provider [facility] Final Result * Hemoglobin A1c (10/10/2019) Hemoglobin [...] Insurance [employer] Care Teams Ambulette Driver Relationship Specialty Start Date End Date Dariel Hart NP [address], [place] PCP - General 12/16/19
--- OUTSIDE RECORDS SUMMARY | 2025-01-08 14:27 | XMS_ITS | Data Portability ---
Author Organization [place] - [facility], Allergy Address [address] [place] [address] Assessment Encounter Date Assessment Date Assessment LastModified [...] or worsen. Refill of fluocinolone was provided. [email or web address] Not available 10/30/2024 10:06:40 Plan of Treatment [...] %-0.1 % eye drops,jamin pension 2024 025 [facility]acy #[id number], [address] [place], [address], 10/30/2024 10:02:09 fluocinol one acetonide oil 0.01 % ear drops 2024 025 [facility]/Pharm[facility] #[id number], [address] [place], [address], 10/30/2024 10:02:53 Patient TargetsNo targets recorded. Patient InstructionsNo instructions recorded. Reason for Referral None Reported. 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 Squamous cell carcinom a of [...] Start Date : 07/28/20 14 Not Available [facility] 4 02:51:05 Unilater al sensorin eural hearing loss with unrestri cted hearing on the contrala teral side Active 2013 Sensorin eural hearing loss unilater ally; Note: Date Diagnose d: 4 9:37 AM (389.15) Not Available [facility] 4 02:51:03 Itching of skin 736628495 Active 2021 Other pruritus ; Note: Date Diagnose d: 2 12:33 PM (L29.8) Not Available [facility] 4 02:51:02 Mixed conducti ve and sensorin eural hearing loss of right ear 22977422459 105 Active 2015 Mixed conducti ve and sensorin eural hearing loss, unilater al, right ear, with unrestri cted hearing on the contrala teral side; Note: Date Diagnose d: 6 11:19 AM (H90.71) [mapped from ICD9 code: 389.21] Not Available [facility] 4 02:51:05 Superfic ial mycosis 468957572 Active 2020 Other specifie d superfic ial mycoses; Note: Date Diagnose d: 1 3:54 PM (B36.8) Not Available [facility] 4 02:51:04 Impacted cerumen of bilatera l ears 79995716248 84569 Active 2021 Impacted cerumen, bilatera l; Note: Date Diagnose d: 04/03/2022 9:45 AM (H61.23) Not Available [facility] 4 02:51:02 Impacted cerumen in right ear 96066850771 91164 Active 2016 Impacted cerumen, right ear; Note: Date Diagnose d: 7 9:21 AM (H61.21) Impact ed cerumen, right ear; Note: Date Diagnose d: 7 9:07 AM (H61.21) ; Start Date : 11/24/19 Not Available [facility] 4 02:51:01 Sensorin eural hearing loss 42224516 Active 2015 Sensorin eural hearing loss, unilater al, right ear, with unrestri cted hearing on the contrala teral side; Note: Date Diagnose d: 6 11:19 AM (H90.41) [mapped from ICD9 code: 389.15] Not Available [facility] 4 02:51:05 Unilater al mixed conducti ve and sensorin eural hearing loss with unrestri cted hearing on the contrala teral side Active 2013 Mixed hearing loss, unilater al; Note: Date Diagnose d: 4 9:37 AM (389.21) Not Available [facility] 4 02:51:00 Candidal otitis externa 22513581 Completed 201703/28/2024 Candidal otitis externa; Location : bilatera l Note: Date Diagnose d: 8 11:47 AM (B37.84) Not Available [facility] 4 02:51:04 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 587066374 Completed 201803/28/2024 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; Note: Date Diagnose d: 9 9:07 AM (C44.222 ) Not Available [facility] 4 02:51:00 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 636293240 Completed 201803/28/2024 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; Note: Date Diagnose d: 9 9:07 AM (C44.222 ) Not Available [facility] 4 02:51:00 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 496017891 Active 2015 Squamous cell carcinom a of skin of unspecif ied ear and external auricula r canal; Note: Date Diagnose d: 6 11:19 AM (C44.221 ) [mapped from ICD9 code: 173.22] Not Available [facility] 4 02:50:59 History of malignan t neoplasm of skin 674245686 Active 2017 Personal history of other malignan t neoplasm of skin; Note: Date Diagnose d: 8 12:26 PM (Z85.828 ) Not Available [facility] 4 02:51:01 Otorrhea of right ear 64347828153 08262 Active 2024 MORAIMA SAHU PA-C [address] [place] [address],[address], [address] , [facility] - [facility] 5 10:01:45 Problem Notes None recorded. Procedures Surgical History Date Name Laterality Status Provider Name and Address Organization Details Recorded Time 5 Cerumen removal without microscope bilat completed MORAIMA SAHU PA-C [address] [place] [address],[address], [address], [facility] - [facility] 10/30/2024 09:20:59 4 Cerumen removal without microscope bilat completed MORAIMA SAHU PA-C [address] [place] [address],[address], [address], [place] - [facility] 04/30/2024 11:57:54 Imaging Results None recorded. Procedure Notes None recorded. Medical Equipment None Reported. Allergies Allergen ID Allergen Name Allergen Category Reaction Reaction Severity Criticality Documentation Date Start Date Code Code System Note Provider Name and Address Organization Details Recorded Time 710973 clindamyc in Not available Not available Not available Not available 10/30/2024 2582 RxNorm MORAIMA SAHU PA-C [address] [place] [address], [phone], [facility] 5 09:55:04 39580 amoxicill in / clavulana te medicatio n other Not available Not available 01/08/2024 95441 RxNorm React ion: unkno wn, unspe cifie d;; Not Available [facility] 4 00:59:23 97285 penicilli n V potassium medicatio n other Not available Not available 01/08/202485857 5 RxNorm React ion: unkno wn, unspe cifie d;; Not Available [facility] 4 00:59:26 72501 Substance with sulfonami de structure and antibacte rial mechanism of action (substanc e) medicatio n other Not available Not available 01/08/2024 27689 8003 SNOMED React ion: unkno wn, unspe cifie d;; Not Available [facility] 4 00:59:29 81651 Medicinal product containin g tetracycl ine structure and acting as antibacte rial agent (product) medicatio n other Not available Not available 01/08/2024 43751 1004 SNOMED React ion: unkno wn, unspe cifie d;; Not Available [facility] 4 00:59:30 Medications Name Sig Start Date [...] mg tablet 11/22 completed Medicati on ID: 081641 D uration Value: 90 Brand Name: lisinopr [...] mg tablet 11/15 completed Medicati on ID: 09400 Du ration Value: 90 Reason: () Brand Name: cilostaz ol Send Method: E-Prescr ibed Sub s Allowed: subs OK Medic ationGen ericName : cilostaz ol Not Available Not Available Not Available meloxicam 15 mg tablet active Medicati on ID: 089667 B rand Name: meloxica m Send Method: [...] % topical cream active Medicati on ID: 947049 B rand Name: triamcin olone acetonid e Send Method: E-Prescr ibed Sub s Allowed: subs OK Medic ationGen ericName : triamcin olone acetonid e Not Available Not Available Not Available verapamil 120 mg tablet 11/06 completed Medicati on ID: 90414 Du ration Value: 90 Reason: () Brand [...] small amount 2020 active Medicati on ID: 334245 D uration Value: 14 Prescri bed By [...] 12.5 mg capsule active Medicati on ID: 387433 B rand Name: hydrochl orothiaz tatiana Send [...] 150 mg tablet active Medicati on ID: 316052 B rand Name: irbesart an Send Method: E-Prescr ibed Sub s Allowed: subs OK Medic ationGen ericName : irbesart an Not Available Not Available Not Available timolol maleate 0.5 % eye drops INSTILL 1 DROP IN BOTH EYES TWICE A DAY active Not Available Not Available No t Available losartan 100 mg tablet 11/22 completed Medicati on ID: 051164 D uration Value: 90 Brand Name: losartan Send Method: E-Prescr ibed Sub s Allowed: subs OK Speci al Instruct ion: TAKE 1 TABLET BY MOUTH EVERY DAY Medi cationGe nericNam e: losartan Not Available Not Available Not Available glipizide 5 mg tablet 05/29 completed Medicati on ID: 209596 R sadie: () Brand Name: glipizid e [...] 4 drop 2016 active Medicati on ID: 920536 D uration Value: 10 Prescri bed By Name: Sally Hinds nd Name: Ciprodex Send Method: E-Prescr ibed Sub s Allowed: subs OK Medic ationGen ericName : Ciprodex Not Available Not Available Not Available fluocinol one 0.01 % scalp oil and shower cap active Medicati on ID: 193393 B rand Name: fluocino lone and shower [...] mg tablet 05/29 completed Medicati on ID: 95450 Re ason: () Brand Name: Yordan Chewable Aspirin Send Method: E-Prescr ibed Sub s Allowed: subs OK Medic ationGen ericName : Yordan Chewable Aspirin Not Available Not Available Not Available Enstilar 0.005 %-0.064 % topical foam 07/28 completed Medicati on ID: 331905 D uration Value: 30 Brand Name: Enstilar [...] Updated DateTime 10/30/2024 177.8 cm 25.3 kg/m2 78221.26 g Nadine Gutierrez [facility] 10/30/2024 09:36:33 Date Recorded Body height Body mass index (BMI) Body weight Provider Name and Address Organization Details Last Updated DateTime 04/30/2024 180.34 cm 24.5 kg/m2 43606.26 g Bobby Anglin [facility] 04/30/2024 11:11:12 Social History None recorded. Functional Status None recorded. Mental Status None recorded. Family History Nothing Reported. Medical History No medical history recorded. Past Encounters Encounter ID Performer Location Encounter Start Date Encounter Closed Date Diagnosis/Indication Diagnosis SNOMED-CT Code Diagnosis ICD10 Code Diagnosis Note [id number] MORAIMA SAHU PA-C [facility] [address] [address] 04/30/2024 10:58:56 04/30/2024 12:02:52 Impacted cerumen of bilateral ears 4543008998 839419 H61.23 [id number] MORAIMA SAHU PA-C [facility] [address] [address] 10/30/2024 09:18:21 10/30/2024 10:01:32 Impacted cerumen of bilateral ears 0817212995 360195 H61.23 Otorrhea of right ear 10 09119041 237790 H92.11 Itching of skin 86900746 0 L29.89 Health Concerns Section Related Observation LastModified by Organization Detai ls LastModified Time None Recorded Concern Status LastModified by Organization Details LastModified Time None Recorded Advance Directives Directive None Recorded Payers Insurance Date Sequence Insurance Name Policy Number Policy Leonard Covered Member ID Leonard Member ID Guarantor Name 10/28/2024 2 [facility] (MEDICARE REPLACEMENT HMO) Graham Castillo [id number] Graham Godwin Jonathan 10/28/2024 1 [facility] Graham Castillo [id number] Graham Godwin Jonathan 10/28/2024 1 [facility] (MEDICARE REPLACEMENT HMO) Graham Castillo [id number] Graham Castillo Notes Date Note Type Note Provider Name and Address Organization Details Recorded Time 04/30/2024 text/html 78-year-old male presents for cerumen removal. No concerns today. GONSALO NIEVES MD [address] [facility],[address], [address], [place] - [facility] 04/30/2024 14:53:10 10/30/2024 text/html 78-year-old male [...] bruxism. SHERON BLOOD MD [address] [facility],[address], [address], [place] - [facility] 10/31/2024 07:57:10
--- OUTSIDE RECORDS SUMMARY | 2025-01-08 14:27 | XMS_ITS ---
Author Organization [facility] Address [address] [place] [address] Care Team Providers Care Collision Mechanic Name Role Phone Dariel Russell Primary Care Provider Unav ailable Black, Desire Unavailable [phone] Allergies Allergen (clinical drug ingredient) Drug/Non Drug [...] Ordered Date Performed Result Body Sit e 89849 I&D ABSCESS- SIMPLE,SINGLE 10/27/2024 N/A 55625-PNVZ SKIN LESIONS, 2 TO 4 10/27/2024 N/A Q6340-SYPRNCUL DYSTROPHIC NAILS ANY # 10/27/2024 N/A Encounters Encounter Location Date Provider Diagnosis [facility] [address] [place] [address] 10/27/2024 Desire Black Pain in right foot M79.671 ; Hallux valgus (acquired), right foot M20.11 ; Type 2 diabetes mellitus with diabetic polyneuropathy E11.42 ; Unspecified atherosclerosis of [place] arteries of extremities, bilateral legs I70.203 ; [...] (ICD-10 - E11.42) 10/27/2024 Unspecified atherosclerosis of [place] arteries of extremities, bilateral legs (ICD-10 - [...] INSTRUCTIONS.pdf) Pending Test Test Name Order Date 63025 I&D ABSCESS- SIMPLE,SINGLE 025 07391-ZPCS SKIN LESIONS, 2 TO 4 10/28/19 25 U3784-CVBFEANR DYSTROPHIC NAILS ANY # Next Appt Details Follow Up: 2 Weeks, Reason: Provider Name:Desire Zaman , 03/26/2025 10:15:00 AM, [address] [place] [address], [place], [address], Procedure Notes * Category Sub-Category [...] dispensed. Recommended Tylenol or Motrin for pain/discomfort (49426) Type Single, Abscess Anesthesia 3cc of 1 [...] instrumentation by the physician of record - 76804 Nail Reduction Nail Reduction (-27) Trimming o [...] * Graham CASTILLO FDOB:1945 (78 yo M)Acc No.[id number]:10/27/2024 Progress Note Patient:?Graham CASTILLO Provider:?Desire Zaman DPM :1945???Age:78 Y???Sex:Male Michael e:10/27/2024 Address:[address] [place], [place] [id number] Pcp:SHANELL Mensah Subjective: * Chief Complaints: * [...] ?Marital status: . 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 ???Drug/Alcohol:?AUDIT-C (Standard)?Did you have a [...] with diabetic polyneuropathy - E11.42???4.?Unspecified atherosclerosis of [place] arteries of extremities, bilateral legs - I70.203???5.?Pain [...] 280, Refills 3.?? 3.?Abscess of toe, right?Procedure: 57389 I&D ABSCESS- SIMPLE,SINGLE Notes: Patient Educated with: [...] affected [facility] . Any evidence of granuloma was also removed at this time. No underlying bone was visualized. There was minimal bleeding as hemostasis was achieved through the temporary use of either a digital tournaquet or the aforementioned local with epinephrine. An application of sterile Bacitracin dressing was performed. Local wound care instructions were discussed and dispensed. Recommended Tylenol or Motrin for pain/discomfort (35357).?Keratoma Treatment:?Parring or Cutting of Benign Hyperkeratotic Lesion(s)?(-56) [...] instrumentation by the physician of record - 98596.?Nail Reduction:?Nail Reduction?(-27) Trimming of all dystrophic nails [...] or bed tissue - G0127.? * Procedure Codes:?29077 DRAIN AGE OF SKIN ABSCESS, Modifiers: T5 55713 TRIM SKIN LESIONS, 2 TO 4, Modifiers: [...]
== END 2025-01-08 14:30 | disposition home or self-care (01) ==
LOC: HO.HVS 13:47
PROVIDERS: PCP Nurse Practitioner Family; Visit Provider Surgery Vascular Surgery
DX: I73.9 Peripheral vascular disease, unspecified (principal)
CPT/HCPCS: 99214

== ENCOUNTER → 2025-01-08 13:47 | Outpatient (BNVA) | payer MEDICARE, SELFPAY | PROVIDERS: PCP Nurse Practitioner Family; Visit Provider Surgery Vascular Surgery | DX: I73.9 Peripheral vascular disease, unspecified (principal) | CPT/HCPCS: 99212 ==

== ENCOUNTER 2025-07-01 08:39 | Outpatient (REF) | payer MEDICARE, SELFPAY ==
--- OUTSIDE RECORDS SUMMARY | 2024-05-29 09:13 | XMS_ITS | Encounter Summary ---
Author Organization [facility] [place] [address] Care Team Providers Care Portable Trackman Name Role Phone Dariel Hart NP Primary Care Provider Encounter Details Date Type Department Care Team (Late st Contact Info) Description 05/29/2024 10:13 AM EDT Hospital Encounter TH HISTORIC ENCOUNTERS EASTERN CONVERSION ONLY Daija Monk MD [address] [place] [phone] Social History Tobacco Use Types Packs/Day Years [...] 7:07 AM EDT Kurtis Briggs RN * [place] Suicide Severity Rating Scale (Screener/Recent Self-Report) Question [...] SOCIAL HISTORY: Quit smoking in 2009, has 89-guzq-epeh smoking history Denies any alcohol abuse, occasionally drink alcohol He used to work in [employer] ([employer] department) He is lives with his ?? [...] 10:45 AM EDT Office Visit Pulmonology - [place] [address] [facility] [address] [place] [phone] David Dallas MD [address] [place] [phone] 12/30/2025 10:30 AM EDT Office Visit [facility] Hematology Oncology [address] [place] [phone] Daija Monk MD [address] [place] [phone] documented as of this encounter Procedures Procedure [...] documented as of this encounter Care Teams Portable Trackman Relationship Specialty Start Date End Date Dariel Hart NP [address] [place], [place] PCP - General 12/16/19 03/12/25 documented as of this encounter
--- OUTSIDE RECORDS SUMMARY | 2024-06-19 09:12 | XMS_ITS | Encounter Summary ---
Author Organization [facility] [place] [address] Care Team Providers Care Gravure Printing Machinist Name Role Phone Dariel Hart NP Primary Care Provider Encounter Details Date Type Department Care Team (Late st Contact Info) Description 06/19/2024 10:12 AM EDT Hospital Encounter TH HISTORIC ENCOUNTERS EASTERN CONVERSION ONLY Daija Monk MD [address] [place] [phone] Social History Tobacco Use Types Packs/Day Years [...] 7:07 AM EDT Kurtis Briggs RN * [place] Suicide Severity Rating Scale (Screener/Recent Self-Report) Question [...] SOCIAL HISTORY: Quit smoking in 2009, has 05-khaf-zcti smoking history Denies any alcohol abuse, occasionally drink alcohol He used to work in [employer] ([employer] department) He is lives with his ?? [...] 12/22/2025 10:45 AM EDT Office Visit Pulmonology [facility] 175 [facility] [address] [place] [phone] David Dallas MD [address] [place] [address] 12/30/2025 10:30 AM EDT Office Visit [facility] Hematology Oncology [address] [place] [phone] Daija Monk MD [address] [place] [address] documented as of this encounter Procedures Procedure [...] documented as of this encounter Care Teams Gravure Printing Machinist Relationship Specialty Start Date End Date Dariel Hart NP [address] [place], [place] PCP - General 12/16/19 03/12/25 documented as of this encounter
--- OUTSIDE RECORDS SUMMARY | 2025-06-11 05:30 | XMS_ITS ---
Author Organization [facility] Address [address] [place] [address] Care Team Providers Care Gallery Or Museum Curator Name Role Phone Dariel Russell Primary Care Provider Unav ailable Desire Zaman Unavailable [phone] Encounters Encounter Location Date Provider Diagnosis [address] [address] 06/11/2025 Desire Austyn Plan Of Treatment Next Appt Details Provider Name:Desire Zaman , 07/30/2025 10:15:00 AM, [address] [place] [address], [address], Progress Notes * Graham CASTILLO FDOB:1945 (79 yo M)Acc No.[id number]:06/11/2025 Progress Notes Patient: Graham GUTIERREZ Provider: Dustin Zaman DPM :1945 A ge:79 Y S ex:Male Date:06/11/2025 Address:[address] [place], [place] [phone] Pcp:SHANELL Mensah Subjective: * Chief Complaints: * [...] Date: 1 Generated for Rocky hayes/Patricia/Altagracia on: 08/31/2024 09:02 AM EST
--- OUTSIDE RECORDS SUMMARY | 2025-06-30 10:15 | XMS_ITS | Encounter Summary ---
Author Organization [facility] Address [address] [place] [address] Care Team Providers Care Social Work Lecturer Name Role Phone Dariel Hart NP Primary Care Provider [phone] Reason for Visit * Reason Comments Follow-up Encounter Details Date Type Department Care Team (Late st Contact Info) Description 06/30/2025 10:15 AM EST Office Visit [facility] Hematology Oncology [address] [place] [phone] Daija Monk MD [address] [place] [address] Pancytopenia (CMS/HCC V24, CMS/HCC V28) (Primary Dx) Social History Tobacco Use Types Packs/Day Years [...] Sign Reading Time Taken Comments Blood Pressure 148/54 06/30/2025 10:13 AM EST Pulse 77 06/30/2025 10:13 AM EST Temperature 36.3 C (97.4 F) 06/30/2025 10:13 AM EST Respiratory Rate - - Oxygen Saturation 100% 06/30/2025 10:13 AM EST Inhaled Oxygen Concentration - - Weight 84.4 kg (186 lb) 06/30/2025 10:13 AM EST Height - - Body Mass Index 29.13 06/18/2025 9:20 AM EDT documented in this encounter Progress Notes * Daija Monk MD - 06/30/2025 10:15 AM EST CHIEF COMPLAINT: Follow-up IDENTIFIER:Graham Castillo is a 79 y.o. male. HPI: Patient is a very pleasant 79-year-old man, who has mild to moderate pancytopenia (anemia, leukopenia/thrombocytopenia), I did bone marrow biopsy which was unremarkable except possibility of cytopenia of undetermined significance ROS: Patient has been doing very well No bleeding bruising Energy level is very well Have some issues with shortness of breath and occasional cough No abdominal pain No significant neurological symptom PAST MEDICAL HISTORY: Problem List[1] Medical History[2] SOCIAL HISTORY: Social History Tobacco Use Smoking status: Former Types: Cigarettes Smokeless tobacco: Never Tobacco comments: Has not smoke in 15 years Substance Use Topics Alcohol use: Yes Alcohol/week: 4.0 standard drinks of alcohol Types: 4 Glasses of wine per week FAMILY HISTORY: Family History[3] Family Status Relation Name Status Mother (Not Specified) Father No partnership data on file Current Medications[4] Current Allergies[5] PHYSICAL EXAM: Visit Vitals BP (!) 148/54 (BP Location: Left arm, Patient Position: Sitting, BP Cuff Size: Adult) Pulse 77 Temp 36.3 ??C (97.4 ??F) (Temporal) Wt 84.4 kg (186 lb) SpO2 100% BMI 29.13 kg/m?? Smoking Status Former BSA 1.96 m?? ECOG 0 APPEARANCE: Alert and oriented in no acute distress EYES: nonicteric sclera pink conjunctiva ORAL CAVITY: No erythema or exudates NECK: Neck supple, no significant adenopathy, HEART: normal S1 and S2 LUNG: clear to auscultation bilaterally LYMPH NODES: No palpable superficial adenopathy ABDOMEN: soft, nontender and no significant organomegaly appreciated EXTREMITIES: No edema erythema or tenderness LABS: Component Ref Range & Units (hover) 7 d ago 3 mo ago 6 mo ago WBC 3.3 Low 5.2 2.2 Low RBC 3.30 Low 3.20 Low 3.20 Low Hemoglobin 11.1 Low 10.8 Low 11.2 Low Hematocrit 32.3 Low 31.5 Low 31.8 Low MCV 99.1 High 97.5 98.8 High MCH 34.0 High 33.4 High 34.8 High MCHC 34.4 34.3 35.2 RDW 13.1 13.0 13.2 Platelets 101 Low 105 Low 117 Low MPV 10.8 10.3 10.5 NRBC 0.0 0.0 0.0 NRBC Absolute 0.00 0.00 0.00 Neutrophils Relative 76.7 85.6 64.4 Lymphocytes Relative 12.4 4.1 20.5 Monocytes Relative 8.2 9.5 10.5 Eosinophils Relative 1.5 0.4 3.6 Basophils Relative 0.6 0.0 0.5 Immature Granulocytes Relative 0.6 0.4 0.5 Neutrophils Absolute 2.54 4.42 1.42 Low Lymphocytes Absolute 0.41 Low 0.21 Low 0.45 Low Monocytes Absolute 0.27 0.49 0.23 Eosinophils Absolute 0.05 0.02 0.08 PNH testing also negative for PNH IMPRESSION: 1. 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 I told him his PNH testing is also negative PLAN: Return to office next year Daija Monk MD [1] Patient Active Problem List Diagnosis Type 2 diabetes mellitus with vascular disease ([facility] V24, [facility] V28) Type 2 diabetes mellitus with cataract ([facility] V24, [facility] V28) Right bundle branch block (RBBB) Proteinuria Peripheral vascular disease ([facility] V24) Hypotension Hypertension Irritable bowel syndrome Hyperlipidemia Elevated PSA ED (erectile dysfunction) Cough Colon polyps Chronic obstructive pulmonary disease ([facility] V24, [facility] V28) Chronic kidney disease, stage 3 ([facility] V24, [facility] V28) Cataract Benign familial tremor Asthmatic bronchitis Arteriosclerosis of carotid artery Allergic rhinitis COPD exacerbation ([facility] V24, [facility] V28) [2] Past Medical History: Diagnosis Date Allergic rhinitis 04/19/2017 DX:Allergic rhinitis Arteriosclerosis of carotid artery 05/27/2018 DX:Arteriosclerosis of carotid artery Benign familial tremor 09/13/2017 DX:Benign familial tremor Cataract 09/26/2011 DX:Cataract Chronic obstructive pulmonary disease ([facility] V24, [facility] V28) 01/16/2018 DX:Chronic obstructive pulmonary disease (HCC) Colon polyps 10/04/2018 DX:Colon polyps Diabetes mellitus ([facility] V24, [facility] V28) DX:Diabetes mellitus (HCC) ED (erectile dysfunction) 09/01/2015 DX:ED (erectile dysfunction) Elevated PSA 10/04/2018 DX:Elevated PSA; COMMENT: 06/2018 5.0; [facility]; Nocturia/retention History of esophageal stricture 09/13/2017 DX:History of esophageal stricture; COMMENT: 06/2018 S/p dilated Schatzki ring History of squamous cell carcinoma of skin 09/13/2017 DX:History of squamous cell carcinoma of skin Hyperlipidemia 05/27/2018 DX:Hyperlipidemia Hypertension 05/27/2018 DX:Hypertension Hypertension DX:Hypertension Irritable bowel syndrome 02/25/2016 DX:Irritable bowel syndrome Peripheral vascular disease ([facility] V24) 05/27/2018 DX:Peripheral vascular disease (HCC) Prostate cancer ([facility] V24, [facility] V28) DX:Prostate cancer (HCC) Right bundle branch block (RBBB) 01/16/2018 DX:Right bundle branch block (RBBB) Type 2 diabetes mellitus with cataract ([facility] V24, [facility] V28) 05/27/2018 DX:Type 2 diabetes mellitus with cataract (HCC) Type 2 diabetes mellitus with vascular disease ([facility] V24, [facility] V28) 10/04/2018 DX:Type 2 diabetes mellitus with vascular disease (HCC) [3] Family History Problem Relation Name Age of Onset Breast cancer Mother Pneumonia Father [4] Current Outpatient Medications: albuterol HFA (ProAir HFA) 90 mcg/actuation inhaler, Inhale 2 puffs by mouth every 4 (four) hours if needed for wheezing or shortness of breath., Disp: 8.5 g, Rfl: 0 aspirin 81 mg EC tablet, Take 1 tablet (81 mg total) by mouth 1 (one) time each day., Disp: , Rfl: atorvastatin (LIPITOR) 20 mg tablet, Take 1 Tab by mouth daily., Disp: , Rfl: cyanocobalamin (VITAMIN B-12) 500 mcg tablet, Take 1 tablet (500 mcg total) by mouth 1 (one) time each day., Disp: , Rfl: dorzolamide (TRUSOPT) 2 % ophthalmic solution, Administer 1 drop into both eyes 2 (two) times a day., Disp: , Rfl: dgdpmebuciu-menxuzoctkyz-tfaaomydzw (Trelegy Ellipta) 100-62.5-25 mcg inhaler, Inhale 1 puff (100 mcg total) by mouth 1 (one) time each day. Rinse mouth with water after use to reduce aftertaste and incidence of candidiasis. Do not swallow., Disp: 1 each, Rfl: 12 glipiZIDE (GLUCOTROL) 10 mg tablet, Take 1 tablet (10 mg total) by mouth 1 (one) time each day., Disp: , Rfl: losartan (COZAAR) 100 mg tablet, Take 0.5 tablets (50 mg total) by mouth 1 (one) time each day., Disp: , Rfl: omeprazole (PriLOSEC) [address] capsule, TAKE 1 CAPSULE BY MOUTH 1 TIME EACH DAY. DO NOT CRUSH OR CHEW., Disp: 90 capsule, Rfl: 1 tamsulosin (FLOMAX) 0.4 mg 24 hr capsule, Take 1 capsule (0.4 mg total) by mouth 1 (one) time each day., Disp: , Rfl: timoloL maleate 0.5 % drops, once daily, Administer into both eyes 2 (two) times a day., Disp: , Rfl: verapamil SR (CALAN-SR) 120 mg CR tablet, Take 1 tablet (120 mg total) by mouth at bedtime., Disp: , Rfl: vit A/vit C/vit E/zinc/copper (PRESERVISION AREDS ORAL), Take by mouth., Disp: , Rfl: [5] Allergies Allergen Reactions Beck Inhibitors Unknown Amoxicillin-Pot Clavulanate Penicillins Rash Sulfa (Sulfonamide Antibiotics) Swelling Tetracyclines documented in this encounter Plan of Treatment Upcoming Encounters Date Type Department Care Team (Late st Contact Info) Description 12/22/2025 10:45 AM EDT Office Visit Pulmonology - [place] [address] [facility] [address] [place] [phone] David Dallas MD [address] [place] [phone] 12/30/2025 10:30 AM EDT Office Visit [facility] Hematology Oncology [address] [place] [phone] Daija Monk MD [address] [place] [address] documented as of this encounter Visit Diagnoses Diagnosis Pancytopenia (CMS/HCC V24, CMS/HCC V28)- Primary documented in this encounter Care Teams Social Work Lecturer Relationship Specialty Start Date End Date Dariel Hart NP [address] [place] [phone] PCP - General Family Medicine 03/13/25 documented as of this encounter
--- NOTE | ~2025-07-01 | US_ITS ---
CLINICAL HISTORY: I73.9 - Peripheral vascular disease, unspecified Duplex of abdominal aorta Comparison: None provided Findings: Aorta diameter proximal 1.9 cm, peak systolic velocity 195 cm/s. Aorta diameter mid 2.7 cm, peak systolic velocity 126 cm/s. Aorta diameter distal 2.8 cm, peak systolic velocity 132 cm/s. Bilateral common iliac arteries and external iliac arteries are not well seen on grayscale ultrasound, the size is difficult to measure. Right common iliac artery peak systolic velocity 164 cm/S. Right external iliac artery peak systolic velocity 237 cm/S. Left common iliac artery peak systolic velocity 116 cm/S. Left external iliac artery peak systolic velocity 164 cm/S. Incidental note of cardiac arrhythmia. Impression: 1. Ectatic mid to distal abdominal aorta. 2. Cardiac arrhythmia with suggestion of hypertension. This document has been electronically signed by: Zofia Thompson MD on 07/01/2025 15:02:52
--- NOTE | ~2025-07-01 | US_ITS ---
EXAMINATION: Noninvasive assessment of the bilateral lower extremities with ARTERIAL DUPLEX, ANKLE BRACHIAL INDICES (ABIs), and PULSE VOLUME RECORDINGS (PVRs). CLINICAL INFORMATION: I 73.9 TECHNIQUE: Duplex Doppler techniques with waveform analysis and measurement of velocities in the bilateral common femoral, profunda femoris, superficial femoral, popliteal and tibial arteries were performed. Additionally, ankle pulse volume recordings, ankle pressure measurements and ankle brachial indices were obtained of the lower extremity arterial system bilaterally. The study was performed only at rest. COMPARISON: January 05, 2025 FINDINGS: DIRECT DUPLEX DOPPLER FINDINGS: RIGHT LEG: Common femoral artery: 161 cm/s, phasicity: Monophasic. Spectral broadening. Profunda femoris artery: 82 cm/s, phasicity: Monophasic. Spectral broadening. Superficial femoral artery (proximal): 33 cm/s, phasicity: Monophasic. Spectral broadening. Superficial femoral artery (mid): 11 cm/s, phasicity: Monophasic. Spectral broadening. Superficial femoral artery (distal): 19 cm/s, phasicity: Monophasic. Spectral broadening. Popliteal artery: 34 cm/s, phasicity: Monophasic. Spectral broadening. Posterior tibial artery: 27 cm/s, phasicity: Monophasic. Spectral broadening. Peroneal artery: 12 cm/s, phasicity: Monophasic. Spectral broadening. Anterior tibial artery: 12 cm/s, phasicity: Monophasic. Spectral broadening. Dorsalis pedis artery: 6 cm/s, phasicity:Monophasic. Spectral broadening. LEFT LEG: Common femoral artery: 186 cm/s, phasicity: Monophasic. Spectral broadening. Profunda femoris artery: 193 cm/s, phasicity: Monophasic. Spectral broadening. Superficial femoral artery (proximal): 31 cm/s, phasicity: Monophasic. Spectral broadening. Superficial femoral artery (mid): 67 cm/s, phasicity: Monophasic. Spectral broadening. Superficial femoral artery (distal): 49 cm/s, phasicity: Monophasic. Spectral broadening. Popliteal artery: 39 cm/s, phasicity: Monophasic. Spectral broadening. Posterior tibial artery: 34 cm/s, phasicity: Monophasic. Spectral broadening. Peroneal artery: 14 cm/s, phasicity: Monophasic. Spectral broadening. Anterior tibial artery: 25 cm/s, phasicity: Monophasic. Spectral broadening. Dorsalis pedis artery: 30 cm/s, phasicity: Monophasic. Spectral broadening. BRACHIAL PRESSURES: Right: 174 Left: 173 ANKLE PRESSURES: Right: PT 81, DP 63 Left: PT 102, DP 99 ANKLE-BRACHIAL INDEX: Right: 0.47. Left: 0.59. ANKLE PVR WAVEFORMS: Right: Abnormal Left: Abnormal US/US arterial duplex BI w/ BETTINA IMPRESSION: Right leg: Severe inflow disease throughout the interrogated arteries. Collateral flow in the mid to distal segments of the superficial femoral artery. Left leg: Severe inflow disease throughout the interrogated arteries. BETTINA Reference: - >1.4 = calcified vessels - 0.9 - 1.4 = normal - no significant arterial disease - 0.7 - 0.89 = mild peripheral arterial disease - 0.51 - 0.69 = moderate peripheral arterial disease - 0.50 = severe peripheral arterial disease - < .30 = critical arterial disease Electronically signed by: Myles nEgland MD 07/01/2025 10:59 AM LALA
--- OUTSIDE RECORDS SUMMARY | 2025-07-01 09:03 | XMS_ITS | Clinical Summary ---
Author Organization [facility] Address [address] [place] [address] Care Team Providers Care Payment Analyst Name Role Phone Dariel Hart Primary Care Provider [phone] Allergies Active Allergy Reactions Criticality Noted Date [...] 64 06/19/2024 10:27 AM EDT Temperature 36.2 C (97.1 F) 06/19/2024 10:27 AM EDT Respiratory Rate - - Oxygen Saturation 100% [...] 1-dose 75+ series) 12/01/2019 Influenza Vaccine (#1) 2025 Hepatitis B Vaccines Aged Out No long er eligible based on patient's age to complete this topic RSV Ped < 20 months Aged Out No longe r eligible based on patient's age to complete this topic Care Teams Payment Analyst Relationship Specialty Start Date End Date Dariel Hart [address] [facility] [place] [phone] PCP - General Family Medicine 01/18/24
--- OUTSIDE RECORDS SUMMARY | 2025-07-01 09:03 | XMS_ITS | Encounter Summary ---
Author Organization [facility] Address [address] [place] [address] Care Team Providers Care Executive Chairman Name Role Phone Dariel Hart NP Primary Care Provider Encounter Details Date Type Department Care Team (Late Contact Info) Description 05/28/2025 Results Follow-Up Gastroenterology [address] [phone] Oralia Gutierrez [place] Social History Tobacco Use Types Packs/Day Years [...] on file documented as of this encounter Plan of Treatment Upcoming Encounters Date Type Department Care Team (Late Contact Info) Description 12/22/2025 10:45 AM EDT Office Visit Pulmonology - [place] [address] [facility] [address] [place] [phone] David Dallas MD [address] [place] [address] [place] [phone] 12/30/2025 10:30 AM EDT Office Visit [facility] Hematology Oncology [address] [place] [phone] Daija Monk MD [address] [place] [address] documented as of this encounter Visit Diagnoses Not on filedocumented in this encounter Care Teams Executive Chairman Relationship Specialty Start Date End Date Dariel Hart NP [address] [place] [phone] PCP - General Family Medicine 03/13/25 documented as of this encounter
--- OUTSIDE RECORDS SUMMARY | 2025-07-01 09:03 | XMS_ITS | Clinical Summary ---
Author Organization [facility] Address [address] [place] [address] Phone Care Team Providers Care Terrazzo Layer Name Role Phone Dariel Hart NP Primary Care Provider [phone] Allergies Active Allergy Reactions Criticality Noted Date [...] AREDS ORAL) Take by mouth. Act sriram albuterol HFA (ProAir HFA) 90 mcg/actuation inhaler Inhale 2 puffs by mouth every 4 (four) hours if needed for wheezing or shortness of breath. 8.5 g 03/09/20 25 026 Active fluticasone-um eclidinium-stanley anterol (Trelegy Ellipta) 100-62.5-25 mcg inhaler Inhale 1 puff (100 mcg total) by mouth 1 (one) time each day. Rinse mouth with water after use to reduce aftertaste and incidence of candidiasis. Do not swallow. 1 each 03/16/20 25 026 Active timoloL maleate 0.5 % drops, once daily Administer into both eyes 2 (two) times a day. Active cyanocobalamin (VITAMIN B-12) 500 mcg tablet Take 1 tablet (500 mcg total) by mouth 1 (one) time each day. Active omeprazole (PriLOSEC) [address] capsule TAKE 1 CAPSULE BY MOUTH 1 TIME EACH DAY. DO NOT CRUSH OR CHEW. 90 capsule 1 06/22/20 25 Active omeprazole (PriLOSEC) [address] capsule Take 1 capsule (20 mg total) by mouth 1 (one) time each day. Do not crush or chew. 30 each 1 05/29/20 25 025 Discontinued Active Problems Problem Noted Date Diagnosed Date COPD exacerbation ([facility] V24, [facility] V28) Proteinuria 10/15/2019 Hypotension 10/15/2019 Cough 10/15/2019 Chronic kidney disease, stage 3 ([facility] V24, [facility] V28) 10/15/2019 Asthmatic bronchitis 10/06/2019 Type 2 diabetes mellitus wit h vascular disease ([facility] V24, [facility] V28) 10/04/2018 Elevated PSA 10/04/2018 Overview (08/08/2024): 06/2018 5.0; PV Urology; Nocturia/retention Colon polyps 10/04/2018 Type 2 diabetes mellitus wit h cataract ([facility] V24, [facility] V28) 05/27/2018 Peripheral vascular disease ([facility] V24) 2017 Hypertension 05/27/2018 Hyperlipidemia 05/27/2018 Arteriosclerosis of carotid artery 05/27/2018 Right bundle branch block (RBBB) 01/16/2018 Chronic obstructive pulmonar y disease ([facility] V24, [facility] V28) 01/16/2018 Benign familial tremor 09/13/2017 Allergic rhinitis 04/19/2017 Irritable bowel syndrome 02/25/2016 ED (erectile dysfunction) 09/01/2015 Cataract 09/26/2011 Encounters Date Type Department Care Team Description 06/30/2025 10:15 AM EST Office Visit [facility] Hematology Oncology [address] [place] [phone] Daija Monk MD Pancytopenia ([facility] V24, [facility] V28) (Primary Dx) 06/18/2025 9:15 AM EDT Office Visit Pulmonology [facility] [address] [phone] David Dallas MD Chronic obstructive pulmonary disease, unspecified COPD type ([facility] V24, [facility] V28) (Primary Dx) 05/28/2025 Results Follow-Up Gastroenterology [facility] [address] [phone] Oralia Gutierrez HI 04/28/2025 1:18 PM EDT Anesthesia Event [facility] Endoscopy [address] [place] [phone] Wojciech Fermin MD Gomes, Sheldon B, MD 04/28/2025 12:31 PM EDT - 04/28/2025 11:59 PM EDT Hospital Encounter [facility] Endoscopy [address] [place] [phone] Dhiraj Juarez DO Vermes, Rachie, CRNA Spencer, Mark A, MD Esophageal dysphagia; Esophageal stenosis; Food impaction of esophagus Discharge Disposition: Home or Self Care 04/23/2025 1:00 PM EDT Office Visit Gastroenterology - [address] [facility] [address] [facility] [address] [place] [address] Kvein Lamar PA Esophageal dysphagia (Primary Dx) 04/23/2025 Telephone Gastroenterology - [address] [place] [facility] [address] [place] [address] Rissa Adkins MD from Last 3 Months Immunizations Immunization Administration Dates Next Due Influenza, Unspecified 04/26/2019 Pneumococcal polysaccharide 23 valent (Pneumovax 23) 2yo and older 10/11/2012 Zoster Live 09/05/2012 Surgical History Surgery Date Site/Laterality Comments CHOLECYSTECTOMY PROCEDURE: HISTORICAL CHOLECYSTECTOMY APPENDECTOMY PROCEDURE: HISTORICAL APPENDECTOMY HERNIA REPAIR PROCEDURE: HISTORICAL HERNIA REPAIR/ING OTHER SURGICAL HISTORY PROCEDURE: HISTORICAL EAR SURGERY APPENDECTOMY PROCEDURE:APPENDECTOMY GALLBLADDER SURGERY PROCEDURE:GALLBLADDER SURGERY HERNIA REPAIR Bilateral PROCEDURE:HERNIA REPAIR COLONOSCOPY 11/25/2020 - 12/24/2020 TA x2, left sided tic (5yr) Dr. Norwood ESOPHAGOGASTRODUODENOSCOPY 03/27/2017 - 04/26/[address] [place]wood ESOPHAGOGASTRODUODENOSCOPY 06/27/2018 - 07/26/[address] Norwood ESOPHAGOGASTRODUODENOSCOPY 04/27/2019 - 05/26/[address] Norwood ESOPHAGOGASTRODUODENOSCOPY 09/27/2024 - 10/24/2024 Benign-appearing esophageal stenosis dilated otherwise unremarkable Dr. Norwood Medical History Medical History Date Comments Allergic rhinitis 04/19/2017 DX:Allergic rh initis Arteriosclerosis of carotid artery 05/27/2018 DX:Arteriosclerosis of carotid artery Benign familial tremor 09/13/2017 DX:Benign familial tremor Cataract 09/26/2011 DX:Cataract Chronic obstructive pulmonar y disease (CMS/HCC V24, CMS/HCC V28) 01/16/2018 DX:Chronic obstructive pulm onary disease [...] DX:Irri table bowel syndrome Peripheral vascular disease ([facility] V24) 05/27/2018 DX:Peripheral vascular disea se (HCC) Right bundle branch block (RBBB) 01/16/2018 DX:Right bundle branch block (RBBB) Type 2 diabetes mellitus wit h cataract ([facility] V24, [facility] V28) 05/27/2018 DX:Type 2 diabetes mellitus with cataract (HCC) Type 2 diabetes mellitus wit h vascular disease ([facility] V24, [facility] V28) 10/04/2018 DX:Type 2 diabetes mellitus with vascular disease (HCC) Diabetes mellitus ([facility] V 24, [facility] V28) DX:Diabetes mellitus (HCC) Hypertension DX:Hypertension Prostate cancer ([facility] V24 , [facility] V28) DX:Prostate cancer (HCC) Family History Medical History Relation Name Comments Pneumonia Father Breast cancer Mother Relation Name Status Comments Father Mother Social History Tobacco Use Types Packs/Day Years Used Date Smoking Tobacco: Former Cigarettes Smokeless Tobacco: Never Tobacco Cessation:Counseling Given: Not Answered Comments:Has not smoke in 15 years Alcohol [...] F) 06/30/2025 10:13 AM EST Respiratory Rate 20 06/18/2025 9:20 AM EDT Oxygen Saturation 100% 06/30/2025 10:13 AM EST Inhaled Oxygen Concentration - - Weight 84.4 kg (186 lb) 06/30/2025 10:13 AM EST Height 170.2 cm (5' 7 ) 06/18/2025 9:20 AM EDT Body Mass Index 29.13 06/18/2025 9:20 AM EDT Plan of Treatment Upcoming Encounters Date Type Department Care Team (Late st Contact Info) Description 12/22/2025 10:45 AM EDT Office Visit Pulmonology - [place] [address] [facility] [address] [place] [phone] David Dallas MD [address] [place] [phone] 12/30/2025 10:30 AM EDT Office Visit [facility] Hematology Oncology [address] [place] [phone] Daija Monk MD [address] [place] [address] Health Maintenance Due Date Last Done Comments Diabetes: Annual Foot Exam 1955 Diabetes: Annual Retina Eye Exam 1955 Medicare Annual Wellness Visit 07/30/2022 Social Influencers of Health Screening 07/30/2022 Diabetes: Annual Urine Albumin-Creatinine Ratio (uACR) 08/10/2022 10/15/2019 Diabetes: Blood Sugar Control Test (HGBA1C) 08/10/2022 10/10/2019 Depression Screening 08/27/2024 Cholesterol Screening (Lipid Panel) 10/10/2024 10/10/2019 COVID-19 Vaccine (7 - Pfizer risk 2023- season) 2025 05/19/2024, 05/28/2023, 06/23/2022, Additional history exists Diabetes: Annual GFR (Glomerular Filtration Rate) 03/08/2026 03/08/2025, 10/30/2019 Hypertension/CHF/CAD Annual BMP Blood Test 03/08/2026 03/08/2025, 10/30/2019 Falls Risk Assessment 04/28/2026 04/28/2025 DTaP,Tdap,and Td Vaccines (2 - Td or Tdap) 02/07/2028 02/06/2018 Pneumococcal Vaccine: 50+ Years Completed 09/27/2022, 05/10/2018, 10/11/2012 RSV Immunization Adult Patients Completed 06/14/2023 Zoster Vaccines Completed 12/11/2023, 07/28, 09/05/2012 Influenza Vaccine Completed 05/28/2025, , 06/02/2024, Additional history exists HIB Vaccines Aged Out [...] Diagnosis Comments CBC WITH AUTO DIFFERENTIAL Routine 06/23/2025 11:19 AM EDT Pancytopenia (CMS/HCC V24, CMS/HCC V28) PAROXYSMAL NOCTURNAL HEMOGLOBINURIA WITH HIGH SENSITIVITY Routine 06/23/2025 11:19 AM EDT Pancytopenia (CMS/HCC V24, CMS/HCC V28) LACTATE DEHYDROGENASE Routine 06/23/2025 11:19 AM EDT Pancytopenia (CMS/HCC V24, CMS/HCC V28) CBC AND DIFFERENTIAL Routine 06/23/2025 11:19 AM EDT Pancytopenia (CMS/HCC V24, CMS/HCC V28) EGD Routine 04/28/2025 1:36 PM EDT Esophageal dysphagia Esophageal stenosis Food impaction of esophagus TISSUE EXAM Routine 04/28/2025 1:35 PM EDT Esophageal dysphagia Esophageal stenosis Food impaction of esophagus COLONOSCOPY Routine 04/22/2025 1:35 PM EDT EXTERNAL ENDOSCOPY REPORT Routine 04/22/2025 1:31 PM EDT COMPREHENSIVE METABOLIC PANEL STAT 03/08/2025 7:26 AM EDT HM URINE ALBUMIN CREATININE RATIO Routine 10/15/2019 HEMOGLOBIN A1C Routine 10/10/2019 LIPID PANEL Routine 10/10/2019 from Last 3 Months or Most Recently Relevant to Health Maintenance Results * (ABNORMAL) CBC auto differential (06/23/2025 11:19 AM EDT) WBC 3.3(L) 4.8 - 10.8 K/mcL LAB HEMETOLOGY METHOD 06/23/2025 12:20 PM EDT [facility] RBC 3.30(L) 4.50 - 5.50 M/mcL [facility] Hemoglobin 11.1(L) 13.5 - 17.5 g/dL LAB HEMETOLOGY METHOD 06/23/2025 12:20 PM [facility] Hematocrit 32.3(L) 42.0 - 54.0 % LAB HEMETOLOGY METHOD 06/23/2025 12:20 PM EDT [facility] MCV 99.1(H) 79.0 - 98.0 FL LAB HEMETOLOGY [facility]23[facility]2025 12[facility] MCH 34.0(H) 27.0 - 32.0 pcg LAB HEMETOLOGY METHOD 06/23/2025 12:20 PM [facility] MCHC 34.4 32.0 - 37.0 g/dL LAB HEMETOLOGY METHOD 06/23/2025 12:20 PM EDT [facility] RDW 13.1 11.0 - 15.0 % LAB HEMETOLOGY METHOD 06/23/2025 12:20 PM EDT [facility] Platelets 101(L) 130 - 400 K/mcL LAB HEMETOLOGY METHOD 06/23/2025 12:20 PM EDT [facility] MPV 10.8 7.0 - 11.0 FL LAB HEMETOLOGY METHOD 06/23/2025 12:20 PM EDT [facility] NRBC 0.0 <1.0 % LAB HEMETOLOGY METHOD 06/23/2025 12:20 PM [facility] NRBC Absolute 0.00 <0.10 K/mcL LAB HEMETOLOGY METHOD 06/23/2025 12:20 PM [facility] Neutrophils Relative 76.7 % LAB HEMETOLOGY METHOD 06/23/2025 12:20 PM [facility] Lymphocytes Relative 12.4 % LAB HEMETOLOGY METHOD 06/23/2025 12:20 PM [facility] Monocytes Relative 8.2 % LAB HEMETOLOGY METHOD 06/23/2025 12:20 PM [facility] Eosinophils Relative 1.5 % LAB HEMETOLOGY METHOD 06/23/2025 12:20 PM [facility] Basophils Relative 0.6 % LAB HEMETOLOGY METHOD 06/23/2025 12:20 PM [facility] Immature Granulocytes Relative 0.6 % LAB HEMETOLOGY METHOD [facility]/23[facility]2025 12[facility] Neutrophils Absolute 2.54 1.50 - 7.00 K/mcL LAB HEMETOLOGY METHOD 06/23[facility]2025 12[facility] Lymphocytes Absolute 0.41(L) 1.00 - 5.00 K/mcL LAB HEMETOLOGY METHOD 06/23/2025 12:20 PM EDT [facility] Monocytes Absolute 0.27 0.20 - 1.00 K/mcL LAB HEMETOLOGY METHOD 06/23/2025 12:20 PM EDT [facility] Eosinophils Absolute 0.05 0.00 - 0.50 K/mcL LAB HEMETOLOGY METHOD 06/23/2025 12:20 PM EDT [facility] Basophils Absolute 0.02 0.00 - 0.20 K/mcL LAB HEMETOLOGY METHOD 06/23/2025 12:20 PM EDT [facility] Immature Granulocytes Absolute 0.02 0.00 - 0.03 K/mcL LAB HEMETOLOGY METHOD 06/23/2025 12:20 PM EDT [facility] Blood Venous blood specimen / Unknown Venipuncture / Unknown 06/23/2025 11:19 AM EDT 06/23/2025 11:58 AM EDT [facility] Rocio Monk MD LAB BLOOD ORDERABLES Final R esult [facility] [address] [place] [address], * Paroxysmal nocturnal hemoglobinuria with high sensitivity (06/23/2025 11:19 AM EDT) Pathologist SEEBELOW 2:54 PM EDT [facility] Comment: This test was developed and its performance characteristics determined by [facility]. It has not been cleared or approved by the U.S. Food and Drug Administration. The FDA has determined that such clearance or approval is not necessary. Interpretation No flow cytometric evidence of PNH. 2:54 PM EDT [facility] Source Peripheral blood 2:54 PM EDT [facility] Comment See Below 2:54 PM EDT [facility] Comment: RESULT: No evidence of aberrant loss of GPI-linked markers tested. Granulocytes- No decreased/absent expression of CD157 and FLAER. Monocytes- No decreased/absent expression of CD157 and FLAER. Methodology: FLAER reagent and antibodies directed against CD157, as well as CD45, CD15, and CD64 (for gating) were used for flow cytometric assessment of glycophosphatidylinositol (GPI)-linked molecules. Reported percentages within different blood cell populations are based on the scattergram of CD45, forward scatter, side scatter, and phenotypic cluster analysis. This high-sensitivity assay can detect as few as 1 in 10,000 GPI-deficient neutrophils in a mixed population and can be used for sequentially monitoring disease levels in patients with paroxysmal nocturnal hemoglobinuria (PNH). PNH cells are seen in <.003% of normal neutrophils. References: 1. Daryl Jackson, et al; Guidelines for the diagnosis and monitoring of Paroxysmal Nocturnal Hemoglobinuria and Related Disorders by Flow Cytometry. Cytometry Part B (Clinical Cytometry) 78B:211-230 (2010). 2. Corey Chavarria, et al; Use of a FLAER-Based WBC Assay in the Primary Screening of PNH Clones. Am J Clin Pathol 132:564-572 (2009). 3. Corey Chavarria, et al; Use of CD157 in FLAER-Based Assays for High-Sensitivity PNH Granulocyte and PNH Monocyte Detection. Cytometry Part B (Clinical Cytometry) 86B:44-55 (2013). Antibodies CD15, CD45, CD64, CD157, FLAER 5 2:54 PM EDT [facility] Comment: Test performed at [facility], [address] , [place] [address] Blood Venous blood specimen / Unknown Venipuncture / Unknown 06/23/2025 11:19 AM EDT 06/23/2025 11:58 AM EDT us Daija Monk MD LAB BLOOD ORDERABLES Final R esult [facility] [address] [place] [address] * Lactate dehydrogenase (06/23/2025 11:19 AM EDT) LDH 181 120 - 246 unit/L LAB CHEMISTRY METHOD 06/23/2025 2:00 PM EDT [facility] Blood Venous blood specimen / Unknown Venipuncture / Unknown 06/23/2025 11:19 AM EDT 06/23/2025 11:58 AM EDT us Daija Monk MD LAB BLOOD ORDERABLES Final R esult [facility] [address] [place] [address], * EGD Anesthesia - MAC; [facility] ENDOSCOPY (04/28/2025 1:36 PM EDT) Anatomical Region Laterality Modality Endoscopy 04/28/2025 1:23 PM EDT Impressions 04/28/2025 1:38 PM EDT - Normal stomach. - Normal examined duodenum. - Benign-appearing esophageal stenosis. Dilated. Biopsied. Recommendation: - Discharge patient to home. - Resume previous diet. - Continue present medications. - Await pathology results. Narrative 04/28/2025 1:38 PM EDT [facility] GI Patient Name: Gilles Castillo Procedure Date: 04/28/2025 1:23 PM Date of : 1945 Age: 79 Gender: Male Note Status: Finalized Attending MD: Dhiraj Juarez DO, [id number] Procedure Date No Time: 04/28/2025 Procedure: Upper GI endoscopy Indications: Dysphagia Providers: Dhiraj Juarez DO Referring MD: Dariel Hart Medicines: Monitored Anesthesia Care Complications: No immediate complications. Estimated blood loss: Minimal. Estimated Blood Loss: Estimated blood loss was minimal. Procedure: Pre-Anesthesia Assessment: - - Prior to the procedure, a History and Physical was performed, and patient medications and allergies were reviewed. The patient is competent. The risks and benefits of the procedure and the sedation options and risks were discussed with the patient. All questions were answered and informed consent was obtained. Patient identification and proposed procedure were verified by the physician, the nurse, the anesthesiologist, the oncology physician and the oil burner technician in the pre-procedure area in the endoscopy suite. Mental Status Examination: alert and oriented. Airway Examination: normal oropharyngeal airway and neck mobility. Respiratory Examination: clear to auscultation. CV Examination: normal. Prophylactic Antibiotics: The patient does not require prophylactic antibiotics. Prior Anticoagulants: The patient has taken no anticoagulant or antiplatelet agents. ASA Grade Assessment: II - A patient with mild systemic disease. After reviewing the risks and benefits, the patient was deemed in satisfactory condition to undergo the procedure. The anesthesia plan was to use monitored anesthesia care (MAC). Immediately prior to administration of medications, the patient was re-assessed for adequacy to receive sedatives. The heart rate, respiratory rate, oxygen saturations, blood pressure, adequacy of pulmonary ventilation, and response to care were monitored throughout the procedure. The physical status of the patient was re-assessed after the procedure. After obtaining informed consent, the endoscope was passed under direct vision. Throughout the procedure, the patient's blood pressure, pulse, and oxygen saturations were monitored continuously.The Endoscope was introduced through the mouth, and advanced to the third part of duodenum. The upper GI endoscopy was accomplished without difficulty. The patient tolerated the procedure well. Findings: The stomach was normal. The examined duodenum was normal. One benign-appearing, intrinsic moderate (circumferential scarring or stenosis; an endoscope may pass) stenosis was found 36 to 37 cm from the incisors. This stenosis measured 1.5 cm (inner diameter) x 1 cm (in length). The stenosis was traversed. A TTS dilator was passed through the scope. Dilation with an 18-19-20 mm balloon dilator was performed to 19 mm. The dilation site was examined following endoscope reinsertion and showed moderate improvement in luminal narrowing. Estimated blood loss was minimal. Biopsies were taken with a cold forceps for histology. Procedure Code(s): --- Professional --- 93420, Esophagogastroduodenoscopy, flexible, transoral; with transendoscopic balloon dilation of esophagus (less than 30 mm diameter) 10817, 59, Esophagogastroduodenoscopy, flexible, transoral; with biopsy, single or multiple Diagnosis Code(s): --- Professional --- K22.2, Esophageal obstruction R13.10, Dysphagia, unspecified CPT copyright 2020 [employer]. All rights reserved. The codes documented in this report are preliminary and upon industrial relations director review may be revised to meet current compliance requirements. DHIRAJ Juarez DO 04/28/2025 1:38:18 PM This report has been signed electronically.Dhiraj Juarez DO Number of Addenda: 0 Note Initiated On: 04/28/2025 1:23 PM Scope In: Scope Out: Endoscopy Department at [facility] - [address] [place] [phone] Procedure Note Dhiraj Juarez DO - 04/28/2025 [facility] GI Patient Name: Gilles Castillo Procedure Date: 04/28/2025 1:23 PM Date of : 1945 Age: 79 Gender: Male Note Status: Finalized Attending MD: Dhiraj Juarez DO, [id number] Procedure Date No Time: 04/28/2025 Procedure: Upper GI endoscopy Indications: Dysphagia Providers: Dhiraj Juarez DO Referring MD: Dariel Hart Medicines: Monitored Anesthesia Care Complications: No immediate complications. Estimated blood loss: Minimal. Estimated Blood Loss: Estimated blood loss was minimal. Procedure: Pre-Anesthesia Assessment: - - Prior to the procedure, a History and Physicalwas performed, and patient medications and allergieswere reviewed. The patient is competent. The risks and benefits of the procedure and the sedation optionsand risks were discussed with the patient. Allquestions were answered and informed consent was obtained. Patient identification and proposed procedure were verified by the physician, the nurse, the anesthesiologist, the oncology physician and thetechnician in the pre-procedure area in the endoscopy suite. Mental Status Examination: alert and oriented.Airway Examination: normal oropharyngeal airway and neck mobility. Respiratory Examination: clear to auscultation. CV Examination: normal. Prophylactic Antibiotics: The patient does not requireprophylactic antibiotics. Prior Anticoagulants: The patient has taken no anticoagulant or antiplatelet agents. ASA Grade Assessment: II - A patient with mild systemic disease. After reviewing the risks and benefits,the patient was deemed in satisfactory condition to undergo the procedure. The anesthesia plan was touse monitored anesthesia care (MAC). Immediately priorto administration of medications, the patient was re-assessed for adequacy to receive sedatives. The heart rate, respiratory rate, oxygen saturations, blood pressure, adequacy of pulmonary ventilation,and response to care were monitored throughout the procedure. The physical status of the patient was re-assessed after the procedure. After obtaining informed consent, the endoscope was passed under direct vision. Throughout theprocedure, the patient's blood pressure, pulse, and oxygen saturations were monitored continuously.TheEndoscope was introduced through the mouth, and advanced tothe third part of duodenum. The upper GI endoscopy was accomplished without difficulty. The patienttolerated the procedure well. Findings: The stomach was normal. The examined duodenum was normal. One benign-appearing, intrinsic moderate (circumferential scarring or stenosis; an endoscope may pass) stenosis was found 36 to 37 cm from the incisors. This stenosis measured 1.5 cm (inner diameter) x 1 cm (in length). The stenosis was traversed. A TTS dilator was passed through thescope. Dilation with an 18-19-20 mm balloon dilator was performed to 19 mm. The dilation site was examined following endoscope reinsertion and showed moderate improvement in luminal narrowing. Estimated bloodloss was minimal. Biopsies were taken with a coldforceps for histology. Procedure Code(s): --- Professional --- 43042, Esophagogastroduodenoscopy, flexible, transoral; with transendoscopic balloon dilation of esophagus (less than 30 mm diameter) 89438, 59, Esophagogastroduodenoscopy, flexible, transoral; with biopsy, single or multiple Diagnosis Code(s): --- Professional --- K22.2, Esophageal obstruction R13.10, Dysphagia, unspecified CPT copyright 2020 [employer]. All rights reserved. The codes documented in this report are preliminary and upon industrial relations director reviewmay be revised to meet current compliance requirements. DHIRAJ Juarez DO 04/28/2025 1:38:18 PM This report has been signed electronically.Dhiraj Juarez DO Number of Addenda: 0 Note Initiated On: 04/28/2025 1:23 PM Scope In: Scope Out: Endoscopy Department at [facility] - [address] [place] [phone] IMPRESSION: - Normal stomach. - Normal examined duodenum. - Benign-appearing esophageal stenosis. Dilated. Biopsied. Recommendation: - Discharge patient to home. - Resume previous diet. - Continue present medications. - Await pathology results. Dhiraj Juarez DO GI~PROCEDURE ORDERABLES Final Re sult * Tissue exam (04/28/2025 1:35 PM EDT) Final Diagnosis A. Esophagus, stricture biopsy: - Columnar mucosa with marked acute inflammation and reactive changes. - Negative for intestinal metaplasia and dysplasia. 04/29/2025 11:12 AM EDT [facility] Gross Description A. Esophagus, stricture bx's: Labeled esophagus, esophagus . Received in formalin are two irregular pink-white mucosal tissue fragments, measuring 0.1 cm and 0.2 cm in greatest dimension, which are wrapped in paper and submitted in toto in one cassette, two pieces, multiple levels on one slide. JARON 04/29/2025 11:12 AM EDT [facility] Disclaimer Unless otherwise specified, all tissue is 10% NB formalin fixed and paraffin embedded. 04/29/2025 11:12 AM EDT [facility] Tissue Esophageal structure / Unknown 04/28/2025 1:35 PM EDT 04/28/2025 3:07 PM EDT Dhiraj [facility] PATHOLOGY ORDERABLES Final R esult [facility] [address] [place] [address], * COLONOSCOPY (04/22/2025 1:35 PM EDT) Anatomical Region Laterality Modality Endoscopy Historical Provider GI~PROCEDURE ORDERABLES F inal Result * External Endoscopy (04/22/2025 1:31 PM EDT) Anatomical Region Laterality Modality Endoscopy us Historical Provider MD SOTO~PROCEDURE ORDERABLES F inal Result * (ABNORMAL) Comprehensive metabolic panel (03/08/2025 7:26 AM EDT) Sodium 134 133 - 145 mmol/L LAB CHEMISTRY METHOD 03/08/2025 8:37 AM [facility] Potassium 4.5 3.5 - 5.5 mmol/L LAB CHEMISTRY METHOD 03/08/2025 8:37 AM [facility] Comment:Hemolysis present Chloride 101 96 - 110 mmol/L LAB CHEMISTRY METHOD 03/08/2025 8:37 AM [facility] CO2 24 21 - 32 mmol/L LAB CHEMISTRY METHOD 03/08/2025 8:37 AM [facility] Anion Gap 9 3 - 11 LAB CHEMISTRY METHOD 03/08/2025 8:37 AM [facility] Glucose 249(H) 70 - 100 mg/dL LAB CHEMISTRY METHOD 03/08/2025 8:37 AM [facility] BUN 23 5 - 25 mg/dL LAB CHEMISTRY METHOD 03/08/2025 8:37 AM [facility] Creatinine 1.13 0.70 - 1.30 mg/dL LAB CHEMISTRY METHOD 03/08/2025 8:37 AM [facility] eGFR 66 >=60 mL/min/1. 73m2 LAB CHEMISTRY METHOD 03/08/2025 8:37 AM [facility] Comment:Calculation based on the Chronic Kidney Disease Epidemiology Collaboration (CKD-EPI) equation refit without adjustment for race. BUN/Creatinine Ratio 20.4 LAB CHEMISTRY METHOD 03/08/2025 8:37 AM [facility] Calcium 9.0 8.5 - 10.5 mg/dL LAB CHEMISTRY METHOD 03/08/2025 8:37 AM [facility] AST (SGOT) 23 10 - 42 unit/L LAB CHEMISTRY METHOD 03/08/2025 8:37 AM EDT [facility] Comment:Hemolysis present ALT (SGPT) 21 10 - 60 unit/L LAB CHEMISTRY METHOD 03/08/2025 8:37 AM EDT [facility] Alkaline Phosphatase 66 42 - 121 unit/L LAB CHEMISTRY METHOD 03/08/2025 8:37 AM EDT [facility] Total Protein 7.2 6.0 - 8.0 g/dL LAB CHEMISTRY METHOD 03/08/2025 8:37 AM EDT [facility] Albumin 4.2 3.2 - 5.0 g/dL LAB CHEMISTRY METHOD 03/08/2025 8:37 AM EDT [facility] Total Bilirubin 1.4 0.0 - 1.4 mg/dL LAB CHEMISTRY METHOD 03/08/2025 8:37 AM EDT [facility] Blood Venous blood specimen / Unknown Venipuncture / Unknown 03/08/2025 7:26 AM EDT 03/08/2025 7:57 AM EDT Ed Nj MD LAB BLOOD ORDERABLES Final Result [facility] [address] [place] [address], * Urine Albumin Creatinine Ratio (10/15/2019) Pathologist [facility] Urine Albumin Creatinine Ratio Abstracted Historical Provider HEALTH MAINTENANCE Final Result * Hemoglobin A1c (10/10/2019) Pathologist [facility] Hemoglobin A1C 6.3 <=6.5 % Blood Venous blood specimen / Unknown Historical Provider LAB BLOOD ORDERABLES Scarlett l Result * Lipid panel (10/10/2019) Pathologist [facility] LDL/HDL Ratio 2 0 - 4 Triglycerides 149 0 - 150 mg/dL Cholesterol 145 0 - 200 mg/dL HDL 69 >=40 mg/dL LDL Cholesterol 47 0 - 100 mg/dL Blood Venous blood specimen / Unknown us Historical Provider LAB BLOOD ORDERABLES Scarlett l Result from Last 3 Months or Most Recently Relevant to Health Maintenance Insurance [employer] Advance Directives * Full Code - Confirmed (Latest Code Status on File) Date Activated Date Inactivated Comments 03/08/2025 10:39 AM 03/09/2025 7:14 PM This code s tatus was ascertained in the following way: Code status discussion: discussion with patient To update the patient's code status, place a code status order. Do not modify or discontinue any currently active code status orders. Care Teams Terrazzo Layer Relationship Specialty Start Date End Date Dariel Hart NP [address] [place] [id number] PCP - General Family Medicine 03/13/25
--- OUTSIDE RECORDS SUMMARY | 2025-07-01 09:03 | XMS_ITS | Patient Health Record ---
[facility] Organization [facility] Address [address] [place] [address] Care Team Providers Care Oil Mixer Name Role Phone Dariel Russell Primary Care Provider Unav ailable Black, Desire Unavailable [phone] Allergies Allergen (clinical drug ingredient) Drug/Non Drug [...] Range Notes HEMOGLOBIN A1C (GLYCOHEMOGLO BIN) Reviewed date:03/26/2025 10:10:47 AM Interpretation: Performing Lab: Notes/Report: HEMOGLOBIN A1C % (HH) 6.1 HEMOGLOBIN A1C (GLYCOHEMOGLO BIN) Reviewed date:05/27/2025 07:59:02 AM Interpretation: Performing Lab: Notes/Report: HEMOGLOBIN A1C % (HH) 6.0 HEMOGLOBIN A1C (GLYCOHEMOGLO BIN) Reviewed date:03/26/2025 12:44:57 PM Interpretation: Performing Lab: Notes/Report: HEMOGLOBIN A1C % (HH) 10.8 Reason For Referral Diagnosis 1 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) Diagnosis 2 Unspecified atherosc lerosis of [place] arteries of extremities, bilateral legs (I70.203) Diagnosis 3 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) Diagnosis 4 PlantarFlexion of me tatarsal of right foot (M21.6X1) Diagnosis 5 Non-pressure chronic ulcer of other part of left foot limited to breakdown of skin (L97.521) Diagnosis 6 Other hammer toe(s) (acquired), right foot (M20.41) Diagnosis 7 Acute idiopathic gou t of right foot (M10.071) Diagnosis 8 Hallux valgus (acqui red), right foot (M20.11) Diagnosis 9 Hallux valgus (acqui red), left foot (M20.12) Diagnosis 10 PlantarFlexion of me tatarsal of left foot (M21.6X2) Referring Provider First Name Dariel Referring Provider Last Name Hailey Referred [facility] Referred Provider Desire Zaman Referred Address [address] [place], [place],[address],[place] Referred Provider Specialty Podiatry Referral Priority Routine Medications Medication SIG (Take, Route, Frequency, Duration) Notes Start Date End Date Status Ammonium Lactate 12 % 1 application Externally to affected areas of dry skin to feet except for between the toes Twice a day; Duration: 30 days Active Plavix 75 MG 1 tablet Orally Once a day Not-Taking Flomax Active Probiotic - as directed Orally Not-Taking PreserVision AREDS A ctive dexAMETHasone 0.75 MG 1 tablet Orally ev js 12 hrs; Duration: 30 day(s) Not-Taking Ophthalmic Irrigation Solution Active Doxycycline Monohydrate 100 MG 1 capsule Orally Once a day; Duration: 10 days 05/01/2024 Not-Taking Aspir-81 Active hydroCHLOROthiazide 12.5 MG as directed Orally Once a day Active Medrol 4 MG as directed Orally a s directed; Duration: 6 days 03/29/2021 Not-Taking Atorvastatin Calcium 20 MG Orally Active Clindamycin HCl Not- Taking Enstilar 0.005-0.064 % 1 application Externally Once a day Not-Taking Trelegy Ellipta 100-62.5-25 MCG/ACT 1 puff Inhalation Once a day Active Extra Depth Orthopedic Shoes (1 Pair) with Customized Heat Molded Multidensity Innersoles (3 Pair) as directed Dx: NIDDM/Polyneuropathy (E11.42), Hammertoe Foot Deformity (M20.41,M20.42), Preulcerative Skin Lesion(s) (L85.1 09/16/2020 Active Verapamil HCl ER 120 MG TAKE 1 TABLET BY MOUTH EVERYDAY AT BEDTIME Oral; Duration: 90 Days Not-Taking Yordan Aspirin EC Low Dose Active Timolol Maleate 6.8 1 drop into affected eye Ophthalmic Active Losartan Potassium 50 MG 1 tablet Orally Once a day; Duration: 30 day(s) Active Cilostazol 50 MG 1 tablet 30 minutes before or 2 hours after breakfast and dinner Orally Twice a day Not-Taking glipiZIDE 10 MG 1 tablet 30 minutes before breakfast Orally Once a day Active Lisinopril Not-Takin g Immunizations Vaccine Route Administration Date Status Comme nts Influenza Unknown 05/28/2017 Administered Influenza Unknown 04/27/2020 Administered Influenza Unknown 05/27/2021 Administered Influenza Unknown 05/10/2023 Administered Influenza Unknown 04/27/2024 Administered Influenza Unknown 04/27/2025 Administered COVID-19 Pfizer BioNTech Vaccine Unknown 06/01/2021 Administered 1st dose: 09/30/2020 2nd dose: 10/21/20 Social History Tobacco Use: Social History Observation [...] Problem Status W/U Status Risk Notes Problem Bilateral atherosclerosis of arteries of lower limbs (disorder) (51622494844433761 ) Unspecified atherosclerosis of [place] arteries of extremities, 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 Problem Polyneuropathy due to type 2 diabetes mellitus (737078012) Type 2 diabetes mellitus with diabetic polyneuropathy (E11.42) Active confirmed Problem Ulcer of toe of right foot (disorder) (28362332296996718 ) Skin ulcer of toe of right foot, limited to breakdown of skin (L97.511) Active confirmed Vital Signs Blood pressure diastolic 70 mm Hg 06/15/2025 Height 5 ft 11 in in 06/15/2025 Blood pressure systolic 134 mm Hg 06/15/2025 Weight 177 lbs 06/15/2025 BMI 24.68 kg/m2 06/15/2025 Procedures Procedure Date Ordered Date Performed Result Body [place] e 81362 I&D ABSCESS- SIMPLE,SINGLE 10/27/2024 N/A 24205-DWPQ SKIN LESIONS, 2 TO 4 10/27/2024 N/A F0605-IJFTFYNS DYSTROPHIC NAILS ANY # 10/27/2024 N/A 04952- Debride <25 sq cm 11/13/2024 N/A 56967-Ezdqikuu Plate 03/26/2025 N/A 01824-XVWY SKIN LESIONS, 2 TO 4 03/26/2025 N/A X9378-TVGSBOTL DYSTROPHIC NAILS ANY # 03/26/2025 N/A 97892- Debride <25 sq cm 06/15/2025 N/A Encounters Encounter Location Date Provider Diagnosis [address] [address] 10/27/2024 Desire Black Pain in right foot M79.671 ; Hallux valgus (acquired), right foot M20.11 ; Type 2 diabetes mellitus with diabetic polyneuropathy E11.42 ; Unspecified atherosclerosis of [place] arteries of extremities, bilateral legs I70.203 ; Pain in right ankle and joints of right foot M25.571 ; Bursitis of right foot M77.51 ; Xerosis of skin L85.3 and Abscess of toe, right L02.[address] [address] 11/13/2024 Desire Black Skin ulcer of toe of right foot, limited to breakdown of skin L97.511 ; Type 2 diabetes mellitus with diabetic polyneuropathy E11.42 and Unspecified atherosclerosis of [place] arteries of extremities, bilateral legs I70.[address] [address] 03/26/2025 Desire Black Type 2 diabetes mellitus with diabetic polyneuropathy E11.42 ; Unspecified atherosclerosis of [place] arteries of extremities, bilateral legs I70.203 ; Ingrown nail L60.0 and Xerosis of skin L85.[address] [address] 05/27/2025 Desire Black Abscess of toe, righ t L02.[address] [place] [address] 06/15/2025 Desire Zaman Skin ulcer of toe of right foot, limited to breakdown of skin L97.511 [facility] [address] [address] 10/27/2024 Desire Zaman [facility] [address] [address] 03/26/2025 Desire Zaman Assessments Encounter Date Diagnosis (ICD [...] CARE INSTRUCTIONS. pdf (WOUND CARE INSTRUCTIONS. pdf) 03/26/2025 Unspecified atherosclerosis of [place] arteries of extremities, bilateral legs (ICD-10 - I70.203) 03/26/2025 Type 2 diabetes mellitus with diabetic polyneuropathy (ICD-10 - E11.42) 05/27/2025 Abscess of toe, right (ICD-10 - L02.611) Patient Educated with: WOUND CARE INSTRUCTIONS. pdf (WOUND CARE INSTRUCTIONS. pdf) 06/15/2025 Skin ulcer of toe of right foot, limited to breakdown of skin (ICD-10 - L97.511) Patient Educated with: WOUND CARE INSTRUCTIONS. pdf (WOUND CARE INSTRUCTIONS. pdf) 03/26/2025 Ingrown nail (ICD-10 - L60.0) 10/27/2024 Type 2 diabetes mellitus with diabetic polyneuropathy (ICD-10 - E11.42) 11/13/2024 Unspecified atherosclerosis of [place] arteries of extremities, bilateral legs (ICD-10 - I70.203) 10/27/2024 Unspecified atherosclerosis of [place] arteries of extremities, bilateral legs (ICD-10 - I70.203) 03/26/2025 Xerosis of skin (ICD-10 - L85.3) 10/27/2024 Pain in right ankle and joints of right foot (ICD-10 - M25.571) 10/27/2024 Bursitis of right foot (ICD-10 - M77.51) 10/27/2024 Xerosis of skin (ICD-10 - L85.3) 10/27/2024 Abscess of toe, right (ICD-10 - L02.611) Patient Educated with: WOUND CARE INSTRUCTIONS. pdf (WOUND CARE INSTRUCTIONS. pdf) 11/13/2024 Other 03/26/2025 Other Plan Of Treatment Pending Test Test Name Order Date *Uric Acid, Serum 03/29/2021 *Uric Acid, Serum 04/06/2022 *Sedimentation Rate-Westergren 2 *Sedimentation Rate-Westergren 1 C-Reactive Protein, Quant 04/06/2022 X ray : Foot, right 3V 03/29/2021 X ray : Foot, right 3V 06/29/2016 23001-Tjppzehm Plate 02/05/2023 71118-Oaxupygy Plate 11/21/2023 59674-Qksblody Plate 06/30/2024 62366-Kgxoupsh Plate 03/26/2025 27134-Hyhlqfdb Plate Each Additional 19571- Debride <25 sq cm 03/27/2024 94925- Debride <25 sq cm 05/15/2024 22174- Debride <25 sq cm 04/12/2023 06170- Debride <25 sq cm 12/06/2023 28704- Debride <25 sq cm 03/13/2024 66569- Debride <25 sq cm 05/29/2022 32199- Debride <25 sq cm 06/12/2022 27386- Debride <25 sq cm 04/30/2015 96858- Debride <25 sq cm 12/29/2015 32739- Debride <25 sq cm 06/29/2016 63714- Debride <25 sq cm 08/09/2020 57616- Debride <25 sq cm 09/16/2020 09686- Debride <25 sq cm 06/15/2025 93233- Debride <25 sq cm 11/13/2024 55749 I&D ABSCESS- SIMPLE,SINGLE 025 11683 I&D ABSCESS- SIMPLE,SINGLE 023 92792 I&D ABSCESS- SIMPLE,SINGLE 022 55006-DTOU SKIN LESIONS, 2 TO 4 09/05/19 22 16888-DXJY SKIN LESIONS, 2 TO 4 03/09/20 22 66750-GHIA SKIN LESIONS, 2 TO 4 02/06/20 23 35096-PWDR SKIN LESIONS, 2 TO 4 10/02/19 23 76130-LKWW SKIN LESIONS, 2 TO 4 05/29/20 22 29762-NJUQ SKIN LESIONS, 2 TO 4 03/13/20 24 78825-TZCZ SKIN LESIONS, 2 TO 4 06/07/20 23 13435-TFZK SKIN LESIONS, 2 TO 4 11/21/19 24 41651-UZTU SKIN LESIONS, 2 TO 4 06/30/20 24 24191-BJRJ SKIN LESIONS, 2 TO 4 10/28/19 25 46554-CGEH SKIN LESIONS, 2 TO 4 09/16/19 21 19072-UCXC SKIN LESIONS, 2 TO 4 09/01/19 20 16137-RKVH SKIN LESIONS, 2 TO 4 03/08/20 20 85856-YHNI SKIN LESIONS, 2 TO 4 04/11/20 21 81824-UCMH SKIN LESIONS, 2 TO 4 06/10/20 20 31022-DTQG SKIN LESIONS, 2 TO 4 12/10/19 21 81003-DDLS SKIN LESIONS, 2 TO 4 12/29/19 17 32180-PPQZ SKIN LESIONS, 2 TO 4 06/29/20 16 09527-NIIY SKIN LESIONS, 2 TO 4 09/24/19 18 66589-KRDU SKIN LESIONS, 2 TO 4 03/25/20 18 16278-VKEJ SKIN LESIONS, 2 TO 4 09/23/19 19 52922-WVBR SKIN LESIONS, 2 TO 4 03/03/20 19 25279-JKOP SKIN LESIONS, 2 TO 4 03/26/20 25 12560-UFNO SKIN LESION 04/30/2015 25334-Lbur. Subungual Hematoma 69419-SCTM NAIL(S) 05/29/2022 11623-UCMR NAIL(S) 10/02/2022 70001-UKUY NAIL(S) 02/05/2023 12968-ZCRM NAIL(S) 03/09/2022 16766-TYMR NAIL(S) 09/05/2021 59705-QJZY NAIL(S) 12/09/2020 53223-NTJS NAIL(S) 06/10/2020 59569-SMYA NAIL(S) 04/11/2021 18254-MOUD NAIL(S) 03/08/2020 32344-FHRF NAIL(S) 09/16/2020 N7653-RKGZUUYI DYSTROPHIC NAILS ANY # E0073-UAGZZCPB DYSTROPHIC NAILS ANY # M3700-OBBXGSDO DYSTROPHIC NAILS ANY # T0102-WRDQMOEY DYSTROPHIC NAILS ANY # C0362-FAFIIGHF DYSTROPHIC NAILS ANY # A9939-PYCFHAGM DYSTROPHIC NAILS ANY # F9970-GAVWZNKA DYSTROPHIC NAILS ANY # U1185-JMFQIMPT DYSTROPHIC NAILS ANY # M8184-ZVKBPUYD DYSTROPHIC NAILS ANY # S3401-MDINXYZJ DYSTROPHIC NAILS ANY # E6924-LYZXULUZ DYSTROPHIC NAILS ANY # U8729-MGRKTYRR DYSTROPHIC NAILS ANY # J9863-EOESWNQA DYSTROPHIC NAILS ANY # 69685-Ysadavnti, Toes 06/29/2016 CRP 03/29/2021 Next Appt Details Provider Name:Desire Zaman , 07/30/2025 10:15:00 AM, [address] [place] [address], [phone], Insurance Providers Payer Name Payer Address Payer Phone Subscriber Number Group Number Insured Name Patient Relationship to Insured Coverage Start Date Coverage End Date [facility] [address] [place] [phone] [id number] Graham Castillo Self - patient is the insured Medical (General) History Medical History History ICD Code Cancer Gall bladder problems High blood pressure Measles Mumps Chicken pox Joint implants/screws Diabetes mellitus type ll 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 071 Hallux valgus (acquired), left foot M20. 12 Hallux valgus (acquired), right foot M20 .11 Neuropathy G62.9 Surgical History Surgery Date(Month/Year) gall bladder 12/06/2014 appendectomy 03/2014 Stent 10/2023 Hospitalization History Reason Date(Month/Year) ER- Copd 03/20
== END 2025-07-01 08:40 | disposition home or self-care (01) ==
LOC: HO.US 08:39
PROVIDERS: PCP Nurse Practitioner Family; Visit Provider Surgery Vascular Surgery
DX: I73.9 Peripheral vascular disease, unspecified (principal); I71.40 Abdominal aortic aneurysm, without rupture, unspecified
CPT/HCPCS: 76706; 93922; 93925

== ENCOUNTER → 2025-07-01 08:41 | Outpatient (BNV) | payer MEDICARE, SELFPAY | PROVIDERS: PCP Nurse Practitioner Family; Visit Provider Radiology Diagnostic Radiology | DX: I77.811 Abdominal aortic ectasia (principal); I49.9 Cardiac arrhythmia, unspecified; I73.9 Peripheral vascular disease, unspecified | CPT/HCPCS: 76706; 93922; 93925 ==

== ENCOUNTER 2025-07-07 08:46 | Outpatient (REF) | payer MEDICARE, SELFPAY ==
--- OUTSIDE RECORDS SUMMARY | 2024-05-29 09:13 | XMS_ITS | Encounter Summary ---
Author Organization [facility] [place] [address] Care Team Providers Care Leather Goods Ii Assembler Name Role Phone Dariel Hart NP Primary Care Provider [phone] Encounter Details Date Type Department Care Team (Late st Contact Info) Description 05/29/2024 10:13 AM EDT Hospital Encounter TH HISTORIC ENCOUNTERS EASTERN CONVERSION ONLY Daija Monk MD [address] [place] [phone] Social History Tobacco Use Types Packs/Day Years [...] 7:07 AM EDT Kurtis Briggs RN * [place] Suicide Severity Rating Scale (Screener/Recent Self-Report) Question [...] SOCIAL HISTORY: Quit smoking in 2009, has 69-[id number]-sxvz smoking history Denies any alcohol abuse, occasionally drink alcohol He used to work in [employer] ([employer] department) He is lives with his ?? [...] 10:45 AM EDT Office Visit Pulmonology - [place] [address] [facility] [address] [place] [phone] David Dallas MD [address] [place] [phone] 12/30/2025 10:30 AM EDT Office Visit [facility] Hematology Oncology [address] [place] [phone] Daija Monk MD [address] [place] [phone] documented as of this encounter Procedures Procedure [...] documented as of this encounter Care Teams Leather Goods Ii Assembler Relationship Specialty Start Date End Date Dariel Hart NP [address] [place], [place] PCP - General 12/16/19 03/12/25 documented as of this encounter
--- OUTSIDE RECORDS SUMMARY | 2024-06-19 09:12 | XMS_ITS | Encounter Summary ---
Author Organization [facility] [place] [address] Care Team Providers Care Wire Spooler Name Role Phone Dariel Hart NP Primary Care Provider [phone] Encounter Details Date Type Department Care Team (Late st Contact Info) Description 06/19/2024 10:12 AM EDT Hospital Encounter TH HISTORIC ENCOUNTERS EASTERN CONVERSION ONLY Daija Monk MD [address] [place] [phone] Social History Tobacco Use Types Packs/Day Years [...] Sign Reading Time Taken Comments Blood Pressure 142/50 06/19/2024 10:27 AM EDT Sitting Left arm Pulse 64 06/19/2024 10:27 AM EDT Temperature - - Respiratory Rate - - Oxygen Saturation - - Inhaled Oxygen Concentration - - Weight 79.4 kg (175 lb) 06/19/2024 10:2 7 AM EDT Height 180.3 cm (5' 11 ) 02/19/2024 9:3 0 AM EDT Body Mass Index 24.41 02/19/2024 9:30 AM EDT documented in this encounter Functional Status * Calculated C-SSRS Risk Score (Lifetime/Recent) Answer Date of Assessment Author No Risk Indicated 03/08/2025 7:07 AM EDT Kurtis Briggs RN * [place] Suicide Severity Rating Scale (Screener/Recent Self-Report) Question [...] Progress Notes * Daija Monk MD - 06/19/2024 10:30 AM EDT CHIEF COMPLAINT: Follow-up IDENTIFIER:Graham Castillo is a 78 y.o. male. HPI: 78-year-old man who has moderate macrocytic anemia with some other cytopenia, underwent bone marrow biopsy recently that showed no significant evidence of advanced myelodysplasia but after reviewing NGS, discussion with Dr. 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 PAST SURGICAL HISTORY: Cholecystectomy Surgery for hiatal hernia repair Angioplasty with a stent ? SOCIAL HISTORY: Quit smoking in 2009, has [id number] smoking history Denies any alcohol abuse, occasionally drink alcohol He used to work in [employer] ([employer] department) He is lives with his ?? FAMILY HISTORY: Mother had breast cancer, otherwise family history noncontributory Current Outpatient Medications: ??? aspirin EC 81 MG tablet, Take 1 tablet (81 mg total) by mouth daily., Disp: , Rfl: ??? atorvastatin (LIPITOR) tablet 20 mg, Take 1 tablet (20 mg total) by mouth daily., Disp: , Rfl: ??? clopidogrel (PLAVIX) 75 [...] every night at bedtime., Disp: , Rfl: You are allergic to the following Date Reviewed: 06/19/2024 Allergen Reactions Amoxicillin Rash Penicillin G Rash Sulfa Antibiotics Rash PHYSICAL EXAM: BP 142/50 (BP Location: Left arm) Pulse 64 Temp 97.1 ??F (36.2 ??C) (Temporal) Wt 79.4 kg (175 lb) SpO2 100% BMI 24.41 kg/m?? 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 Macrocytic anemia MACROCYTIC ANEMIA 2. Other pancytopenia (HCC) PANCYTOPENIA 78-year-old man who has moderate macrocytic anemia for a while as well as some other cytopenias including borderline leukopenia and thrombocytopenia, patient underwent bone marrow biopsy that did notshow any maggie myelodysplasia but there are some subtle changes suggest this could be clonal cytopenia of undetermined significance (CCUS). I explained patient and his in detail about bone marrow final results, since patient is not significantly symptomatic decision made to continue to watch him every 4 to 6 months and I will check labs prior to next visit PLAN: Labs prior to next visit in 4 to 6 months Daija Monk MD documented in this encounter Plan of Treatment Upcoming Encounters Date Type Department Care Team (Late st Contact Info) Description 12/22/2025 10:45 AM EDT Office Visit Pulmonology [facility] [address] [facility] [address] [place] [phone] David Dallas MD [address] [place] [address] 12/30/2025 10:30 AM EDT Office Visit [facility] Hematology Oncology [address] [place] [phone] Daija Monk MD [address] [place] [address] documented as of this encounter Procedures Procedure Name Priority Date/Time Associated Diagnosis Comments ..MISCELLANEOUS REFERENCE LAB TEST 06/19/2024 ..MISCELLANEOUS REFERENCE LAB TEST 06/19/2024 ..MISCELLANEOUS REFERENCE LAB TEST 06/19/2024 EXTERNAL CLINICAL LAB 06/19/2024 EXTERNAL CLINICAL LAB 06/19/2024 documented in this encounter Results * External clinical lab (06/19/2024) us Provider Onbase MD LAB BLOOD ORDERABLES Final Re sult * External clinical lab (06/19/2024) us Provider Onbase MD LAB BLOOD ORDERABLES Final Re sult * Miscellaneous reference lab test (06/19/2024) us Provider Onbase MD LAB BLOOD ORDERABLES Final Re sult * Miscellaneous reference lab test (06/19/2024) us Provider Onbase MD LAB BLOOD ORDERABLES Final Re sult * Miscellaneous reference lab test (06/19/2024) us Provider Onbase MD LAB BLOOD ORDERABLES Final Re sult documented in this encounter Visit Diagnoses Not on filedocumented in this encounter Additional Health Concerns Infection Onset Date Last Indicated Resolved Time Respiratory Rule-Out 03/08/2025 03/08/2025 025 9:50 AM EDT COVID-19 Rule-Out 03/08/2025 03/08/2025 03/08/2025 9:50 AM EDT documented as of this encounter Care Teams Wire Spooler Relationship Specialty Start Date End Date Dariel Hart NP [address] [place], [place] PCP - General 12/16/19 03/12/25 documented as of this encounter
--- OUTSIDE RECORDS SUMMARY | 2025-06-11 05:30 | XMS_ITS ---
Author Organization [facility] Address [address] [place] [address] Care Team Providers Care [employer] Social Worker Name Role Phone Dariel Russell Primary Care Provider Unav ailable Desire Zaman Unavailable [phone] Encounters Encounter Location Date Provider Diagnosis [address] [address] 06/11/2025 Desire Austyn Plan Of Treatment Next Appt Details Provider Name:Desire Zaman , 07/30/2025 10:15:00 AM, [address] [place] [address], [phone], Progress Notes * Graham CASTILLO FDOB:1945 (79 yo M)Acc No.[id number]:06/11/2025 Progress Notes Patient: Graham GUTIERREZ Provider: Dustin Zaman DPM :1945 A ge:79 Y S ex:Male Date:06/11/2025 Address:[address] [place], [place] [phone] Pcp:SHANELL Mensah Subjective: * Chief Complaints: * [...] Date: 1 Generated for Rocky hayes/Patricia/Altagracia on: 09/06/2024 08:58 AM EST
--- OUTSIDE RECORDS SUMMARY | 2025-07-07 08:59 | XMS_ITS | Continuity of Care Document ---
Author Organization [place] - [facility], [facility] Address [address] [place] [address] Care Team Providers Care Inspector Balance Bridge Name Role Phone RODOLFO YARBROUGH Primary Care Provider [phone] Assessment Encounter Date Assessment Date Assessment LastModified by Organization Details LastModified Time 05/04/2025 05/04/2025 79-year-old male presents for cerumen removal. Cerumen impaction removed bilaterally. Bilateral TMs are intact. Otologic exam is stable without evidence of infection. He will follow-up in 3-4 months for routine debridement, or sooner with concerns. [email or web address] Not available 05/04/2025 10:25:29 Plan of Treatment Reminders Order Date Submit Date Provider Last Modified By Organization Details Last Modified Time Details Appointments Establish ed 15 2024 09:00A M LISSY CHRISTIANSON Not available Not available Not available Lab None recorded. Referral None recorded. Procedures None recorded. Surgeries None recorded. Imaging None recorded. Medication Orders None recorded. Patient TargetsNo targets recorded. Patient InstructionsNo instructions recorded. Reason for Referral None Reported. 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 contrala teral side Active 2013 Mixed hearing loss, unilater al; Note: Date Diagnose d: 4 9:37 AM (389.21) Not Available [facility] 4 02:51:00 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 252478717 Active 2014 Squamous cell carcinom a of [...] Start Date : 07/28/20 14 Not Available [facility] 4 02:51:05 Mixed conducti ve and sensorin eural hearing loss of right ear 12102589784 105 Active 2015 Mixed conducti ve and sensorin eural hearing loss, unilater al, right ear, with unrestri cted hearing on the contrala teral side; Note: Date Diagnose d: 6 11:19 AM (H90.71) [mapped from ICD9 code: 389.21] Not Available [facility] 4 02:51:05 Sensorin eural hearing loss 63429906 Active 2015 Sensorin eural hearing loss, unilater al, right ear, with unrestri cted hearing on the contrala teral side; Note: Date Diagnose d: 6 11:19 AM (H90.41) [mapped from ICD9 code: 389.15] Not Available [facility] 4 02:51:05 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 680502921 Active 2015 Squamous cell carcinom a of skin of unspecif ied ear and external auricula r canal; Note: Date Diagnose d: 6 11:19 AM (C44.221 ) [mapped from ICD9 code: 173.22] Not Available [facility] 4 02:50:59 Impacted cerumen in right ear 24633343321 56949 Active 2016 Impacted cerumen, right ear; Note: Date Diagnose d: 7 9:21 AM (H61.21) Impact ed cerumen, right ear; Note: Date Diagnose d: 7 9:07 AM (H61.21) ; Start Date : 11/24/19 17 Not Available [facility] 4 02:51:01 Candidal otitis externa 04241841 Completed 201703/28/2024 Candidal otitis externa; Location : bilater[place] l Note: Date Diagnose d: 8 11:47 AM (B37.84) Not Available [facility] 4 02:51:04 History of malignan t neoplasm of skin 328043046 Active 2017 Personal history of other malignan t neoplasm of skin; Note: Date Diagnose d: 8 12:26 PM (Z85.828 ) Not Available [facility] 4 02:51:01 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 066040826 Completed 201803/28/2024 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; Note: Date Diagnose d: 9 9:07 AM (C44.222 ) Not Available [facility] 4 02:51:00 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 663610747 Completed 201803/28/2024 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; Note: Date Diagnose d: 9 9:07 AM (C44.222 ) Not Available [facility] 4 02:51:00 Superfic ial mycosis 177276274 Active 2020 Other specifie d superfic ial mycoses; Note: Date Diagnose d: 1 3:54 PM (B36.8) Not Available [facility] 4 02:51:04 Impacted cerumen of bilatera l ears 34911771918 16441 Active 2021 Impacted cerumen, bilatera l; Note: Date Diagnose d: 04/03/2022 9:45 AM (H61.23) Not Available [facility] 4 02:51:02 Itching of skin 251872312 Active 2021 Other pruritus ; Note: Date Diagnose d: 2 12:33 PM (L29.8) Not Available [facility] 4 02:51:02 Otorrhea of right ear 83490657023 05103 Active 2024 MORAIMA SAHU PA-C [address] [facility],[address], [address] , [facility] 5 10:01:45 Problem Notes None recorded. Procedures Surgical History Date Name Laterality Status Provider Name and Address Organization Details Recorded Time 5 Cerumen removal without microscope bilat completed MORAIMA SAHU PA-C [address] [place] [address],[address], [address], [facility] 05/04/2025 09:19:35 5 Cerumen removal without microscope bilat completed MORAIMA SAHU PA-C [address] [place] [address],[address], [address], [facility] 10/30/2024 09:20:59 4 Cerumen removal without microscope bilat completed MORAIMA SAHU PA-C [address] [place] [address],[address], [address], [facility] 04/30/2024 11:57:54 Imaging Results None recorded. Procedure Notes None recorded. Medical Equipment None Reported. Allergies Allergen ID Allergen Name Allergen Category Reaction Reaction Severity Criticality Documentation Date Start Date Code Code System Note Provider Name and Address Organization Details Recorded Time 766508 clindamyc in Not available Not available Not available Not available 10/30/2024 2582 RxNorm MORAIMA SAHU PA-C [address] [facility], [address], [place], [address], [facility] 5 09:55:04 53650 amoxicill in / clavulana te medicatio n other Not available Not available 01/08/2024 42587 RxNorm React ion: unkno wn, unspe cifie d;; Not Available [facility] 4 00:59:23 23994 penicilli n V potassium medicatio n other Not available Not available 01/08/202407528 5 RxNorm React ion: unkno wn, unspe cifie d;; Not Available [facility] 4 00:59:26 16126 Substance with sulfonami de structure and antibacte rial mechanism of action (substanc e) medicatio n other Not available Not available 01/08/2024 64514 8003 SNOMED React ion: unkno wn, unspe cifie d;; Not Available [facility] 4 00:59:29 30661 Substance with tetracycl ine structure (substanc e) medicatio n other Not available Not available 01/08/2024 97004 8001 SNOMED React ion: unkno wn, unspe cifie d;; Not Available [facility] 4 00:59:30 Medications Name Sig Start Date Stop Date Status Note LastModified by Organization Details LastModified Time verapamil ER (SR) 120 mg tablet,ex tended release TAKE 1 TABLET BY MOUTH EVERYDAY AT BEDTIME active Not Available Not Available No t Available losartan 50 mg tablet TAKE 1 TABLET BY MOUTH DAILY. active Not Available Not Available No t Available atorvasta tin 20 mg tablet TAKE 1 TABLET BY MOUTH EVERY DAY active Not Available Not Available No t Available ketoconaz ole 2 % shampoo USE SHAMPOO SEVERAL TIMES PER WEEK, ALTERNAT E WITH NORMAL SHAMPOO. active Not Available Not Available No t Available lisinopri l 20 mg-hydroc hlorothia zide 12.5 mg tablet 11/22 completed Medicati on ID: [id number] D uration Value: 90 Brand Name: lisinopr [...] mg tablet 11/15 completed Medicati on ID: 72991 Du ration Value: 90 Reason: () Brand Name: cilostaz ol Send Method: E-Prescr ibed Sub s Allowed: subs OK Medic ationGen ericName : cilostaz ol Not Available Not Available Not Available meloxicam 15 mg tablet active Medicati on ID: 387990 B rand Name: meloxica m Send Method: [...] % topical cream active Medicati on ID: 627161 B rand Name: triamcin olone acetonid e Send Method: E-Prescr ibed Sub s Allowed: subs OK Medic ationGen ericName : triamcin olone acetonid e Not Available Not Available Not Available verapamil 120 mg tablet 11/06 completed Medicati on ID: [id number] Du ration Value: 90 Reason: () Brand [...] small amount 2020 active Medicati on ID: 316606 D uration Value: 14 Prescri bed By Name: Sally Hinds nd Name: clotribhupinder connolly-bet amethaso ne Send Method: E-Prescr ibed Sub s Allowed: subs OK Speci al Instruct ion: Apply with fingerti p to affected external ear TID x 2 weeks. M charo Jeffers Name: sebastian buck vibha Not Available Not Available Not Available hydrochlo rothiazid e 12.5 mg capsule active Medicati on ID: 870600 B rand Name: hydrochl orothiaz tatiana Send [...] 150 mg tablet active Medicati on ID: [id number] B rand Name: irbesart an Send Method: E-Prescr ibed Sub s Allowed: subs OK Medic ationGen ericName : irbesart an Not Available Not Available Not Available timolol maleate 0.5 % eye drops INSTILL 1 DROP IN BOTH EYES TWICE A DAY active Not Available Not Available No t Available losartan 100 mg tablet 11/22 completed Medicati on ID: [id number] D uration Value: 90 Brand Name: losartan Send Method: E-Prescr ibed Sub s Allowed: subs OK Speci al Instruct ion: TAKE 1 TABLET BY MOUTH EVERY DAY Medi cationGe nericNam e: losartan Not Available Not Available Not Available glipizide 5 mg tablet 05/29 completed Medicati on ID: [id number] R sadie: () Brand Name: glipizid e [...] 4 drop 2016 active Medicati on ID: [id number] D uration Value: 10 Prescri bed By Name: Sally Hinds nd Name: Ciprodex Send Method: E-Prescr ibed Sub s Allowed: subs OK Medic ationGen ericName : Ciprodex Not Available Not Available Not Available fluocinol one 0.01 % scalp oil and shower cap APPLY TO DAMP HAIR AND LEAVE ON 60 MINUTES COVER WITH SHOWER CAP THEN COMB THRU SCALE & SHAMPOO OUT active Not Available Not Available No t Available fluocinol one acetonide oil 0.01 % ear drops INSTILL 2 DROPS INTO BOTH EARS TWICE A WEEK NEEDED FOR ITCHING active Not Available Not Available No t Available Yordan Chewable Low Dose Aspirin 81 mg tablet 05/29 completed Medicati on ID: [id number] Re ason: () Brand Name: Yordan Chewable Aspirin Send Method: E-Prescr ibed Sub s Allowed: subs OK Medic ationGen ericName : Yordan Chewable Aspirin Not Available Not Available Not Available Enstilar 0.005 %-0.064 % topical foam 07/28 completed Medicati on ID: 314500 D uration Value: 30 Brand Name: Enstilar Send Method: E-Prescr ibed Sub s Allowed: subs OK Speci al Instruct ion: APPLY ONCE DAILY TO AFFECTED AREAS OF PSORIASI S FOR 1 2 WEEKS AT A ANGEL E Medica tionGene ricName: Enstilar Not Available Not Available Not Available Trelegy Ellipta 100 mcg-62.5 mcg-25 mcg powder for inhalatio n PLEASE SEE ATTACHED FOR DETAILED DIRECTIO NS active Not Available Not Available No t Available Vitals Date Recorded Body height Body mass index (BMI) Body weight Provider Name and Address Organization Details Last Updated DateTime 05/04/2025 177.8 cm 25.5 kg/m2 81773.44 g Nadine Gutierrez [place] - [facility] 05/04/2025 09:29:59 Social History None recorded. Functional Status None recorded. Mental Status None recorded. Family History Nothing Reported. Medical History No medical history recorded. Past Encounters Encounter ID Performer Location Encounter Start Date Encounter Closed Date Diagnosis/Indication Diagnosis SNOMED-CT Code Diagnosis ICD10 Code Diagnosis IMO Codes Diagnosis Note [id number] MORAIMA SAHU PA-C [facility] [address] [address] 05/04/2025 09:16:47 05/04/2025 09:49:33 Impacted cerumen of bilateral ears 2993602001 258404 H61.23 Health Concerns Section Related Observation LastModified by Organization Detai ls LastModified Time None Recorded Concern Status LastModified by Organization Details LastModified Time None Recorded Payers Encounter Date Sequence Insurance Name Policy Number Policy Leonard Covered Member ID Leonard Member ID Guarantor Name 05/04/2025 1 [employer] (MEDICARE REPLACEMENT HMO) Graham Castillo [id number] Graham Castillo Notes Date Note Type Note Provider Name and Address Organization Details Recorded Time 05/04/2025 text/html ROS as noted in the HPI 79-year-old male status post right tympanoplasty in March 2023 and 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 Used Tobradex back in October for right sided otorrhea and otalgia with resolution of symptoms. No concerns today. Denies otorrhagia, otorrhea, otalgia, and changes in his hearing. He uses fluocinolone oil as needed for itching of the ears. SHERON BLOOD MD [address] [place] [address], [place], [address], [facility] - [facility] 05/05/2025 17:43:46
--- OUTSIDE RECORDS SUMMARY | 2025-07-07 08:59 | XMS_ITS | Encounter Summary ---
Author Organization [facility] Address [address] [place] [address] Care Team Providers Care Snuff Container Inspector Name Role Phone Dariel Hart NP Primary Care Provider [phone] Encounter Details Date Type Department Care Team (Late Contact Info) Description 05/28/2025 Results Follow-Up Gastroenterology [address] [phone] Oralia Gutierrez [place] Social History Tobacco Use [...] 10:45 AM EDT Office Visit Pulmonology - [place] [facility] [address] [place] [phone] David Dallas MD [address] [place] [address] [place] [address] 12/30/2025 10:30 AM EDT Office Visit [facility] Hematology Oncology [address] [place] [phone] Daija Monk MD [address] [place] [address] documented as of this encounter Visit Diagnoses Not on filedocumented in this encounter Care Teams Snuff Container Inspector Relationship Specialty Start Date End Date Dariel Hart NP [address] [place] [phone] PCP - General Family Medicine 03/13/25 documented as of this encounter
--- OUTSIDE RECORDS SUMMARY | 2025-07-07 08:59 | XMS_ITS | Patient Health Record ---
Author Organization [facility] Address [address] [place] [address] Care Team Providers Care Prison Guard Supervisor Name Role Phone Dariel Russell Primary Care Provider Unav ailable Black, Desier Unavailable [phone] Allergies Allergen (clinical drug ingredient) Drug/Non Drug [...] (E11.42) Diagnosis 2 Unspecified atherosc lerosis of [place] arteries of extremities, bilateral legs (I70.203) Diagnosis [...] Dariel Referring Provider Last Name Hailey Referred [facility] Referred Provider Desire Zaman Referred Address [address] [place], [place],[address],[place] Referred Provider Specialty Podiatry Referral Priority Routine [...] atherosclerosis of arteries of lower limbs (disorder) ([id number] ) Unspecified atherosclerosis of [place] arteries of extremities, 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 Problem Polyneuropathy due to type 2 diabetes mellitus (614617134) Type 2 diabetes mellitus with diabetic polyneuropathy (E11.42) Active confirmed Problem Ulcer of toe of right foot (disorder) (90003427585002732 ) Skin ulcer of toe of right foot, limited to breakdown of skin (L97.511) Active confirmed Vital Signs Blood pressure diastolic 70 mm Hg 06/15/2025 Height 5 ft 11 in in 06/15/2025 Blood pressure systolic 134 mm Hg 06/15/2025 Weight 177 lbs 06/15/2025 BMI 24.68 kg/m2 06/15/2025 Procedures Procedure Date Ordered Date Performed Result Body Sit e 30463 I&D ABSCESS- SIMPLE,SINGLE 10/27/2024 N/A 64158-KCQK SKIN LESIONS, 2 TO 4 10/27/2024 N/A F3731-VDSESAIZ DYSTROPHIC NAILS ANY # 10/27/2024 N/A 64171- Debride <25 sq cm 11/13/2024 N/A 61642-Zkkipylu Plate 03/26/2025 N/A 00059-HGKD SKIN LESIONS, 2 TO 4 03/26/2025 N/A G9175-PJENRWNX DYSTROPHIC NAILS ANY # 03/26/2025 N/A 71917- Debride <25 sq cm 06/15/2025 N/A Encounters Encounter Location Date Provider Diagnosis [address] [address] 10/27/2024 Desire Black Pain in right foot M79.671 ; Hallux valgus (acquired), right foot M20.11 ; Type 2 diabetes mellitus with diabetic polyneuropathy E11.42 ; Unspecified atherosclerosis of [place] arteries of extremities, bilateral legs I70.203 ; Pain in right ankle and joints of right foot M25.571 ; Bursitis of right foot M77.51 ; Xerosis of skin L85.3 and Abscess of toe, right L02.[address] [address] 11/13/2024 Desire Black Skin ulcer of toe of right foot, limited to breakdown of skin L97.511 ; Type 2 diabetes mellitus with diabetic polyneuropathy E11.42 and Unspecified atherosclerosis of [place] arteries of extremities, bilateral legs I70.[address] [address] 03/26/2025 Desire Black Type 2 diabetes mellitus with diabetic polyneuropathy E11.42 ; Unspecified atherosclerosis of [place] arteries of extremities, bilateral legs I70.203 ; Ingrown nail L60.0 and Xerosis of skin L85.[address] [address] 05/27/2025 Desire Black Abscess of toe, righ t L02.[address] [place] [address] 06/15/2025 Desire Zaman Skin ulcer of toe of right foot, limited to breakdown of skin L97.511 [facility] [address] [address] 10/27/2024 Desire Zaman [facility] [address] [address] 03/26/2025 Desire Zaman Assessments Encounter Date Diagnosis [...] CARE INSTRUCTIONS. pdf) 03/26/2025 Unspecified atherosclerosis of [place] arteries of extremities, bilateral legs (ICD-10 - [...] (ICD-10 - E11.42) 11/13/2024 Unspecified atherosclerosis of [place] arteries of extremities, bilateral legs (ICD-10 - I70.203) 10/27/2024 Unspecified atherosclerosis of [place] arteries of extremities, bilateral legs (ICD-10 - [...] X ray : Foot, right 3V 06/29/2016 42694-Kxlyqium Plate 02/05/2023 37846-Jrylhuzz Plate 11/21/2023 27522-Srncagkm Plate 06/30/2024 83403-Qxhdbrow Plate 03/26/2025 31345-Usdsnuem Plate Each Additional 11233- Debride <25 sq cm 03/27/2024 21241- Debride <25 sq cm 05/15/2024 37184- Debride <25 sq cm 04/12/2023 71941- Debride <25 sq cm 12/06/2023 24461- Debride <25 sq cm 03/13/2024 75793- Debride <25 sq cm 05/29/2022 15579- Debride <25 sq cm 06/12/2022 28210- Debride <25 sq cm 04/30/2015 81039- Debride <25 sq cm 12/29/2015 13623- Debride <25 sq cm 06/29/2016 67081- Debride <25 sq cm 08/09/2020 59598- Debride <25 sq cm 09/16/2020 48618- Debride <25 sq cm 06/15/2025 56472- Debride <25 sq cm 11/13/2024 81730 I&D ABSCESS- SIMPLE,SINGLE 025 22353 I&D ABSCESS- SIMPLE,SINGLE 023 43595 I&D ABSCESS- SIMPLE,SINGLE 022 52470-WZBT SKIN LESIONS, 2 TO 4 09/05/19 22 02701-DKQV SKIN LESIONS, 2 TO 4 03/09/20 22 16224-BTJM SKIN LESIONS, 2 TO 4 02/06/20 23 86361-GJNZ SKIN LESIONS, 2 TO 4 10/02/19 23 31822-GJKD SKIN LESIONS, 2 TO 4 05/29/20 22 00280-RCBZ SKIN LESIONS, 2 TO 4 03/13/20 24 81829-DHWE SKIN LESIONS, 2 TO 4 06/07/20 23 69719-ATYM SKIN LESIONS, 2 TO 4 11/21/19 24 67951-WKLN SKIN LESIONS, 2 TO 4 06/30/20 24 88194-OLRS SKIN LESIONS, 2 TO 4 10/28/19 25 70665-DBWY SKIN LESIONS, 2 TO 4 09/16/19 21 69294-PVPB SKIN LESIONS, 2 TO 4 09/01/19 20 83633-SZOG SKIN LESIONS, 2 TO 4 03/08/20 20 03347-XKKC SKIN LESIONS, 2 TO 4 04/11/20 21 12344-YHMM SKIN LESIONS, 2 TO 4 06/10/20 20 48230-RZNQ SKIN LESIONS, 2 TO 4 12/10/19 21 83269-ICNV SKIN LESIONS, 2 TO 4 12/29/19 17 97246-MIIW SKIN LESIONS, 2 TO 4 06/29/20 16 83432-UFFO SKIN LESIONS, 2 TO 4 09/24/19 18 27144-JEEO SKIN LESIONS, 2 TO 4 03/25/20 18 03575-OVWN SKIN LESIONS, 2 TO 4 09/23/19 19 00920-OOPC SKIN LESIONS, 2 TO 4 03/03/20 19 09602-EMQT SKIN LESIONS, 2 TO 4 03/26/20 25 01540-KNRO SKIN LESION 04/30/2015 80741-Xrqc. Subungual Hematoma 37055-LIIV NAIL(S) 05/29/2022 49487-HSBD NAIL(S) 10/02/2022 65780-GCJC NAIL(S) 02/05/2023 84852-SEEG NAIL(S) 03/09/2022 02072-ODUX NAIL(S) 09/05/2021 83794-MWBA NAIL(S) 12/09/2020 68423-MQHE NAIL(S) 06/10/2020 93556-MDMH NAIL(S) 04/11/2021 20377-WQEG NAIL(S) 03/08/2020 66870-ANGN NAIL(S) 09/16/2020 R7661-XKGYNWJH DYSTROPHIC NAILS ANY # X1076-WVDQOPBL DYSTROPHIC NAILS ANY # L6760-NNHLOOFU DYSTROPHIC NAILS ANY # J7684-MRVRXKOW DYSTROPHIC NAILS ANY # B7040-DVDRNXEK DYSTROPHIC NAILS ANY # X8049-KIDHDVMS DYSTROPHIC NAILS ANY # L7053-RIPVGDCN DYSTROPHIC NAILS ANY # Y0654-IKTMVNCF DYSTROPHIC NAILS ANY # V7794-KGDNMSXL DYSTROPHIC NAILS ANY # Z1312-JDNTBWWW DYSTROPHIC NAILS ANY # A3549-GCUMQITT DYSTROPHIC NAILS ANY # U6886-CEKATQSE DYSTROPHIC NAILS ANY # L0368-HWDFZKQJ DYSTROPHIC NAILS ANY # 24185-Zqibysbae, Toes 06/29/2016 CRP 03/29/2021 Next Appt Details Provider Name:Desire Zaman , 07/30/2025 10:15:00 AM, [address] [place] [address], [address], Insurance Providers Payer Name Payer Address Payer Phone Subscriber Number Group Number Insured Name Patient Relationship to Insured Coverage Start Date Coverage End Date [facility] [address] NATY Ol[place] [phone] [id number] Graham Castillo Self - patient is the [...]
--- OUTSIDE RECORDS SUMMARY | 2025-07-07 08:59 | XMS_ITS | Data Portability ---
Author Organization [place] [facility] Address [address] [place] [id number] Care Team Providers Care Port Captain Name Role Phone RODOLFO YARBROUGH Primary Care Provider Assessment Encounter Date Assessment Date Assessment LastModified [...] or worsen. Refill of fluocinolone was provided. nitin Not available 10/30/2024 10:06:40 05/04/2025 05/04/2025 79-year-old male presents for cerumen removal. Cerumen impaction removed bilaterally. Bilateral TMs are intact. Otologic exam is stable without evidence of infection. He will follow-up in 3-4 months for routine debridement, or sooner with concerns. nitin Not available 05/04/2025 10:25:29 Plan of Treatment Reminders Order Date Submit Date Provider Last Modified By Organization Details Last Modified Time Details Appointments Establish ed 15 2024 09:00A M LISSY CHRISTIANSON Not available Not available Not available Lab None recorded. Referral None recorded. Procedures None recorded. Surgeries None recorded. Imaging None recorded. Medication Orders TobraDex 0.3 %-0.1 % eye drops,jamin pension 2024 025 [id number], [address] [facility] [place], [address], 10/30/2024 10:02:09 fluocinol one acetonide oil 0.01 % ear drops 2024 025 [id number], [address] [facility] [place], [address], 10/30/2024 10:02:53 Patient TargetsNo targets recorded. 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 Squamous cell carcinom a of [...] Start Date : 07/28/20 14 Not Available [facility] 4 02:51:05 Mixed conducti ve and sensorin eural hearing loss of right ear 51217265561 105 Active 2015 Mixed conducti ve and sensorin eural hearing loss, unilater al, right ear, with unrestri cted hearing on the contrala teral side; Note: Date Diagnose d: 6 11:19 AM (H90.71) [mapped from ICD9 code: 389.21] Not Available [facility] 4 02:51:05 Sensorin eural hearing loss 42818726 Active 2015 Sensorin eural hearing loss, unilater al, right ear, with unrestri cted hearing on the contrala teral side; Note: Date Diagnose d: 6 11:19 AM (H90.41) [mapped from ICD9 code: 389.15] Not Available [facility] 4 02:51:05 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 241884788 Active 2015 Squamous cell carcinom a of skin of unspecif ied ear and external auricula r canal; Note: Date Diagnose d: 6 11:19 AM (C44.221 ) [mapped from ICD9 code: 173.22] Not Available [facility] 4 02:50:59 Impacted cerumen in right ear 39647708143 61228 Active 2016 Impacted cerumen, right ear; Note: Date Diagnose d: 7 9:21 AM (H61.21) Impact ed cerumen, right ear; Note: Date Diagnose d: 7 9:07 AM (H61.21) ; Start Date : 11/24/19 17 Not Available [facility] 4 02:51:01 Candidal otitis externa 52324690 Completed 201703/28/2024 Candidal otitis externa; Location : bilatera l Note: Date Diagnose d: 8 11:47 AM (B37.84) Not Available [facility] 4 02:51:04 History of malignan t neoplasm of skin 359906901 Active 2017 Personal history of other malignan t neoplasm of skin; Note: Date Diagnose d: 8 12:26 PM (Z85.828 ) Not Available [facility] 4 02:51:01 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 608016680 Completed 201803/28/2024 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; Note: Date Diagnose d: 9 9:07 AM (C44.222 ) Not Available [facility] 4 02:51:00 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 234290786 Completed 201803/28/2024 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; Note: Date Diagnose d: 9 9:07 AM (C44.222 ) Not Available [facility] 4 02:51:00 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 Other specifie d superfic ial mycoses; Note: Date Diagnose d: 1 3:54 PM (B36.8) Not Available [facility] 4 02:51:04 Impacted cerumen of bilatera l ears 09059376236 77294 Active 2021 Impacted cerumen, bilatera l; Note: Date Diagnose d: 04/03/2022 9:45 AM (H61.23) Not Available [facility] 4 02:51:02 Itching of skin 627023291 Active 2021 Other pruritus ; Note: Date Diagnose d: 2 12:33 PM (L29.8) Not Available [facility] 4 02:51:02 Otorrhea of right ear 42645119825 24951 Active 2024 MORAIMA SAHU PA-C [address] [facility],[place] [address], [facility] [place], [address] , [facility] - [facility] 5 10:01:45 Problem Notes None recorded. Procedures Surgical History Date Name Laterality Status Provider Name and Address Organization Details Recorded Time 5 Cerumen removal without microscope bilat completed MORAIMA SAHU PA-C [address] [facility],[place] [address], [place], [address], [facility] - [facility] [place] 05/04/2025 09:19:35 5 Cerumen removal without microscope bilat completed MORAIMA SAHU PA-C [address] [facility] [address], [place], [address], [facility] - [facility] [place] 10/30/2024 09:20:59 4 Cerumen removal without microscope bilat completed MORAIMA SAHU PA-C [address] [facility] [address], [place], [address], [facility] - [facility] [place] 04/30/2024 11:57:54 Imaging Results None recorded. Procedure Notes None recorded. Medical Equipment None Reported. Allergies Allergen ID Allergen Name Allergen Category Reaction Reaction Severity Criticality Documentation Date Start Date Code Code System Note Provider Name and Address Organization Details Recorded Time 973506 clindamyc in Not available Not available Not available Not available 10/30/2024 2582 RxNorm MORAIMA SAHU PA-C [address] [facility] [address], [place], [address], [facility] - [facility] 5 09:55:04 66621 amoxicill in / clavulana te medicatio n other Not available Not available 01/08/2024 09415 RxNorm React ion: unkno wn, unspe cifie d;; Not Available [facility] 4 00:59:23 16862 penicilli n V potassium medicatio n other Not available Not available 01/08/2024 22595 5 RxNorm React ion: unkno wn, unspe cifie d;; Not Available [facility] 4 00:59:26 00007 Substance with sulfonami de structure and antibacte rial mechanism of action (substanc e) medicatio n other Not available Not available 01/08/2024 05835 8003 SNOMED React ion: unkno wn, unspe cifie d;; Not Available [facility] 4 00:59:29 35046 Substance with tetracycl ine structure (substanc e) medicatio n other Not available Not available 01/08/2024 50274 8001 SNOMED React ion: unkno wn, unspe cifie d;; Not Available [facility] 4 00:59:30 Medications Name Sig Start Date [...] mg tablet 11/22 completed Medicati on ID: [id number] D uration Value: 90 Brand Name: lisinopr [...] mg tablet 11/15 completed Medicati on ID: [id number] Du ration Value: 90 Reason: () Brand Name: cilostaz ol Send Method: E-Prescr ibed Sub s Allowed: subs OK Medic ationGen ericName : cilostaz ol Not Available Not Available Not Available meloxicam 15 mg tablet active Medicati on ID: [id number] B rand Name: meloxica m Send Method: [...] % topical cream active Medicati on ID: 135159 B rand Name: triamcin olone acetonid e Send Method: E-Prescr ibed Sub s Allowed: subs OK Medic ationGen ericName : triamcin olone acetonid e Not Available Not Available Not Available verapamil 120 mg tablet 11/06 completed Medicati on ID: [id number] Du ration Value: 90 Reason: () Brand [...] small amount 2020 active Medicati on ID: 438891 D uration Value: 14 Prescri bed By Name: Sally Hinds nd Name: teresaribhupinder connolly-bet heber dunne Send Method: E-Prescr ibed Sub s Allowed: subs OK Speci al Instruct ion: Apply with fingerti p to affected external ear TID x 2 weeks. M edicatio nGeneric Name: clotrima zole-bet amethaso ne Not Available Not Available Not Available hydrochlo rothiazid e 12.5 mg capsule active Medicati on ID: 888403 B rand Name: hydrochl orothiaz tatiana Send [...] 150 mg tablet active Medicati on ID: 055622 B rand Name: irbesart an Send Method: E-Prescr ibed Sub s Allowed: subs OK Medic ationGen ericName : irbesart an Not Available Not Available Not Available timolol maleate 0.5 % eye drops INSTILL 1 DROP IN BOTH EYES TWICE A DAY active Not Available Not Available No t Available losartan 100 mg tablet 11/22 completed Medicati on ID: [id number] D uration Value: 90 Brand Name: losartan Send Method: E-Prescr ibed Sub s Allowed: subs OK Speci al Instruct ion: TAKE 1 TABLET BY MOUTH EVERY DAY Medi cationGe nericNam e: losartan Not Available Not Available Not Available glipizide 5 mg tablet 05/29 completed Medicati on ID: [id number] R sadie: () Brand Name: glipizid e [...] 4 drop 2016 active Medicati on ID: 633985 D uration Value: 10 Prescri bed By [...] mg tablet 05/29 completed Medicati on ID: [id number] Re ason: () Brand Name: Yordan Chewable Aspirin Send Method: E-Prescr ibed Sub s Allowed: subs OK Medic ationGen ericName : Yordan Chewable Aspirin Not Available Not Available Not Available Enstilar 0.005 %-0.064 % topical foam 07/28 completed Medicati on ID: [id number] D uration Value: 30 Brand Name: Enstilar [...] Updated DateTime 10/30/2024 177.8 cm 25.3 kg/m2 18325.26 g Nadine Gutierrez [facility] 10/30/2024 09:36:33 Date Recorded Body height Body mass index (BMI) Body weight Provider Name and Address Organization Details Last Updated DateTime 04/30/2024 180.34 cm 24.5 kg/m2 78161.26 g Bobby Anglin [facility] 04/30/2024 11:11:12 Date Recorded Body height Body mass index (BMI) Body weight Provider Name and Address Organization Details Last Updated DateTime 05/04/2025 177.8 cm 25.5 kg/m2 67585.44 g Nadine Gutierrez [facility] 05/04/2025 09:29:59 Social History None recorded. Functional Status None recorded. Mental Status None recorded. Family History Nothing Reported. Medical History No medical history recorded. Past Encounters Encounter ID Performer Location Encounter Start Date Encounter Closed Date Diagnosis/Indication Diagnosis SNOMED-CT Code Diagnosis ICD10 Code Diagnosis IMO Codes Diagnosis Note [id number] MORAIMA SAHU PA-C [facility] [address] [place] [address] 04/30/2024 10:58:56 04/30/2024 12:02:52 Impacted cerumen of bilateral ears 3248753206 003531 H61.23 [id number] MORAIMA SAHU PA-C [facility] [address] [address] 10/30/2024 09:18:21 10/30/2024 10:01:32 Impacted cerumen of bilateral ears 4212935543 914599 H61.23 Otorrhea of right ear 10 42716857 165676 H92.11 Itching of skin 42727172 0 L29.89 [id number] MORAIMA SAHU PA-C [facility] [address] [address] 05/04/2025 09:16:47 05/04/2025 09:49:33 Impacted cerumen of bilateral ears 1667501448 775396 H61.23 Health Concerns Section Related Observation LastModified by Organization Detai ls LastModified Time None Recorded Concern Status LastModified by Organization Details LastModified Time None Recorded Advance Directives Directive None Recorded Payers Insurance Date Sequence Insurance Name Policy Number Policy Leonard Covered Member ID Leonard Member ID Guarantor Name 06/03/2025 2 [facility] (MEDICARE REPLACEMENT HMO) Graham Castillo [id number] Graham Castillo 06/03/2025 1 [facility] Graham Castillo [id number] Graham Castillo 06/03/2025 1 [facility] (MEDICARE REPLACEMENT HMO) Graham Castillo [id number] Graham Castillo Notes Date Note Type Note Provider Name and Address Organization Details Recorded Time 04/30/2024 text/html ROS as noted in the HPI 78-year-old male presents for cerumen removal. No concerns today. GONSALO NIEEVS MD [address] [place] [address], [address], [facility] - [facility] 04/30/2024 14:53:10 10/30/2024 text/html ROS as noted in the [facility] 78-year-old male status post right tympanoplasty in [...] refill. Denies bruxism. SHERON BLOOD MD [address] [facility],[address], [address], [place] - [facility] 10/31/2024 07:57:10 05/04/2025 text/html ROS as noted in the [facility] 79-year-old male status post right tympanoplasty in [...] itching of the ears. SHERON BLOOD MD [address] [facility],[address], [address], [place] - [facility] 05/05/2025 17:43:46
--- OUTSIDE RECORDS SUMMARY | 2025-07-07 08:59 | XMS_ITS | Clinical Summary ---
Author Organization [facility] Address [address] [place] [address] Phone Care Team Providers Care [employer] Law Clerk Name Role Phone Dariel Hart NP [...] Problem Noted Date Diagnosed Date COPD exacerbation ([facility] V24, [facility] V28) Proteinuria 10/15/2019 Hypotension 10/15/2019 Cough 10/15/2019 Chronic kidney disease, stage 3 ([facility] V24, [facility] V28) 10/15/2019 Asthmatic bronchitis 10/06/2019 Type 2 diabetes mellitus wit h vascular disease ([facility] V24, [facility] V28) 10/04/2018 Elevated PSA 10/04/2018 Overview (08/08/2024): 06/2018 5.0; PV Urology; Nocturia/retention Colon polyps 10/04/2018 Type 2 diabetes mellitus wit h cataract ([facility] V24, [facility] V28) 05/27/2018 Peripheral vascular disease ([facility] V24) 2017 Hypertension 05/27/2018 Hyperlipidemia 05/27/2018 Arteriosclerosis of carotid artery 05/27/2018 Right bundle branch block (RBBB) 01/16/2018 Chronic obstructive pulmonar y disease ([facility] V24, [facility] V28) 01/16/2018 Benign familial tremor 09/13/2017 Allergic rhinitis 04/19/2017 Irritable bowel syndrome 02/25/2016 ED (erectile dysfunction) 09/01/2015 Cataract 09/26/2011 Encounters Date Type Department Care Team Description 06/30/2025 10:15 AM EST Office Visit [facility] Hematology Oncology [address] [place] [phone] Daija Monk MD Pancytopenia ([facility] V24, [facility] V28) (Primary Dx) 06/18/2025 9:15 AM EDT Office Visit Pulmonology [facility] [address] [phone] David Dallas MD Chronic obstructive pulmonary disease, unspecified COPD type ([facility] V24, [facility] V28) (Primary Dx) 05/28/2025 Results Follow-Up Gastroenterology [facility] [address] [phone] Oralia Gutierrez [place] 04/28/2025 1:18 PM EDT Anesthesia Event [facility] Endoscopy [address] [place] [phone] Wojciech Fermin MD Gomes, Sheldon B, MD 04/28/2025 12:31 PM EDT - 04/28/2025 11:59 PM EDT Hospital Encounter [facility] Endoscopy [address] [place] [phone] Dhiraj Juarez DO Vermes, Rachie, CRNA Spencer, Mark A, MD Esophageal dysphagia; Esophageal stenosis; Food impaction of esophagus Discharge Disposition: Home or Self Care 04/23/2025 1:00 PM EDT Office Visit Gastroenterology - [address] [facility] [address] [facility] [address] [place] [address] Kevin Lamar PA Esophageal dysphagia (Primary Dx) 04/23/2025 Telephone Gastroenterology - [address] [place] [address] [facility] [address] [place] [address] Rissa Adkins MD from Last [...] DX:Irri table bowel syndrome Peripheral vascular disease ([facility] V24) 05/27/2018 DX:Peripheral vascular disea se (HCC) Right bundle branch block (RBBB) 01/16/2018 DX:Right bundle branch block (RBBB) Type 2 diabetes mellitus wit h cataract ([facility] V24, [facility] V28) 05/27/2018 DX:Type 2 diabetes mellitus with cataract (HCC) Type 2 diabetes mellitus wit h vascular disease ([facility] V24, [facility] V28) 10/04/2018 DX:Type 2 diabetes mellitus with vascular disease (HCC) Diabetes mellitus ([facility] V 24, [facility] V28) DX:Diabetes mellitus (HCC) Hypertension DX:Hypertension Prostate cancer ([facility] V24 , [facility] V28) DX:Prostate cancer (HCC) Family [...] 10:45 AM EDT Office Visit Pulmonology - [place] [address] [facility] [address] [place] [phone] David Dallas MD [address] [place] [phone] 12/30/2025 10:30 AM EDT Office Visit [facility] Hematology Oncology [address] [place] [phone] Daija Monk MD [address] [place] [address] Health Maintenance Due Date Last Done Comments Diabetes: Annual Foot Exam 1955 Diabetes: Annual Retina Eye Exam 1955 Medicare Annual Wellness Visit 07/30/2022 Social Influencers of Health Screening 07/30/2022 Diabetes: Annual Urine Albumin-Creatinine Ratio (uACR) 08/10/2022 10/15/2019 Diabetes: Blood Sugar Control Test (HGBA1C) 08/10/2022 10/10/2019 Depression Screening 08/27/2024 Cholesterol Screening (Lipid Panel) 10/10/2024 10/10/2019 COVID-19 Vaccine ( season) 2025 05/19/2024, 05/28/2023, 06/23/2022, Additional history [...] K/mcL [facility] RBC 3.30(L) 4.50 - 5.50 M/mcL LAB HEMETOLOGY METHOD 06/23/2025 12:20 PM T [facility] Hemoglobin 11.1(L) 13.5 - 17.5 g/dL LAB HEMETOLOGY METHOD 06/23/2025 12:20 PM [facility] Hematocrit 32.3(L) 42.0 - 54.0 % LAB HEMETOLOGY METHOD 06/23/2025 12:20 PM EDT [facility] MCV 99.1(H) 79.0 - 98.0 FL LAB HEMETOLOGY METHOD 06/23[facility]2025 [facility] MCH 34.0(H) 27.0 - 32.0 pcg LAB HEMETOLOGY METHOD 06/23/2025 12:20 PM [facility] MCHC 34.4 32.0 - 37.0 g/dL LAB HEMETOLOGY METHOD 06/23/2025 12:20 PM EDT [facility] RDW 13.1 11.0 - 15.0 % LAB HEMETOLOGY METHOD 06/23/2025 12:20 PM EDT [facility] Platelets 101(L) 130 - 400 K/mcL LAB HEMETOLOGY METHOD [facility]/23[facility]2025 [facility] MPV 10.8 7.0 - 11.0 FL LAB HEMETOLOGY METHOD 06/23/2025 12:20 PM EDT [facility] NRBC 0.0 <1.0 % LAB HEMETOLOGY METHOD 06/23[facility]2025 12:[facility] NRBC Absolute 0.00 <0.10 K/mcL LAB HEMETOLOGY METHOD 06/23/2025 12:20 PM [facility] Neutrophils Relative 76.7 % LAB HEMETOLOGY METHOD 06/23/2025 12:20 PM [facility] Lymphocytes Relative 12.4 % LAB HEMETOLOGY METHOD [facility]/23[facility] Monocytes Relative 8.2 % LAB HEMETOLOGY METHOD 06/23/2025 12:20 PM [facility] Eosinophils Relative 1.5 % LAB HEMETOLOGY METHOD 06/23[facility]2025 12[facility] Basophils Relative 0.6 % LAB HEMETOLOGY METHOD 06/23/2025 12:20 PM EDT [facility] Immature Granulocytes Relative 0.6 % LAB HEMETOLOGY METHOD 06/23[facility]2025 [facility] Neutrophils Absolute 2.54 1.50 - 7.00 K/mcL LAB HEMETOLOGY METHOD 06/23/2025 12:[facility] Lymphocytes Absolute 0.41(L) 1.00 - 5.00 K/mcL LAB HEMETOLOGY METHOD 06/23/2025 12:20 PM EDT [facility] Monocytes Absolute 0.27 0.20 - 1.00 K/mcL LAB HEMETOLOGY METHOD 06/23/2025 12:20 PM EDT [facility] Eosinophils Absolute 0.05 0.00 - 0.50 K/mcL LAB HEMETOLOGY METHOD 06/23/2025 12:20 PM EDT [facility] Basophils Absolute 0.02 0.00 - 0.20 K/mcL LAB HEMETOLOGY METHOD 06/23/2025 12:20 PM EDT [facility] Immature Granulocytes Absolute 0.02 0.00 - 0.03 K/mcL LAB HEMETOLOGY METHOD 06/23/2025 12:20 PM EDT [facility] Blood Venous blood specimen / Unknown Venipuncture / Unknown 06/23/2025 11:19 AM EDT 06/23/2025 11:58 AM EDT [facility] Aleshia [facility] LAB BLOOD ORDERABLES Final R esult [facility] [address] [place] [address], * Paroxysmal nocturnal hemoglobinuria with high sensitivity (06/23/2025 11:19 AM EDT) Pathologist SEEBELOW 2:54 PM EDT [facility] Comment: This test was developed and its performance characteristics determined by [facility]. It has not been cleared or approved by the U.S. Food and Drug Administration. The FDA has determined that such clearance or approval is not necessary. Interpretation No flow cytometric evidence of PNH. 2:54 PM EDT [facility] Source Peripheral blood 2:54 PM EDT [facility] Comment See Below 2:54 PM EDT [facility] Comment: RESULT: No evidence of aberrant [...] EDT [facility] Comment: Test performed at [facility], [address] , [place] [address] Blood Venous blood specimen / Unknown Venipuncture / Unknown 06/23/2025 11:19 AM EDT 06/23/2025 11:58 AM EDT us Daija Monk MD LAB BLOOD ORDERABLES Final R esult [facility] [address] [place] [address] * Lactate dehydrogenase (06/23/2025 11:19 AM EDT) LDH 181 120 - 246 unit/L LAB CHEMISTRY METHOD 06/23/2025 2:00 PM EDT [facility] Blood Venous blood specimen / Unknown Venipuncture / Unknown 06/23/2025 11:19 AM EDT 06/23/2025 11:58 AM EDT us Daija Monk MD LAB BLOOD ORDERABLES Final R esult [facility] [address] [place] [address], * EGD Anesthesia - MAC; [facility] END[facility]COPY (04/28/2025 1:36 PM EDT) Anatomical Region Laterality Modality Endoscopy 04/28/2025 1:23 PM EDT Impressions 04/28/2025 1:38 PM EDT - Normal stomach. - Normal examined duodenum. - Benign-appearing esophageal stenosis. Dilated. Biopsied. Recommendation: - Discharge patient to home. - Resume previous diet. - Continue present medications. - Await pathology results. Narrative 04/28/2025 1:38 PM EDT [facility] GI Patient Name: Gilles Castillo Procedure Date: 04/28/2025 1:23 PM Date of : 1945 Age: 79 Gender: Male Note Status: Finalized Attending MD: Dhiraj Juarez DO, [id number] Procedure Date No Time: 04/28/2025 Procedure: Upper [...] the physician, the nurse, the anesthesiologist, the printing machinist and the opto mechanical technician in the pre-procedure area in the [...] for histology. Procedure Code(s): --- Professional --- 71034, Esophagogastroduodenoscopy, flexible, transoral; with transendoscopic balloon dilation of esophagus (less than 30 mm diameter) 12130, 59, Esophagogastroduodenoscopy, flexible, transoral; with biopsy, single or multiple Diagnosis Code(s): --- Professional --- K22.2, Esophageal obstruction R13.10, Dysphagia, unspecified CPT copyright 2020 [employer]. All rights reserved. The codes documented in this report are preliminary and upon critical care nurse review may be revised to meet current compliance requirements. DHIRAJ Juarez DO 04/28/2025 1:38:18 PM This report has been signed electronically.Dhiraj Juarez DO Number of Addenda: 0 Note Initiated On: 04/28/2025 1:23 PM Scope In: Scope Out: Endoscopy Department at [facility] - [address] [place] [phone] Procedure Note Dhiraj Juarez DO - 04/28/2025 [facility] Patient Name: Gilles Castillo Procedure Date: 04/28/2025 1:23 PM Date of : 1945 Age: 79 Gender: Male Note Status: Finalized Attending MD: Dhiraj Juarez DO, [id number] Procedure Date No Time: 04/28/2025 Procedure: Upper [...] the physician, the nurse, the anesthesiologist, the printing machinist and thetechnician in the pre-procedure area in [...] for histology. Procedure Code(s): --- Professional --- 51863, Esophagogastroduodenoscopy, flexible, transoral; with transendoscopic balloon dilation of esophagus (less than 30 mm diameter) 74299, 59, Esophagogastroduodenoscopy, flexible, transoral; with biopsy, single or multiple Diagnosis Code(s): --- Professional --- K22.2, Esophageal obstruction R13.10, Dysphagia, unspecified CPT copyright 2020 [employer]. All rights reserved. The codes documented in this report are preliminary and upon critical care nurse reviewmay be revised to meet current compliance requirements. DHIRAJ Juarez DO 04/28/2025 1:38:18 PM This report has been signed electronically.Dhiraj Juarez DO Number of Addenda: 0 Note Initiated On: 04/28/2025 1:23 PM Scope In: Scope Out: Endoscopy Department at [facility] - [address] [place] [phone] IMPRESSION: - Normal stomach. - Normal examined [...] metaplasia and dysplasia. 04/29/2025 11:12 AM EDT [facility] Gross Description A. Esophagus, stricture bx's: Labeled esophagus, esophagus . Received in formalin are two irregular pink-white mucosal tissue fragments, measuring 0.1 cm and 0.2 cm in greatest dimension, which are wrapped in paper and submitted in toto in one cassette, two pieces, multiple levels on one slide. JARON 04/29/2025 11:12 AM EDT [facility] Disclaimer Unless otherwise specified, all tissue is 10% NB formalin fixed and paraffin embedded. 04/29/2025 11:12 AM EDT [facility] Tissue Esophageal structure / Unknown 04/28/2025 1:35 PM EDT 04/28/2025 3:07 PM EDT [facility] LAB PATHOLOGY ORDERABLES Final R esult [facility] [address] [place] [address], * COLONOSCOPY (04/22/2025 1:35 PM EDT) Anatomical Region Laterality Modality Endoscopy Historical Provider GI~PROCEDURE ORDERABLES F inal Result * External Endoscopy (04/22/2025 1:31 PM EDT) Anatomical Region Laterality Modality Endoscopy us Historical Provider GI~PROCEDURE ORDERABLES F inal Result * (ABNORMAL) Comprehensive metabolic panel (03/08/2025 7:26 AM EDT) Sodium 134 133 - 145 mmol/L LAB CHEMISTRY METHOD 03/08/2025 8:37 AM [facility] Potassium 4.5 3.5 - 5.5 mmol/L LAB CHEMISTRY METHOD 03/08/2025 8:37 AM [facility] Comment:Hemolysis present Chloride 101 96 - 110 mmol/L LAB CHEMISTRY METHOD 03/08/2025 8:37 AM [facility] CO2 24 21 - 32 mmol/L LAB CHEMISTRY METHOD 03/08/2025 8:37 AM [facility] Anion Gap 9 3 - 11 LAB CHEMISTRY METHOD 03/08/2025 8:37 AM [facility] Glucose 249(H) 70 - 100 mg/dL LAB CHEMISTRY METHOD 03/08/2025 8:37 AM [facility] BUN 23 5 - 25 mg/dL LAB CHEMISTRY METHOD 03/08/2025 8:37 AM [facility] Creatinine 1.13 0.70 - 1.30 mg/dL LAB CHEMISTRY METHOD 03/08/2025 8:37 AM [facility] eGFR 66 >=60 mL/min/1. 73m2 LAB CHEMISTRY METHOD 03/08/2025 8:37 AM [facility] Comment:Calculation based on the Chronic Kidney Disease Epidemiology Collaboration (CKD-EPI) equation refit without adjustment for race. BUN/Creatinine Ratio 20.4 LAB CHEMISTRY METHOD 03/08/2025 8:37 AM [facility] Calcium 9.0 8.5 - 10.5 mg/dL LAB CHEMISTRY METHOD 03/08/2025 8:37 AM [facility] AST (SGOT) 23 10 - 42 unit/L LAB CHEMISTRY METHOD 03/08/2025 8:37 AM EDT [facility] Comment:Hemolysis present ALT (SGPT) 21 10 - 60 unit/L LAB CHEMISTRY METHOD 03/08/2025 8:37 AM EDT [facility] Alkaline Phosphatase 66 42 - 121 unit/L LAB CHEMISTRY METHOD 03/08/2025 8:37 AM EDT [facility] Total Protein 7.2 6.0 - 8.0 g/dL LAB CHEMISTRY METHOD 03/08/2025 8:37 AM EDT [facility] Albumin 4.2 3.2 - 5.0 g/dL LAB CHEMISTRY METHOD 03/08/2025 8:37 AM EDT [facility] Total Bilirubin 1.4 0.0 - 1.4 mg/dL LAB CHEMISTRY METHOD 03/08/2025 8:37 AM EDT [facility] Blood Venous blood specimen / Unknown Venipuncture / Unknown 03/08/2025 7:26 AM EDT 03/08/2025 7:57 AM EDT Ed Nj MD LAB BLOOD ORDERABLES Final Result [facility] [address] [place] [address], * Urine Albumin Creatinine Ratio (10/15/2019) Pathologist [facility] Urine Albumin Creatinine Ratio Abstracted Historical Provider HEALTH MAINTENANCE Final Result * Hemoglobin A1c (10/10/2019) Pathologist [facility] Hemoglobin A1C 6.3 <=6.5 % Blood [...] us Historical Provider LAB BLOOD ORDERABLES Scarlett stewart Result from Last 3 Months or Most [...] currently active code status orders. Care Teams [employer] Law Clerk Relationship Specialty Start Date End Date Dariel Hart NP [address] [place] [phone] PCP - General Family Medicine 03/13/25
[2025-07-07 10:27] LABS: MANUAL DIFF FLAG NO
[2025-07-07 10:34] LABS: Appearance Urine Clear; Glucose Urine UA Negative (Negative); PH 6.5 (5.0-9.0); Specific Gravity - Urine 1.015 (1.005-1.025)
[2025-07-07 10:44] LABS: Hematocrit 32.5 % (42.0-52.0); Hemoglobin 11.8 g/dl (14.0-18.0); Imm Gran Abs Auto 0.03 X10*3/uL (0.00-0.03); Imm Gran Pct Auto 1.0 % (0.0-0.4); Lymphocytes Absolute Auto 0.5 X10*3/uL (1.2-4.9); Mean Corpuscular HGB Conc 36.3 g/dl (31.0-36.0); Mean Corpuscular Hemoglobin 36.6 pg (27.0-33.0); Mean Corpuscular Volume 100.9 fL (80.0-98.0); NRBC Abs Auto 0.000 X10*3/uL (0.0-0.012); NRBC Pct Auto 0.0 /100WBC (0.0-0.2); Platelet Count 113 X10*3/uL (160-400); Red Blood Count 3.22 X10*6/uL (4.60-5.80); White Blood Count 2.9 X10*3/uL (4.8-10.8)
[2025-07-07 11:12] LABS: Alanine Aminotransferase 17 U/L (0-40); Albumin Level 4.3 g/dL (3.5-5.0); Alkaline Phosphatase 63 U/L (39-117); Anion Gap 12 (12-20); Aspartate Amino Transferase 20 U/L (5-37); Blood Urea Nitrogen 25 mg/dL (9-16); Calcium 9.3 mg/dL (8.4-10.2); Carbon Dioxide 26 mmol/L (22-29); Chloride 103 mmol/L (96-108); Cholesterol 135 mg/dL (<200); Estimated Glomerular Filt Rate > 60; HDL Cholesterol 45 mg/dL (>40); Potassium 4.5 mmol/L (3.3-5.1); Sodium 136 mmol/L (135-145); Total Protein 7.0 g/dL (6.5-8.0); Triglycerides 99 mg/dL (<150)
== END 2025-07-07 08:47 | disposition home or self-care (01) ==
LOC: HO.HMGCLDS 08:46
PROVIDERS: PCP Nurse Practitioner Family; Visit Provider Nurse Practitioner Family
DX: Z00.00 Encounter for general adult medical examination without abnormal findings (principal); E11.9 Type 2 diabetes mellitus without complications
CPT/HCPCS: 36415; 80053; 80061; 81003; 84443; 85025

== ENCOUNTER 2025-07-09 10:50 | Outpatient (REF) | payer MEDICARE, SELFPAY ==
[2025-07-09 14:21] LABS: Microalbum/Creatinine Ratio Ur 13.4 ug/mg cr (<30)
--- OUTSIDE RECORDS SUMMARY | 2025-07-09 15:04 | XMS_ITS ---
Author Name Wojciech Oleary Address Unknown Organization [place] Care Team Providers Care Secretary Book Keeper Name Role Phone Unavailable Primary Care Physician Unavailab le History Of Present Illness No Data Allergies, Adverse Reactions, Alerts Substance RxNorm Reaction(s) Severity Status Start Da te amoxicillin 723 unspecified active Augmentin 707251 unspecified active Penicillins unspecified active Sulfa (Sulfonamide Antibiotics) unspecif ied active Tetracyclines unspecified active clindamycin Other: Heartburn unspecified active Medications Medication Generic Name RxNorm Strength Strength Unit Route Dose Dose Form Frequency Date Started Date Ended Status Indication Sig timolol maleate timolol maleate 0.5 % Ophtha lmic (eye) drops , once daily BID 02/07/20 25 active glaucoma clobetasol clobetas ol 129578 0.05 % Topica l cream 07/18/20 22 suspend ed Appl y twic e onel y to affe cted area s on 1-2 week s at a time , do not use on face or skin fold s. clobetasol clobetas ol 204102 0.05 % Topica l cream 06/19/20 25 active Appl y twic e onel y to affe cted area s on 1-2 week s at a time , do not use on face or skin fold s. Enstilar calcipot riene-be tamethas one 2614701 0.005-0.0 64 % Topica l foam 09/10/19 20 suspend ed Appl y once onel y to affe cted area s of psor iasi s for 1-2 week s at a time . ketoconazol e ketocona zole 932742 2 % Topica l shamp oo 06/01/20 22 suspend ed Use as sham poo heidy ral time s per week , alte rnat e with norm al sham poo. mupirocin mupiroci n 562316 2 % Topica l ointm ent 01/08/20 25 suspend ed Appl y once to twic e onel y to site on leg. triamcinolo ne acetonide triamcin olone acetonid e 7631212 0.1 % Topica l cream BID 06/01/20 22 suspend ed Appl y twic e onel y to itch y area s for 1-2 week s at a time as need ed then 1 week off. Do not use on face or skin fold s. Trelegy Ellipta fluticas one-umec lidin-vi lanter 100-62.5- 25 mcg Inhala tion 1 Blist er, With Inhal ation Devic e QD active Adult Low Dose Aspirin aspirin 81 mg Oral 1 table t, delay ed relea se (renetta mckay) QD active wellness atorvastati n atorvast atin 20 mg Oral 1 table t QD active hypercholes terolemia Daily Probiotic L. acidophi yasmin/Bifi d. animalis 2.5 billion cell Oral capsu le QD suspend ed wellness dexamethaso ne dexameth asone 523072 0.75 mg Oral table t 09/28/19 23 suspend ed Take five pill s on day 1, thre e pill s on day 2 and one pill on days 3 thro ugh 22. Take pill s in AM with food . Flomax tamsulos in 0.4 mg Oral 1 capsu le QD active enlarged prostate glipizide glipizid e 376078 10 mg Oral 1 table t QD 03/01/20 16 active diabetes losartan losartan 50 mg Oral 1 table t QD active HTN mecobalamin (vitamin B12) mecobala min (vitamin B12) 5,00 mcg Oral 1 table t QD active omeprazole omeprazo le 20 mg Oral 1 capsu le,de layed relea se (entmora mckay) QD active Plavix clopidog rel 75 mg Oral table t QD suspend ed preventativ e verapamil verapami l 120 mg Oral 1 table t exten ded relea se QD active HTN fluocinolon e and shower cap fluocino lone and shower cap 8864788 0.01 % Scalp oil 05/19/20 20 suspend ed Appl y to damp hair and leav e on 60mi nute s cove r with show er cap then comb thru scal e and sham poo out fluocinolon e and shower cap fluocino lone and shower cap 8058998 0.01 % Scalp oil prn 02/25/20 22 active Appl y to damp hair and leav e on 60mi nute s lalita r with show er cap then comb thru scal e and sham poo out Problems Problem Code Type Status Date of Diagnosis Date of Resolution History of clinical finding in subject (situation) 768969944(S NOMED) Problem active Dysplastic nevus of skin (disorder) 766742234(S NOMED) Diagnosis active 09/11/2018 Personal history of other drug therapy Z92.29(ICD- 10) Diagnosis active 09/19/2017 Melanocytic nevus of trunk (disorder) 946489038(S NOMED) Diagnosis active 09/19/2017 Actinic keratosis (disorder) (S NOMED) Problem active Other specified health status Z78.9(ICD-1 0) Diagnosis active 05/25/2017 Clinical finding (finding) 718365171(S NOMED) Diagnosis active 05/25/2017 Senile hyperkeratosis (disorder) 717685364(S NOMED) Diagnosis active 05/25/2017 Psoriasis vulgaris (disorder) 438983819(S NOMED) Diagnosis active 01/31/2017 History of malignant neoplasm of skin (situation) 930114342(S NOMED) Diagnosis active 10/25/2016 Scar conditions and fibrosis of skin (disorder) 664528288(S NOMED) Diagnosis active 04/27/2016 Psoriasis vulgaris (disorder) 780334666(S NOMED) Diagnosis active 03/01/2016 Actinic keratosis (disorder) (S NOMED) Diagnosis active 09/29/2015 Senile hyperkeratosis (disorder) 759020700(S NOMED) Diagnosis active 04/01/2015 Actinic keratosis (disorder) (S NOMED) Diagnosis active 10/01/2014 Actinic keratosis (disorder) (S NOMED) Diagnosis active 07/13/2014 Psoriasis (disorder) 8550242(SNO MED) Diagnosis active 03/23/2014 Actinic keratosis (disorder) (S NOMED) Diagnosis active 02/02/2014 Personal history of other malignant neoplasm of skin Z85.828(ICD -10) Diagnosis active 09/10/2019 Actinic keratosis L57.0(ICD-1 0) Diagnosis active 09/10/2019 Other melanin hyperpigmentation L81.4(ICD-1 0) Diagnosis active 09/10/2019 Other seborrheic keratosis L82.1(ICD-1 0) Diagnosis active 09/10/2019 Melanocytic nevi of trunk D22.5(ICD-1 0) Diagnosis active 09/10/2019 Psoriasis vulgaris L40.0(ICD-1 0) Diagnosis active 09/10/2019 Diabetes mellitus (disorder) 24211671(SN OMED) Problem active Increased blood pressure (finding) 13329428(SN OMED) Problem active Inflamed seborrheic keratosis L82.0(ICD-1 0) Diagnosis active 07/29/2020 Psoriasis vulgaris L40.0(ICD-1 0) Diagnosis active 07/29/2020 Personal history of other malignant neoplasm of skin Z85.828(ICD -10) Diagnosis active 09/17/2020 Other melanin hyperpigmentation L81.4(ICD-1 0) Diagnosis active 09/17/2020 Other seborrheic keratosis L82.1(ICD-1 0) Diagnosis active 09/17/2020 Melanocytic nevi of trunk D22.5(ICD-1 0) Diagnosis active 09/17/2020 Psoriasis vulgaris L40.0(ICD-1 0) Diagnosis active 09/17/2020 Actinic keratosis L57.0(ICD-1 0) Diagnosis active 09/17/2020 Actinic keratosis (disorder) 343929781(S NOMED) Diagnosis active 10/07/2021 Psoriasis vulgaris (disorder) 726761993(S NOMED) Diagnosis active 10/07/2021 History of malignant neoplasm of skin (situation) 117858987(S NOMED) Diagnosis active 10/07/2021 Disorder of pigmentation (disorder) 650724724(S NOMED) Diagnosis active 10/07/2021 Seborrheic keratosis (disorder) 166611893(S NOMED) Diagnosis active 10/07/2021 Melanocytic nevus of trunk (disorder) 161838473(S NOMED) Diagnosis active 10/07/2021 Actinic keratosis (disorder) (S NOMED) Diagnosis active 06/01/2022 Disorder of skin and/or subcutaneous tissue (disorder) 56633303(SN OMED) Diagnosis active 06/01/2022 Seborrheic dermatitis (disorder) 27603979(SN OMED) Diagnosis active 06/01/2022 Inflammatory dermatosis (disorder) 808965398(S NOMED) Diagnosis active 09/20/2022 Seborrheic dermatitis (disorder) 03991600(SN OMED) Diagnosis active 11/29/2022 Disorder of skin and/or subcutaneous tissue (disorder) 92144639(SN OMED) Diagnosis active 11/29/2022 History of malignant neoplasm of skin (situation) 545024606(S NOMED) Diagnosis active 11/29/2022 Disorder of pigmentation (disorder) 492152820(S NOMED) Diagnosis active 11/29/2022 Seborrheic keratosis (disorder) 112521219(S NOMED) Diagnosis active 11/29/2022 Melanocytic nevus of trunk (disorder) 888920556(S NOMED) Diagnosis active 11/29/2022 Patient encounter status (finding) 316623626(S NOMED) Diagnosis active 11/29/2022 Disorder of skin and/or subcutaneous tissue (disorder) 93049120(SN OMED) Diagnosis active 02/15/2023 Disorder of skin and/or subcutaneous tissue (disorder) 24486322(SN OMED) Diagnosis active 03/06/2023 Itching of skin (finding) 205844017(S NOMED) Diagnosis active 03/06/2023 Disorder of skin and/or subcutaneous tissue (disorder) 48412654(SN OMED) Diagnosis active 03/08/2023 Itching of skin (finding) 666644432(S NOMED) Diagnosis active 03/08/2023 Disorder of skin and/or subcutaneous tissue (disorder) 72480264(SN OMED) Diagnosis active 03/12/2023 Itching of skin (finding) 496457848(S NOMED) Diagnosis active 03/12/2023 Disorder of skin and/or subcutaneous tissue (disorder) 57600946(SN OMED) Diagnosis active 03/14/2023 Itching of skin (finding) 613240803(S NOMED) Diagnosis active 03/14/2023 Disorder of skin and/or subcutaneous tissue (disorder) 31177143(SN OMED) Diagnosis active 03/16/2023 Itching of skin (finding) 810585877(S NOMED) Diagnosis active 03/16/2023 Disorder of skin and/or subcutaneous tissue (disorder) 18196133(SN OMED) Diagnosis active 03/19/2023 Itching of skin (finding) 341951402(S NOMED) Diagnosis active 03/19/2023 Disorder of skin and/or subcutaneous tissue (disorder) 13048568(SN OMED) Diagnosis active 04/02/2023 Itching of skin (finding) 738291546(S NOMED) Diagnosis active 04/02/2023 Disorder of skin and/or subcutaneous tissue (disorder) 26324551(SN OMED) Diagnosis active 04/04/2023 Itching of skin (finding) 264399160(S NOMED) Diagnosis active 04/04/2023 Disorder of skin and/or subcutaneous tissue (disorder) 48911986(SN OMED) Diagnosis active 04/09/2023 Itching of skin (finding) 614193817(S NOMED) Diagnosis active 04/09/2023 Disorder of skin and/or subcutaneous tissue (disorder) 92074187(SN OMED) Diagnosis active 04/16/2023 Itching of skin (finding) 536243292(S NOMED) Diagnosis active 04/16/2023 Disorder of skin and/or subcutaneous tissue (disorder) 50266988(SN OMED) Diagnosis active 04/18/2023 Itching of skin (finding) 913378261(S NOMED) Diagnosis active 04/18/2023 Disorder of skin and/or subcutaneous tissue (disorder) 12218674(SN OMED) Diagnosis active 04/20/2023 Itching of skin (finding) 388047406(S NOMED) Diagnosis active 04/20/2023 Disorder of skin and/or subcutaneous tissue (disorder) 05952787(SN OMED) Diagnosis active 04/23/2023 Itching of skin (finding) 719538376(S NOMED) Diagnosis active 04/23/2023 Disorder of skin and/or subcutaneous tissue (disorder) 69945017(SN OMED) Diagnosis active 04/13/2023 Itching of skin (finding) 422357104(S NOMED) Diagnosis active 04/13/2023 Disorder of skin and/or subcutaneous tissue (disorder) 60926071(SN OMED) Diagnosis active 04/11/2023 Itching of skin (finding) 045506997(S NOMED) Diagnosis active 04/11/2023 Disorder of skin and/or subcutaneous tissue (disorder) 16997945(SN OMED) Diagnosis active 03/23/2023 Itching of skin (finding) 954784558(S NOMED) Diagnosis active 03/23/2023 Disorder of skin and/or subcutaneous tissue (disorder) 54735899(SN OMED) Diagnosis active 05/01/2023 Itching of skin (finding) 318151529(S NOMED) Diagnosis active 05/01/2023 Disorder of skin and/or subcutaneous tissue (disorder) 40177108(SN OMED) Diagnosis active 05/07/2023 Itching of skin (finding) 123242093(S NOMED) Diagnosis active 05/07/2023 Disorder of skin and/or subcutaneous tissue (disorder) 11397422(SN OMED) Diagnosis active 05/04/2023 Itching of skin (finding) 562944070(S NOMED) Diagnosis active 05/04/2023 Disorder of skin and/or subcutaneous tissue (disorder) 88922456(SN OMED) Diagnosis active 05/14/2023 Itching of skin (finding) 296925215(S NOMED) Diagnosis active 05/14/2023 Disorder of skin and/or subcutaneous tissue (disorder) 69419058(SN OMED) Diagnosis active 05/10/2023 Itching of skin (finding) 287734751(S NOMED) Diagnosis active 05/10/2023 Disorder of skin and/or subcutaneous tissue (disorder) 48511568(SN OMED) Diagnosis active 05/17/2023 Inflamed seborrheic keratosis (disorder) 906201888(S NOMED) Diagnosis active 05/17/2023 Disorder of skin and/or subcutaneous tissue (disorder) 90826171(SN OMED) Diagnosis active 05/16/2023 Itching of skin (finding) 538534775(S NOMED) Diagnosis active 05/16/2023 Disorder of skin and/or subcutaneous tissue (disorder) 70788920(SN OMED) Diagnosis active 09/20/2023 History of malignant neoplasm of skin (situation) 595076338(S NOMED) Diagnosis active 09/20/2023 Disorder of pigmentation (disorder) 267989433(S NOMED) Diagnosis active 09/20/2023 Seborrheic keratosis (disorder) 838700653(S NOMED) Diagnosis active 09/20/2023 Melanocytic nevus of trunk (disorder) 978286700(S NOMED) Diagnosis active 09/20/2023 Patient encounter status (finding) 055972741(S NOMED) Diagnosis active 09/20/2023 Squamous cell carcinoma (disorder) 374594034(S NOMED) Problem active Disorder of skin and/or subcutaneous tissue (disorder) 87742587(SN OMED) Diagnosis active 09/25/2024 History of malignant neoplasm of skin (situation) 753059433(S NOMED) Diagnosis active 09/25/2024 Disorder of pigmentation (disorder) 811777556(S NOMED) Diagnosis active 09/25/2024 Seborrheic keratosis (disorder) 602977772(S NOMED) Diagnosis active 09/25/2024 Melanocytic nevus of trunk (disorder) 323006113(S NOMED) Diagnosis active 09/25/2024 Patient encounter status (finding) 209283637(S NOMED) Diagnosis active 09/25/2024 Large prostate (finding) 136581305(S NOMED) Problem active Neoplasm of uncertain behavior of skin (disorder) 14242377(SN OMED) Diagnosis active 01/07/2025 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) 504549630(S NOMED) Diagnosis active 02/06/2025 Surgical follow-up (finding) 808006061(S NOMED) Diagnosis active 02/13/2025 Surgical follow-up (finding) 862636909(S NOMED) Diagnosis active 02/26/2025 Squamous cell carcinoma of skin (disorder) 888009229(S NOMED) Diagnosis active 02/16/2025 Disorder of skin and/or subcutaneous tissue (disorder) 11446415(SN OMED) Diagnosis active 06/19/2025 Inflamed seborrheic keratosis (disorder) 654702375(S NOMED) Diagnosis active 06/19/2025 Disorder of skin and/or subcutaneous tissue (disorder) 71863673(SN OMED) Diagnosis active 07/07/2025 Itching of skin (finding) 376507739(S NOMED) Diagnosis active 07/07/2025 Results No data Encounters Service provided at [place], [address] [place] [address], [address], [place], [place] [id number]. Office phonenumber is [phone]. Office fax number is [phone]. Encounter Diagnosis Location Date / Time Type Disc harge Status Dermatosis NOS (L98.9)Pruritus (L29.89) [facility] 07/07/2025 15:30:00 UTC NI Reason For Referral No data Procedures Procedure Date Phototherapy of skin (procedure) 025 12:00 am UTC Cryotherapy of skin lesion with liquid n itrogen (procedure) 06/19/2025 12:00 am UTC Removal of suture (procedure) 02/26/2025 12:00 am UTC Strapping of Unna boot (procedure) 02/16 12:00 am UTC Strapping of Unna boot (procedure) 02/13 12:00 am UTC Mohs surgery (procedure) 02/06/2025 12:0 0 am UTC Shave biopsy (procedure) 01/07/2025 12:0 0 am UTC Tumor destruction (procedure) 01/07/2025 12:00 am UTC Cryotherapy of skin lesion with liquid n itrogen (procedure) 05/17/2023 12:00 am UTC Shave biopsy (procedure) 05/17/2023 12:0 0 am UTC Shave biopsy (procedure) 09/20/2022 12:0 0 am UTC Cryotherapy of skin lesion with liquid n itrogen (procedure) 06/01/2022 12:00 am UTC Cryotherapy of skin lesion with liquid n itrogen (procedure) 10/07/2021 12:00 am UTC Cryotherapy of skin lesion with liquid n itrogen (procedure) 09/17/2020 12:00 am UTC Cryotherapy of skin lesion with liquid n itrogen (procedure) 07/29/2020 12:00 am UTC Documentation of past medical history (p rocedure) Documentation of past medical history (p rocedure) Documentation of past medical history (p rocedure) Documentation of past medical history (p rocedure) Documentation of past medical history (p rocedure) Documentation of past medical history (p rocedure) Documentation of past medical history (p rocedure) Documentation of past medical history (p rocedure) Documentation of past medica l history (procedure) 3 stents 09/2023 Review Of Systems No Data Assessment 1.Dermatosis NOS2.PruritusPhototherapy Treatment: Comments on Previous Treatment - Room 3. May increase by 40 mj as tolerated; Total Body Energy - 200mj; Skin Type - II; Treatment Number - 23 restart; Location (Body Touches will Override) - full body; Render Post-care in the Note - no; Total Treatment Time - 55 secs; Changes in Treatment Protocol - Increased dose by skin type 2 protocol. Pt requested no fans RM 3; Protocol - Photochemotherapy: Mineral Oil and NBUVB; Total Body Time - 55 secs. Plan of Care Code Detail Instructions 711880 clobetasol 0.05 % topical cream Apply twice daily to affected areas on 1-2 weeks at a time, do not use on face or skin folds. 1879385 fluocinolone 0.01 % scalp oil and shower cap Apply to damp hair and leave on 60minutes cover with shower cap then comb thru scale and shampoo out 677628 mupirocin 2 % topical ointment A pply once to twice daily to site on leg. 153727 clobetasol 0.05 % topical cream Apply twice daily to affected areas on 1-2 weeks at a time, do not use on face or skin folds. 990960 ketoconazole 2 % shampoo Use as shampoo several times per week, alternate with normal shampoo. 311698 ketoconazole 2 % shampoo Use as shampoo several times per week, alternate with normal shampoo. 5409394 fluocinolone 0.01 % scalp oil and shower cap Apply to damp hair and leave on 60minutes cover with shower cap then comb thru scale and shampoo out 644784 ketoconazole 2 % shampoo Use as shampoo several times per week, alternate with normal shampoo. 2593530 fluocinolone 0.01 % scalp oil and shower cap Apply to damp hair and leave on 60minutes cover with shower cap then comb thru scale and shampoo out 532224 clobetasol 0.05 % topical cream Apply twice daily to affected areas on 1-2 weeks at a time, do not use on face or skin folds. 028962 ketoconazole 2 % shampoo Use as shampoo several times per week, alternate with normal shampoo. 660700 clobetasol 0.05 % topical cream Apply twice daily to affected areas on 1-2 weeks at a time, do not use on face or skin folds. 626732 dexamethasone 0.75 mg tablet Alexey e five pills on day 1, three pills on day 2 and one pill on days 3 through 22. Take pills in AM with food. 268755 clobetasol 0.05 % topical cream Apply twice daily to affected areas on 1-2 weeks at a time, do not use on face or skin folds. 9056379 triamcinolone aceton tatiana 0.1 % topical cream Apply twice daily to itchy areas for 1-2 weeks at a time as needed then 1 week off. Do not use on face or skin folds. 737115 ketoconazole 2 % shampoo Use as shampoo several times per week, alternate with normal shampoo. 8949504 triamcinolone aceton tatiana 0.1 % topical cream Apply twice daily to itchy areas for 1-2 weeks at a time as needed then 1 week off. Do not use on face or skin folds. 7304716 fluocinolone 0.01 % scalp oil and shower cap Apply to damp hair and leave on 60minutes cover with shower cap then comb thru scale and shampoo out 4010961 fluocinolone 0.01 % scalp oil and shower cap Apply to damp hair and leave on 60minutes cover with shower cap then comb thru scale and shampoo out 3643196 Enstilar 0.005 %-0.064 % topical foam Apply once daily to affected areas of psoriasis for 1-2 weeks at a time. 5789652 fluocinolone 0.01 % scalp oil and shower cap Apply to damp hair and leave on scalp covered with shower cap. Ok to leave on overnight and then shampoo out. Instructions No Data Social History Code Activity Start Date End Date 0465936 (SNOMED) Former smoker Sex Male Sexual orientation Unspecified Gender identity Unspecified Vital Signs No data Insurances Coverage Status Coverage Type Relationship to Subscriber Member Identifier Subscriber Identifier Group Identifier Payer Identifier Inactive 1 Self [id number] Active Self [id number] Inactive 2 Self [id number]
== END 2025-07-09 10:51 | disposition home or self-care (01) ==
LOC: HO.HMGCLDS 10:50
PROVIDERS: PCP Nurse Practitioner Family; Visit Provider Nurse Practitioner Family
DX: Z00.00 Encounter for general adult medical examination without abnormal findings (principal); E11.9 Type 2 diabetes mellitus without complications; Z23 Encounter for immunization
CPT/HCPCS: 82043; 82570; 90471; 90715; 99397

== ENCOUNTER 2025-07-09 10:50 | Outpatient (AMB) | payer MEDICARE, SELFPAY ==
--- OUTSIDE RECORDS SUMMARY | 2024-05-29 09:13 | XMS_ITS | Encounter Summary ---
Author Organization [place] [address] Care Team Providers Care Forwarder Operator Name Role Phone Dariel Hart NP Primary Care Provider [phone] Encounter Details Date Type Department Care Team (Late st Contact Info) Description 05/29/2024 10:13 AM EDT Hospital Encounter TH HISTORIC ENCOUNTERS EASTERN CONVERSION ONLY Daija Monk MD [address] [place] [phone] Social History Tobacco Use Types Packs/Day Years [...] 7:07 AM EDT Kurtis Briggs RN * Lane Suicide Severity Rating Scale (Screener/Recent Self-Report) Question [...] 10:30 AM EDT CHIEF COMPLAINT: Follow-up IDENTIFIER:Graham aCstillo is a 78 y.o. male. HPI: 78-year-old [...] SOCIAL HISTORY: Quit smoking in 2009, has [id number]-lkhy smoking history Denies any alcohol abuse, occasionally drink alcohol He used to work in [employer] ([employer] department) He is lives with his ?? [...] 10:45 AM EDT Office Visit Pulmonology - [place] [address] [facility] [address] [place] [phone] David Dallas MD [address] [place] [phone] 12/30/2025 10:30 AM EDT Office Visit [facility] Hematology Oncology [address] [place] [phone] Daija Monk MD [address] [place] [phone] documented as of this encounter Procedures Procedure [...] documented as of this encounter Care Teams Forwarder Operator Relationship Specialty Start Date End Date Dariel Hart NP [address] [place], [place] PCP - General 12/16/19 03/12/25 documented as of this encounter
--- OUTSIDE RECORDS SUMMARY | 2024-06-19 09:12 | XMS_ITS | Encounter Summary ---
Author Organization [facility] [place] [address] Care Team Providers Care Integrated Marketing Specialist Name Role Phone Dariel Hart NP Primary Care Provider Encounter Details Date Type Department Care Team (Late st Contact Info) Description 06/19/2024 10:12 AM EDT Hospital Encounter TH HISTORIC ENCOUNTERS EASTERN CONVERSION ONLY Daija Monk MD [address] [place] [phone] Social History Tobacco Use Types Packs/Day Years [...] 7:07 AM EDT Kurtis Briggs RN * [place] Suicide Severity Rating Scale (Screener/Recent Self-Report) Question [...] SOCIAL HISTORY: Quit smoking in 2009, has 08-tquf-aimm smoking history Denies any alcohol abuse, occasionally drink alcohol He used to work in [employer] ([employer] department) He is lives with his ?? [...] 12/22/2025 10:45 AM EDT Office Visit Pulmonology [facility] 175 [facility] [address] [place] [phone] David Dallas MD [address] [place] [address] 12/30/2025 10:30 AM EDT Office Visit [facility] Hematology Oncology [address] [place] [phone] Daija Monk MD [address] [place] [address] documented as of this encounter Procedures Procedure [...] documented as of this encounter Care Teams Integrated Marketing Specialist Relationship Specialty Start Date End Date Dariel Hart NP [address] [place], [place] PCP - General 12/16/19 03/12/25 documented as of this encounter
--- OUTSIDE RECORDS SUMMARY | 2025-06-11 05:30 | XMS_ITS ---
Author Organization [facility] Address [address] [place] [address] Care Team Providers Care Customer Service Cashier Name Role Phone Dariel Russell Primary Care Provider Unav ailable Desire Zaman Unavailable [phone] Encounters Encounter Location Date Provider Diagnosis [address] [address] 06/11/2025 Desire Austyn Plan Of Treatment Next Appt Details Provider Name:Desire Zaman , 07/30/2025 10:15:00 AM, [address] [place] [address], [phone], Progress Notes * Graham CASTILLO FDOB:1945 (79 yo M)Acc No.[id number]:06/11/2025 Progress Notes Patient: Graham GUTIERREZ Provider: Dustin Zaman DPM :1945 A ge:79 Y S ex:Male Date:06/11/2025 Address:[address] [place], [place] [phone] Pcp:SHANELL Mensah Subjective: * Chief Complaints: * * Medical History: Objective: * Vitals: Assessment: Plan: * Treatment: * Images: * The named appointment provid er may or may not be the originator of this progress note, and it is not deemed complete until electronically signed by the appointment provider. Sign off status: Pending * Provider: Dustin Zaman DPM Date: 1 Generated for Rocky hayes/Patricia/Altagracia on: 09/08/2024 01:27 PM EST
--- NOTE | 2025-07-09 10:56 | A.OFFPC_ITS ---
Vital Signs 07/09/25 10:57 07/09/25 11:43 Height 5 ft 10 in Weight 186 lb BMI 26.7 BP 148/60 H 130/62 Blood Pressure Location Rt brachial Rt brachial Position Sitting Sitting Respiration 16 Pulse 86 Pulse Source Pulse Oximeter Pulse Oximetry (%) 99 Oxygen Delivery Method Room Air Intake Visit Reasons: Annual PE Car Unloader Helper Required: No Accompanied by: Self / Same As Patient Allergies amoxicillin Allergy (Unknown, Verified 07/09/25 10:59) Unknown clindamycin Allergy (Unknown, Verified 07/09/25 10:59) heart burn penicillin G Allergy (Unknown, Verified 07/09/25 10:59) Unknown sulfacetamide (From Sulfacet-R) Allergy (Unknown, Verified 07/09/25 10:59) Unknown sulfur (From Sulfacet-R) Allergy (Unknown, Verified 07/09/25 10:59) Unknown tetracycline Allergy (Unknown, Verified 07/09/25 10:59) Unknown Medication List - Last Reconciled 07/09/25 by Dariel Hart, COMPUTER SYSTEMS INFORMATION DIRECTOR- ammonium lactate 12% appl topical aspirin (Adult Aspirin Regimen) 81 mg PO DAILY atorvastatin 20 mg PO DAILY 90 days aslvmswfjas-evgjtmyll-dsorxniv 100-62.5-25 mcg (Trelegy Ellipta) 1 inh inhalation DAILY glipizide 10 mg PO DAILY losartan 50 mg PO DAILY omeprazole 40 mg PO DAILY tamsulosin (Flomax) 0.4 mg PO DAILY timolol maleate 0.5% 1 drp ophthalmic (eye) BID tobramycin-dexamethasone 0.3-0.1 % drps ophthalmic (eye) verapamil ER 120 mg PO BEDTIME Tobacco use date assessed: 07/09/25 Fall risk assessment: No Falls in past year Last assessed Fall Risk: 07/09/25 Dental Screening Dental Screen Date: 07/09/25 Did you have a dental visit in the last 12 months?: Yes Did you have a dental problem in the last 6 months where you did not have access to dental care?: No Was dental information given to patient?: Patient has dentist HPI Annual PE HPI Details History of Present Illness The patient is an 79-year-old male presenting for a physical exam and follow-up. He has a history of diabetes with a recent HgbA1c of 6.6%. The patient has a history of pancytopenia and is followed by a document management specialist- oncologist. He was reportedly seen by the specialist in the last 1.5 to 2 weeks, and blood was sent for further testing, which reportedly found nothing. He is also followed by a science tutor and a vascular specialist on a regular basis. He was previously enrolled in a low-dose CT scan program but is no longer participating due to his age. The patient also sees a urologist for regular PSA testing and a globe changer regularly due to being fair-skinned. Colon cancer screenings are no longer required. Health Maintenance - The patient was part of a low-dose CT scan program but is no longer eligible due to age. - He follows up with urology for PSA rogelio ting on a regular basis. - Colon screens are no longer needed. - He sees a globe changer on a regular b asis for fair skin. Social History Review of Systems Physical Exam General: Cooperative, healthy appearing, comfortable, no acute distress and well developed Orientation: Patient oriented x3 Limitations: No limitations Head: Normal to inspection Ears: Hearing grossly normal bilaterally Nose: Normal external nose present Face and sinus: Normal facial exam Eyes: Appearance normal, both eyes and all related structures Neck: Normal visual inspection and Yes full ROM Respiratory: Diminished lung sounds, able to speak in complete sentences. Otherwise, clear to auscultation bilaterally Cardiovascular: Regular rate and rhythm. Normal S1 and S2 GI: Normal to inspection. Soft to palpation and nontender : Testicles without masses/lesions and no hernias appreciated Neuro: Patient oriented x3 Extremities: Normal to inspection Results - Labs: HgbA1c is 6.6%. - Tests and Diagnostics: Blood sent for further testing for pancytopenia reportedly showed no findings. Plan 1. Pancytopenia Awaiting the oncologist's last note for review. 2. physical exam Discussion Notes I am awaiting the last note from the oncologist, who the patient reports he saw in the last week and a half to two weeks. I will obtain that note and review it. Patient Instructions [facility] Medical History Skin lesion of left leg Clonal cytopenia of undetermined significance (CCUS) Pancytopenia Esophageal stenosis Hyponatremia Prostate cancer Malignant neoplasm of skin Arteriolosclerosis COPD (chronic obstructive pulmonary disease) Esophageal stricture Benign familial tremor PVD (peripheral vascular disease) Dyslipidemia Elevated PSA RBBB Pulmonary emphysema Diabetes HTN (hypertension) Surgical History S/P angioplasty with stent (11/14/23) History of cholecystectomy History of hernia surgery Family History Father No problems noted. Mother No problems noted. Daughter No problems noted. Daughter No problems noted. Social History Housing: House Alcohol intake: current Patient Tobacco Use Status: Former Tobacco user Years Smoked: 9 years ago e-Cigarette/Vaping Use: Never Used Second Hand Smoke Exposure: No service: Yes Current occupational status: retired Current occupational exposures/hazards: No Cognitive needs: No Hearing needs: No Vision needs: No Questionnaire PHQ-9 Over the last 2 weeks, how often have you been bothered by any of the following problems? 1. Little interest or pleasure in doing things: not at all 2. Feeling down, depressed, or hopeless: not at all 3. Trouble falling or staying asleep, or sleeping too much: not at all 4. Feeling tired or having little energy: several days 5. Poor appetite or overeating: not at all 6. Feeling bad about yourself - or that you are a failure or have let yourself or your family down: not at all 7. Trouble concentrating on things, such as reading the newspaper or watching television: not at all 8. Moving or speaking so slowly that other people could have noticed. Or the opposite - being so fidgety or restless that you have been moving around a lot more than usual: not at all 9. Thoughts that you would be better off or of hurting yourself in some way: not at all Total score: 1 Source: Developed by Drs. Jonathon Chairez, Sherly Elena, John Light and colleagues, with an educational suze from [employer]. Thrive Questionnaire Date Thrive assessed: 07/03/25 I am a: Patient What is your living situation today?: I have a steady place to live Within the past 12 months, did the food you bought not last and you didn't have the money to get more?: Often true Within the past 12 months, did you worry whether your food would run out before you got money to buy more?: Never true Do you have trouble paying for medicines?: No Do you have trouble getting transportation to medical appointments?: No Do you have trouble paying your heating and electricity bill?: No Do you have trouble taking care of your child, family member or friend?: No Do you have trouble with day-to-day activities such as bathing, preparing meals, shopping, managing finances, etc.?: No Are you currently unemployed and looking for a job?: No Are you interested in more education?: No Please select the resources that you would like help with: None Currently or been in a relationship where the following occur: No concerns reported THRIVE Score: 1 AUDIT C Alcohol Use Questionnaire (AUDIT-C) 2. How many drinks containing alcohol do you have on a typical day when you are drinking?: 1 or 2 3. How often do you have six or more drinks on one occasion?: Never Total Score: 0 SHAKA-7 AMB Questionnaire SHAKA-7 Date SHAKA - 7 assessed: 12/08/24 Feeling nervous, anxious, or on edge: 0 = Not at all Not being able to stop or control worryin = Not at all Worrying too much about different things: 0 = Not at all Trouble relaxin = Not at all Being so restless that it is hard to sit still: 0 = Not at all Becoming easily annoyed or irritable: 0 = Not at all Feeling afraid as if something awful might happen: 0 = Not at all Total SHAKA-7 score (0-4 normal; 5-9 mild; 10-14 moderate; 15-21 severe): 0 Source: Developed by Drs. Jonathon Chairez, Sherly Elena, John Light and colleagues, with an educational suze from [employer]. Physical exam (Primary Care) Vital Signs: Last Vital Signs Pulse 86 07/09/25 10:57 Resp 16 07/09/25 10:57 BP 148/60 H 07/09/25 10:57 Pulse Ox 99 07/09/25 10:57 Oxygen Delivery Method Room Air 07/09/25 10:57 BMI result Body Mass Index 26.7 Tobacco/Smoking Status: Tobacco use Status Tobacco use date assessed 07/09/25 07/09/25 11:02 Patient Tobacco Use Status Former Tobacco user 07/09/25 11:02 e-Cigarette/Vaping Use Never Used 07/09/25 11:02 PHQ-9: PHQ-9 Score PHQ-9: Total score 1 07/09/25 11:30 Thrive Assessment: Date of Thrive Assessment Date Thrive assessed 07/03/25 07/09/25 11:02 Currently or been in a relationship where the following occur: No concerns reported Coding Level of Care Code Est Pt Level 3 (86860) Est Pt Prev Care >65y(64215) Diagnoses Diabetes E11.9 Physical exam Z00.00 Assessment & Plan Assessment & Plan (1) Diabetes: Code(s): E11.9 - Type 2 diabetes mellitus without complications Category: Medical (2) Physical exam: Code(s): Z00.00 - Encounter for general adult medical examination without abnormal findings Category: Medical Plan . Orders: Orders AMB Hemoglobin A1c Today E11.9 - Type 2 diabetes mellitus without complications Microalbumin, Random (w Creat) Today E11.9 - Type 2 diabetes mellitus without complications Medications: Refilled atorvastatin 20 mg PO DAILY 90 tabs 1RF 90 days
[2025-07-09 10:57] VITALS: BP 148/60; PULSE 86; RESP 16; O2SAT 99; BMI 26.7
[2025-07-09 11:43] VITALS: BP 130/62
--- OUTSIDE RECORDS SUMMARY | 2025-07-09 13:27 | XMS_ITS | Encounter Summary ---
Author Organization [facility] Address [address] [place] [address] Care Team Providers Care Realty Loan Specialist Name Role Phone Dariel Hart NP Primary Care Provider Encounter Details Date Type Department Care Team (Late Contact Info) Description 05/28/2025 Results Follow-Up Gastroenterology [address] [phone] Oralia Gutierrez [place] Social History Tobacco Use [...] 10:45 AM EDT Office Visit Pulmonology - [place] [address] [facility] [address] [place] [phone] David Dallas MD [address] [place] [address] [place] [address] 12/30/2025 10:30 AM EDT Office Visit [facility] Hematology Oncology [address] [place] [phone] Daija Monk MD [address] [place] [address] documented as of this encounter Visit Diagnoses Not on filedocumented in this encounter Care Teams Realty Loan Specialist Relationship Specialty Start Date End Date Dariel Hart NP [address] [place] [phone] PCP - General Family Medicine 03/13/25 documented as of this encounter
--- OUTSIDE RECORDS SUMMARY | 2025-07-09 13:27 | XMS_ITS | Patient Health Record ---
[facility] Address [address] [place] [address] Care Team Providers Care Utility Hand Name Role Phone Dariel Russell Primary Care Provider Unav ailable Black, Desire Unavailable [phone] Allergies Allergen (clinical drug ingredient) Drug/Non Drug [...] (E11.42) Diagnosis 2 Unspecified atherosc lerosis of c[place] arteries of extremities, bilateral legs (I70.203) Diagnosis [...] Dariel Referring Provider Last Name Hailey Referred [facility] Pod[facility] Referred Provider Desire Zaman Referred Address [address] [place], [place],[address],[place] Referred Provider Specialty Podiatry Referral Priority Routine [...] Unknown 04/27/2024 Administered Influenza Unknown 04/27/2025 Administered Social History Tobacco Use: Social History [...] atherosclerosis of arteries of lower limbs (disorder) (55332983369819721 ) Unspecified atherosclerosis of [place] arteries of extremities, 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 Problem Polyneuropathy due to type 2 diabetes mellitus (140957780) Type 2 diabetes mellitus with diabetic polyneuropathy (E11.42) Active confirmed Problem Ulcer of toe of right foot (disorder) (00233056800172841 ) Skin ulcer of toe of right foot, limited to breakdown of skin (L97.511) Active confirmed Vital Signs Blood pressure diastolic 70 mm Hg 06/15/2025 Height 5 ft 11 in in 06/15/2025 Blood pressure systolic 134 mm Hg 06/15/2025 Weight 177 lbs 06/15/2025 BMI 24.68 kg/m2 06/15/2025 Procedures Procedure Date Ordered Date Performed Result Body [place] e 99353 I&D ABSCESS- SIMPLE,SINGLE 10/27/2024 N/A 05651-LLVY SKIN LESIONS, 2 TO 4 10/27/2024 N/A Z9298-LJJGIVLC DYSTROPHIC NAILS ANY # 10/27/2024 N/A 65409- Debride <25 sq cm 11/13/2024 N/A 38819-Evjsscar Plate 03/26/2025 N/A 47690-PZNV SKIN LESIONS, 2 TO 4 03/26/2025 N/A Q2921-RHCWJYKO DYSTROPHIC NAILS ANY # 03/26/2025 N/A 11132- Debride <25 sq cm 06/15/2025 N/A Encounters Encounter Location Date Provider Diagnosis [address] [address] 10/27/2024 Desire Black Pain in right foot M79.671 ; Hallux valgus (acquired), right foot M20.11 ; Type 2 diabetes mellitus with diabetic polyneuropathy E11.42 ; Unspecified atherosclerosis of c[place] arteries of extremities, bilateral legs I70.203 ; Pain in right ankle and joints of right foot M25.571 ; Bursitis of right foot M77.51 ; Xerosis of skin L85.3 and Abscess of toe, right L02.[address] [address] 11/13/2024 Desire Black Skin ulcer of toe of right foot, limited to breakdown of skin L97.511 ; Type 2 diabetes mellitus with diabetic polyneuropathy E11.42 and Unspecified atherosclerosis of c[place] arteries of extremities, bilateral legs I70.[address] [address] 03/26/2025 Desire Black Type 2 diabetes mellitus with diabetic polyneuropathy E11.42 ; Unspecified atherosclerosis of c[place] de[place] arteries of extremities, bilateral legs I70.203 ; Ingrown nail L60.0 and Xerosis of skin L85.[address] [address] 05/27/2025 Desire Black Abscess of toe, righ t L02.[address] [place] [address] 06/15/2025 Desire Zaman Skin ulcer of toe of right foot, limited to breakdown of skin L97.511 [facility] [address] [address] 10/27/2024 Desire Zaman [facility] [address] [phone] 03/26/2025 Desire Zaman Assessments Encounter Date Diagnosis [...] CARE INSTRUCTIONS. pdf) 03/26/2025 Unspecified atherosclerosis of c[place]il de[place] arteries of extremities, bilateral legs (ICD-10 - [...] (ICD-10 - E11.42) 11/13/2024 Unspecified atherosclerosis of c[place] dehe arteries of extremities, bilateral legs (ICD-10 - I70.203) 10/27/2024 Unspecified atherosclerosis of c[place]il dehe arteries of extremities, bilateral legs (ICD-10 - [...] X ray : Foot, right 3V 06/29/2016 73875-Yvynepps Plate 02/05/2023 83014-Whffagom Plate 11/21/2023 12928-Qqqhyccs Plate 06/30/2024 17027-Ybnmrwuq Plate 03/26/2025 12659-Gukmaprs Plate Each Additional 56186- Debride <25 sq cm 03/27/2024 77386- Debride <25 sq cm 05/15/2024 44989- Debride <25 sq cm 04/12/2023 09045- Debride <25 sq cm 12/06/2023 48527- Debride <25 sq cm 03/13/2024 29365- Debride <25 sq cm 05/29/2022 31670- Debride <25 sq cm 06/12/2022 01536- Debride <25 sq cm 04/30/2015 42622- Debride <25 sq cm 12/29/2015 23898- Debride <25 sq cm 06/29/2016 00868- Debride <25 sq cm 08/09/2020 62487- Debride <25 sq cm 09/16/2020 11408- Debride <25 sq cm 06/15/2025 91750- Debride <25 sq cm 11/13/2024 53853 I&D ABSCESS- SIMPLE,SINGLE 025 90572 I&D ABSCESS- SIMPLE,SINGLE 023 88018 I&D ABSCESS- SIMPLE,SINGLE 022 04315-XUZG SKIN LESIONS, 2 TO 4 09/05/19 22 96594-RPUC SKIN LESIONS, 2 TO 4 03/09/20 22 45910-UDHW SKIN LESIONS, 2 TO 4 02/06/20 23 55462-JIRS SKIN LESIONS, 2 TO 4 10/02/19 23 77405-WAAS SKIN LESIONS, 2 TO 4 05/29/20 22 41048-QNCI SKIN LESIONS, 2 TO 4 03/13/20 24 39333-ZLLU SKIN LESIONS, 2 TO 4 06/07/20 23 55542-OZLA SKIN LESIONS, 2 TO 4 11/21/19 24 80745-IDVY SKIN LESIONS, 2 TO 4 06/30/20 24 19343-UAQE SKIN LESIONS, 2 TO 4 10/28/19 25 12876-OFVI SKIN LESIONS, 2 TO 4 09/16/19 21 42130-JNVI SKIN LESIONS, 2 TO 4 09/01/19 20 31641-VZPM SKIN LESIONS, 2 TO 4 03/08/20 20 31147-BZAB SKIN LESIONS, 2 TO 4 04/11/20 21 34217-ZMUA SKIN LESIONS, 2 TO 4 06/10/20 20 38640-JHYZ SKIN LESIONS, 2 TO 4 12/10/19 21 73254-JOHC SKIN LESIONS, 2 TO 4 12/29/19 17 31658-PZZN SKIN LESIONS, 2 TO 4 06/29/20 16 49159-OYAN SKIN LESIONS, 2 TO 4 09/24/19 18 66289-QTRH SKIN LESIONS, 2 TO 4 03/25/20 18 47274-HZLG SKIN LESIONS, 2 TO 4 09/23/19 19 38194-LYMX SKIN LESIONS, 2 TO 4 03/03/20 19 48599-RNSS SKIN LESIONS, 2 TO 4 03/26/20 25 57135-EGLA SKIN LESION 04/30/2015 98281-Crvx. Subungual Hematoma 11175-DSZM NAIL(S) 05/29/2022 04257-JVTJ NAIL(S) 10/02/2022 10176-FPHC NAIL(S) 02/05/2023 49884-OLDD NAIL(S) 03/09/2022 83186-ZUNC NAIL(S) 09/05/2021 26642-DASI NAIL(S) 12/09/2020 24625-MTZI NAIL(S) 06/10/2020 82165-NMGN NAIL(S) 04/11/2021 73547-UNBZ NAIL(S) 03/08/2020 10102-MOHE NAIL(S) 09/16/2020 C7991-QIAYFNGW DYSTROPHIC NAILS ANY # J3210-LDFHQMUP DYSTROPHIC NAILS ANY # Q6482-HDGVSHNM DYSTROPHIC NAILS ANY # C6646-RAXYRDKO DYSTROPHIC NAILS ANY # G2424-VVYTQLRK DYSTROPHIC NAILS ANY # S8739-DWEEDWNM DYSTROPHIC NAILS ANY # G6904-SFVHNOYO DYSTROPHIC NAILS ANY # P0477-VPEHSOVV DYSTROPHIC NAILS ANY # S6782-XXDSPJEE DYSTROPHIC NAILS ANY # D8338-RCULTCLW DYSTROPHIC NAILS ANY # N1388-GSNQYHCE DYSTROPHIC NAILS ANY # W3460-CYOZTWCM DYSTROPHIC NAILS ANY # T9931-DLAFOCTE DYSTROPHIC NAILS ANY # 63312-Jxvqdwrao, Toes 06/29/2016 CRP 03/29/2021 Next Appt Details Provider Name:Desire Zaman , 07/30/2025 10:15:00 AM, [address] [place] [address], [phone], Insurance Providers Payer Name Payer Address Payer Phone Subscriber Number Group Number Insured Name Patient Relationship to Insured Coverage Start Date Coverage End Date [facility] [address] [place] [phone] [id number] Graham Castillo Self - patient is the [...]
--- OUTSIDE RECORDS SUMMARY | 2025-07-09 13:27 | XMS_ITS | Data Portability ---
Author Organization [place] [facility] Address [address] [place] [address] Care Team Providers Care Cash Controller Name Role Phone RODOLFO YARBROUGH Primary Care [...] %-0.1 % eye drops,jamin pension 2024 025 [facility] #[id number], [address] [place], [address], 10/30/2024 10:02:09 fluocinol one acetonide oil 0.01 % ear drops 2024 025 [facility] #[id number], [address] [place], [address], 10/30/2024 10:02:53 Patient TargetsNo targets recorded. 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 Squamous cell carcinom a of [...] : 07/28/20 14 Not Available [facility] 4 02:51:05 Mixed conducti ve and sensorin eural hearing loss of right ear 73992983828 105 Active 2015 Mixed conducti ve and sensorin eural hearing loss, unilater al, right ear, with unrestri cted hearing on the contrala teral side; Note: Date Diagnose d: 6 11:19 AM (H90.71) [mapped from ICD9 code: 389.21] Not Available [facility] 4 02:51:05 Sensorin eural hearing loss 65786317 Active 2015 Sensorin eural hearing loss, unilater al, right ear, with unrestri cted hearing on the contrala teral side; Note: Date Diagnose d: 6 11:19 AM (H90.41) [mapped from ICD9 code: 389.15] Not Available [facility] 4 02:51:05 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 206180267 Active 2015 Squamous cell carcinom a of skin of unspecif ied ear and external auricula r canal; Note: Date Diagnose d: 6 11:19 AM (C44.221 ) [mapped from ICD9 code: 173.22] Not Available [facility] 4 02:50:59 Impacted cerumen in right ear 67440219779 94046 Active 2016 Impacted cerumen, right ear; Note: Date Diagnose d: 7 9:21 AM (H61.21) Impact ed cerumen, right ear; Note: Date Diagnose d: 7 9:07 AM (H61.21) ; Start Date : 11/24/19 17 Not Available [facility] 4 02:51:01 Candidal otitis externa 54563721 Completed 201703/28/2024 Candidal otitis externa; Location : bilatera l Note: Date Diagnose d: 8 11:47 AM (B37.84) Not Available [facility] 4 02:51:04 History of malignan t neoplasm of skin 093190505 Active 2017 Personal history of other malignan t neoplasm of skin; Note: Date Diagnose d: 8 12:26 PM (Z85.828 ) Not Available [facility] 4 02:51:01 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 472232084 Completed 201803/28/2024 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; Note: Date Diagnose d: 9 9:07 AM (C44.222 ) Not Available [facility] 4 02:51:00 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 104489343 Completed 201803/28/2024 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; Note: Date Diagnose d: 9 9:07 AM (C44.222 ) Not Available [facility] 4 02:51:00 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 Other specifie d superfic ial mycoses; Note: Date Diagnose d: 1 3:54 PM (B36.8) Not Available [facility] 4 02:51:04 Impacted cerumen of bilatera l ears 12154196321 68658 Active 2021 Impacted cerumen, bilatera l; Note: Date Diagnose d: 04/03/2022 9:45 AM (H61.23) Not Available [facility] 4 02:51:02 Itching of skin 588766421 Active 2021 Other pruritus ; Note: Date Diagnose d: 2 12:33 PM (L29.8) Not Available [facility] 4 02:51:02 Otorrhea of right ear 11439184108 36742 Active 2024 MORAIMA SAHU PA-C [address],[place] [address], [facility] [facility] [place], [address] , [facility] - [facility] 5 10:01:45 Problem Notes None recorded. Procedures Surgical History Date Name Laterality Status Provider Name and Address Organization Details Recorded Time 5 Cerumen removal without microscope bilat completed MORAIMA SAHU PA-C [address] [facility],[place] [address], [place], [address], [facility] [place] 05/04/2025 09:19:35 5 Cerumen removal without microscope bilat completed MORAIMA SAHU PA-C [address] [facility] [address], [place], [address], [facility] - [facility] [place] 10/30/2024 09:20:59 4 Cerumen removal without microscope bilat completed MORAIMA SAHU PA-C [address] [facility] [address], [place], [address], [facility] - [facility] [place] 04/30/2024 11:57:54 Imaging Results None recorded. Procedure Notes None recorded. Medical Equipment None Reported. Allergies Allergen ID Allergen Name Allergen Category Reaction Reaction Severity Criticality Documentation Date Start Date Code Code System Note Provider Name and Address Organization Details Recorded Time [id number] clindamyc in Not available Not available Not available Not available 10/30/2024 2582 RxNorm MORAIMA SAHU PA-C [address] [facility] [address], [place], [address], [facility] - [facility] 5 09:55:04 90009 amoxicill in / clavulana te medicatio n other Not available Not available 01/08/2024 95202 RxNorm React ion: unkno wn, unspe cifie d;; Not Available [facility] 4 00:59:23 05514 penicilli n V potassium medicatio n other Not available Not available 01/08/2024 66785 5 RxNorm React ion: unkno wn, unspe cifie d;; Not Available [facility] 4 00:59:26 88114 Substance with sulfonami de structure and antibacte rial mechanism of action (substanc e) medicatio n other Not available Not available 01/08/2024 48918 8003 SNOMED React ion: unkno wn, unspe cifie d;; Not Available [facility] 4 00:59:29 19870 Substance with tetracycl ine structure (substanc e) medicatio n other Not available Not available 01/08/2024 73491 8001 SNOMED React ion: unkno wn, unspe [...] mg tablet 11/22 completed Medicati on ID: [id number] D uration Value: 90 Brand Name: lisinopr [...] mg tablet 11/15 completed Medicati on ID: [id number] Du ration Value: 90 Reason: () Brand Name: cilostaz ol Send Method: E-Prescr ibed Sub s Allowed: subs OK Medic ationGen ericName : cilostaz ol Not Available Not Available Not Available meloxicam 15 mg tablet active Medicati on ID: [id number] B rand Name: meloxica m Send Method: [...] % topical cream active Medicati on ID: 288588 B rand Name: triamcin olone acetonid e Send Method: E-Prescr ibed Sub s Allowed: subs OK Medic ationGen ericName : triamcin olone acetonid e Not Available Not Available Not Available verapamil 120 mg tablet 11/06 completed Medicati on ID: [id number] Du ration Value: 90 Reason: () Brand [...] small amount 2020 active Medicati on ID: 843976 D uration Value: 14 Prescri bed By [...] 12.5 mg capsule active Medicati on ID: [id number] B rand Name: hydrochl orothiaz tatiana Send [...] 150 mg tablet active Medicati on ID: [id number] B rand Name: irbesart an Send Method: E-Prescr ibed Sub s Allowed: subs OK Medic ationGen ericName : irbesart an Not Available Not Available Not Available timolol maleate 0.5 % eye drops INSTILL 1 DROP IN BOTH EYES TWICE A DAY active Not Available Not Available No t Available losartan 100 mg tablet 11/22 completed Medicati on ID: [id number] D uration Value: 90 Brand Name: losartan Send Method: E-Prescr ibed Sub s Allowed: subs OK Speci al Instruct ion: TAKE 1 TABLET BY MOUTH EVERY DAY Medi cationGe nericNam e: losartan Not Available Not Available Not Available glipizide 5 mg tablet 05/29 completed Medicati on ID: [id number] R sadie: () Brand Name: glipizid e [...] 4 drop 2016 active Medicati on ID: 617260 D uration Value: 10 Prescri bed By [...] mg tablet 05/29 completed Medicati on ID: 17932 Re ason: () Brand Name: Yordan Chewable Aspirin Send Method: E-Prescr ibed Sub s Allowed: subs OK Medic ationGen ericName : Yordan Chewable Aspirin Not Available Not Available Not Available Enstilar 0.005 %-0.064 % topical foam 07/28 completed Medicati on ID: 475302 D uration Value: 30 Brand Name: Enstilar [...] Updated DateTime 10/30/2024 177.8 cm 25.3 kg/m2 58295.26 g Nadine Gutierrez [facility] 10/30/2024 09:36:33 Date Recorded Body height Body mass index (BMI) Body weight Provider Name and Address Organization Details Last Updated DateTime 04/30/2024 180.34 cm 24.5 kg/m2 08694.26 g Bobby Anglin [facility] 04/30/2024 11:11:12 Date Recorded Body height Body mass index (BMI) Body weight Provider Name and Address Organization Details Last Updated DateTime 05/04/2025 177.8 cm 25.5 kg/m2 08693.44 g Nadine Gutierrez [facility] 05/04/2025 09:29:59 Social History None recorded. Functional Status None recorded. Mental Status None recorded. Family History Nothing Reported. Medical History No medical history recorded. Past Encounters Encounter ID Performer Location Encounter Start Date Encounter Closed Date Diagnosis/Indication Diagnosis SNOMED-CT Code Diagnosis ICD10 Code Diagnosis IMO Codes Diagnosis Note [id number] MORAIMA SAHU PA-C [facility] [address] [place] [address] 04/30/2024 10:58:56 04/30/2024 12:02:52 Impacted cerumen of bilateral ears 6690193677 844884 H61.23 [id number] MORAIMA SAHU PA-C [facility] [address] [address] 10/30/2024 09:18:21 10/30/2024 10:01:32 Impacted cerumen of bilateral ears 0328678928 552916 H61.23 Otorrhea of right ear 10 27935845 864967 H92.11 Itching of skin 24517911 0 L29.89 [id number] MORAIMA SAHU PA-C [facility] [address] [address] 05/04/2025 09:16:47 05/04/2025 09:49:33 Impacted cerumen of bilateral ears 1032252898 200769 H61.23 Health Concerns Section Related Observation LastModified by Organization Detai ls LastModified Time None Recorded Concern Status LastModified by Organization Details LastModified Time None Recorded Advance Directives Directive None Recorded Payers Insurance Date Sequence Insurance Name Policy Number Policy Leonard Covered Member ID Leonard Member ID Guarantor Name 06/03/2025 2 [facility] (MEDICARE REPLACEMENT HMO) Graham Castillo [id number] Graham Castillo 06/03/2025 1 [facility] Graham Castillo [id number] Graham Castillo 06/03/2025 1 [facility] (MEDICARE REPLACEMENT HMO) Graham Castillo [id number] Graham Castillo Notes Date Note Type Note Provider Name and Address Organization Details Recorded Time 04/30/2024 text/html ROS as noted in the HPI 78-year-old male presents for cerumen removal. No concerns today. GONSALO NIEVES MD [address] [place] [address], [phone], [facility] - [facility] 04/30/2024 14:53:10 10/30/2024 text/html ROS as noted in the [facility] 78-year-old male status post right tympanoplasty [...] refill. Denies bruxism. SHERON BLOOD MD [address] [facility],[address], [address], [place] - [facility] 10/31/2024 07:57:10 05/04/2025 text/html ROS as noted in the [facility] 79-year-old male status post right tympanoplasty [...] of the ears. SHERON BLOOD MD [address] [facility],[address], [address], [place] - [facility] 05/05/2025 17:43:46
--- OUTSIDE RECORDS SUMMARY | 2025-07-09 13:27 | XMS_ITS | Clinical Summary ---
Author Organization [facility] Address [address] [place] [address] Phone Care Team Providers Care Service Planner Name Role Phone Dariel Hart NP Primary [...] Noted Date Diagnosed Date COPD exacerbation ([facility] V24, [facility] V28) Proteinuria 10/15/2019 Hypotension 10/15/2019 Cough 10/15/2019 Chronic kidney disease, stage 3 ([facility] V24, [facility] V28) 10/15/2019 Asthmatic bronchitis 10/06/2019 Type 2 diabetes mellitus wit h vascular disease ([facility] V24, [facility] V28) 10/04/2018 Elevated PSA 10/04/2018 Overview (08/08/2024): 06/2018 5.0; PV Urology; Nocturia/retention Colon polyps 10/04/2018 Type 2 diabetes mellitus wit h cataract ([facility] V24, [facility] V28) 05/27/2018 Peripheral vascular disease ([facility] V24) 2017 Hypertension 05/27/2018 Hyperlipidemia 05/27/2018 Arteriosclerosis of carotid artery 05/27/2018 Right bundle branch block (RBBB) 01/16/2018 Chronic obstructive pulmonar y disease ([facility] V24, [facility] V28) 01/16/2018 Benign familial tremor 09/13/2017 Allergic rhinitis 04/19/2017 Irritable bowel syndrome 02/25/2016 ED (erectile dysfunction) 09/01/2015 Cataract 09/26/2011 Encounters Date Type Department Care Team Description 06/30/2025 10:15 AM EST Office Visit [facility] Hematology Oncology [address] [place] [phone] Daija Monk MD Pancytopenia ([facility] V24, [facility] V28) (Primary Dx) 06/18/2025 9:15 AM EDT Office Visit Pulmonology [facility] [address] [phone] David Dallas MD Chronic obstructive pulmonary disease, unspecified COPD type ([facility] V24, [facility] V28) (Primary Dx) 05/28/2025 Results Follow-Up Gastroenterology [facility] [address] [phone] Oralia Gutierrez [place] 04/28/2025 1:18 PM EDT Anesthesia Event [facility] Endoscopy [address] [place] [phone] Wojciech Fermin MD Gomes, Sheldon B, MD 04/28/2025 12:31 PM EDT - 04/28/2025 11:59 PM EDT Hospital Encounter [facility] Endoscopy [address] [place] [phone] Dhiraj Juarez DO Vermes, Rachie, CRNA Spencer, Mark A, MD Esophageal dysphagia; Esophageal stenosis; Food impaction of esophagus Discharge Disposition: Home or Self Care 04/23/2025 1:00 PM EDT Office Visit Gastroenterology - 299 [facility] 299 [facility] [address] [place] [address] Kevin Lamar PA Esophageal dysphagia (Primary Dx) 04/23/2025 Telephone Gastroenterology - [address] [place] [address] [facility] [address] [place] [address] Rissa Adkins MD from Last [...] DX:Irri table bowel syndrome Peripheral vascular disease ([facility] V24) 05/27/2018 DX:Peripheral vascular disea se (HCC) Right bundle branch block (RBBB) 01/16/2018 DX:Right bundle branch block (RBBB) Type 2 diabetes mellitus wit h cataract ([facility] V24, [facility] V28) 05/27/2018 DX:Type 2 diabetes mellitus with cataract (HCC) Type 2 diabetes mellitus wit h vascular disease ([facility] V24, [facility] V28) 10/04/2018 DX:Type 2 diabetes mellitus with vascular disease (HCC) Diabetes mellitus ([facility] V 24, [facility] V28) DX:Diabetes mellitus (HCC) Hypertension DX:Hypertension Prostate cancer ([facility] V24 , [facility] V28) DX:Prostate cancer (HCC) Family History [...] 10:45 AM EDT Office Visit Pulmonology - [place] 175 [facility] [address] [place] [phone] David Dallas MD [address] [place] [address] 12/30/2025 10:30 AM EDT Office Visit [facility] Hematology Oncology [address] [place] [phone] Daija Monk MD [address] [place] [address] Health Maintenance Due Date Last Done Comments [...] K/mcL LAB [facility] RBC 3.30(L) 4.50 - 5.50 M/mcL LAB HEMETOLOGY METHOD 06/23/2025 12:20 PM T [facility] Hemoglobin 11.1(L) 13.5 - 17.5 g/dL LAB HEMETOLOGY METHOD 06/23/2025 12:20 PM [facility] Hematocrit 32.3(L) 42.0 - 54.0 % LAB HEMETOLOGY METHOD 06/23/2025 12:20 PM EDT [facility] MCV 99.1(H) 79.0 - 98.0 FL LAB HEMETOLOGY METHOD 06/23[facility]2025 12[facility] MCH 34.0(H) 27.0 - 32.0 pcg LAB HEMETOLOGY METHOD 06/23/2025 12:20 PM [facility] MCHC 34.4 32.0 - 37.0 g/dL LAB HEMETOLOGY METHOD 06/23/2025 12:20 PM EDT [facility] RDW 13.1 11.0 - 15.0 % LAB HEMETOLOGY METHOD 06/23/2025 12:20 PM EDT [facility] Platelets 101(L) 130 - 400 K/mcL LAB HEMETOLOGY METHOD [facility]/23[facility]2025 [facility] MPV 10.8 7.0 - 11.0 FL LAB HEMETOLOGY METHOD 06/23/2025 12:20 PM EDT [facility] NRBC 0.0 <1.0 % LAB HEMETOLOGY METHOD 06/23[facility]2025 12[facility] NRBC Absolute 0.00 <0.10 K/mcL LAB HEMETOLOGY METHOD 06/23/2025 12:20 PM [facility] Neutrophils Relative 76.7 % LAB HEMETOLOGY METHOD 06/23/2025 12:20 PM [facility] Lymphocytes Relative 12.4 % LAB HEMETOLOGY METHOD 06/23/2025 12[facility] Monocytes Relative 8.2 % LAB HEMETOLOGY METHOD 06/23/2025 12:20 PM [facility] Eosinophils Relative 1.5 % LAB HEMETOLOGY METHOD 06/23/2025 12[facility] Basophils Relative 0.6 % LAB HEMETOLOGY METHOD 06/23/2025 12:20 PM EDT [facility] Immature Granulocytes Relative 0.6 % LAB HEMETOLOGY METHOD 06/23[facility]2025 12[facility] Neutrophils Absolute 2.54 1.50 - 7.00 K/mcL LAB HEMETOLOGY METHOD 06/23/2025 12:[facility] Lymphocytes Absolute 0.41(L) 1.00 - [...] 11:19 AM EDT 06/23/2025 11:58 AM EDT [facility] Aleshia [facility] LAB BLOOD ORDERABLES Final R esult [facility] [address] [place] [address], * Paroxysmal nocturnal hemoglobinuria with high sensitivity (06/23/2025 11:19 AM EDT) Pathologist SEEBELOW 2:54 PM EDT [facility] Comment: This test was developed and its performance characteristics determined by [facility]. It has not been cleared or approved by the U.S. Food and Drug Administration. The FDA has determined that such clearance or approval is not necessary. Interpretation No flow cytometric evidence of PNH. 2:54 PM EDT [facility] Source Peripheral blood 2:54 PM EDT [facility] Comment See Below 2:54 PM EDT [facility]: RESULT: No evidence of aberrant [...] EDT [facility] Comment: Test performed at [facility], [address] , [place] [address] Blood Venous blood specimen / Unknown Venipuncture / Unknown 06/23/2025 11:19 AM EDT 06/23/2025 11:58 AM EDT us Daija Monk MD LAB BLOOD ORDERABLES Final R esult [facility] [address] [place] [address] * Lactate dehydrogenase (06/23/2025 11:19 AM EDT) LDH 181 120 - 246 unit/L LAB CHEMISTRY METHOD 06/23/2025 2:00 PM EDT [facility] Blood Venous blood specimen / Unknown Venipuncture / Unknown 06/23/2025 11:19 AM EDT 06/23/2025 11:58 AM EDT us Daija Monk MD LAB BLOOD ORDERABLES Final R esult [facility] [address] [place] [address], * EGD Anesthesia - MAC; [facility] ENDOSCOPY (04/28/2025 1:36 PM EDT) Anatomical Region Laterality Modality Endoscopy 04/28/2025 1:23 PM EDT Impressions 04/28/2025 1:38 PM EDT - Normal stomach. - Normal examined duodenum. - Benign-appearing esophageal stenosis. Dilated. Biopsied. Recommendation: - Discharge patient to home. - Resume previous diet. - Continue present medications. - Await pathology results. Narrative 04/28/2025 1:38 PM EDT [facility] GI Patient Name: Gilles Castillo Procedure Date: 04/28/2025 1:23 PM Date of : 1945 Age: 79 Gender: Male Note Status: Finalized Attending MD: Dhiraj Juarez DO, [id number] Procedure Date No Time: 04/28/2025 Procedure: Upper [...] the physician, the nurse, the anesthesiologist, the process consultant and the business systems technician in the pre-procedure area in the [...] for histology. Procedure Code(s): --- Professional --- 91721, Esophagogastroduodenoscopy, flexible, transoral; with transendoscopic balloon dilation of esophagus (less than 30 mm diameter) 83842, 59, Esophagogastroduodenoscopy, flexible, transoral; with biopsy, single or multiple Diagnosis Code(s): --- Professional --- K22.2, Esophageal obstruction R13.10, Dysphagia, unspecified CPT copyright 2020 [employer]. All rights reserved. The codes documented in this report are preliminary and upon laborer/key man review may be revised to meet current compliance requirements. DHIRAJ Juarez DO 04/28/2025 1:38:18 PM This report has been signed electronically.Dhiraj Juarez DO Number of Addenda: 0 Note Initiated On: 04/28/2025 1:23 PM Scope In: Scope Out: Endoscopy Department at [facility] - [address] [place] [phone] Procedure Note Dhiraj Juarez DO - 04/28/2025 [facility] GI Patient Name: Gilles Castillo Procedure Date: 04/28/2025 1:23 PM Date of : 1945 Age: 79 Gender: Male Note Status: Finalized Attending MD: Dhiraj Juarez DO, [id number] Procedure Date No Time: 04/28/2025 Procedure: Upper [...] the physician, the nurse, the anesthesiologist, the process consultant and thetechnician in the pre-procedure area in [...] for histology. Procedure Code(s): --- Professional --- 18561, Esophagogastroduodenoscopy, flexible, transoral; with transendoscopic balloon dilation of esophagus (less than 30 mm diameter) 81688, 59, Esophagogastroduodenoscopy, flexible, transoral; with biopsy, single or multiple Diagnosis Code(s): --- Professional --- K22.2, Esophageal obstruction R13.10, Dysphagia, unspecified CPT copyright 2020 [employer]. All rights reserved. The codes documented in this report are preliminary and upon laborer/key man reviewmay be revised to meet current compliance requirements. DHIRAJ Juarez DO 04/28/2025 1:38:18 PM This report has been signed electronically.Dhiraj Juarez DO Number of Addenda: 0 Note Initiated On: 04/28/2025 1:23 PM Scope In: Scope Out: Endoscopy Department at [facility] - [address] [place] [phone] IMPRESSION: - Normal stomach. - Normal examined [...] 1:35 PM EDT 04/28/2025 3:07 PM EDT [facility] LAB PATHOLOGY ORDERABLES Final R esult [facility] [address] [place] [address], * COLONOSCOPY (04/22/2025 1:35 PM EDT) Anatomical Region Laterality Modality Endoscopy Historical Provider GI~PROCEDURE ORDERABLES F inal Result * External Endoscopy (04/22/2025 1:31 PM EDT) Anatomical Region Laterality Modality Endoscopy us Historical Provider GI~PROCEDURE ORDERABLES F inal Result * (ABNORMAL) Comprehensive metabolic panel (03/08/2025 7:26 AM EDT) Sodium 134 133 - 145 mmol/L LAB CHEMISTRY METHOD 03/08/2025 8:37 AM [facility] Potassium 4.5 3.5 - 5.5 mmol/L LAB CHEMISTRY METHOD 03/08/2025 8:37 AM [facility] Comment:Hemolysis present Chloride 101 96 - 110 mmol/L LAB CHEMISTRY METHOD 03/08/2025 8:37 AM [facility] CO2 24 21 - 32 mmol/L LAB CHEMISTRY METHOD 03/08/2025 8:37 AM [facility] Anion Gap 9 3 - 11 LAB CHEMISTRY METHOD 03/08/2025 8:37 AM [facility] Glucose 249(H) 70 - 100 mg/dL LAB CHEMISTRY METHOD 03/08/2025 8:37 AM [facility] BUN 23 5 - 25 mg/dL LAB CHEMISTRY METHOD 03/08/2025 8:37 AM [facility] Creatinine 1.13 0.70 - 1.30 mg/dL LAB CHEMISTRY METHOD 03/08/2025 8:37 AM [facility] eGFR 66 >=60 mL/min/1. 73m2 LAB CHEMISTRY METHOD 03/08/2025 8:37 AM [facility] Comment:Calculation based on the Chronic Kidney Disease Epidemiology Collaboration (CKD-EPI) equation refit without adjustment for race. BUN/Creatinine Ratio 20.4 LAB CHEMISTRY METHOD 03/08/2025 8:37 AM [facility] Calcium 9.0 8.5 - 10.5 mg/dL LAB CHEMISTRY METHOD 03/08/2025 8:37 AM [facility] AST (SGOT) 23 10 - [...] Final Result [facility] [address] [place] [address], * Urine Albumin Creatinine Ratio (10/15/2019) Pathologist [facility] Urine Albumin Creatinine Ratio Abstracted Historical Provider HEALTH MAINTENANCE Final Result * Hemoglobin A1c (10/10/2019) Pathologist [facility] Hemoglobin A1C 6.3 <=6.5 % Blood Venous [...] currently active code status orders. Care Teams Service Planner Relationship Specialty Start Date End Date Dariel Hart NP [address] [place] [phone] PCP - General Family Medicine 03/13/25
--- OUTSIDE RECORDS SUMMARY | 2025-07-09 13:27 | XMS_ITS | Continuity of Care Document ---
Author Organization [place] - [facility], [facility] Address [address] [place] [address] Care Team Providers Care Terrestrial Ecologist Name Role Phone RODOLFO YARBROUGH Primary Care Provider Assessment Encounter Date Assessment Date Assessment LastModified by Organization Details LastModified Time 05/04/2025 05/04/2025 79-year-old male presents for cerumen removal. Cerumen impaction removed bilaterally. Bilateral TMs are intact. Otologic exam is stable without evidence of infection. He will follow-up in 3-4 months for routine debridement, or sooner with concerns. 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 Active 2014 Squamous cell carcinom a of [...] sensorin eural hearing loss of right ear 38425946544 105 Active 2015 Mixed conducti ve and sensorin eural hearing loss, unilater al, right ear, with unrestri cted hearing on the contrala teral side; Note: Date Diagnose d: 6 11:19 AM (H90.71) [mapped from ICD9 code: 389.21] Not Available [facility] 4 02:51:05 Sensorin eural hearing loss 07802776 Active 2015 Sensorin eural hearing loss, unilater al, right ear, with unrestri cted hearing on the contrala teral side; Note: Date Diagnose d: 6 11:19 AM (H90.41) [mapped from ICD9 code: 389.15] Not Available [facility] 4 02:51:05 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 156815465 Active 2015 Squamous cell carcinom a of skin of unspecif ied ear and external auricula r canal; Note: Date Diagnose d: 6 11:19 AM (C44.221 ) [mapped from ICD9 code: 173.22] Not Available [facility] 4 02:50:59 Impacted cerumen in right ear 60518489025 70400 Active 2016 Impacted cerumen, right ear; Note: Date Diagnose d: 7 9:21 AM (H61.21) Impact ed cerumen, right ear; Note: Date Diagnose d: 7 9:07 AM (H61.21) ; Start Date : 11/24/19 17 Not Available [facility] 4 02:51:01 Candidal otitis externa 39072137 Completed 201703/28/2024 Candidal otitis externa; Location : bilatera l Note: Date Diagnose d: 8 11:47 AM (B37.84) Not Available [facility] 4 02:51:04 History of malignan t neoplasm of skin 138634784 Active 2017 Personal history of other malignan t neoplasm of skin; Note: Date Diagnose d: 8 12:26 PM (Z85.828 ) Not Available [facility] 4 02:51:01 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 696289221 Completed 201803/28/2024 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; Note: Date Diagnose d: 9 9:07 AM (C44.222 ) Not Available [facility] 4 02:51:00 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 293424147 Completed 201803/28/2024 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; Note: Date Diagnose d: 9 9:07 AM (C44.222 ) Not Available [facility] 4 02:51:00 Superfic ial mycosis 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 Active 2020 Other specifie d superfic ial mycoses; Note: Date Diagnose d: 1 3:54 PM (B36.8) Not Available [facility] 4 02:51:04 Impacted cerumen of bilatera l ears 49413552806 34633 Active 2021 Impacted cerumen, bilatera l; Note: Date Diagnose d: 04/03/2022 9:45 AM (H61.23) Not Available [facility] 4 02:51:02 Itching of skin 328832604 Active 2021 Other pruritus ; Note: Date Diagnose d: 2 12:33 PM (L29.8) Not Available [facility] 4 02:51:02 Otorrhea of right ear 89730696011 82318 Active 2024 MORAIMA SAHU PA-C [address] [facility],[address], [address] , [facility] 5 10:01:45 Problem Notes None recorded. Procedures Surgical History Date Name Laterality Status Provider Name and Address Organization Details Recorded Time 5 Cerumen removal without microscope bilat completed MORAIMA SAHU PA-C [address] [place] [address],[address], [address], [facility] 05/04/2025 09:19:35 5 Cerumen removal without microscope bilat completed MORAIMA SAHU PA-C [address] [place] [address],[address], [address], [facility] 10/30/2024 09:20:59 4 Cerumen removal without microscope bilat completed MORAIMA SAHU PA-C [address] [place] [address],[address], [address], [facility] 04/30/2024 11:57:54 Imaging Results None recorded. Procedure Notes None recorded. Medical Equipment None Reported. Allergies Allergen ID Allergen Name Allergen Category Reaction Reaction Severity Criticality Documentation Date Start Date Code Code System Note Provider Name and Address Organization Details Recorded Time 151132 clindamyc in Not available Not available Not available Not available 10/30/2024 2582 RxNorm MORAIMA SAHU PA-C [address] [facility], [address], [place], [address], [facility] 5 09:55:04 21689 amoxicill in / clavulana te medicatio n other Not available Not available 01/08/2024 38980 RxNorm React ion: unkno wn, unspe cifie d;; Not Available [facility] 4 00:59:23 36610 penicilli n V potassium medicatio n other Not available Not available 01/08/202409046 5 RxNorm React ion: unkno wn, unspe cifie d;; Not Available [facility] 4 00:59:26 67854 Substance with sulfonami de structure and antibacte rial mechanism of action (substanc e) medicatio n other Not available Not available 01/08/2024 23584 8003 SNOMED React ion: unkno wn, unspe cifie d;; Not Available [facility] 4 00:59:29 98641 Substance with tetracycl ine structure (substanc e) medicatio n other Not available Not available 01/08/2024 74288 8001 SNOMED React ion: unkno wn, unspe [...] mg tablet 11/22 completed Medicati on ID: [id number] D uration Value: 90 Brand Name: lisinopr [...] mg tablet 11/15 completed Medicati on ID: [id number] Du ration Value: 90 Reason: () Brand Name: cilostaz ol Send Method: E-Prescr ibed Sub s Allowed: subs OK Medic ationGen ericName : cilostaz ol Not Available Not Available Not Available meloxicam 15 mg tablet active Medicati on ID: [id number] B rand Name: meloxica m Send Method: [...] % topical cream active Medicati on ID: [id number] B rand Name: triamcin olone acetonid e Send Method: E-Prescr ibed Sub s Allowed: subs OK Medic ationGen ericName : triamcin olone acetonid e Not Available Not Available Not Available verapamil 120 mg tablet 11/06 completed Medicati on ID: [id number] Du ration Value: 90 Reason: () Brand [...] small amount 2020 active Medicati on ID: [id number] D uration Value: 14 Prescri bed By Name: Sally Hinds nd Name: clotribhupinder connolly-bet amethaso ne Send Method: E-Prescr ibed Sub s Allowed: subs OK Speci al Instruct ion: Apply with fingerti p to affected external ear TID x 2 weeks. M charo Jeffers Name: sebastian bukc vibha Not Available Not Available Not Available hydrochlo rothiazid e 12.5 mg capsule active Medicati on ID: 357854 B rand Name: hydrochl orothiaz tatiana Send [...] 150 mg tablet active Medicati on ID: [id number] B rand Name: irbesart an Send Method: E-Prescr ibed Sub s Allowed: subs OK Medic ationGen ericName : irbesart an Not Available Not Available Not Available timolol maleate 0.5 % eye drops INSTILL 1 DROP IN BOTH EYES TWICE A DAY active Not Available Not Available No t Available losartan 100 mg tablet 11/22 completed Medicati on ID: [id number] D uration Value: 90 Brand Name: losartan Send Method: E-Prescr ibed Sub s Allowed: subs OK Speci al Instruct ion: TAKE 1 TABLET BY MOUTH EVERY DAY Medi cationGe nericNam e: losartan Not Available Not Available Not Available glipizide 5 mg tablet 05/29 completed Medicati on ID: [id number] R sadie: () Brand Name: glipizid e [...] 4 drop 2016 active Medicati on ID: [id number] D uration Value: 10 Prescri bed By [...] mg tablet 05/29 completed Medicati on ID: [id number] Re ason: () Brand Name: Yordan Chewable Aspirin Send Method: E-Prescr ibed Sub s Allowed: subs OK Medic ationGen ericName : Yordan Chewable Aspirin Not Available Not Available Not Available Enstilar 0.005 %-0.064 % topical foam 07/28 completed Medicati on ID: [id number] D uration Value: 30 Brand Name: Enstilar [...] Updated DateTime 05/04/2025 177.8 cm 25.5 kg/m2 55296.44 g Nadine Gutierrez [place] - [facility] 05/04/2025 09:29:59 Social History None recorded. Functional Status None recorded. Mental Status None recorded. Family History Nothing Reported. Medical History No medical history recorded. Past Encounters Encounter ID Performer Location Encounter Start Date Encounter Closed Date Diagnosis/Indication Diagnosis SNOMED-CT Code Diagnosis ICD10 Code Diagnosis IMO Codes Diagnosis Note [id number] MORAIMA SAHU PA-C [facility] [address] [address] 05/04/2025 09:16:47 05/04/2025 09:49:33 Impacted cerumen of bilateral ears [id number] 360122 H61.23 Health Concerns Section Related Observation LastModified by Organization Detai ls LastModified Time None Recorded Concern Status LastModified by Organization Details LastModified Time None Recorded Payers Encounter Date Sequence Insurance Name Policy Number Policy Leonard Covered Member ID Leonard Member ID Guarantor Name 05/04/2025 1 [employer] PLAN (MEDICARE REPLACEMENT HMO) Graham Castillo [id number] Graham Castillo Notes Date Note Type Note [...] itching of the ears. SHERON BLOOD MD [address] [place] [address], [place], [address], [facility] - [facility] 05/05/2025 17:43:46
--- OUTSIDE RECORDS SUMMARY | 2025-07-09 13:27 | XMS_ITS | Clinical Summary ---
Author Organization [facility] Address [address] [place] [address] Care Team Providers Care Stenotype Operator Name Role Phone Dariel Hart Primary Care Provider [phone] Allergies Active Allergy Reactions Criticality Noted Date [...] age to complete this topic Care Teams Stenotype Operator Relationship Specialty Start Date End Date Dariel Hart [address] [facility] [place] [id number] PCP - General Family Medicine 01/18/24
== END 2025-07-09 11:51 | disposition home or self-care (01) ==
LOC: HO.HMCC 10:51
PROVIDERS: PCP Nurse Practitioner Family; Visit Provider Nurse Practitioner Family
DX: Z00.00 Encounter for general adult medical examination without abnormal findings (principal); E11.9 Type 2 diabetes mellitus without complications; Z23 Encounter for immunization

== ENCOUNTER 2025-08-11 10:39 | Outpatient (AMB) | payer MEDICARE, SELFPAY ==
--- OUTSIDE RECORDS SUMMARY | 2024-05-29 09:13 | XMS_ITS | Encounter Summary ---
Author Organization [facility] [place] [address] Care Team Providers Care Belt Tender Name Role Phone Dariel Hart NP Primary Care Provider [phone] Encounter Details Date Type Department Care Team (Late st Contact Info) Description 05/29/2024 10:13 AM EDT Hospital Encounter TH HISTORIC ENCOUNTERS EASTERN CONVERSION ONLY Daija Monk MD [address] [place] [phone] Social History Tobacco Use Types Packs/Day Years Used Date Smoking Tobacco: Former Cigarettes Smokeless Tobacco: Never Comments:Has not smoke in 15 years Alcohol Use Standard Drinks/Week Comments Yes 4 (1 standard drink = 0.6 oz pur e alcohol) Interpersonal Safety Answer Date Record ed Physical Abuse Unrecognized value 04/28/2025 Verbal Abuse Unrecognized value 04/28/2025 Sex and Gender Information Value Date Recorded Sex Assigned at Male 10/23/2024 4:37 PM EST Legal Sex Male 7:20 AM EST Gender Identity Male 10/23/2024 4:37 PM EST Sexual Orientation Not on file documented as of this encounter Last Filed Vital Signs Vital Sign Reading Time Taken Comments Blood Pressure 149/72 05/29/2024 10:33 AM EDT Sitting Left arm Pulse 66 05/29/2024 10:33 AM EDT Temperature - - Respiratory Rate - - Oxygen Saturation - - Inhaled Oxygen Concentration - - Weight 79.7 kg (175 lb 12.8 oz) 05/29/2024 10:33 AM EDT Height 180.3 cm (5' 11 ) 02/19/2024 9:3 0 AM EDT Body Mass Index 24.52 02/19/2024 9:30 AM EDT documented in this encounter Functional Status * Calculated C-SSRS Risk Score (Lifetime/Recent) Answer Date of Assessment Author No Risk Indicated 03/08/2025 7:07 AM EDT Kurtis Briggs RN * [place] Suicide Severity Rating Scale (Screener/Recent Self-Report) Question Answer Date of Assessment Author 1. Wish to be (Past 1 Month) No 025 7:07 AM EDT Kurtis Briggs RN 2. Non-Specific Active Suici yashira Thoughts (Past 1 Month) No 03/08/2025 7:07 AM EDT Kurtis Briggs RN 6. Suicidal Behavior (Lifetime) No 7:07 AM EDT Kurtis Briggs RN documented as of this encounter Progress Notes * Daija Monk MD - 05/29/2024 10:30 AM EDT CHIEF COMPLAINT: Follow-up IDENTIFIER:Graham Castillo is a 78 y.o. male. HPI: 78-year-old man, who recently had bone marrow biopsy for evaluation of myelodysplasia because patient has worsening pancytopenia, mainly macrocytic anemia, unfortunately patient bone marrowspecimen was not enough but bone marrow aspirate does not suggest any significant excessive blast or acute issues, patient will be having further molecular testing/NGS on bone marrow, awaiting results of final results of the bone marrow ROS: Mild fatigue, no anorexia or weight loss No chest pain chest pressure shortness of breath Denies any significant bleeding bruising No new unusual aches and pain Patient is anxious about bone marrow biopsy results PAST MEDICAL HISTORY: Hypertension Dyslipidemia Type 2 diabetes Coronary disease Peripheral vascular disease Prostate cancer COPD/emphysema History of nicotine addiction Skin cancer Esophageal stenosis/stricture ?? PAST SURGICAL HISTORY: Cholecystectomy Surgery for hiatal hernia repair Angioplasty with a stent ? SOCIAL HISTORY: Quit smoking in 2009, has 15-mqct-ktdt smoking history Denies any alcohol abuse, occasionally drink alcohol He used to work in [employer] ([employer] department) He is lives with his ?? FAMILY HISTORY: Mother had breast cancer, otherwise family history noncontributory Current Outpatient Medications: ??? aspirin EC 81 MG tablet, Take 1 tablet (81 mg total) by mouth daily., Disp: , Rfl: ??? atorvastatin (LIPITOR) tablet 20 mg, Take 1 tablet (20 mg total) by mouth daily., Disp: , Rfl: ??? dorzolamide (TRUSOPT) 2 % ophthalmic solution, 1 drop 3 (three) times a day., Disp: , Rfl: ??? glipiZIDE (GLUCOTROL XL) ER 24 hr tablet 10 mg, Take 1 tablet (10 mg total) by mouth daily., Disp: , Rfl: ??? losartan (COZAAR) tablet 50 mg, Take 1 tablet (50 mg total) by mouth daily., Disp: , Rfl: ??? predniSONE (DELTASONE) tablet 10 mg, Take by mouth 2 (two) times a day. For 6 days., Disp: , Rfl: ??? tamsulosin (FLOMAX) 0.4 MG CAPS, Take 1 capsule (0.4 mg total) by mouth daily., Disp: , Rfl: ??? timolol (TIMOPTIC) 0.5 % ophthalmic solution, Place 1 drop into both eyes 2 (two) times a day.,Disp: , Rfl: ??? verapamil (CALAN-SR) 120 MG CR tablet, Take 1 tablet (120 mg total) by mouth every night at bedtime., Disp: , Rfl: ??? clopidogrel (PLAVIX) 75 MG tablet, Take 1 tablet (75 mg total) by mouth daily., Disp: , Rfl: You are allergic to the following Date Reviewed: 05/29/2024 Allergen Reactions Amoxicillin Rash Penicillin G Rash Sulfa Antibiotics Rash PHYSICAL EXAM: BP 149/72 (BP Location: Left arm) Pulse 66 Temp 97.3 ??F (36.3 ??C) (Temporal) Wt 79.7 kg (175 lb 12.8 oz) SpO2 100% BMI 24.52 kg/m?? ECOG 0-1 APPEARANCE: Alert and oriented in no acute distress EYES: nonicteric sclera slightly pale conjunctiva ORAL CAVITY: No mucositis or thrush NECK: Neck supple, no significant adenopathy, HEART: normal S1 and S2 LUNG: clear to auscultation bilaterally LYMPH NODES: No palpable superficial adenopathy ABDOMEN: soft, nontender and no organomegaly appreciated EXTREMITIES: No petechiae ecchymosis or purpura LABS: WBC 2.6, hemoglobin 10.6 g, hematocrit 32.2%, MCV 97.6 and platelet count 1 10,000 Bone marrow biopsy done last week showed not enough particle to make slides but on aspirate slides,it is difficult to make definitive diagnosis, though flow cytometry showed, there is no increase inblasts (supported by CD34) and no monotypic B-cell or aberrant T-cell population. Patient specimen was sent for NGS IMPRESSION: SNOMED CT(R) 1. Macrocytic anemia MACROCYTIC ANEMIA 2. Other pancytopenia (HCC) PANCYTOPENIA Patient is a pleasant 78-year-old man who has mild to moderate microcytic anemia some pancytopenia,underwent bone marrow biopsy last week, unfortunately bone marrow core biopsy particle were not enough/sufficient but bone marrow aspirate suggest myeloid disease but not enough blast to have any acute issues, patient specimen was sent by Dr. Cortes for NGS and further studies will be waiting for those studies, in the meantime I will rule out possibility of PNH/paroxysmal nocturnal hemoglobinuria (though less likely) I will see patient in next 2 to 3- week for further intervention, if needed PLAN: We will wait for final bone marrow biopsy result/NGS I will send labs for PNH, CD56, CD59, along with CBC and EPO and I will see patient in next 2 to 3-week Daija Monk MD documented in this encounter Plan of Treatment Upcoming Encounters Date Type Department Care Team (Late st Contact Info) Description 12/22/2025 10:45 AM EDT Office Visit Pulmonology - [place] [address] [facility] [address] [place] [phone] David Dallas MD [address] [place] [phone] 12/30/2025 10:30 AM EDT Office Visit [facility] Hematology Oncology [address] [place] [phone] Daija Monk MD [address] [place] [phone] documented as of this encounter Procedures Procedure Name Priority Date/Time Associated Diagnosis Comments ..MISCELLANEOUS REFERENCE LAB TEST 05/29/2024 documented in this encounter Results * Miscellaneous reference lab test (05/29/2024) us Provider Onbase LAB BLOOD ORDERABLES Final Re sult documented in this encounter Visit Diagnoses Not on filedocumented in this encounter Additional Health Concerns Infection Onset Date Last Indicated Resolved Time Respiratory Rule-Out 03/08/2025 03/08/2025 025 9:50 AM EDT COVID-19 Rule-Out 03/08/2025 03/08/2025 03/08/2025 9:50 AM EDT documented as of this encounter Care Teams Belt Tender Relationship Specialty Start Date End Date Dariel Hart NP [address] [place], [place] PCP - General 12/16/19 03/12/25 documented as of this encounter
--- OUTSIDE RECORDS SUMMARY | 2024-06-19 09:12 | XMS_ITS | Encounter Summary ---
Author Organization [facility] [place] [address] Care Team Providers Care Computer Architect Name Role Phone Dariel Hart NP Primary Care Provider Encounter Details Date Type Department Care Team (Late st Contact Info) Description 06/19/2024 10:12 AM EDT Hospital Encounter TH HISTORIC ENCOUNTERS EASTERN CONVERSION ONLY Daija Monk MD [address] [place] [phone] Social History Tobacco Use Types Packs/Day Years [...] 7:07 AM EDT Kurtis Briggs RN * [place] Suicide Severity Rating Scale (Screener/Recent Self-Report) Question [...] SOCIAL HISTORY: Quit smoking in 2009, has [id number] smoking history Denies any alcohol abuse, occasionally drink alcohol He used to work in [employer] ([employer] department) He is lives with his ?? [...] 12/22/2025 10:45 AM EDT Office Visit Pulmonology [facility] 175 [facility] [address] [place] [phone] David Dallas MD [address] [place] [address] 12/30/2025 10:30 AM EDT Office Visit [facility] Hematology Oncology [address] [place] [phone] Daija Monk MD [address] [place] [address] documented as of this encounter Procedures Procedure [...] documented as of this encounter Care Teams Computer Architect Relationship Specialty Start Date End Date Dariel Hart NP [address] [place], [place] PCP - General 12/16/19 03/12/25 documented as of this encounter
--- OUTSIDE RECORDS SUMMARY | 2025-06-11 05:30 | XMS_ITS ---
Author Organization [facility] Address [address] [place] [address] Care Team Providers Care Independent Sales Representative Name Role Phone Dariel Russell Primary Care Provider Unav ailable Desire Zaman Unavailable [phone] Encounters Encounter Location Date Provider Diagnosis [address] [address] 06/11/2025 Desire Austyn Plan Of Treatment Next Appt Details Provider Name:Desire Zaman , 12/07/2025 11:15:00 AM, [address] [place] [address], [phone], Progress Notes * Graham CASTILLO FDOB:1945 (79 yo M)Acc No.[id number]:06/11/2025 Progress Notes Patient: Graham GUTIERREZ Provider: Dustin Zaman DPM :1945 A ge:79 Y S ex:Male Date:06/11/2025 Address:[address] [place], [place] [phone] Pcp:SHANELL Mensah Subjective: * Chief Complaints: * [...] Date: 1 Generated for Rocky hayes/Patricia/Altagracia on: 10/12/2024 01:33 PM EST
--- OUTSIDE RECORDS SUMMARY | 2025-07-16 06:15 | XMS_ITS ---
Author Organization [facility] Address [address] [place] [address] Care Team Providers Care Pharmacovigilance Specialist Name Role Phone Dariel Russell Primary Care Provider Unav ailable Desire Zaman Unavailable [phone] Encounters Encounter Location Date Provider Diagnosis [address] [address] 07/16/2025 Desire Austyn Plan Of Treatment Next Appt Details Provider Name:eDsire Zaman , 12/07/2025 11:15:00 AM, [address] [place] [address], [phone], Progress Notes * Graham CASTILLO FDOB:1945 (79 yo M)Acc No.[id number]:07/16/2025 Progress Note Patient: Graham GUTIERREZ Provider: Dustin Zaman DPM :1945 A ge:79 Y S ex:Male Date:07/16/2025 Address:[address] [place], [place] [id number] Pcp:SHANELL Mensah Subjective: * Chief Complaints: * * Medical History: Objective: * Vitals: Assessment: Plan: * Treatment: * Images: * The named appointment provid er may or may not be the originator of this progress note, and it is not deemed complete until electronically signed by the appointment provider. Sign off status: Pending * Provider: Dustin Zaman DPM Date: 1 09/15/2024 Generated for Rocky hayes/Patricia/Altagracia on: 10/12/2024 01:33 PM EST
--- NOTE | 2025-08-11 10:57 | A.OFFVIS_ITS ---
Intake Visit Reasons: 6 mo Art & Abd US 07/01/25 Intake Note: Patient presents for 6 month follow up arterial/ABD US. Patient has no complaints. Accompanied by: Unknown Allergies amoxicillin Allergy (Unknown, Verified 08/11/25 11:00) Unknown clindamycin Allergy (Unknown, Verified 08/11/25 11:00) heart burn penicillin G Allergy (Unknown, Verified 08/11/25 11:00) Unknown sulfacetamide (From Sulfacet-R) Allergy (Unknown, Verified 08/11/25 11:00) Unknown sulfur (From Sulfacet-R) Allergy (Unknown, Verified 08/11/25 11:00) Unknown tetracycline Allergy (Unknown, Verified 08/11/25 11:00) Unknown HPI HPI 6 mo Art & Abd US 07/01/25: Details: The patient is an 79 year old male presenting with a six-month follow-up for peripheral artery disease. He underwent iliac stent placement in October 2023, after which he experienced a definite improvement in his symptoms. Prior to the procedure, he had severe claudication and could barely walk. Currently, his symptoms are stable. He can walk about a block and manages shopping by using a cart and taking brief rests when he gets tired. Recently, he had an ingrown toenail operated on which reportedly healed well, suggesting adequate circulation. The patient uses an electric pedlar machine for exercise at home. He now presents for follow-up with noninvasive arterial testing [facility] Medical History Skin lesion of left leg Clonal cytopenia of undetermined significance (CCUS) Pancytopenia Esophageal stenosis Hyponatremia Prostate cancer Malignant neoplasm of skin Arteriolosclerosis COPD (chronic obstructive pulmonary disease) Esophageal stricture Benign familial tremor PVD (peripheral vascular disease) Dyslipidemia Elevated PSA RBBB Pulmonary emphysema Diabetes HTN (hypertension) Surgical History S/P angioplasty with stent (11/14/23) History of cholecystectomy History of hernia surgery Family History Father No problems noted. Mother No problems noted. Daughter No problems noted. Daughter No problems noted. Social History Housing: House Alcohol intake: current Patient Tobacco Use Status: Former Tobacco user Years Smoked: 9 years ago e-Cigarette/Vaping Use: Never Used Second Hand Smoke Exposure: No service: Yes Current occupational status: retired Current occupational exposures/hazards: No Cognitive needs: No Hearing needs: No Vision needs: No Review of Systems Const All systems reviewed & are unremarkable except as noted in HPI and below Reports no additional complaints ENT Reports Normal hearing present Card Denies chest pain, Denies chest pain at rest, Denies chest pain with activity and Denies pedal edema Resp Denies cough GI Denies abdominal pain Musc Denies abnormal gait, Denies muscle cramps and Denies radiating pain into limb Skin/Breast Denies skin ulcer and Denies wounds Neuro Reports Normal hearing present and Denies abnormal gait Psych Reports no additional complaints Physical Exam Const General: cooperative, healthy appearing and comfortable Orientation/consciousness: oriented to person, oriented to place and oriented to time HEENT Head: Yes normal to inspection Neck Neck: Yes normal visual inspection Carotids: no bruits Chest Chest palpation & inspection: normal inspection of the chest Resp Effort & Inspection: normal respiratory effort and able to speak in complete sentences Auscultation: clear to auscultation bilaterally, no crackles, no rales, no rhonchi and no wheezes Cardio Other: Bilateral DP signals Rate: regular rate Rhythm: regular rhythm Heart sounds: S1 normal heart sound present and S2 normal heart sound present Bruits: no carotid bruits Peripheral pulses: Peripheral pulses 2+ throughout GI Inspection: Yes normal to inspection Skin Wounds: no wounds Hair: normal Neuro General: oriented to person, oriented to place and oriented to time Cranial nerves: Yes CN's II-XII intact bilaterally and Yes Normal hearing present Cognition (Neuro): normal cognition Motor exam (neuro): 5/5 motor strength present throughout Extrem Other: venous exam: No significant superficial varicosities or spider telangiectasias, minimal edema General: No clubbing, No cyanosis and No edema Psych Appearance: grossly normal Mental Status: mental status grossly normal Speech and movement: Normal speech and movement present Results Reviewed Results Reviewed: Arterial testing dated 07/01/2025 demonstrates BETTINA on the right of 0.47 and on the left of 0.59. Iliac ultrasound demonstrated patent stents. Written report and images were reviewed Assessment & Plan Assessment & Plan (1) PAD (peripheral artery disease): Comment: 11/14/2023 - bilateral iliac artery stent Code(s): I73.9 - Peripheral vascular disease, unspecified Category: Medical Plan: In short patient has stable claudication. He continues to function well and is able to carry out activities of daily living. I did review the pathophysiology of peripheral vascular disease with the patient. In addition we did discuss routine conservative measures including a healthy diet and the importance of exercise and ambulation. We did discuss risk factor modification. The patient will continue to to follow-up with surveillance follow-up in approximately 1 year. Thank you for allowing us to participate in this patient's care. If there are any questions or concerns please do not hesitate to contact us. Orders: Orders US abdominal aortic aneurysm 1 Year I73.9 - Peripheral vascular disease, unspecified US arterial duplex LE BI 1 Year I73.9 - Peripheral vascular disease, unspecified Coding Level of Care Code Est Pt Level 4 (92041) Diagnoses PAD (peripheral artery disease) I73.9
--- OUTSIDE RECORDS SUMMARY | 2025-08-11 13:33 | XMS_ITS | Clinical Summary ---
Author Organization [facility] Prior to 01/24/[address] [place] [id number] Care Team Providers Care Iron Assorter Name Role Phone Dariel Hart Primary Care Provider [phone] Allergies Active Allergy Reactions Criticality Noted Date [...] age to complete this topic Care Teams Iron Assorter Relationship Specialty Start Date End Date Dariel Hart [address] [place], [place] [phone] PCP - General Family Medicine 01/18/24
--- OUTSIDE RECORDS SUMMARY | 2025-08-11 13:33 | XMS_ITS | Clinical Summary ---
Author Organization [facility] Address [address] [place] [address] Phone Care Team Providers Care Shower Attendant Name Role Phone Dariel Hart NP Primary Care Provider [phone] Allergies Active Allergy Reactions Criticality Noted Date Comments Beck Inhibitors Unknown 10/06/2019 Amoxicillin-Pot Clavulanate 07/31/20 11 Penicillins Rash 04/06/2009 Sulfa (Sulfonamide Antibiotics) Swelling 07/29 Tetracyclines 07/31/2011 Medications atorvastatin (LIPITOR) 20 mg tablet Take 1 Tab by mouth daily. 9 Active losartan (COZAAR) 100 mg tablet Take [...] wheezing or shortness of breath. 8.5 g 5 03/09/20 26 Active fluticasone-ume clidinium-vilan terol (Trelegy Ellipta) 100-62.5-25 mcg inhaler Inhale 1 puff (100 mcg total) by mouth 1 (one) time each day. Rinse mouth with water after use to reduce aftertaste and incidence of candidiasis. Do not swallow. 1 each 5 03/16/20 26 Active timoloL maleate 0.5 % drops, once daily Administer into both eyes 2 (two) times a day. Active cyanocobalamin (VITAMIN B-12) 500 mcg tablet Take 1 tablet (500 mcg total) by mouth 1 (one) time each day. Active omeprazole (PriLOSEC) [address] capsule TAKE 1 CAPSULE BY MOUTH 1 TIME EACH DAY. DO NOT CRUSH OR CHEW. 90 capsule 1 5 Active Active Problems Problem Noted Date Diagnosed Date COPD exacerbation 03/08/2025 Proteinuria 10/15/2019 Hypotension 10/15/2019 Cough 10/15/2019 Chronic kidney disease, stage 3 10/15/2019 Asthmatic bronchitis 10/06/2019 Type 2 diabetes mellitus with vascular disease 0 10/04/2018 Elevated PSA 10/04/2018 Overview (08/08/2024): 06/2018 5.0; [facility]; Nocturia/retention Colon polyps 10/04/2018 Type 2 diabetes mellitus with cataract 8 Peripheral vascular disease 05/27/2018 Hypertension 05/27/2018 Hyperlipidemia 05/27/2018 Arteriosclerosis of carotid artery 05/27/2018 Right bundle branch block (RBBB) 01/16/2018 Chronic obstructive pulmonary disease 01/16/2018 Benign familial tremor 09/13/2017 Allergic rhinitis 04/19/2017 Irritable bowel syndrome 02/25/2016 ED (erectile dysfunction) 09/01/2015 Cataract 09/26/2011 Encounters Date Type Department Care Team Description 06/30/2025 10:15 AM EST Office Visit [facility] Hematology Oncology [address] [place] [phone] Daija Monk MD Pancytopenia (CMS/HCC V24, CMS/HCC V28) (Primary Dx) 06/18/2025 9:15 AM EDT Office Visit Pulmonology - [place] [facility] [address] [place] [phone] David Dallas MD Chronic obstructive pulmonary disease, unspecified COPD type (CMS/HCC V24, CMS/HCC V28) (Primary Dx) 05/28/2025 Results Follow-Up Gastroenterology - [place] 175 [facility] [address] [phone] Oralia Gutierrez MA from Last 3 Months Immunizations Immunization Administration [...] dilated Dr. Norwood ESOPHAGOGASTRODUODENOSCOPY 06/27/2018 - 07/26/[address] Norwood ESOPHAGOGASTRODUODENOSCOPY 04/27/2019 - 05/26/[address] Norwood ESOPHAGOGASTRODUODENOSCOPY 09/27/2024 - 10/24/2024 Benign-appearing esophageal stenosis dilated otherwise unremarkable Dr. Norwood Medical History Medical History Date Comments Allergic rhinitis 04/19/2017 DX:Allergic rh initis Arteriosclerosis of carotid artery 05/27/2018 DX:Arteriosclerosis of carotid artery Benign familial tremor 09/13/2017 DX:Benign familial tremor Cataract 09/26/2011 DX:Cataract Chronic obstructive pulmonar y disease ([facility] V24, [facility] V28) 01/16/2018 DX:Chronic obstructive pulm onary disease [...] DX:Irri table bowel syndrome Peripheral vascular disease ([facility] V24) 05/27/2018 DX:Peripheral vascular disea se (HCC) Right bundle branch block (RBBB) 01/16/2018 DX:Right bundle branch block (RBBB) Type 2 diabetes mellitus wit h cataract ([facility] V24, [facility] V28) 05/27/2018 DX:Type 2 diabetes mellitus with cataract (HCC) Type 2 diabetes mellitus wit h vascular disease ([facility] V24, [facility] V28) 10/04/2018 DX:Type 2 diabetes mellitus with vascular disease (HCC) Diabetes mellitus ([facility] V 24, [facility] V28) DX:Diabetes mellitus (HCC) Hypertension DX:Hypertension Prostate cancer ([facility] V24 , [facility] V28) DX:Prostate cancer (HCC) Family History Medical [...] PM EST Sexual Orientation Not on file Last Filed Vital Signs [...] 10:45 AM EDT Office Visit Pulmonology - [place] 175 [facility] [address] [place] [phone] David Dallas MD [address] [place] [phone] 12/30/2025 10:30 AM EDT Office Visit [facility] Hematology Oncology [address] [place] [phone] Daija Monk MD [address] [place] [address] Health Maintenance Due Date Last Done Comments [...] DEHYDROGENASE Routine 06/23/2025 11:19 AM EDT Pancytopenia ([facility] V24, [facility] V28) CBC AND DIFFERENTIAL Routine 06/23/2025 11:19 AM EDT Pancytopenia ([facility] V24, [facility] V28) COMPREHENSIVE METABOLIC PANEL STAT 03/08/2025 7:26 AM EDT HM URINE ALBUMIN CREATININE RATIO Routine 10/15/2019 HEMOGLOBIN A1C Routine 10/10/2019 LIPID PANEL Routine 10/10/2019 from Last 3 Months or Most Recently Relevant to Health Maintenance Results * (ABNORMAL) CBC auto differential (06/23/2025 11:19 AM EDT) [facility] WBC 3.3(L) 4.8 - 10.8 K/mcL LAB H[facility]OLOGY [facility] RBC 3.30(L) 4.50 - 5.50 M/mcL LAB HEMETOLOGY METHOD 06/23/2025 12:20 PM [facility] Hemoglobin 11.1(L) 13.5 - 17.5 g/dL LAB HEMETOLOGY METHOD 06/23/2025 12:20 PM [facility] Hematocrit 32.3(L) 42.0 - 54.0 % LAB HEMETOLOGY METHOD 06/23/2025 12:[facility] MCV 99.1(H) 79.0 - 98.0 FL LAB HEMETOLOGY METHOD 06/23/2025 12:20 PM [facility] MCH 34.0(H) 27.0 - 32.0 pcg LAB HEMETOLOGY METHOD 06/23/2025 12:20 PM [facility] MCHC 34.4 32.0 - 37.0 g/dL LAB HEMETOLOGY METHOD 06/23/2025 12:20 PM EDT [facility] RDW 13.1 11.0 - 15.0 % LAB HEMETOLOGY METHOD 06/23/2025 12:20 PM [facility] Platelets 101(L) 130 - 400 K/mcL LAB HEMETOLOGY METHOD 06/23/2025 12:20 PM EDT [facility] MPV 10.8 7.0 - 11.0 FL LAB HEMETOLOGY METHOD 06/23/2025 12:20 PM [facility] NRBC 0.0 <1.0 % LAB HEMETOLOGY METHOD 06/23/2025 12:20 PM [facility] NRBC Absolute 0.00 <0.10 K/mcL LAB HEMETOLOGY METHOD 06/23/2025 12:20 PM [facility] Neutrophils Relative 76.7 % LAB HEMETOLOGY METHOD 06/23/2025 12:20 PM [facility] Lymphocytes Relative 12.4 % LAB HEMETOLOGY METHOD 06/23/2025 12:20 PM [facility] Monocytes Relative 8.2 % LAB HEMETOLOGY METHOD 06/23/2025 12:20 PM [facility] Eosinophils Relative 1.5 % LAB HEMETOLOGY METHOD 06/23/2025 12:20 PM [facility] Basophils Relative 0.6 % LAB HEMETOLOGY METHOD 06/23/2025 12:20 PM EDT [facility] Immature Granulocytes Relative 0.6 % LAB HEMETOLOGY METHOD 06/23/2025 12:20 PM [facility] Neutrophils Absolute 2.54 1.50 - 7.00 K/mcL LAB HEMETOLOGY METHOD 06/23/2025 12:20 PM EDT [facility] Lymphocytes Absolute 0.41(L) 1.00 - 5.00 K/mcL LAB HEMETOLOGY METHOD 06/23/2025 12:20 PM EDT [facility] Monocytes Absolute 0.27 0.20 - 1.00 K/mcL LAB HEMETOLOGY METHOD 06/23/2025 12:20 PM EDT [facility] Eosinophils Absolute 0.05 0.00 - 0.50 K/mcL LAB HEMETOLOGY METHOD 06/23/2025 12:20 PM EDT [facility] Basophils Absolute 0.02 0.00 - 0.20 K/mcL LAB HEMETOLOGY METHOD 06/23/2025 12:20 PM EDT [facility] Immature Granulocytes Absolute 0.02 0.00 - 0.03 K/mcL LAB HEMETOLOGY METHOD 06/23/2025 12:20 PM EDT [facility] Blood Venous blood specimen / Unknown Venipuncture / Unknown 06/23/2025 11:19 AM EDT 06/23/2025 11:58 AM EDT Daija Monk MD LAB BLOOD ORDERABLES Final R esult [facility] [address] [place] [address], * Paroxysmal nocturnal hemoglobinuria with high sensitivity (06/23/2025 11:19 AM EDT) Pathologist SEEBELTAMELA 2:54 PM EDT [facility] Comment: This test was developed and its performance characteristics determined by [facility]. It has not been cleared or approved by the U.S. Food and Drug Administration. The FDA has determined that such clearance or approval is not necessary. Interpretation No flow cytometric evidence of PNH. 10/30/202 5 2:54 PM EDT [facility] Source Peripheral blood 5 2:54 PM EDT [facility] Comment See Below 2:54 PM EDT [facility] Comment: RESULT: No evidence of [...] in <.003% of normal neutrophils. References: 1. Maryam Jackson., et al; Guidelines for the diagnosis and [...] Detection. Cytometry Part B (Clinical Cytometry) 86B:44-55 (2014). Antibodies CD15, CD45, CD64, CD157, FLAER 5 2:54 PM EDT [facility] Comment: Test performed at [facility], [address] , [place] [address] Blood Venous blood specimen / Unknown Venipuncture / Unknown 06/23/2025 11:19 AM EDT 06/23/2025 11:58 AM EDT Daija Monk MD LAB BLOOD ORDERABLES Final R esult [facility] [address] [place] [address] * Lactate dehydrogenase (06/23/2025 11:19 AM EDT) [facility] LDH 181 120 - 246 unit/L LAB CHEMISTRY METHOD 06/23/2025 2:00 PM EDT [facility] Blood Venous blood specimen / Unknown Venipuncture / Unknown 06/23/2025 11:19 AM EDT 06/23/2025 11:58 AM EDT Daija Monk MD LAB BLOOD ORDERABLES Final R esult Performing Organization Address City/[facility]/ZIP Co de Phone Number [facility] [address] [place] [address], [place] [phone] * (ABNORMAL) Comprehensive metabolic panel (03/08/2025 7:26 AM EDT) [facility] Sodium 134 133 - 145 mmol/L LAB [...] unit/L LAB CHEMISTRY METHOD 03/08/2025 8:37 AM [facility] Comment:Hemolysis present ALT (SGPT) 21 10 - 60 unit/L LAB CHEMISTRY METHOD 03/08/2025 8:37 AM [facility] Alkaline Phosphatase 66 42 - 121 unit/L LAB CHEMISTRY METHOD 03/08/2025 8:37 AM [facility] Total Protein 7.2 6.0 - 8.0 g/dL LAB CHEMISTRY METHOD 03/08/2025 8:37 AM [facility] Albumin 4.2 3.2 - 5.0 g/dL LAB CHEMISTRY METHOD 03/08/2025 8:37 AM [facility] Total Bilirubin 1.4 0.0 - 1.4 mg/dL LAB CHEMISTRY METHOD 03/08/2025 8:37 AM [facility] Blood Venous blood specimen / Unknown Venipuncture / Unknown 03/08/2025 7:26 AM EDT 03/08/2025 7:57 AM EDT us Ed Nj MD LAB BLOOD ORDERABLES Final Result [facility] [address] [place] [address], * HM Urine Albumin Creatinine Ratio (10/15/2019) Urine Albumin Creatinine Ratio Abstracted Historical Provider HEALTH MAINTENANCE Final Result * Hemoglobin A1c (10/10/2019) Hemoglobin A1C 6.3 <=6.5 % Blood Venous blood specimen / Unknown [facility] Provider LAB BLOOD ORDERABLES Scarlett l Result * Lipid panel (10/10/2019) LDL/HDL Ratio 2 0 - 4 Triglycerides 149 0 - 150 mg/dL Cholesterol 145 0 - 200 mg/dL HDL 69 >=40 mg/dL LDL Cholesterol 47 0 - 100 mg/dL Blood Venous blood specimen / Unknown [facility] Provider LAB BLOOD ORDERABLES Scarlett l Result [...] currently active code status orders. Care Teams Shower Attendant Relationship Specialty Start Date End Date Dariel Hart NP [address] [place] [address] PCP - General Family Medicine 03/13/25
--- OUTSIDE RECORDS SUMMARY | 2025-08-11 13:33 | XMS_ITS | Patient Health Record ---
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 Name Role Phone Dariel Russell Primary Care Provider Unav ailable Black, Desire Unavailable [phone] Allergies Allergen (clinical drug ingredient) Drug/Non Drug [...] Lab: Notes/Report: HEMOGLOBIN A1C % (HH) 10.8 HEMOGLOBIN A1C (GLYCOHEMOGLO BIN) Reviewed date:07/30/2025 10:09:15 AM Interpretation: Performing Lab: Notes/Report: HEMOGLOBIN A1C % (HH) 6.5 Reason For Referral Diagnosis 1 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) Diagnosis 2 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, bilateral legs (I70.203) Diagnosis [...] Dariel Referring Provider Last Name Hailey Referred Organization [facility] Referred Provider Desire Zaman Referred Address [address] [place], [place],[address], Referred Provider Specialty Podiatry Referral Priority Routine Medications Medication SIG (Take, Route, Frequency, Duration) Notes Start Date End Date Status Probiotic - as directed Orally Not-Taking Flomax Active Ophthalmic Irrigation Solution Active Doxycycline Monohydrate 100 MG 1 capsule Orally Once a day; Duration: 10 days 05/01/2024 Not-Taking Ammonium Lactate 12 % 1 application Externally to affected areas of dry skin to feet except for between the toes Twice a day; Duration: 30 days Active Plavix 75 MG 1 tablet Orally Once a day Not-Taking Yordan Aspirin EC Low Dose Active Timolol Maleate 6.8 1 drop into affected eye Ophthalmic Active PreserVision AREDS A ctive dexAMETHasone 0.75 MG 1 tablet Orally ev js 12 hrs; Duration: 30 day(s) Not-Taking glipiZIDE 10 MG 1 tablet 30 minutes before breakfast Orally Once a day Active Lisinopril Not-Takin g Trelegy Ellipta 100-62.5-25 MCG/ACT 1 puff Inhalation Once a day Active Extra Depth Orthopedic Shoes (1 Pair) with Customized Heat Molded Multidensity Innersoles (3 Pair) as directed Dx: NIDDM/Polyneuropathy (E11.42), Hammertoe Foot Deformity (M20.41,M20.42), Preulcerative Skin Lesion(s) (L85.1 09/16/2020 Not-Taking Verapamil HCl ER 120 MG TAKE 1 TABLET BY MOUTH EVERYDAY AT BEDTIME Oral; Duration: 90 Days Not-Taking Atorvastatin Calcium 20 MG Orally Active Clindamycin HCl Not- Taking Losartan Potassium 50 MG 1 tablet Orally Once a day; Duration: 30 day(s) Active Cilostazol 50 MG 1 tablet 30 minutes before or 2 hours after breakfast and dinner Orally Twice a day Not-Taking Aspir-81 Active Enstilar 0.005-0.064 % 1 application Externally Once a day Not-Taking hydroCHLOROthiazide 12.5 MG as directed Orally Once a day Active Medrol 4 MG as directed Orally a s directed; Duration: 6 days 03/29/2021 Not-Taking Immunizations Vaccine Route Administration Date Status [...] atherosclerosis of arteries of lower limbs (disorder) ([id number] ) 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, 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 Problem Polyneuropathy due to type 2 diabetes mellitus (374639145) Type 2 diabetes mellitus with diabetic polyneuropathy (E11.42) Active confirmed Vital Signs Blood pressure diastolic 73 mm Hg 07/30/2025 Height 5 ft 11 in in 07/30/2025 Blood pressure systolic 130 mm Hg 07/30/2025 Weight 186 lbs 07/30/2025 BMI 25.94 kg/m2 07/30/2025 Procedures Procedure Date Ordered Date Performed Result Body Sit e 25459 I&D ABSCESS- SIMPLE,SINGLE 10/27/2024 N/A 60453-KJGJ SKIN LESIONS, 2 TO 4 10/27/2024 N/A F5185-USFPISEZ DYSTROPHIC NAILS ANY # 10/27/2024 N/A 58640- Debride <25 sq cm 11/13/2024 N/A 69088-Ghbbvfal Plate 03/26/2025 N/A 05436-FCGC SKIN LESIONS, 2 TO 4 03/26/2025 N/A Q6816-UAOZSNMG DYSTROPHIC NAILS ANY # 03/26/2025 N/A 88212- Debride <25 sq cm 06/15/2025 N/A 88763-UZOJ SKIN LESIONS, 2 TO 4 07/30/2025 N/A D9170-ULKROJVE DYSTROPHIC NAILS ANY # 07/30/2025 N/A Encounters Encounter Location Date Provider Diagnosis [address] [address] 10/27/2024 Desire Black Pain in right foot M79.671 ; Hallux valgus (acquired), right foot M20.11 ; Type 2 diabetes mellitus with diabetic polyneuropathy E11.42 ; 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, bilateral legs I70.203 ; Pain in right ankle and joints of right foot M25.571 ; Bursitis of right foot M77.51 ; Xerosis of skin L85.3 and Abscess of toe, right L02.[address] [address] 11/13/2024 Desire Black Skin ulcer of toe of right foot, limited to breakdown of skin L97.511 ; Type 2 diabetes mellitus with diabetic polyneuropathy E11.42 and 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, bilateral legs I70.[address] [address] 03/26/2025 Desire Black Type 2 diabetes mellitus with diabetic polyneuropathy E11.42 ; 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, bilateral legs I70.203 ; Ingrown nail L60.0 and Xerosis of skin L85.[address] [address] 05/27/2025 Desire Black Abscess of toe, righ t L02.[address] [facility] [address] 06/15/2025 Desire Black Skin ulcer of toe of right foot, limited to breakdown of skin L97.[address] [address] 07/30/2025 Desire Black Type 2 diabetes mellitus with diabetic polyneuropathy E11.42 and 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 pdf (WOUND CARE INSTRUCTIONS. 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, bilateral legs (ICD-10 - [...] X ray : Foot, right 3V 06/29/2016 16786-Cednlykh Plate 02/05/2023 02253-Fyxgirtq Plate 11/21/2023 87524-Qijjuket Plate 06/30/2024 14198-Zuyrolud Plate 03/26/2025 41614-Gyyrmcpq Plate Each Additional 14547- Debride <25 sq cm 03/27/2024 45524- Debride <25 sq cm 05/15/2024 99375- Debride <25 sq cm 04/12/2023 52135- Debride <25 sq cm 12/06/2023 56789- Debride <25 sq cm 03/13/2024 64816- Debride <25 sq cm 05/29/2022 86446- Debride <25 sq cm 06/12/2022 77741- Debride <25 sq cm 04/30/2015 80622- Debride <25 sq cm 12/29/2015 96487- Debride <25 sq cm 06/29/2016 96146- Debride <25 sq cm 08/09/2020 10115- Debride <25 sq cm 09/16/2020 46621- Debride <25 sq cm 06/15/2025 97546- Debride <25 sq cm 11/13/2024 56363 I&D ABSCESS- SIMPLE,SINGLE 025 91626 I&D ABSCESS- SIMPLE,SINGLE 023 96147 I&D ABSCESS- SIMPLE,SINGLE 022 39404-ATTF SKIN LESIONS, 2 TO 4 09/05/19 22 42497-XSNB SKIN LESIONS, 2 TO 4 03/09/20 22 37471-AMHW SKIN LESIONS, 2 TO 4 02/06/20 23 37465-HAML SKIN LESIONS, 2 TO 4 10/02/19 23 47751-KGRQ SKIN LESIONS, 2 TO 4 05/29/20 22 83065-PQCU SKIN LESIONS, 2 TO 4 03/13/20 24 21090-FPMJ SKIN LESIONS, 2 TO 4 06/07/20 23 40622-XXKB SKIN LESIONS, 2 TO 4 11/21/19 24 59769-TPOW SKIN LESIONS, 2 TO 4 06/30/20 24 80661-GNIN SKIN LESIONS, 2 TO 4 10/28/19 25 04801-ULKF SKIN LESIONS, 2 TO 4 09/16/19 21 34237-BGCB SKIN LESIONS, 2 TO 4 09/01/19 20 28285-GWFX SKIN LESIONS, 2 TO 4 03/08/20 20 97575-PLZX SKIN LESIONS, 2 TO 4 04/11/20 94380-MBGP SKIN LESIONS, 2 TO 4 06/10/20 20 71289-VUEZ SKIN LESIONS, 2 TO 4 12/10/19 21 01409-KYMJ SKIN LESIONS, 2 TO 4 12/29/19 17 09495-IUJX SKIN LESIONS, 2 TO 4 06/29/20 16 71732-YNIN SKIN LESIONS, 2 TO 4 09/24/19 18 89975-ODJH SKIN LESIONS, 2 TO 4 03/25/20 18 96653-TFJQ SKIN LESIONS, 2 TO 4 09/23/19 19 21077-HPBH SKIN LESIONS, 2 TO 4 03/03/20 19 78184-LLUY SKIN LESIONS, 2 TO 4 03/26/20 25 51935-KAMA SKIN LESIONS, 2 TO 4 07/30/20 25 60624-IYDE SKIN LESION 04/30/2015 63557-Emdy. Subungual Hematoma 78738-ZFNS NAIL(S) 05/29/2022 89743-UEWN NAIL(S) 10/02/2022 65713-TUVU NAIL(S) 02/05/2023 85532-BRPW NAIL(S) 03/09/2022 31472-OKDK NAIL(S) 09/05/2021 34308-ADOC NAIL(S) 12/09/2020 14326-FPDH NAIL(S) 06/10/2020 97405-EVXV NAIL(S) 04/11/2021 41637-KBAR NAIL(S) 03/08/2020 47048-MPGI NAIL(S) 09/16/2020 X8964-ZBIZXESO DYSTROPHIC NAILS ANY # C7327-MHIMNOMB DYSTROPHIC NAILS ANY # N6725-SPBMAEVX DYSTROPHIC NAILS ANY # B3463-XEIGYMAZ DYSTROPHIC NAILS ANY # U4579-AMRPCYSB DYSTROPHIC NAILS ANY # B6970-QRKTIKED DYSTROPHIC NAILS ANY # J5720-BHDTAMLT DYSTROPHIC NAILS ANY # V4119-UGXONUYK DYSTROPHIC NAILS ANY # T2095-QNIWHRUO DYSTROPHIC NAILS ANY # Y7973-CAMZKLWE DYSTROPHIC NAILS ANY # U1904-NPLAFLDL DYSTROPHIC NAILS ANY # W9111-GZKQOPCD DYSTROPHIC NAILS ANY # R3631-NHSMUEPW DYSTROPHIC NAILS ANY # V0169-HJZCERRZ DYSTROPHIC NAILS ANY # 74572-Yonidpxho, Toes 06/29/2016 CRP 03/29/2021 Next Appt Details Provider Name:Desire Bolton Austyn , 12/07/2025 11:15:00 AM, [address] [facility], [place], [address], Insurance Providers Payer Name Payer Address Payer Phone Subscriber Number Group Number Insured Name Patient Relationship to Insured Coverage Start Date Coverage End Date [facility] [address] [place] [phone] [id number] ShalondaGraham willoughby Self - patient is the insured Medical [...]
== END 2025-08-11 11:46 | disposition home or self-care (01) ==
LOC: HO.HVS 10:40
PROVIDERS: PCP Nurse Practitioner Family; Visit Provider Surgery Vascular Surgery
DX: I73.9 Peripheral vascular disease, unspecified (principal)
CPT/HCPCS: 99214

== ENCOUNTER → 2025-08-11 10:39 | Outpatient (BNVA) | payer MEDICARE, SELFPAY | PROVIDERS: PCP Nurse Practitioner Family; Visit Provider Surgery Vascular Surgery | DX: I73.9 Peripheral vascular disease, unspecified (principal) | CPT/HCPCS: 99212 ==